=== PATIENT | female | born 1950 | race Caucasian/White ===

== ENCOUNTER 2016-09-18 14:59 | Emergency (ER) | payer MEDICARE, BC ==
[2016-09-18 15:09] VITALS: TEMP 98.3
[2016-09-18] MEDS ORDERED: SODIUM CHLORIDE 0.9% 1,000 ML IV STA (15:17)
--- NOTE | 2016-09-18 15:21 | ED ---
General Adult HPI - General Source: patient, EMS, RN notes reviewed Mode of arrival: EMS Limitations: no limitations <Kuldeep Galdamez - Last Filed: 09/18/16 15:18> <Yoshi Lobato - Last Filed: 09/18/16 17:43> - General Chief complaint: ENT Stated complaint: med reaction Time Seen by Provider: 09/18/16 15:05 - History of Present Illness Initial comments: Patient is a pleasant 66-year-old female presenting to the emergency Department with some blurred vision. Patient was shopping and developed some blurred vision. Patient states this has improved and now resolved. Patient has felt lightheaded following taking her medication for ringworm. Patient states she has been taking a pill and this has resolved for ringworm. Patient has had increased stress recently. Patient states it was warm out and she was wearing a fleece as well as a warm coat. Patient questions if she overheated herself. No chest pain. No confusion. No weakness. (Kuldeep Galdamez) - Related Data Home Medications Medication Instructions Recorded Confirmed Atenolol [Tenormin] 50 mg PO DAILY 09/18/16 09/18/16 Phenytoin Sodium Extended 100 mg PO TID 09/18/16 09/18/16 [Dilantin] Warfarin Sodium [Jantoven] 2.5 mg PO SUTUTHSA 09/18/16 09/18/16 Warfarin Sodium [Jantoven] 3.75 mg PO MOWEFR 09/18/16 09/18/16 aMILoride-HCTZ 5-50 mg [Moduretic 1 tab PO DAILY 09/18/16 09/18/16 5-50] Allergies Allergy/AdvReac Type Severity Reaction Status Date / Time dexamethasone [From Maxitrol] Allergy FACE Verified 09/18/16 15:46 SWELLING neomycin [From Maxitrol] Allergy FACE Verified 09/18/16 15:46 SWELLING polymyxin B [From Maxitrol] Allergy FACE Verified 09/18/16 15:46 SWELLING Review of Systems ROS Other: All systems not noted in ROS Statement are negative. Constitutional: Denies: fever Eyes: Denies: eye pain ENT: Denies: ear pain Respiratory: Denies: cough Cardiovascular: Denies: chest pain Endocrine: Denies: fatigue Gastrointestinal: Denies: abdominal pain Genitourinary: Denies: dysuria Skin: Denies: pruritus Neurological: Denies: headache, weakness, confusion, abnormal gait <Kuldeep Galdamez - Last Filed: 09/18/16 15:18> ROS Other: All systems not noted in ROS Statement are negative. <LobatoLuis MiguelYoshi - Last Filed: 09/18/16 17:43> ROS Statement: Those systems with pertinent positive or pertinent negative responses have been documented in the HPI. Past Medical History Past Medical History: Hypertension Additional Past Medical History / Comment(s): epilepsy History of Any Multi-Drug Resistant Organisms: None Reported Past Surgical History: No Surgical Hx Reported Past Psychological History: No Psychological Hx Reported Smoking Status: Former smoker Past Alcohol Use History: None Reported Past Drug Use History: None Reported <Kuldeep Galdamez - Last Filed: 09/18/16 15:18> General Exam Limitations: no limitations General appearance: alert, in no apparent distress Head exam: Present: atraumatic Eye exam: Present: normal appearance, PERRL, EOMI, other (Funduscopic exam within normal limits bilaterally). Absent: nystagmus ENT exam: Present: normal oropharynx Neck exam: Present: normal inspection Respiratory exam: Present: normal lung sounds bilaterally Cardiovascular Exam: Present: normal rhythm, bradycardia GI/Abdominal exam: Present: soft. Absent: tenderness Extremities exam: Present: normal inspection Neurological exam: Present: alert, oriented X3, CN II-XII intact. Absent: motor sensory deficit Expanded Speech: Present: fluid speech Cranial nerves: EOM's Intact: Normal Sensory exam: Upper Extremity Light Touch: Normal, Lower Extremity Light Touch: Normal Motor strength exam: RUE: 5, LUE: 5, RLE: 5, LLE: 5 Eye Response: (4) open spontaneously Motor Response: (6) obeys commands Verbal Response: (5) oriented Psychiatric exam: Present: normal affect, normal mood Skin exam: Present: normal color <Kuldeep Galdamez - Last Filed: 09/18/16 15:18> EKG Findings - EKG Comments: EKG Findings:: Sinus bradycardia 53. NC 136. QRS 80. QT 436. QTc 409. Normal axis. Normal QRS. Normal ST-T. <Kuldeep Galdamez - Last Filed: 09/18/16 15:18> Medical Decision Making <Kuldeep Galdamez - Last Filed: 09/18/16 15:18> - Lab Data Result diagrams: 09/18/16 16:44 09/18/16 16:44 <Yoshi Lobato - Last Filed: 09/18/16 17:43> - Medical Decision Making The patient was signed out to me by Dr. Galdamez I reinterviewed the patient she stated that she was very hot while shopping and someone lit up in [facility] and she started to feel little lightheaded and her vision became a little bit blurred it was short lived and it is resolved and then resolved ever since. Patient states she also took her ringworm medicine in the daytime when she normally takes at night. Patient states they ringworm medicine always makes her dizzy so she thinks that also contributed to her symptoms. I talked with the patient about being possibly admitted to be observed she wanted to go home. The CAT scan was negative slight discharge the patient home. (Yoshi Lobato) - Lab Data Lab Results 09/18/16 09/18/16 Range/Units 16:44 16:44 WBC 7.6 (3.8-10.6) k/uL RBC 4.56 (3.80-5.40) m/uL Hgb 15.0 (11.4-16.0) gm/dL Hct 44.6 (34.0-46.0) % MCV 97.7 (80.0-100.0) fL MCH 32.9 (25.0-35.0) pg MCHC 33.7 (31.0-37.0) g/dL RDW 12.9 (11.5-15.5) % Plt Count 212 (150-450) k/uL Neutrophils % 58 % Lymphocytes % 25 % Monocytes % 11 % Eosinophils % 3 % Basophils % 1 % Neutrophils # 4.4 (1.3-7.7) k/uL Lymphocytes # 1.9 (1.0-4.8) k/uL Monocytes # 0.8 (0-1.0) k/uL Eosinophils # 0.2 (0-0.7) k/uL Basophils # 0.0 (0-0.2) k/uL Sodium 141 (137-145) mmol/L Potassium 4.2 (3.5-5.1) mmol/L Chloride 102 (98-107) mmol/L Carbon Dioxide 27 (22-30) mmol/L Anion Gap 12 mmol/L BUN 21 H (7-17) mg/dL Creatinine 0.71 (0.52-1.04) mg/dL Est GFR (MDRD) Af Amer >60 (>60 ml/min/1.73 sqM) Est GFR (MDRD) Non-Af >60 (>60 ml/min/1.73 sqM) Glucose 91 (74-99) mg/dL Calcium 9.0 (8.4-10.2) mg/dL Total Bilirubin 0.5 (0.2-1.3) mg/dL AST 37 H (14-36) U/L ALT 30 (9-52) U/L Alkaline Phosphatase 114 (38-126) U/L Total Protein 7.4 (6.3-8.2) g/dL Albumin 3.8 (3.5-5.0) g/dL Disposition <Kuldeep Galdamez - Last Filed: 09/18/16 15:18> Time of Disposition: 17:43 <Yoshi Lobato - Last Filed: 09/18/16 17:43> Clinical Impression: Lightheaded Disposition: HOME SELF-CARE Instructions: Lightheadedness (ED)
--- NOTE | 2016-09-18 16:43 | CT ---
EXAMINATION TYPE: CT brain wo con DATE OF EXAM: 09/18/2016 4:07 PM COMPARISON: Prior CT brain 31 May 2016 HISTORY: Patient complains of dizziness, blurry vision, and history of epilepsy. CT DLP: 983.1 mGycm Automated exposure control for dose reduction was used. FINDINGS: There is no acute intracranial hemorrhage, mass effect, or midline shift identified. The ventricles and sulci are within normal limits in size. Low-attenuation in the left parietal lobe is stable. The globes are intact and the visualized sinuses are clear. IMPRESSION: No acute intracranial hemorrhage, mass effect, or midline shift is seen.
[2016-09-18 16:58] LABS: Basophils % (A) 1 %; CH 32.4; CHCM 33.3; Eosinophils # (A) 0.2 k/uL (0-0.7); Eosinophils % (A) 3 %; HCT 44.6 % (34.0-46.0); Luc # (Auto) 0.22; Luc % (Auto) 3; Lymphocytes # (A) 1.9 k/uL (1.0-4.8); Lymphocytes % (A) 25 %; MCH 32.9 pg (25.0-35.0); MCHC 33.7 g/dL (31.0-37.0); MCV 97.7 fL (80.0-100.0); Mean Platelet Volume 7.1; Monocytes # (A) 0.8 k/uL (0-1.0); Monocytes % (A) 11 %; Neutrophils # (A) 4.4 k/uL (1.3-7.7); Neutrophils % (A) 58 %; RBC 4.56 m/uL (3.80-5.40); RDW 12.9 % (11.5-15.5); WBC 7.6 k/uL (3.8-10.6); WBC (Perox) 7.83
[2016-09-18 17:15] LABS: ALT 30 U/L (9-52); AST 37 U/L (14-36); Alkaline Phosphatase 114 U/L (38-126); Anion Gap 12 mmol/L; Blood Urea Nitrogen 21 mg/dL (7-17); Carbon Dioxide 27 mmol/L (22-30); Chloride 102 mmol/L (98-107); Glucose 91 mg/dL (74-99); Non-African American GFR(MDRD) >60 (>60 ml/min/1.73 sqM); Potassium 4.2 mmol/L (3.5-5.1); Sodium 141 mmol/L (137-145); Total Bilirubin 0.5 mg/dL (0.2-1.3); Total Protein 7.4 g/dL (6.3-8.2)
[2016-09-18 17:56] VITALS: BP 115/58; PULSE 57; RESP 18
== END 2016-09-18 17:57 | disposition home or self-care (01) ==
LOC: EC 14:59
DX: R42 Dizziness and giddiness (principal); I10 Essential (primary) hypertension; G40.909 Epilepsy, unspecified, not intractable, without status epilepticus; Z87.891 Personal history of nicotine dependence; Z88.8 Allergy status to other drugs, medicaments and biological substances; Z79.01 Long term (current) use of anticoagulants; Z79.899 Other long term (current) drug therapy
CPT/HCPCS: 36415; 70450; 80053; 85025; 93005; 96360; 96361; 99285

== ENCOUNTER → 2016-12-29 | Outpatient (CLI) | payer MEDICARE, BC ==
--- NOTE | 2016-12-29 13:19 | US ---
EXAMINATION TYPE: US venous doppler duplex UE RT DATE OF EXAM: 12/29/2016 COMPARISON: NONE CLINICAL HISTORY: M79.609 R ARM PAIN. no prev dvt SIDE PERFORMED: right Grayscale, color doppler, spectral doppler imaging performed of the deep veins of the upper extremity . There is normal flow, compressability and vascular waveforms. Right Arm: neg for DVT IMPRESSION: No evidence for DVT right arm.
== END | disposition home or self-care (01) ==
LOC: RADUSWWP 12:39
PROVIDERS: ATTEND Family Medicine
DX: M79.601 Pain in right arm (principal)

== ENCOUNTER → 2017-02-15 | Outpatient (CLI) | payer MEDICARE, BC ==
--- NOTE | 2017-02-15 18:14 | XR ---
EXAMINATION TYPE: XR hand complete LT DATE OF EXAM: 02/15/2017 COMPARISON: NONE HISTORY: Pain TECHNIQUE: 3 views FINDINGS: There is narrowing and spurring at the first carpometacarpal joint. There is mild hyperexte nsion deformity at the first MP joint. There is some deformity of the base of the fourth and fifth metacarpals consistent with acute transve rse fractures. There is no dislocation. IMPRESSION: Osteoarthritis at the base of the thumb. Nondisplaced fractures of the proximal fourth an d fifth metacarpals.
== END | disposition home or self-care (01) ==
LOC: RADXRMAIN 16:58
PROVIDERS: ATTEND Family Medicine
DX: S62.345A Nondisplaced fracture of base of fourth metacarpal bone, left hand, initial encounter for closed fracture (principal); S62.347A Nondisplaced fracture of base of fifth metacarpal bone, left hand, initial encounter for closed fracture; M18.12 Unilateral primary osteoarthritis of first carpometacarpal joint, left hand

== ENCOUNTER 2017-12-04 17:39 | Emergency (ER) | payer MEDICARE, BC ==
[2017-12-04 18:32] LABS: Basophils # (A) 0.1 k/uL (0-0.2); Basophils % (A) 1 %; Eosinophils # (A) 0.4 k/uL (0-0.7); Eosinophils % (A) 5 %; HGB 14.7 gm/dL (11.4-16.0); Lymphocytes # (A) 2.6 k/uL (1.0-4.8); Lymphocytes % (A) 27 %; MCH 32.4 pg (25.0-35.0); MCHC 34.2 g/dL (31.0-37.0); MCV 94.7 fL (80.0-100.0); Mean Platelet Volume 6.9; Monocytes # (A) 0.9 k/uL (0-1.0); Monocytes % (A) 10 %; Neutrophils # (A) 5.3 k/uL (1.3-7.7); Neutrophils % (A) 55 %; Platelet Count 224 k/uL (150-450); RBC 4.54 m/uL (3.80-5.40); RDW 12.6 % (11.5-15.5); WBC 9.7 k/uL (3.8-10.6)
[2017-12-04 18:33] LABS: INR 3.3 (<1.2); Prothrombin Time 29.4 sec (9.0-12.0)
--- NOTE | 2017-12-04 18:46 | ED ---
General Adult HPI - General Chief complaint: Dizziness Stated complaint: Fall Source: patient Mode of arrival: wheelchair Limitations: no limitations - History of Present Illness Initial comments: HPI Macro Chief Complaint: 67-year-old female with past medical history of thoracic outlet syndrome on Coumadin, vertigo hypertension and epilepsy presents with dizziness and right knee pain. History of Present Illness: Patient is a 67 her old female past medical history of vertigo hypertension and thoracic outlet syndrome presents with right knee pain. Patient states that her symptoms began on the 16th of last month where she spritzer episode of dizziness where she fell. It's falling to her knees. Patient then had another episode approximately 1 week ago where she fell again. She has not been compliant with her Antivert medication. States an episode of dizziness causing her to fall at the grocery store. She states she landed on her right knee again. Patient noted ecchymoses to the right leg compared to the left. Patient states that she bruises easily. Past Medical History: Thoracic outlet syndrome, epilepsy, hypertension Past Surgical History:[reviewed, none to report] Social History: [denies alcohol, tobacco or illicit drug use] Family History: reviewed and noncontributory The ROS documented in this emergency department record has been reviewed and confirmed by me. Those systems with pertinent positive or negative responses have been documented in the HPI. All other systems are other negative and/or noncontributory. - Related Data Home Medications Medication Instructions Recorded Confirmed Atenolol [Tenormin] 50 mg PO DAILY 09/18/16 12/04/17 Phenytoin Sodium Extended 100 mg PO TID 09/18/16 12/04/17 [Dilantin] Warfarin Sodium [Jantoven] 2.5 mg PO HS 09/18/16 12/04/17 Warfarin Sodium [Jantoven] 5 mg PO MOWEFR 09/18/16 12/04/17 aMILoride-HCTZ 5-50 mg [Moduretic 1 tab PO DAILY 09/18/16 12/04/17 5-50] Aspirin EC [Ecotrin Low Dose] 81 mg PO DAILY 12/04/17 12/04/17 Betamethasone Dipropionate 1 applic TOPICAL DAILY PRN 12/04/17 12/04/17 [Diprolene AF 0.05% Cream] Clotrimazole Cream [Lotrimin Cream] 1 applic TOPICAL DAILY PRN 12/04/17 12/04/17 Meclizine [Antivert] 25 mg PO Q8H PRN 12/04/17 12/04/17 Allergies Allergy/AdvReac Type Severity Reaction Status Date / Time dexamethasone [From Maxitrol] Allergy FACE Verified 12/04/17 18:21 SWELLING neomycin [From Maxitrol] Allergy FACE Verified 12/04/17 18:21 SWELLING polymyxin B [From Maxitrol] Allergy FACE Verified 12/04/17 18:21 SWELLING Review of Systems ROS Statement: Those systems with pertinent positive or pertinent negative responses have been documented in the HPI. ROS Other: All systems not noted in ROS Statement are negative. Past Medical History Past Medical History: Hypertension Additional Past Medical History / Comment(s): epilepsy, thoracic outlet syndrome History of Any Multi-Drug Resistant Organisms: None Reported Past Surgical History: No Surgical Hx Reported Past Psychological History: No Psychological Hx Reported Smoking Status: Former smoker Past Alcohol Use History: None Reported Past Drug Use History: None Reported General Exam - General Exam Comments Initial Comments: Vitals: Vital signs upon arrival shows findings within acceptable limits PHYSICAL EXAM: General Impression: Alert and oriented x3, not in acute distress HEENT: Normocephalic atraumatic, extra-ocular movements intact, pupils equal and reactive to light bilaterally, mucous membranes moist. Cardiovascular: Heart regular rate and rhythm, S1&S2 audible, no murmurs, rubs or gallops Chest: Lungs clear to auscultation bilaterally, no rhonchi, no wheeze, no rales Abdomen: Bowel sounds present, abdomen soft, non-tender, non-distended, no organomegaly Musculoskeletal: Pulses present and equal in all extremities, right calf swelling compared to the left with diffuse ecchymoses to the entire right lower extremity. There is tenderness with palpation over the fibular head Motor: Power 5/5 bilaterally, no focal deficits noted Neurological: CN II-XII grossly intact, no focal motor or sensory deficits noted Skin: Intact with no visualized rashes Psych: Normal affect and mood Limitations: no limitations Course Vital Signs 12/04/17 12/04/17 12/04/17 17:49 18:56 19:05 Temperature 98.4 F 97.7 F Pulse Rate 59 L 58 L 57 L Respiratory 18 16 18 Rate Blood Pressure 158/74 169/85 121/83 O2 Sat by Pulse 93 L 95 95 Oximetry Medical Decision Making - Medical Decision Making ED course: 67-year-old female with past medical history of vertigo presents with right lower extremity pain. Patient had suffered multiple falls within the last month. She complains of medical injury according last week. This morning she came to the emergency department secondary to the reason of right lower extremity swelling. Physical examination shows diffuse ecchymoses to the right lower extremity extending from the right knee down to the right ankle. Compartments are soft. There is significant swelling to the right mid calf region.Laboratory evaluation obtained. CBC is unremarkable. Normal hemoglobin. INR is 3.3 slightly above therapeutic limit. Basic metabolic panel shows elevated bicarb of 31. This allows unremarkable. Urinalysis shows 30 cacciatore patient denies any urinary symptoms. Venous Doppler shows no acute processes. Chest x-ray shows no acute processes. Computed tomography scan of the head and C-spine shows no acute processes. CT lower lower extremity was ordered for possible hematoma formation in the right lower extremity. No hematoma noted furthermore there is no traumatic injuries. Patient to be discharged. She is told that her INR slightly above therapeutic limit. At this point there is no life-threatening bleeding issues at the moment. Patient given Antivert with improvement of her vertiginous symptoms. She is advised to follow-up with a primary care physician upon discharge. No clinical suspicion of vertebrobasilar insufficiency causing dizziness or other causes of central vertigo at this time. She is understandable and agreeable to this plan. She is advised to return to the emergency Department with any worsening symptoms. She is told to be more compliant with her Antivert medications per she states she does not need a refill for this medication she has them at home. EKG interpretation: Ventricular rate 54. Sinus bradycardia rhythm. IA interval 144, care surgeon 84, QTC 421 No IA prolongation, no QTC prolongation, no ST or T-wave changes noted. Overall, this EKG is unremarkable Final impression: 1. Right lower extremity ecchymoses, 2. Vertigo - Lab Data Result diagrams: 12/04/17 18:15 12/04/17 18:15 Lab Results 12/04/17 12/04/17 12/04/17 Range/Units 18:15 18:15 18:15 WBC 9.7 (3.8-10.6) k/uL RBC 4.54 (3.80-5.40) m/uL Hgb 14.7 (11.4-16.0) gm/dL Hct 43.0 (34.0-46.0) % MCV 94.7 (80.0-100.0) fL MCH 32.4 (25.0-35.0) pg MCHC 34.2 (31.0-37.0) g/dL RDW 12.6 (11.5-15.5) % Plt Count 224 (150-450) k/uL Neutrophils % 55 % Lymphocytes % 27 % Monocytes % 10 % Eosinophils % 5 % Basophils % 1 % Neutrophils # 5.3 (1.3-7.7) k/uL Lymphocytes # 2.6 (1.0-4.8) k/uL Monocytes # 0.9 (0-1.0) k/uL Eosinophils # 0.4 (0-0.7) k/uL Basophils # 0.1 (0-0.2) k/uL PT 29.4 H (9.0-12.0) sec INR 3.3 H (<1.2) Sodium 139 (137-145) mmol/L Potassium 4.1 (3.5-5.1) mmol/L Chloride 99 (98-107) mmol/L Carbon Dioxide 31 H (22-30) mmol/L Anion Gap 9 mmol/L BUN 22 H (7-17) mg/dL Creatinine 0.67 (0.52-1.04) mg/dL Est GFR (CKD-EPI)AfAm >90 (>60 ml/min/1.73 sqM) Est GFR (CKD-EPI)NonAf >90 (>60 ml/min/1.73 sqM) Glucose 93 (74-99) mg/dL Calcium 9.1 (8.4-10.2) mg/dL Magnesium 1.9 (1.6-2.3) mg/dL Urine Color Urine Appearance (Clear) Urine pH (5.0-8.0) Ur Specific Howard (1.001-1.035) Urine Protein (Negative) Urine Glucose (UA) (Negative) Urine Ketones (Negative) Urine Blood (Negative) Urine Nitrite (Negative) Urine Bilirubin (Negative) Urine Urobilinogen (<2.0) mg/dL Ur Leukocyte Esterase (Negative) Urine RBC (0-5) /hpf Urine WBC (0-5) /hpf Ur Squamous Epith Cells (0-4) /hpf Urine Bacteria (None) /hpf Hyaline Casts (0-2) /lpf Urine Mucus (None) /hpf 12/04/17 Range/Units 18:50 WBC (3.8-10.6) k/uL RBC (3.80-5.40) m/uL Hgb (11.4-16.0) gm/dL Hct (34.0-46.0) % MCV (80.0-100.0) fL MCH (25.0-35.0) pg MCHC (31.0-37.0) g/dL RDW (11.5-15.5) % Plt Count (150-450) k/uL Neutrophils % % Lymphocytes % % Monocytes % % Eosinophils % % Basophils % % Neutrophils # (1.3-7.7) k/uL Lymphocytes # (1.0-4.8) k/uL Monocytes # (0-1.0) k/uL Eosinophils # (0-0.7) k/uL Basophils # (0-0.2) k/uL PT (9.0-12.0) sec INR (<1.2) Sodium (137-145) mmol/L Potassium (3.5-5.1) mmol/L Chloride (98-107) mmol/L Carbon Dioxide (22-30) mmol/L Anion Gap mmol/L BUN (7-17) mg/dL Creatinine (0.52-1.04) mg/dL Est GFR (CKD-EPI)AfAm (>60 ml/min/1.73 sqM) Est GFR (CKD-EPI)NonAf (>60 ml/min/1.73 sqM) Glucose (74-99) mg/dL Calcium (8.4-10.2) mg/dL Magnesium (1.6-2.3) mg/dL Urine Color Yellow Urine Appearance Cloudy H (Clear) Urine pH 6.5 (5.0-8.0) Ur Specific Howard 1.019 (1.001-1.035) Urine Protein 1+ H (Negative) Urine Glucose (UA) Negative (Negative) Urine Ketones Negative (Negative) Urine Blood Negative (Negative) Urine Nitrite Negative (Negative) Urine Bilirubin Negative (Negative) Urine Urobilinogen <2.0 (<2.0) mg/dL Ur Leukocyte Esterase Moderate H (Negative) Urine RBC 1 (0-5) /hpf Urine WBC 4 (0-5) /hpf Ur Squamous Epith Cells 7 H (0-4) /hpf Urine Bacteria Many H (None) /hpf Hyaline Casts 20 H (0-2) /lpf Urine Mucus Occasional H (None) /hpf Disposition Clinical Impression: Ecchymosis, Vertigo Disposition: HOME SELF-CARE Condition: Stable Instructions: Dizziness (ED) Is patient prescribed a controlled substance at d/c from ED?: No Referrals: Isauro Nath DO [Primary Care Provider] - 1-2 days Time of Disposition: 21:18
[2017-12-04 19:06] VITALS: RESP 18
[2017-12-04 19:07] LABS: Appearance,Urine Cloudy (Clear); Bacteria,Urine Many /hpf; Bilirubin,Urine Negative (Negative); Blood,Urine Negative (Negative); Color,Urine Yellow; Glucose,Urine (UA) Negative (Negative); Hyaline Casts,Urine 20 /lpf (0-2); Ketones,Urine Negative (Negative); Leukocyte Esterase,Urine Moderate (Negative); Mucus,Urine Occasional /hpf; Nitrite,Urine Negative (Negative); PH, Urine 6.5 (5.0-8.0); Protein,Urine 1+ (Negative); RBC,Urine 1 /hpf (0-5); Specific Gravity,Urine 1.019 (1.001-1.035); Squamous Epithelial Cell,Urine 7 /hpf (0-4); Urobilinogen,Urine <2.0 mg/dL (<2.0); WBC,Urine 4 /hpf (0-5)
--- NOTE | 2017-12-04 19:10 | CT ---
EXAMINATION TYPE: CT brain cspine wo con DATE OF EXAM: 12/04/2017 COMPARISON: Prior CT study of the head dated 09/18/2016. HISTORY: Fall. CT DLP: 2114 mGycm Automated exposure control for dose reduction was used. TECHNIQUE: CT scan of the head and cervical spine are performed without contrast. FINDINGS: There is no acute intracranial hemorrhage, mass effect, or midline shift identified. The ventricles and sulci are symmetrical. The globes are intact and the visualized sinuses are clear. P rominent cortical sulci, basilar cisterns and sylvian fissures indicating atrophic changes. Chronic d iminished attenuation along the left frontoparietal hemisphere consistent with a prior cortical infar ct. No changes compared with the prior CT study. Cervical spine is visualized in its entirety from C1 through upper thoracic levels and demonstrates s atisfactory alignment without evidence of acute fracture or dislocation. Prevertebral soft tissue ap pears within normal limits. The C1-C2 articulation is unremarkable. Osteophytic spur formation are noted throughout the cervical spine with loss of height at the interve rtebral disc spaces of the C3-C4, C4-C5, C5-C6 and C6-C7 intervertebral disc spaces. No acute sekou jessica fracture or malalignment. No jumped facet. Visualized portion of the right lung apex are clear. IMPRESSION: 1. There is no acute fracture or dislocation evident in the cervical spine. 2. No acute intracranial hemorrhage, mass effect, or midline shift is seen. Atrophic changes are note d consistent with a patient age. 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
[2017-12-04] MEDS ORDERED: MECLIZINE 12.5 MG TAB PO STA (19:15)
--- NOTE | 2017-12-04 19:16 | CT ---
EXAMINATION TYPE: CT lower extremity RT wo con DATE OF EXAM: 12/04/2017 COMPARISON: NONE HISTORY: Right lower leg pain after fall. CT DLP: 779 mGycm Automated exposure control for dose reduction was used. Technique: Axial, sagittal and coronal images were acquired of the right knee and proximal tib-fib. FINDINGS: Generalized soft tissue swelling without acute fracture. Soft tissue swelling in both the medial and lateral aspect of the ankles. IMPRESSION: GENERALIZED SOFT TISSUE SWELLING WITHOUT ACUTE FRACTURE OR FOCAL BONY DESTRUCTION.
--- NOTE | 2017-12-04 19:18 | XR ---
EXAMINATION TYPE: XR chest 2V DATE OF EXAM: 12/04/2017 COMPARISON: NONE. No prior study available in the PACS system. HISTORY: Dizziness, post fall, right f oot swelling. TECHNIQUE: Frontal and lateral views of the chest are obtained. FINDINGS: There is no focal air space opacity, pleural effusion, or pneumothorax seen. The cardiac silhouette size is within normal limits. The osseous structures are intact. IMPRESSION: No acute cardiopulmonary process.
[2017-12-04 19:27] LABS: Anion Gap 9 mmol/L; Blood Urea Nitrogen 22 mg/dL (7-17); Calcium 9.1 mg/dL (8.4-10.2); Carbon Dioxide 31 mmol/L (22-30); Chloride 99 mmol/L (98-107); Glucose 93 mg/dL (74-99); Magnesium 1.9 mg/dL (1.6-2.3); Potassium 4.1 mmol/L (3.5-5.1); Sodium 139 mmol/L (137-145)
--- NOTE | 2017-12-04 21:06 | US ---
EXAMINATION TYPE: US venous doppler duplex LE RT DATE OF EXAM: 12/04/2017 8:43 PM COMPARISON: NONE CLINICAL HISTORY: Pain. SIDE PERFORMED: Right TECHNIQUE: The lower extremity deep venous system is examined utilizing real time linear array sonog steven with graded compression, doppler sonography and color-flow sonography. VESSELS IMAGED: External Iliac Vein (EIV) Common Femoral Vein Deep Femoral Vein Greater Saphenous Vein * Femoral Vein Popliteal Vein Small Saphenous Vein * Proximal Calf Veins (* superficial vessels) Right Leg: Negative for DVT IMPRESSION: Grayscale, color doppler, spectral doppler imaging performed of the deep veins of the lo wer extremities. There is normal flow, compressibility, vascular waveforms. No evidence of deep dominik ous thrombosis at or above the right knee.
[2017-12-04 21:37] VITALS: BP 145/86; PULSE 83; TEMP 97.8
== END 2017-12-04 21:37 | disposition home or self-care (01) ==
LOC: EC 17:39
DX: S80.01XA Contusion of right knee, initial encounter (principal); S80.11XA Contusion of right lower leg, initial encounter; S90.01XA Contusion of right ankle, initial encounter; R42 Dizziness and giddiness; G54.0 Brachial plexus disorders; I10 Essential (primary) hypertension; G40.909 Epilepsy, unspecified, not intractable, without status epilepticus; Z88.1 Allergy status to other antibiotic agents; Z88.8 Allergy status to other drugs, medicaments and biological substances; Z79.01 Long term (current) use of anticoagulants; Z79.82 Long term (current) use of aspirin; Z79.899 Other long term (current) drug therapy; Z87.891 Personal history of nicotine dependence; W19.XXXA Unspecified fall, initial encounter; Y92.512 Supermarket, store or market as the place of occurrence of the external cause
CPT/HCPCS: 36415; 70450; 71046; 72125; 80048; 81001; 83735; 85025; 85610; 93005; 99285

== ENCOUNTER 2018-08-10 13:56 | Emergency (ER) | payer MEDICARE, BC ==
--- NOTE | 2018-08-10 14:21 | ED ---
Lower Extremity Injury HPI - General Chief Complaint: Extremity Injury, Lower Stated Complaint: Possible blood clot Time Seen by Provider: 08/10/18 14:09 Source: patient, RN notes reviewed Mode of arrival: ambulatory Limitations: no limitations - History of Present Illness Initial Comments: 68-year-old female presents emergency Department with chief complaint of right leg redness. Patient states started overnight. Patient called PCP who is concerned about possible DVT. Patient does take Coumadin but has not had it checked recently. Patient denies any fever, chills, injury. Patient states is mildly discomfort. Patient had prior vein removal to her right leg secondary to thoracic outlet syndrome patient denies any paresthesias patient offers no other complaints. - Related Data Home Medications Medication Instructions Recorded Confirmed Atenolol [Tenormin] 50 mg PO DAILY 09/18/16 08/10/18 Phenytoin Sodium Extended 100 mg PO TID 09/18/16 08/10/18 [Dilantin] Warfarin Sodium [Jantoven] 2.5 mg PO SUMOWEFR 09/18/16 08/10/18 Warfarin Sodium [Jantoven] 5 mg PO TUTHSA 09/18/16 08/10/18 aMILoride-HCTZ 5-50 mg [Moduretic 1 tab PO DAILY 09/18/16 08/10/18 5-50] Aspirin EC [Ecotrin Low Dose] 81 mg PO DAILY 12/04/17 08/10/18 Meclizine [Antivert] 25 mg PO Q8H PRN 12/04/17 08/10/18 Cholecalciferol [Vitamin D3] 1,000 unit PO DAILY 08/10/18 08/10/18 Previous Rx's Medication Instructions Recorded Cephalexin [Keflex] 500 mg PO Q6HR #28 cap 08/10/18 Allergies Allergy/AdvReac Type Severity Reaction Status Date / Time dexamethasone [From Maxitrol] Allergy FACE Verified 08/10/18 15:25 SWELLING neomycin [From Maxitrol] Allergy FACE Verified 08/10/18 15:25 SWELLING polymyxin B [From Maxitrol] Allergy FACE Verified 08/10/18 15:25 SWELLING Review of Systems ROS Statement: Those systems with pertinent positive or pertinent negative responses have been documented in the HPI. ROS Other: All systems not noted in ROS Statement are negative. Past Medical History Past Medical History: Hypertension Additional Past Medical History / Comment(s): epilepsy, thoracic outlet syndrome History of Any Multi-Drug Resistant Organisms: None Reported Past Surgical History: No Surgical Hx Reported Past Psychological History: No Psychological Hx Reported Smoking Status: Former smoker Past Alcohol Use History: None Reported Past Drug Use History: None Reported General Exam Limitations: no limitations General appearance: alert, in no apparent distress Head exam: Present: atraumatic, normocephalic, normal inspection Respiratory exam: Present: normal lung sounds bilaterally. Absent: respiratory distress, wheezes, rales, rhonchi, stridor Cardiovascular Exam: Present: regular rate, normal rhythm, normal heart sounds. Absent: systolic murmur, diastolic murmur, rubs, gallop, clicks Extremities exam: Present: other (Railing mild erythema noted from the foot to the knee, is slightly petechial, no increase warmth pulses equal bilaterally old scarring noted, tenderness) Skin exam: Present: warm, dry, intact Course Vital Signs 08/10/18 14:06 Temperature 97.9 F Pulse Rate 59 L Respiratory 18 Rate Blood Pressure 131/75 O2 Sat by Pulse 95 Oximetry Medical Decision Making - Medical Decision Making 68-year-old female presented for right leg swelling or redness. I was obtained which negative for acute DVT, INR is therapeutic. Patient has mild leukocytosis which she did for cellulitis of the right leg with Keflex. Return parameters were discussed. - Lab Data Result diagrams: 08/10/18 14:53 08/10/18 14:53 Lab Results 08/10/18 08/10/18 08/10/18 Range/Units 14:53 14:53 14:53 WBC 14.4 H (3.8-10.6) k/uL RBC 5.12 (3.80-5.40) m/uL Hgb 16.2 H (11.4-16.0) gm/dL Hct 49.5 H (34.0-46.0) % MCV 96.8 (80.0-100.0) fL MCH 31.7 (25.0-35.0) pg MCHC 32.8 (31.0-37.0) g/dL RDW 12.3 (11.5-15.5) % Plt Count 195 (150-450) k/uL Neutrophils % 71 % Lymphocytes % 16 % Monocytes % 9 % Eosinophils % 1 % Basophils % 1 % Neutrophils # 10.2 H (1.3-7.7) k/uL Lymphocytes # 2.3 (1.0-4.8) k/uL Monocytes # 1.4 H (0-1.0) k/uL Eosinophils # 0.2 (0-0.7) k/uL Basophils # 0.1 (0-0.2) k/uL PT 27.9 H (9.0-12.0) sec INR 2.9 H (<1.2) APTT 39.1 H (22.0-30.0) sec Sodium 137 (137-145) mmol/L Potassium 4.3 (3.5-5.1) mmol/L Chloride 98 (98-107) mmol/L Carbon Dioxide 31 H (22-30) mmol/L Anion Gap 8 mmol/L BUN 23 H (7-17) mg/dL Creatinine 0.87 (0.52-1.04) mg/dL Est GFR (CKD-EPI)AfAm 80 (>60 ml/min/1.73 sqM) Est GFR (CKD-EPI)NonAf 69 (>60 ml/min/1.73 sqM) Glucose 102 H (74-99) mg/dL Calcium 9.2 (8.4-10.2) mg/dL Disposition Clinical Impression: Cellulitis of right leg Disposition: HOME SELF-CARE Condition: Stable Instructions (If sedation given, give patient instructions): Cellulitis (ED) Additional Instructions: Please return to the Emergency Department if symptoms worsen or any other concerns. Prescriptions: Cephalexin [Keflex] 500 mg PO Q6HR #28 cap Is patient prescribed a controlled substance at d/c from ED?: No Referrals: Isauro Nath DO [Primary Care Provider] - 1-2 days Time of Disposition: 15:50
--- NOTE | 2018-08-10 15:12 | US ---
EXAMINATION TYPE: US venous doppler duplex LE RT DATE OF EXAM: 08/10/2018 3:02 PM COMPARISON: NONE CLINICAL HISTORY: Pain. 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 SIDE PERFORMED: right TECHNIQUE: The lower extremity deep venous system is examined utilizing real time linear array sonog steven with graded compression, doppler sonography and color-flow sonography. VESSELS IMAGED: External Iliac Vein (EIV) Common Femoral Vein Deep Femoral Vein Greater Saphenous Vein * Femoral Vein Popliteal Vein Small Saphenous Vein * Proximal Calf Veins (* superficial vessels) Grayscale, color doppler, spectral doppler imaging performed of the deep veins of the right lower ext remity. There is normal flow, compressibility, vascular waveforms. Right Leg: Appears negative for DVT IMPRESSION: No sonographic evidence of deep venous thrombosis within the right lower extremity.
[2018-08-10 15:17] LABS: Basophils # (A) 0.1 k/uL (0-0.2); Basophils % (A) 1 %; Eosinophils # (A) 0.2 k/uL (0-0.7); Eosinophils % (A) 1 %; HCT 49.5 % (34.0-46.0); HGB 16.2 gm/dL (11.4-16.0); Lymphocytes # (A) 2.3 k/uL (1.0-4.8); Lymphocytes % (A) 16 %; MCH 31.7 pg (25.0-35.0); MCHC 32.8 g/dL (31.0-37.0); MCV 96.8 fL (80.0-100.0); Mean Platelet Volume 7.6; Monocytes # (A) 1.4 k/uL (0-1.0); Monocytes % (A) 9 %; Neutrophils # (A) 10.2 k/uL (1.3-7.7); Neutrophils % (A) 71 %; Platelet Count 195 k/uL (150-450); RBC 5.12 m/uL (3.80-5.40); RDW 12.3 % (11.5-15.5); WBC 14.4 k/uL (3.8-10.6)
[2018-08-10 15:22] LABS: Calcium 9.2 mg/dL (8.4-10.2); Potassium 4.3 mmol/L (3.5-5.1)
[2018-08-10 15:23] LABS: INR 2.9 (<1.2)
[2018-08-10 15:24] LABS: Partial Thromboplastin Time 39.1 sec (22.0-30.0); Prothrombin Time 27.9 sec (9.0-12.0)
[2018-08-10 16:14] VITALS: BP 127/80; PULSE 64; RESP 16; TEMP 97.6
== END 2018-08-10 16:13 | disposition home or self-care (01) ==
LOC: EC 13:56
DX: L03.115 Cellulitis of right lower limb (principal); D72.829 Elevated white blood cell count, unspecified; L90.5 Scar conditions and fibrosis of skin; I10 Essential (primary) hypertension; G54.0 Brachial plexus disorders; G40.909 Epilepsy, unspecified, not intractable, without status epilepticus; Z87.891 Personal history of nicotine dependence; Z79.01 Long term (current) use of anticoagulants; Z88.1 Allergy status to other antibiotic agents; Z88.8 Allergy status to other drugs, medicaments and biological substances; Z79.82 Long term (current) use of aspirin; Z79.899 Other long term (current) drug therapy; Z98.890 Other specified postprocedural states
CPT/HCPCS: 36415; 80048; 85025; 85610; 85730; 99284

== ENCOUNTER 2019-12-11 21:27 | Observation (INO) | payer MEDICARE, BC ==
[2019-12-11] MEDS ORDERED: ACETAMINOPHEN TAB 325 MG TAB PO STA (21:55)
[2019-12-11 22:09] LABS: Basophils # (A) 0.1 k/uL (0-0.2); Basophils % (A) 1 %; Eosinophils # (A) 0.4 k/uL (0-0.7); Eosinophils % (A) 4 %; HGB 14.6 gm/dL (11.4-16.0); Lymphocytes # (A) 2.1 k/uL (1.0-4.8); Lymphocytes % (A) 21 %; MCH 31.1 pg (25.0-35.0); MCHC 31.7 g/dL (31.0-37.0); MCV 98.1 fL (80.0-100.0); Mean Platelet Volume 7.4; Monocytes # (A) 1.1 k/uL (0-1.0); Monocytes % (A) 11 %; Neutrophils # (A) 5.9 k/uL (1.3-7.7); Neutrophils % (A) 59 %; Platelet Count 254 k/uL (150-450); RBC 4.69 m/uL (3.80-5.40); RDW 12.7 % (11.5-15.5)
[2019-12-11 22:18] LABS: INR 2.2 (<1.2); Prothrombin Time 21.3 sec (9.0-12.0)
[2019-12-11 22:39] LABS: ALT 20 U/L (4-34); AST 31 U/L (14-36); African American GFR (CKD) >90 (>60 ml/min/1.73 sqM); Albumin 4.1 g/dL (3.5-5.0); Alkaline Phosphatase 148 U/L (38-126); Anion Gap 8 mmol/L; Blood Urea Nitrogen 23 mg/dL (7-17); Carbon Dioxide 33 mmol/L (22-30); Chloride 95 mmol/L (98-107); Glucose 109 mg/dL (74-99); Non-African American GFR(CKD) >90 (>60 ml/min/1.73 sqM); Potassium 3.6 mmol/L (3.5-5.1); Sodium 136 mmol/L (137-145); Total Bilirubin 0.3 mg/dL (0.2-1.3); Total Protein 7.4 g/dL (6.3-8.2)
--- NOTE | 2019-12-11 22:57 | US ---
EXAMINATION TYPE: US venous doppler duplex LE RT DATE OF EXAM: 12/11/2019 10:40 PM COMPARISON: US 2019 CLINICAL HISTORY: leg pain. Pain right leg per order. Numbness right leg. Hx thoracic outlet syndrome . Patient takes coumadin. Hx vein surgery on right leg. SIDE PERFORMED: Right TECHNIQUE: The lower extremity deep venous system is examined utilizing real time linear array sonog steven with graded compression, doppler sonography and color-flow sonography. VESSELS IMAGED: External Iliac Vein (EIV) Common Femoral Vein Deep Femoral Vein Greater Saphenous Vein * Femoral Vein Popliteal Vein Small Saphenous Vein * Proximal Calf Veins (* superficial vessels) Right Leg: No evidence of DVT in veins imaged at this time from prox calf veins to EIV. IMPRESSION: No sign of right leg deep vein thrombosis.
[2019-12-11 23:00] LABS: Appearance,Urine Turbid (Clear); Bacteria,Urine Many /hpf; Bilirubin,Urine Negative (Negative); Blood,Urine Trace (Negative); Color,Urine Yellow; Glucose,Urine (UA) Negative (Negative); Ketones,Urine Negative (Negative); Leukocyte Esterase,Urine Large (Negative); Mucus,Urine Occasional /hpf; Nitrite,Urine Negative (Negative); PH, Urine 5.5 (5.0-8.0); Protein,Urine Trace (Negative); RBC,Urine 18 /hpf (0-5); Specific Gravity,Urine 1.022 (1.001-1.035); Squamous Epithelial Cell,Urine 48 /hpf (0-4); Urobilinogen,Urine <2.0 mg/dL (<2.0); WBC,Urine 113 /hpf (0-5)
--- NOTE | 2019-12-11 23:03 | CT ---
EXAMINATION TYPE: CT brain wo con DATE OF EXAM: 12/11/2019 COMPARISON: 12/04/2017 HISTORY: weakness. ams. CT DLP: 1129.9 mGycm Automated exposure control for dose reduction was used. Exam performed without contrast. There is mild cerebral cortical atrophy. There is 3 cm wedge-shaped area of hypodensity left posterio r temporal lobe consistent with old cortical infarct. There is no mass effect nor midline shift. Ther e is no sign of intracranial hemorrhage. Calvarium is intact. 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 Cerebral atrophy. No change compared to old exam. No acute intracranial abnormality.
--- NOTE | 2019-12-11 23:04 | XR ---
EXAMINATION TYPE: XR chest 2V DATE OF EXAM: 12/11/2019 COMPARISON: 12/04/2017 HISTORY: Dizziness TECHNIQUE: 2 views FINDINGS: Heart and mediastinum are normal. There is 1 cm nodular density that is dense in the latera l aspect of the left midlung. The other lung womack are clear. There is no pleural effusion. Bony tho rax is intact. IMPRESSION: There is nodular density in the left lung that is new compared to old exam and could be a calcified granuloma. Normal heart.
--- NOTE | 2019-12-11 23:10 | CT ---
EXAMINATION TYPE: CT angio head neck DATE OF EXAM: 12/11/2019 COMPARISON: None HISTORY: weakness. ams. CT DLP: 385.5 mGycm Automated exposure control for dose reduction was used. CONTRAST: Performed with IV Contrast, patient injected with 65cc mL of Isovue 370. Multiple axial sections were obtained from the aortic arch to the vertex of the brain with IV contras t and 3-D post processed images. There is normal branching pattern of the great vessels on the aortic arch. There is bilateral arteria l flow in the subclavian arteries. There is bilateral arterial flow in the common internal and multi punch operator al carotid arteries. There is bilateral arterial flow in the vertebral arteries. There is no evidence of carotid or vertebral artery aneurysm or dissection. There is mild plaque formation at the left ca rotid artery bifurcation and approximate 25% stenosis. Right carotid artery bifurcation appears widel y patent. There is normal appearance of the vertebrobasilar artery system. There is arterial flow in the anteri or middle and posterior cerebral arteries. I see no evidence of intracranial arterial stenosis. There is normal contrast opacification of the venous sinuses. There is no mass effect. There is no sign of aneurysm or neovascularity. Both anterior cerebral arteries appear to fill entirely from the left si de. IMPRESSION: Negative CT angiogram of the brain. 25% stenosis at the origin of the left internal carotid artery. Otherwise negative CT angiogram of th e neck.
--- NOTE | 2019-12-11 23:30 | ED ---
General Adult HPI - General Chief complaint: Neuro Symptoms/Deficit Stated complaint: Rt Leg Tingling Time Seen by Provider: 12/11/19 21:27 Source: patient, EMS Mode of arrival: EMS Limitations: no limitations - History of Present Illness Initial comments: Patient is a 69-year-old female with past history of thoracic outlet syndrome who presents emergency Department with reported paresthesias in her right lower extremity. States that she was sleeping when she had sudden onset of the symptoms and her daughter woke her from sleep. She attempted to ambulate however she felt as if "she didn't have any control of her lower extremity" patient denies any previous history of CVA. No speech difficulties. Denies any visual changes. Patient denies any numbness or tingling in her right upper extremity. Patient admits to previous vein harvest in that extremity do to thoracic outlet. Denies that she's had any symptoms or issues after the procedure. Does admit to some mild lower externally swelling. Upon arrival the patient reports that movement has improved however still has the subjective paresthesias. Denies a history of DVT or PE. No fevers or chills. No headaches there are no alleviating, precipitating or modifying factors - Related Data Home Medications Medication Instructions Recorded Confirmed Atenolol [Tenormin] 50 mg PO DAILY 09/18/16 12/12/19 Phenytoin Sodium Extended 100 mg PO TID 09/18/16 12/12/19 [Dilantin] Warfarin Sodium [Jantoven] 2.5 mg PO SUMOTUWEFRSA 09/18/16 12/12/19 Warfarin Sodium [Jantoven] 5 mg PO TH 09/18/16 12/12/19 Aspirin EC [Ecotrin Low Dose] 81 mg PO DAILY 12/04/17 12/12/19 Cholecalciferol [Vitamin D3 (25 1,000 unit PO DAILY 08/10/18 12/12/19 Mcg = 1000 Iu)] Hydrochlorothiazide 50 mg PO DAILY 12/12/19 12/12/19 aMILoride HCL 5 mg PO DAILY 12/12/19 12/12/19 Previous Rx's Medication Instructions Recorded Rosuvastatin Calcium [Crestor] 10 mg PO DAILY #30 tab 12/13/19 Allergies Allergy/AdvReac Type Severity Reaction Status Date / Time bacitracin Allergy Rash/Hives Verified 12/12/19 07:04 [From Neosporin ([id number])] dexamethasone [From Maxitrol] Allergy FACE Verified 12/12/19 07:04 SWELLING neomycin [From Maxitrol] Allergy FACE Verified 12/12/19 07:04 SWELLING polymyxin B [From Maxitrol] Allergy FACE Verified 12/12/19 07:04 SWELLING Review of Systems ROS Statement: Those systems with pertinent positive or pertinent negative responses have been documented in the HPI. ROS Other: All systems not noted in ROS Statement are negative. Past Medical History Past Medical History: Hypertension Additional Past Medical History / Comment(s): epilepsy, thoracic outlet syndrome, uterine CA History of Any Multi-Drug Resistant Organisms: None Reported Past Surgical History: Appendectomy Additional Past Surgical History / Comment(s): removed CA on skin L arm Past Psychological History: No Psychological Hx Reported Smoking Status: Former smoker Past Alcohol Use History: None Reported Past Drug Use History: None Reported General Exam Limitations: no limitations General appearance: alert, in no apparent distress Head exam: Present: atraumatic, normocephalic, normal inspection Eye exam: Present: normal appearance, PERRL, EOMI. Absent: scleral icterus, conjunctival injection, periorbital swelling ENT exam: Present: normal exam, mucous membranes moist Neck exam: Present: normal inspection. Absent: tenderness, meningismus, lymphadenopathy Respiratory exam: Present: normal lung sounds bilaterally. Absent: respiratory distress, wheezes, rales, rhonchi, stridor Cardiovascular Exam: Present: regular rate, normal rhythm, normal heart sounds. Absent: systolic murmur, diastolic murmur, rubs, gallop, clicks GI/Abdominal exam: Present: soft, normal bowel sounds. Absent: distended, tenderness, guarding, rebound, rigid Extremities exam: Present: normal inspection, full ROM, normal capillary refill, other (intact 2 point discrimination and soft touch in the bilateral lower extremities. 5/5 muscle strength bilateral lower extremities). Absent: tenderness, pedal edema, joint swelling, calf tenderness Back exam: Present: normal inspection Neurological exam: Present: alert, oriented X3, CN II-XII intact Psychiatric exam: Present: normal affect, normal mood Skin exam: Present: warm, dry, intact, normal color. Absent: rash Course Vital Signs 12/11/19 12/12/19 12/12/19 21:28 01:00 04:00 Temperature 100.3 F H 97.9 F Pulse Rate 52 L 69 Pulse Rate [ 64 Pulse Oximetery ] Respiratory 16 16 18 Rate Blood Pressure 136/87 139/89 Blood Pressure [Right Arm Sitting] Blood Pressure [Right Arm Standing] Blood Pressure [Right Arm Supine] O2 Sat by Pulse 94 L 95 92 L Oximetry 12/12/19 12/12/19 12/12/19 08:00 12:00 15:11 Temperature 98.4 F Pulse Rate Pulse Rate [ 58 L 57 L 58 L Pulse Oximetery ] Respiratory 18 18 18 Rate Blood Pressure Blood Pressure 158/83 [Right Arm Sitting] Blood Pressure 163/85 [Right Arm Standing] Blood Pressure 148/83 149/75 149/75 [Right Arm Supine] O2 Sat by Pulse 93 L 92 L 92 L Oximetry EKG Findings - EKG Comments: EKG Findings:: EKG demonstrates a sinus bradycardia with a ventricular rate of 52. NC interval 142. QRS 80. QTC of 438. No acute ST segment elevations or depressions concerning for ischemic changes Medical Decision Making - Medical Decision Making Upon arrival the patient's placed into room 4. A through history and physical exam was performed. NIH is 0-1 because of the patient's subjective paresthesias however 2 point discrimination and soft touch are intact when tested. She has no weakness in that extremity. Patient does have intact 2 point discrimination and soft touch however reports that it feels mildly different from the left. Peripheral IV was established. Vital signs were obtained and the patient does have a temperature 100.3. She is given Tylenol for his fever. Laboratory studies were conducted. Coumadin is therapeutic at 2.2. Urinalysis is not a clean catch. He she was given a dose of Rocephin for this abnormal UA until urine culture can be obtained. CT of the brain demonstrates an old left posterior temporal lobe infarct with cerebral atrophy. Chest x-ray demonstrates nodular density in the left lung new compared to old exam. CT angiography of the brain demonstrates 25% stenosis at the origin of the left internal carotid. I did do a venous Doppler of the patient's right lower extremity which demonstrates. I did reevaluate the patient and she continues to report subjective paresthesias. NIH continues to be 0-1. I did recommend hospital admission for neurology evaluation. Patient did agree to this. I discussed the case with Dr. Nath who agreed to admit the patient. She is awaiting a bed on the floor - Lab Data Result diagrams: 12/13/19 06:57 12/13/19 06:57 Lab Results 12/11/19 12/11/19 12/11/19 Range/Units 22:00 22:00 22:00 WBC 10.0 (3.8-10.6) k/uL RBC 4.69 (3.80-5.40) m/uL Hgb 14.6 (11.4-16.0) gm/dL Hct 46.0 (34.0-46.0) % MCV 98.1 (80.0-100.0) fL MCH 31.1 (25.0-35.0) pg MCHC 31.7 (31.0-37.0) g/dL RDW 12.7 (11.5-15.5) % Plt Count 254 (150-450) k/uL Neutrophils % 59 % Lymphocytes % 21 % Monocytes % 11 % Eosinophils % 4 % Basophils % 1 % Neutrophils # 5.9 (1.3-7.7) k/uL Lymphocytes # 2.1 (1.0-4.8) k/uL Monocytes # 1.1 H (0-1.0) k/uL Eosinophils # 0.4 (0-0.7) k/uL Basophils # 0.1 (0-0.2) k/uL PT 21.3 H (9.0-12.0) sec INR 2.2 H (<1.2) APTT 31.0 H (22.0-30.0) sec Sodium 136 L (137-145) mmol/L Potassium 3.6 (3.5-5.1) mmol/L Chloride 95 L (98-107) mmol/L Carbon Dioxide 33 H (22-30) mmol/L Anion Gap 8 mmol/L BUN 23 H (7-17) mg/dL Creatinine 0.56 (0.52-1.04) mg/dL Est GFR (CKD-EPI)AfAm >90 (>60 ml/min/1.73 sqM) Est GFR (CKD-EPI)NonAf >90 (>60 ml/min/1.73 sqM) Glucose 109 H (74-99) mg/dL Calcium 9.0 (8.4-10.2) mg/dL Total Bilirubin 0.3 (0.2-1.3) mg/dL AST 31 (14-36) U/L ALT 20 (4-34) U/L Alkaline Phosphatase 148 H (38-126) U/L Troponin I (0.000-0.034) ng/mL Total Protein 7.4 (6.3-8.2) g/dL Albumin 4.1 (3.5-5.0) g/dL Urine Color Urine Appearance (Clear) Urine pH (5.0-8.0) Ur Specific [place] (1.001-1.035) Urine Protein (Negative) Urine Glucose (UA) (Negative) Urine Ketones (Negative) Urine Blood (Negative) Urine Nitrite (Negative) Urine Bilirubin (Negative) Urine Urobilinogen (<2.0) mg/dL Ur Leukocyte Esterase (Negative) Urine RBC (0-5) /hpf Urine WBC (0-5) /hpf Ur Squamous Epith Cells (0-4) /hpf Urine Bacteria (None) /hpf Urine Mucus (None) /hpf 12/11/19 12/11/19 Range/Units 22:00 22:43 WBC (3.8-10.6) k/uL RBC (3.80-5.40) m/uL Hgb (11.4-16.0) gm/dL Hct (34.0-46.0) % MCV (80.0-100.0) fL MCH (25.0-35.0) pg MCHC (31.0-37.0) g/dL RDW (11.5-15.5) % Plt Count (150-450) k/uL Neutrophils % % Lymphocytes % % Monocytes % % Eosinophils % % Basophils % % Neutrophils # (1.3-7.7) k/uL Lymphocytes # (1.0-4.8) k/uL Monocytes # (0-1.0) k/uL Eosinophils # (0-0.7) k/uL Basophils # (0-0.2) k/uL PT (9.0-12.0) sec INR (<1.2) APTT (22.0-30.0) sec Sodium (137-145) mmol/L Potassium (3.5-5.1) mmol/L Chloride (98-107) mmol/L Carbon Dioxide (22-30) mmol/L Anion Gap mmol/L BUN (7-17) mg/dL Creatinine (0.52-1.04) mg/dL Est GFR (CKD-EPI)AfAm (>60 ml/min/1.73 sqM) Est GFR (CKD-EPI)NonAf (>60 ml/min/1.73 sqM) Glucose (74-99) mg/dL Calcium (8.4-10.2) mg/dL Total Bilirubin (0.2-1.3) mg/dL AST (14-36) U/L ALT (4-34) U/L Alkaline Phosphatase (38-126) U/L Troponin I <0.012 (0.000-0.034) ng/mL Total Protein (6.3-8.2) g/dL Albumin (3.5-5.0) g/dL Urine Color Yellow Urine Appearance Turbid H (Clear) Urine pH 5.5 (5.0-8.0) Ur Specific [place] 1.022 (1.001-1.035) Urine Protein Trace H (Negative) Urine Glucose (UA) Negative (Negative) Urine Ketones Negative (Negative) Urine Blood Trace H (Negative) Urine Nitrite Negative (Negative) Urine Bilirubin Negative (Negative) Urine Urobilinogen <2.0 (<2.0) mg/dL Ur Leukocyte Esterase Large H (Negative) Urine RBC 18 H (0-5) /hpf Urine WBC 113 H (0-5) /hpf Ur Squamous Epith Cells 48 H (0-4) /hpf Urine Bacteria Many H (None) /hpf Urine Mucus Occasional H (None) /hpf Disposition Clinical Impression: Right leg paresthesias, TIA (transient ischemic attack) Disposition: ADMITTED IP TO THIS [facility] Condition: Stable Is patient prescribed a controlled substance at d/c from ED?: No Decision to Admit Reason: Admit from EC Decision Date: 12/11/19 Decision Time: 23:37
[2019-12-11] MEDS ORDERED: NALOXONE 0.4 MG/ML 1 ML VIAL IV PRN (23:37)
[2019-12-11] MEDS ORDERED: cefTRIAXone IN SWFI 1,000 MG/10 ML SYRINGE IVP STA (23:40)
[2019-12-12 06:11] LABS: Basophils # (A) 0.1 k/uL (0-0.2); Basophils % (A) 1 %; Eosinophils # (A) 0.4 k/uL (0-0.7); Eosinophils % (A) 4 %; HCT 47.2 % (34.0-46.0); HGB 14.7 gm/dL (11.4-16.0); Lymphocytes # (A) 2.9 k/uL (1.0-4.8); Lymphocytes % (A) 28 %; MCH 30.8 pg (25.0-35.0); MCHC 31.3 g/dL (31.0-37.0); MCV 98.6 fL (80.0-100.0); Monocytes # (A) 1.3 k/uL (0-1.0); Monocytes % (A) 12 %; Neutrophils # (A) 5.5 k/uL (1.3-7.7); Neutrophils % (A) 52 %; Platelet Count 217 k/uL (150-450); RBC 4.79 m/uL (3.80-5.40); RDW 12.7 % (11.5-15.5); WBC 10.5 k/uL (3.8-10.6)
[2019-12-12 06:19] LABS: INR 2.3 (<1.2); Prothrombin Time 22.8 sec (9.0-12.0)
[2019-12-12 06:21] LABS: African American GFR (CKD) >90 (>60 ml/min/1.73 sqM); Anion Gap 8 mmol/L; Blood Urea Nitrogen 23 mg/dL (7-17); Calcium 8.9 mg/dL (8.4-10.2); Carbon Dioxide 34 mmol/L (22-30); Chloride 97 mmol/L (98-107); Glucose 97 mg/dL (74-99); Non-African American GFR(CKD) >90 (>60 ml/min/1.73 sqM); Potassium 3.3 mmol/L (3.5-5.1); Sodium 139 mmol/L (137-145)
[2019-12-12] MEDS ORDERED: Potassium Replacement Protocol 1 EACH MISC MISCELLANE PRN ×2 (08:59→19:11)
[2019-12-12] MEDS ORDERED: PANTOPRAZOLE 40 MG/10 ML VIAL IVP SCH (09:00)
[2019-12-12] MEDS ORDERED: Magnesium Replacement Protocol 1 EACH MISC MISCELLANE PRN ×2 (09:03→19:09)
[2019-12-12] MEDS ORDERED: NON FORMULARY DRUG (Aspirin Ec 81 MG) PO SCH (09:15)
[2019-12-12] MEDS ORDERED: ATENOLOL 50 MG TAB PO SCH (09:15)
[2019-12-12] MEDS ORDERED: CHOLECALCIFEROL 1,000 UNIT TAB PO SCH (09:15)
--- NOTE | 2019-12-12 13:28 | P.HPIM ---
History of Present Illness H&P Date: 12/12/19 Chief Complaint: Right leg numbness This 69-year-old female with history of COPD, hypertension, epilepsy, thoracic outlet syndrome, uterine CA, former nicotine dependence and multiple other medical issues, presented to the ER with complaints of right lower extremity numbness/paresthesia, new onset with mild edema. Denies lightheadedness, dizziness or focal deficits. Reported some vague dizziness upon returning back to chair. Before she was awakened from sleep by her daughter, attempted to get up but her right lower extremity was flaccid. Denied right arm weakness, n umbness or tingling, no speech difficulties, and no visual deficits. Denies chest pain, palpitations or shortness of breath. Denies fever or chills. NIH score on arrival 1 related to patient's subjective symptoms which have resolved. T-max 100.3, normal WBC, UA was not a clean catch/urine culture pending and Coumadin therapeutic at 2.3.EKG reporting sinus bradycardia, troponin normal. Venous Doppler of right lower extremity reported no evidence of DVT. 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 Chest x-ray reported nodular density in the left lung, new compared to a prior possible calcified granuloma. CT angiogram head and neck reported negative of the brain, 25% stenosis of the left internal carotid artery.VSS. Potassium this morning at 3.3. BUN 23, creatinine 0.57. Review of Systems ROS Statement: Those systems with pertinent positive or pertinent negative responses have been documented in the HPI. ROS Other: All systems not noted in ROS Statement are negative. Past Medical History Past Medical History: COPD, Hypertension Additional Past Medical History / Comment(s): epilepsy, thoracic outlet syndrome, uterine CA History of Any Multi-Drug Resistant Organisms: None Reported Past Surgical History: Appendectomy Additional Past Surgical History / Comment(s): removed CA on skin L arm Past Psychological History: No Psychological Hx Reported Smoking Status: Former smoker Past Alcohol Use History: None Reported Past Drug Use History: None Reported Medications and Allergies Home Medications Medication Instructions Recorded Confirmed Type Atenolol [Tenormin] 50 mg PO DAILY 09/18/16 12/12/19 History Phenytoin Sodium Extended 100 mg PO TID 09/18/16 12/12/19 History [Dilantin] Warfarin Sodium [Jantoven] 2.5 mg PO SUMOTUWEFRSA 09/18/16 12/12/19 History Warfarin Sodium [Jantoven] 5 mg PO TH 09/18/16 12/12/19 History Aspirin EC [Ecotrin Low Dose] 81 mg PO DAILY 12/04/17 12/12/19 History Cholecalciferol [Vitamin D3] 1,000 unit PO DAILY 08/10/18 12/12/19 History Hydrochlorothiazide 50 mg PO DAILY 12/12/19 12/12/19 History aMILoride HCL 5 mg PO DAILY 12/12/19 12/12/19 History Allergies Allergy/AdvReac Type Severity Reaction Status Date / Time bacitracin Allergy Rash/Hives Verified 12/12/19 07:04 [From Neosporin ([id number])] dexamethasone [From Maxitrol] Allergy FACE Verified 12/12/19 07:04 SWELLING neomycin [From Maxitrol] Allergy FACE Verified 12/12/19 07:04 SWELLING polymyxin B [From Maxitrol] Allergy FACE Verified 12/12/19 07:04 SWELLING Physical Exam Vitals: Vital Signs Temp Pulse Pulse Resp BP Pulse Ox 12/12/19 04:00 64 18 92 L 12/12/19 01:00 97.9 F 69 16 139/89 95 12/11/19 21:28 100.3 F H 52 L 16 136/87 94 L Intake and Output 12/11/19 12/12/19 12/12/19 22:59 06:59 14:59 Intake Total 200 Output Total 450 Balance -250 Intake: Oral 200 Output: Urine 450 Other: Voiding Method Toilet Weight 74.843 kg 74.843 kg PHYSICAL EXAM: VITAL SIGNS: As above GENERAL: Sitting up in bed, no acute distress HEENT: Conjunctivae normal. eyes normal. NECK: No JVD. No thyroid enlargement. No LNs CARDIOVASCULAR: S1, S2 regular.. No murmur RESPIRATION: Breath sounds diminished in the bases. No rhonchi or crackles. No bronchial breathing. ABDOMEN: Soft, nontender . No guarding. no masses palpable. No ascites, No hepatosplenomegaly.Bowel sounds heard. LEGS: No edema. no swelling PSYCHIATRY: Alert and oriented X3, mood and affect normal. NERVOUS SYSTEM: Cranial N 2-12 grossly normal. Moves all 4 limbs. No focal deficits. Strength and sensation grossly intact.. Skin: no rash, left arm sutures well approximated, from recent removal of skin cancer reported Joints: No active swelling. No inflammation. Lymphatic system. No LN neck axilla. Results CBC & Chem 7: 12/12/19 05:41 12/12/19 05:41 Labs: Abnormal Lab Results - Last 24 Hours (Table) 12/11/19 12/11/19 12/11/19 Range/Units 22:00 22:00 22:00 Hct (34.0-46.0) % Monocytes # 1.1 H (0-1.0) k/uL PT 21.3 H (9.0-12.0) sec INR 2.2 H (<1.2) APTT 31.0 H (22.0-30.0) sec Sodium 136 L (137-145) mmol/L Potassium (3.5-5.1) mmol/L Chloride 95 L (98-107) mmol/L Carbon Dioxide 33 H (22-30) mmol/L BUN 23 H (7-17) mg/dL Glucose 109 H (74-99) mg/dL Alkaline Phosphatase 148 H (38-126) U/L Urine Appearance (Clear) Urine Protein (Negative) Urine Blood (Negative) Ur Leukocyte Esterase (Negative) Urine RBC (0-5) /hpf Urine WBC (0-5) /hpf Ur Squamous Epith Cells (0-4) /hpf Urine Bacteria (None) /hpf Urine Mucus (None) /hpf 12/11/19 12/12/19 12/12/19 Range/Units 22:43 05:41 05:41 Hct 47.2 H (34.0-46.0) % Monocytes # 1.3 H (0-1.0) k/uL PT (9.0-12.0) sec INR (<1.2) APTT (22.0-30.0) sec Sodium (137-145) mmol/L Potassium 3.3 L (3.5-5.1) mmol/L Chloride 97 L (98-107) mmol/L Carbon Dioxide 34 H (22-30) mmol/L BUN 23 H (7-17) mg/dL Glucose (74-99) mg/dL Alkaline Phosphatase (38-126) U/L Urine Appearance Turbid H (Clear) Urine Protein Trace H (Negative) Urine Blood Trace H (Negative) Ur Leukocyte Esterase Large H (Negative) Urine RBC 18 H (0-5) /hpf Urine WBC 113 H (0-5) /hpf Ur Squamous Epith Cells 48 H (0-4) /hpf Urine Bacteria Many H (None) /hpf Urine Mucus Occasional H (None) /hpf 12/12/19 Range/Units 05:41 Hct (34.0-46.0) % Monocytes # (0-1.0) k/uL PT 22.8 H (9.0-12.0) sec INR 2.3 H (<1.2) APTT (22.0-30.0) sec Sodium (137-145) mmol/L Potassium (3.5-5.1) mmol/L Chloride (98-107) mmol/L Carbon Dioxide (22-30) mmol/L BUN (7-17) mg/dL Glucose (74-99) mg/dL Alkaline Phosphatase (38-126) U/L Urine Appearance (Clear) Urine Protein (Negative) Urine Blood (Negative) Ur Leukocyte Esterase (Negative) Urine RBC (0-5) /hpf Urine WBC (0-5) /hpf Ur Squamous Epith Cells (0-4) /hpf Urine Bacteria (None) /hpf Urine Mucus (None) /hpf Thrombosis Risk Factor Assmnt - Choose All That Apply Any of the Below Risk Factors Present?: Yes Each Factor Represents 1 point: Abnormal pulmonary function (COPD) Other Risk Factors: Yes Each Risk Factor Represents 2 Points: Age 61-74 years Thrombosis Risk Factor Assessment Total Risk Factor Score: 3 Thrombosis Risk Factor Assessment Level: Moderate Risk Assessment and Plan Assessment: Right lower extremity paresthesias-resolved, possible acute TIA 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 COPD, stable Hypertension Epilepsy Thoracic outlet syndrome Uterine CA Skin cancer left arm, recently removed, type unknown. Hypokalemia Plan: Continue on current medication regime ,monitoring and symptomatic treatment. Neurology consulted with further neuro workup/recommendations pending. Orthostatic vital signs every shift. Chest x-ray reporting a new left lung nodular density, pulmonary consulted. Home meds have been reviewed and resumed accordingly. Potassium replacement protocol ordered, magnesium level pending. Daily PT/INR. Discharge planning in progress for potentially later today or tomorrow pending neurology's recommendations and clearance. The impression and plan of care has been dictated as directed. : I performed a history and examination of this patient, discussed the same with the dictator. I agree with the dictator's note ,documented as a scribe. Any additional findings or plans will be noted.
[2019-12-12] MEDS ORDERED: WARFARIN 2.5 MG TAB PO SCH ×2 (15:30→19:15)
--- NOTE | 2019-12-12 15:55 | P.CNNES ---
History of Present Illness Consult date: 12/12/19 Requesting physician: Marianne Pike Reason for Consult: Acute right lower extremity paresthesias History of Present Illness: Patient is a 69-year-old female who was brought to the hospital yesterday at 9:30 PM because of transient episode of right leg weakness. Patient states that she woke up from a nap at around noon, and felt her right foot was numb. It then proceeded to involve the whole right leg. The right foot was "twisted and flaccid". There was no associated pain. Patient rested for some time, to see if it will resolve. As symptoms persisted, she decided to call the ambulance. Her vitals at the scene was blood pressure 154/79, pulse rate 53, respiration 18, saturation 93%. Temperature 98.9. Patient states her symptoms overall resolved completely in couple hours. Patient denies any associated slurred speech, facial droop, any symptoms in the upper extremities or problem with the vision. Patient states that when her right leg was weak yesterday, she was dragging her leg while using walker. Otherwise she does not use any device. Patient states that about 2 weeks ago she slipped and fell in the bathroom. Patient currently is on Coumadin because of her history of thoracic outlet synd armando. She also had blood clots. Patient denies missing doses of her Coumadin. Patient is also on aspirin [address] head showed old left posterior temporal lobe infarct. Cerebral atrophy. Chest x-ray showed nodular density in the left lung that is new compared to old exam and could be a calcified granuloma. CTA of the head was normal. CTA of the neck showed 25% stenosis at the origin of left ICA. Otherwise negative CT angiogram of the neck. EKG shows sinus bradycardia. Blood test shows normal CBC. Her PT is 21.3, INR 2.2 PTT 31.0. Sodium 136 potassium 3.6, BUN 23, creatinine 0.56, liver panel normal. UA showed large amount of leukocyte Estrace, 113 WBCs and many bacteria. Urine culture so far negative. EKG showed sinus bradycardia, nonspecific T-wave abnormality. Patient was not a candidate for TPA because of being on Coumadin. Her last hemoglobin A1c 5.1 on 12/22. Her last lipid panel showed cholesterol 176, LDL 9010.4, HDL 54 and triglycerides 213 on 12/22/2018. Patient denies diabetes. She has hypertension. No previous history of strokes or TIA. She denies any alcoholism at this time. She used to drink heavily in the past. Patient also has smoked 2-3 pack per day since age 19, quit at age 60. (Smoked for 40 years). Patient states she has history of epilepsy since age 19. She is on Dilantin 100 mg 3 times a day. Her last seizure was about 6-8 months ago. Patient states typically she can feel it coming on and she gets grand mal seizure. She had very occasional tongue bite with the seizure, but no urinary incontinence. Review of Systems As mentioned above in detail. All other review of systems unremarkable. Denies any neck pain, back pain. Denies any and all pain nausea vomiting diarrhea. Denies any chest pain. She does have COPD. She does have some wheezing. Denies any leg pain. Past Medical History Past Medical History: COPD, Hypertension Additional Past Medical History / Comment(s): epilepsy, thoracic outlet syndrome, uterine CA History of Any Multi-Drug Resistant Organisms: None Reported Past Surgical History: Appendectomy Additional Past Surgical History / Comment(s): removed CA on skin L arm Past Psychological History: No Psychological Hx Reported Smoking Status: Former smoker Past Alcohol Use History: None Reported Past Drug Use History: None Reported Medications and Allergies Home Medications Medication Instructions Recorded Confirmed Type Atenolol [Tenormin] 50 mg PO DAILY 09/18/16 12/12/19 History Phenytoin Sodium Extended 100 mg PO TID 09/18/16 12/12/19 History [Dilantin] Warfarin Sodium [Jantoven] 2.5 mg PO SUMOTUWEFRSA 09/18/16 12/12/19 History Warfarin Sodium [Jantoven] 5 mg PO TH 09/18/16 12/12/19 History Aspirin EC [Ecotrin Low Dose] 81 mg PO DAILY 12/04/17 12/12/19 History Cholecalciferol [Vitamin D3] 1,000 unit PO DAILY 08/10/18 12/12/19 History Hydrochlorothiazide 50 mg PO DAILY 12/12/19 12/12/19 History aMILoride HCL 5 mg PO DAILY 12/12/19 12/12/19 History Allergies Allergy/AdvReac Type Severity Reaction Status Date / Time bacitracin Allergy Rash/Hives Verified 12/12/19 07:04 [From Neosporin ([id number])] dexamethasone [From Maxitrol] Allergy FACE Verified 12/12/19 07:04 SWELLING neomycin [From Maxitrol] Allergy FACE Verified 12/12/19 07:04 SWELLING polymyxin B [From Maxitrol] Allergy FACE Verified 12/12/19 07:04 SWELLING Physical Examination - Vital Signs Vital Signs: Vital Signs Temp Pulse Pulse Resp BP BP BP 12/12/19 12:00 57 L 18 12/12/19 08:00 98.4 F 58 L 18 158/83 163/85 12/12/19 04:00 64 18 12/12/19 01:00 97.9 F 69 16 139/89 12/11/19 21:28 100.3 F H 52 L 16 136/87 BP Pulse Ox 12/12/19 12:00 149/75 92 L 12/12/19 08:00 148/83 93 L 12/12/19 04:00 92 L 12/12/19 01:00 95 12/11/19 21:28 94 L Intake and Output 12/12/19 12/12/19 12/12/19 06:59 14:59 22:59 Intake Total 200 Output Total 450 900 Balance -250 -900 Intake: Oral 200 Output: Urine 450 900 Other: Voiding Method Toilet Toilet Weight 74.843 kg On examination patient is an elderly female, in no acute distress. Patient is alert and awake oriented to time place and person. Speech and language functions are normal. Attention and concentration fund of knowledge is adequate. On cranial exam showed pupils are round and reactive to light, visual womack are full on confrontation. Extraocular muscles are intact with no nystagmus. Face is symmetric, tongue protrudes the midline. Palatal elevation and sensation normal. Hearing and shoulder shrug normal. On muscle strength testing there is no pronator drift and the strength is normal in arms and legs distally and proximally. Sensory touch is equal. No ataxia for [id number] testing. Tone and bulk of muscles normal. Gait deferred. There is no obvious bruit, S1 and S2 audible. Mild peripheral edema. Abdomen is soft nontender. Chest is clear. Results - Laboratory Findings CBC and BMP: 12/12/19 05:41 12/12/19 05:41 Abnormal Lab Findings: Abnormal Labs 12/11/19 12/11/19 12/11/19 22:00 22:00 22:00 Hct Monocytes # 1.1 H PT 21.3 H INR 2.2 H APTT 31.0 H Sodium 136 L Potassium Chloride 95 L Carbon Dioxide 33 H BUN 23 H Glucose 109 H Alkaline Phosphatase 148 H Urine Appearance Urine Protein Urine Blood Ur Leukocyte Esterase Urine RBC Urine WBC Ur Squamous Epith Cells Urine Bacteria Urine Mucus 12/11/19 12/12/19 12/12/19 22:43 05:41 05:41 Hct 47.2 H Monocytes # 1.3 H PT INR APTT Sodium Potassium 3.3 L Chloride 97 L Carbon Dioxide 34 H BUN 23 H Glucose Alkaline Phosphatase Urine Appearance Turbid H Urine Protein Trace H Urine Blood Trace H Ur Leukocyte Esterase Large H Urine RBC 18 H Urine WBC 113 H Ur Squamous Epith Cells 48 H Urine Bacteria Many H Urine Mucus Occasional H 12/12/19 05:41 Hct Monocytes # PT 22.8 H INR 2.3 H APTT Sodium Potassium Chloride Carbon Dioxide BUN Glucose Alkaline Phosphatase Urine Appearance Urine Protein Urine Blood Ur Leukocyte Esterase Urine RBC Urine WBC Ur Squamous Epith Cells Urine Bacteria Urine Mucus Assessment and Plan Assessment: * Probable TIA manifesting with transient right leg weakness. Her symptoms resolved in a couple hours. At present her symptoms have resolved and NIH stroke scale is 0. * Possible UTI. * Hypertension * History of seizure disorder * X tobacco use. Plan: * Continue Coumadin. Her most recent INR is therapeutic 2.3. * Continue aspirin 81 mg daily. * We will check 2-D echo to rule out embolic source. * Fasting a.m. lipid panel. * CTA of head and neck revealed only mild stenosis of the left ICA. * Patient currently on Rocephin for UTI.
[2019-12-12] MEDS ORDERED: SODIUM CHLORIDE 0.9% 1,000 ML BAG ONE (16:00)
[2019-12-12] MEDS: PHENYTOIN SODIUM EXTENDED 100 MG CAP PO SCH ×2 (21:01→21:19)
[2019-12-13] MEDS: CHOLECALCIFEROL 1,000 UNIT TAB PO SCH ×2 (05:46→09:31)
[2019-12-13] MEDS: ATENOLOL 50 MG TAB PO SCH ×2 (05:47→09:32)
[2019-12-13] MEDS: PANTOPRAZOLE 40 MG/10 ML VIAL IVP SCH ×2 (05:47→09:32)
[2019-12-13] MEDS: ASPIRIN 81 MG PO SCH ×2 (05:47→09:31)
[2019-12-13] MEDS: PHENYTOIN SODIUM EXTENDED 100 MG CAP PO SCH ×5 (05:49→17:07)
[2019-12-13 07:17] LABS: INR 1.8 (<1.2); Prothrombin Time 17.5 sec (9.0-12.0)
[2019-12-13 07:21] LABS: Basophils # (A) 0.1 k/uL (0-0.2); Basophils % (A) 1 %; Eosinophils # (A) 0.3 k/uL (0-0.7); Eosinophils % (A) 3 %; HCT 43.5 % (34.0-46.0); HGB 13.7 gm/dL (11.4-16.0); Lymphocytes # (A) 1.7 k/uL (1.0-4.8); Lymphocytes % (A) 21 %; MCH 30.9 pg (25.0-35.0); MCHC 31.5 g/dL (31.0-37.0); MCV 98.2 fL (80.0-100.0); Mean Platelet Volume 7.3; Monocytes # (A) 0.9 k/uL (0-1.0); Monocytes % (A) 12 %; Neutrophils # (A) 4.9 k/uL (1.3-7.7); Neutrophils % (A) 61 %; Platelet Count 186 k/uL (150-450); RBC 4.42 m/uL (3.80-5.40); RDW 12.6 % (11.5-15.5); WBC 8.1 k/uL (3.8-10.6)
[2019-12-13 07:50] LABS: African American GFR (CKD) >90 (>60 ml/min/1.73 sqM); Anion Gap 4 mmol/L; Blood Urea Nitrogen 13 mg/dL (7-17); Calcium 8.5 mg/dL (8.4-10.2); Carbon Dioxide 38 mmol/L (22-30); Chloride 97 mmol/L (98-107); Cholesterol 137 mg/dL (<200); Glucose 91 mg/dL (74-99); HDL Cholesterol 47 mg/dL (40-60); LDL Cholesterol,Calculated 80 mg/dL (0-99); Magnesium 1.7 mg/dL (1.6-2.3); Non-African American GFR(CKD) >90 (>60 ml/min/1.73 sqM); Potassium 3.7 mmol/L (3.5-5.1); Sodium 139 mmol/L (137-145); Triglycerides 50 mg/dL (<150)
--- NOTE | 2019-12-13 10:52 | ECHOF ---
Referral Reason:TIA MEASUREMENTS -------- HEIGHT: 157.5 cm WEIGHT: 73.9 kg BP: 158/58 RVIDd: 3.5 cm (< 3.3) IVSd: 1.1 cm (0.6 - 1.1) LVIDd: 5.1 cm (3.9 - 5.3) LVPWd: 1.0 cm (0.6 - 1.1) IVSs: 1.5 cm LVIDs: 3.3 cm LVPWs: 1.5 cm LA Diam: 3.7 cm (2.7 - 3.8) LAESV Index (A-L): 37.67 ml/m Ao Diam: 3.3 cm (2.0 - 3.7) AV Cusp: 1.7 cm (1.5 - 2.6) MV EXCURSION: 19.089 mm (> 18.000) MV EF SLOPE: 77 mm/s (70 - 150) EPSS: 0.2 cm MV E Mele: 0.99 m/s MV DecT: 335 ms MV A Mele: 0.57 m/s MV E/A Ratio: 1.73 RAP: 5.00 mmHg RVSP: 49.95 mmHg FINDINGS -------- Sinus rhythm. This was a technically adequate study. The left ventricular size is normal. There is borderline concentric left ventricular hypertrophy. Overall left ventricular systolic function is normal with, an EF between 55 - 60 %. The right ventricle is mildly enlarged. LA is moderately dilated 34-39 ml/m2 The right atrial size is normal. Interatrial and interventricular septum intact. The aortic valve is trileaflet, and appears structurally normal. No aortic stenosis or regurgitation. The mitral valve is normal. Mild mitral regurgitation is present. Mild tricuspid regurgitation present. There is mild to moderate pulmonary hypertension. The right ventricular systolic pressure, as measured by Doppler, is 49.95mmHg. The pulmonic valve was not well visualized. There is no pulmonic regurgitation present. The aortic root size is normal. IVC Not well visulized. Echo free space may represent effusion or a pericardial fat pad. CONCLUSIONS -------- 1. There is borderline concentric left ventricular hypertrophy. 2. Overall left ventricular systolic function is normal with, an EF between 55 - 60 %. 3. 4. The right ventricle is mildly enlarged. 5. LA is moderately dilated 34-39 ml/m2 6. The aortic valve is trileaflet, and appears structurally normal. No aortic stenosis or regurgitati on. 7. Mild mitral regurgitation is present. 8. Mild tricuspid regurgitation present. 9. There is mild to moderate pulmonary hypertension. 10. Echo free space may represent effusion or a pericardial fat pad. MACHINE REPAIRER: Catherine Ray RDCS
--- NOTE | 2019-12-13 12:31 | P.DS ---
Providers Date of admission: 12/11/19 23:39 Expected date of discharge: 12/13/19 Attending physician: Isauro Nath Consults: 12/11/19 23:38 Consult Physician Urgent Consulting Provider: Brissa Nino Consult Reason/Comments: acute right lower extremity paresthesias Do you want consulting provider notified?: Yes 12/12/19 13:12 Consult Physician Routine Consulting Provider: Attila Mcclendon Consult Reason/Comments: New left lung nodular density,history of nicotine abuse Do you want consulting provider notified?: Yes Primary care physician: Isauro Nath Hospital Course: Final Diagnoses: Right lower extremity paresthesias-resolved, possible acute TIA 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 Nath 25% stenosis left internal carotid artery per CT, further follow-up outpatient. COPD, stable Hypertension Epilepsy Thoracic outlet syndrome Uterine CA Skin cancer left arm, recently removed, type unknown. Hypokalemia Hospital course:This 69-year-old female with history of COPD, hypertension, epilepsy, thoracic outlet syndrome, uterine CA, former nicotine dependence and multiple other medical issues, presented to the ER with complaints of right lower extremity numbness/paresthesia, new onset with mild edema. Denies lightheadedness, dizziness or focal deficits. Reported some vague dizziness upon returning back to chair. Before she was awakened from sleep by her daughter, attempted to get up but her right lower extremity was flaccid. Denied right arm weakness, numbness or tingling, no speech difficulties, and no visual deficits. Denies chest pain, palpitations or shortness of breath. Denies fever or chills. NIH score on arrival 1 related to patient's subjective symptoms which have resolved. T-max 100.3, normal WBC, UA was not a clean catch/urine culture pending and Coumadin therapeutic at 2.3.EKG reporting sinus bradycardia, troponin normal. Venous Doppler of right lower extremity reported no evidence of DVT. 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 Chest x-ray reported nodular density in the left lung, new compared to a prior possible calcified granuloma. CT angiogram head and neck reported negative of the brain, 25% stenosis of the left internal carotid artery.VSS. Potassium this morning at 3.3. BUN 23, creatinine 0.57. Evaluated by neurology. Pulmonary evaluation pending. Patient will be discharged home today in a stable condition with guarded prognosis pending final DC recommendations and clearance from both consults. The impression and plan of care has been dictated as directed. : I performed a history and examination of this patient, discussed the same with the dictator. I agree with the dictator's note ,documented as a scribe. Any additional findings or plans will be noted. Patient Condition at Discharge: Stable Plan - Discharge Summary Discharge Rx Participant: No New Discharge Prescriptions: New Rosuvastatin Calcium [Crestor] 10 mg PO DAILY #30 tab Continue Warfarin Sodium [Jantoven] 5 mg PO TH Warfarin Sodium [Jantoven] 2.5 mg PO SUMOTUWEFRSA Atenolol [Tenormin] 50 mg PO DAILY Phenytoin Sodium Extended [Dilantin] 100 mg PO TID Aspirin EC [Ecotrin Low Dose] 81 mg PO DAILY Cholecalciferol [Vitamin D3 (25 Mcg = 1000 Iu)] 1,000 unit PO DAILY aMILoride HCL 5 mg PO DAILY Hydrochlorothiazide 50 mg PO DAILY Discharge Medication List Atenolol [Tenormin] 50 mg PO DAILY 09/18/16 [History] Phenytoin Sodium Extended [Dilantin] 100 mg PO TID 09/18/16 [History] Warfarin Sodium [Jantoven] 2.5 mg PO SUMOTUWEFRSA 09/18/16 [History] Warfarin Sodium [Jantoven] 5 mg PO TH 09/18/16 [History] Aspirin EC [Ecotrin Low Dose] 81 mg PO DAILY 12/04/17 [History] Cholecalciferol [Vitamin D3 (25 Mcg = 1000 Iu)] 1,000 unit PO DAILY 08/10/18 [History] Hydrochlorothiazide 50 mg PO DAILY 12/12/19 [History] aMILoride HCL 5 mg PO DAILY 12/12/19 [History] Rosuvastatin Calcium [Crestor] 10 mg PO DAILY #30 tab 12/13/19 [Rx] Follow up Appointment(s)/Referral(s): Isauro Nath DO [Primary Care Provider] - 1 Week Attila Mcclendon DO [Doctor of Osteopathic Medicine] - 2 Weeks Mlaik Ha DO [STAFF PHYSICIAN] - 2 Weeks Ambulatory/Diagnostic Orders: Prothrombin Time INR [LAB.AMB] Time Frame: 3 Days, Location: None Selected Activity/Diet/Wound Care/Special Instructions: Pending final DC recommendations, clearance from both neurology and pulmonary. Final urine culture results to Dr. Nath
--- NOTE | 2019-12-13 14:25 | P.PN ---
Subjective Progress Note Date: 12/13/19 Patient states her symptoms have mostly resolved. No new neurological symptoms. Denies headache. Telemetry monitoring showing sinus rhythm, sinus bradycardia in the 50s. Objective - Vital Signs Vital signs: Vital Signs Temp 99.1 F 12/13/19 08:20 Pulse 66 12/13/19 08:20 Resp 16 12/13/19 08:20 BP 128/80 12/13/19 08:20 Pulse Ox 92 L 12/13/19 08:20 Intake & Output 12/12/19 12/13/19 12/13/19 18:59 06:59 18:59 Intake Total 240 360 Output Total 900 200 Balance -660 -200 360 Weight 74.2 kg Intake: Oral 240 360 Output: Urine 900 200 Other: Voiding Method Toilet Toilet # Voids 2 1 - Exam Mental status, speech and language functions are normal. Cranial nerves normal. Muscle strength revealed mild weakness in the right hip flexion otherwise normal. Sensations equal. - Labs CBC & Chem 7: 12/13/19 06:57 12/13/19 06:57 Labs: Abnormal Lab Results - Last 24 Hours (Table) 12/13/19 12/13/19 Range/Units 06:57 06:57 PT 17.5 H (9.0-12.0) sec INR 1.8 H (<1.2) Chloride 97 L (98-107) mmol/L Carbon Dioxide 38 H (22-30) mmol/L Creatinine 0.44 L (0.52-1.04) mg/dL Microbiology - Last 24 Hours (Table) 12/11/19 22:48 Urine Culture - Final Urine,Voided Assessment and Plan Assessment: * Probable TIA manifesting with transient right leg weakness. Her symptoms resolved in a couple hours. At present her symptoms have resolved and NIH stroke scale is 0. * Possible UTI. * Hypertension * History of seizure disorder * X tobacco use. Plan: * Continue Coumadin. Her most recent INR is 1.8. Target INR 2.0-3.0. * Continue aspirin 81 mg daily. * 2-D echo revealed borderline concentric LVH. EF is 55-60%. Right ventricle is mildly enlarged. Left atrium is moderately dilated. Mild to moderate pulm onary hypertension. Echo free space may represent effusion or a pericardial fat pad. No obvious embolic source. * Fasting a.m. lipid panel showed cholesterol 137, LDL 80, HDL 47, triglycerides 50. We will add Lipitor 10 mg daily, to target LDL <70. * CTA of head and neck revealed only mild stenosis of the left ICA. * Patient currently on Rocephin for UTI. * Neurologically clear, if cleared from medical standpoint.
[2019-12-13] MEDS ORDERED: WARFARIN 2.5 MG TAB PO SCH (15:23)
--- NOTE | 2019-12-13 16:42 | CONS ---
CONSULTATION PULMONARY/CRITICAL CARE CONSULTATION: DATE OF SERVICE: 12/13/2019 REASON FOR CONSULTATION: Left lung nodule. This is a 69-year-old female who apparently presented to the emergency department on December 10 with complaints of right leg tingling. She is a 69-year-old female with a history of thoracic outlet syndrome who reported numbness and paresthesias in her right lower extremity. She apparently was sleeping when she had sudden onset of symptoms and her daughter woke her from sleep. She apparently attempted to walk at that time but did not feel like she had any control of her right lower extremity. She denies a prior history of CVA. There were no speech difficulties. There were no visual changes. There was no numbness or tingling in the right upper extremity or anything on the left side. I am consulted primarily because chest x-ray showed a 1 cm lesion in the left mid lung laterally. This will need followup because the patient has a history of at least 40 years of tobacco use at 2-3 packs a day. The fact that the lesion is more than 4 mm in size and her significant smoking history certainly puts her at higher risk for this being lung cancer. Apparently the x-ray was compared to one done in 2018, and the lesion was not there. HOME MEDICATIONS: Her home medications include atenolol, Dilantin, warfarin, Moduretic, aspirin Antivert and vitamin D3. ALLERGIES: HER ALLERGIES include BACITRACIN, DEXAMETHASONE, NEOMYCIN AND POLYMYXIN B. PAST MEDICAL HISTORY: Positive for hypertension, seizure disorder, thoracic outlet syndrome and uterine cancer. SURGICAL HISTORY: Surgical history includes surgery for thoracic outlet syndrome and appendectomy. She also apparently had a recent skin cancer removed from her left forearm. SOCIAL HISTORY: Positive for heavy tobacco use. She smoked 40 years, 2-3 packs a day. She quit back in 2008. She denies any alcohol use or illicit drug use. FAMILY HISTORY: Noncontributory. Apparently mother and father were healthy. REVIEW OF SYSTEMS: CONSTITUTIONAL: Negative. NEUROLOGIC: Right leg tingling. HEENT: Negative. CARDIOVASCULAR: Negative. PULMONARY: Negative. GI: Negative. : Negative. RHEUMATOLOGIC: Negative. IMMUNOLOGIC: Negative. ENDOCRINOLOGIC: Negative. PHYSICAL EXAMINATION: VITAL SIGNS: Current vital signs are reviewed. Temperature is 99.1, heart rate 66, respiratory rate 16, blood pressure 128/80, mean 96, room-air saturation between 92% and 96%. GENERAL APPEARANCE: She appears in no acute distress. HEENT: Examination is grossly unremarkable. Mucous membranes are moist. NECK: Supple. Full range of motion. No adenopathy. Neck veins are flat. CARDIOVASCULAR: Examination reveals regular rhythm and rate. Heart rate 66 beats per minute. S1, S2 normal. No S3, S4 or murmur. LUNGS: Lungs reveal clear breath sounds. No wheezes, rhonchi or crackles. Breath sounds equal bilaterally. ABDOMEN: Soft. Bowel sounds are heard. There are no masses or tenderness. EXTREMITIES: Intact. No cyanosis, clubbing or edema. SKIN: Without rash. NEUROLOGIC: Neurologic examination is brief but nonfocal. Chest x-ray shows a 1 cm lesion in the left lateral lung. It is in the mid lung area. LABS: Reviewed. White count 8.1. Hemoglobin, hematocrit and platelet count all normal. PT is 17.5, INR 1.8. Sodium and potassium normal. Chloride 97. CO2 is 38. BUN and creatinine were 13 and 0.44. Her urine is yellow and turbid. There is trace protein, trace blood, large leukocyte esterase positivity and 113 WBCs, many bacteria. Her nasopharyngeal swab for COVID-19 testing was negative. The rest of the x-rays were done for the neurologic symptoms. ASSESSMENT: 1. Left mid lung lesion, 1 cm in size, which apparently was not there in 2018, which could represent early lung cancer. 2. Previous history of heavy tobacco use at 40 years, 2-3 packs a day. The patient quit in 2008. 3. Rule out chronic obstructive pulmonary disease, although the patient seems to be devoid of any pulmonary symptoms. 4. Right leg numbness and paresthesias. Rule out stroke syndrome. 5. History of hypertension. 6. History of thoracic outlet syndrome, status post surgery. 7. History of seizure disorder. 8. History of uterine cancer. 9. History of skin cancer. 10.History of hypertension. PLAN: Currently the patient is stable. I do recommend a CT scan of the chest with contrast. This could be done while she is here in the hospital or after discharge. I do need to see the patient in the office. Will recommend some PFTs. Will also recommend probably after the CT scan is done a PET scan. Additional recommendations and suggestions are forthcoming. Depending on the CT scan and the appearance of the lesion on CT scan, observation, biopsy or excision might be warranted. Additional recommendations and suggestions are forthcoming. Prognosis is guarded. MMODL / IJN: [id number] /
[2019-12-13] MEDS ORDERED: WARFARIN 5 MG TAB PO SCH (18:00)
[2019-12-13] MEDS ORDERED: ATORVASTATIN 10 MG TAB PO SCH (21:00)
[2019-12-14] MEDS ORDERED: PANTOPRAZOLE 40 MG TABLET PO SCH (07:30)
[2019-12-14 09:05] VITALS: BP 155/74; PULSE 60; RESP 16; TEMP 98.4
== END 2019-12-13 17:52 | disposition home or self-care (01) ==
LOC: EC 21:27 → 3SCARD 23:39
PROVIDERS: ADMIT Family Medicine; ATTEND Family Medicine
DX: R20.2 Paresthesia of skin (principal); G54.0 Brachial plexus disorders; E87.6 Hypokalemia; R91.1 Solitary pulmonary nodule; I65.22 Occlusion and stenosis of left carotid artery; J44.9 Chronic obstructive pulmonary disease, unspecified; I10 Essential (primary) hypertension; R20.0 Anesthesia of skin; M79.89 Other specified soft tissue disorders; G40.409 Other generalized epilepsy and epileptic syndromes, not intractable, without status epilepticus; R00.1 Bradycardia, unspecified; I27.20 Pulmonary hypertension, unspecified; R50.9 Fever, unspecified; G31.9 Degenerative disease of nervous system, unspecified; Z20.828 Contact with and (suspected) exposure to other viral communicable diseases; Z79.82 Long term (current) use of aspirin; Z79.01 Long term (current) use of anticoagulants; Z79.899 Other long term (current) drug therapy; Z88.1 Allergy status to other antibiotic agents; Z88.8 Allergy status to other drugs, medicaments and biological substances; Z86.73 Personal history of transient ischemic attack (TIA), and cerebral infarction without residual deficits; Z87.891 Personal history of nicotine dependence; Z85.828 Personal history of other malignant neoplasm of skin; Z85.42 Personal history of malignant neoplasm of other parts of uterus; Z90.49 Acquired absence of other specified parts of digestive tract; Z91.81 History of falling; Z86.718 Personal history of other venous thrombosis and embolism
CPT/HCPCS: 96365; 96375; 96376; 99285; 36415; 93005; 93306; 97166; 80061; 80053; 80048 ×2; 83735 ×2; 84484; 85025 ×3; 85610 ×3; 85730; 81001; 87086; 71046; 93971; 70496; 70450; 70498; G0378 ×2; U0003; J0696; C9113; Q9967

== ENCOUNTER → 2020-01-18 | Outpatient (CLI) | payer MEDICARE, BC ==
[2020-01-18 14:18] LABS: African American GFR (CKD) >90 (>60 ml/min/1.73 sqM); Blood Urea Nitrogen 15 mg/dL (7-17); Non-African American GFR(CKD) >90 (>60 ml/min/1.73 sqM)
--- NOTE | 2020-01-20 17:13 | CT ---
"EXAMINATION TYPE: CT chest w con DATE OF EXAM: 01/18/2020 COMPARISON: Chest radiograph 12/11/2019 HISTORY: Pulmonary nodule. CT DLP: 473 mGycm Automated exposure control for dose reduction was used. CONTRAST: CT scan of the chest is performed with IV Contrast, patient injected with 100ml mL of Isovue 300. FINDINGS: LUNGS: Left upper lobe posterior 2.9 x 3.4 x 2.1 cm area of groundglass opacity with solid nodular co mponent (4:26, 7:92). No pleural effusion. No pneumothorax. The tracheobronchial tree is patent. MEDIASTINUM/SOFT TISSUES: No axillary, hilar, or mediastinal lymphadenopathy greater than 1 cm. Cardi ac size is normal. No pericardial effusion. No thoracic aortic aneurysm. UPPER ABDOMEN: There is thickening of the bilateral adrenal glands. Cholelithiasis. There is a large cystic lesion of the upper abdomen which is incompletely visualized measuring up to at least 19 x 14 cm. OSSEOUS: No aggressive osseous destructive lesions. Degenerative changes of the spine. IMPRESSION: 1. Left upper lobe 2.9 x 3.4 x 2.1 cm lesion of groundglass opacity with solid nodular component. Fin dings may represent infectious, inflammatory, or neoplastic etiology. Short-term follow-up to [facility] is recommended. 2. Large cystic lesion of the upper abdomen incompletely visualized measuring at least 19 x 14 cm. Re commend correlation with any available outside imaging, or follow-up CT abdomen pelvis with IV and or al contrast. 3. Cholelithiasis. A Yellow level critical message alert has been initiated for Attila Mcclendon DO via the [facility] 0 | Critical Results System on 01/20/2020 5:10 PM. This message alert has been sent to Attila Mcclendon DO via the preferences provided by the clinician for the receipt of Radiology Critical Findings. [facility] ID [id number]."
== END | disposition home or self-care (01) ==
LOC: RADCTMAIN 13:30
PROVIDERS: ATTEND Internal Medicine Critical Care Medicine
DX: R91.1 Solitary pulmonary nodule (principal); K80.20 Calculus of gallbladder without cholecystitis without obstruction; Z88.2 Allergy status to sulfonamides; Z88.1 Allergy status to other antibiotic agents
CPT/HCPCS: 82565; 84520; 71260; 36415; Q9967

== ENCOUNTER 2020-02-06 16:19 | Emergency (ER) | payer MEDICARE, BC ==
[2020-02-06 16:25] VITALS: BP 124/73; PULSE 58; RESP 16; TEMP 98
[2020-02-06] MEDS ORDERED: MOXIFLOXACIN HCL 0.5% DROPS 3 ML BTL BOTH EYES STA (16:41)
--- NOTE | 2020-02-06 16:42 | ED ---
Eye Problem HPI - General Chief complaint: Eye Problems Stated complaint: Eye drainage Time Seen by Provider: 02/06/20 16:28 Source: patient, RN notes reviewed, old records reviewed Mode of arrival: ambulatory Limitations: no limitations - History of Present Illness Initial comments: This is a 70-year-old female DF for evaluation. Patient comes in from left eye drainage. Patient does not work contacts no glasses. Patient states she was using some chemicals to clean patient got some in the eye sometime in the past week. Patient wakes up in the morning with her left eye crusted shut, mild blurry vision no pain MD chief complaint: eye pain, eye redness, vision change (Blurry vision) -: days(s) Onset Description: gradual Location: left eye Place: home If Injury: none Eye Symptoms: burning, redness Severity: moderate Severity scale (1-10): 3 If Pain, Quality: burning Consistency: constant Associated Symptoms: none Treatments Prior to Arrival: none - Related Data Home Medications Medication Instructions Recorded Confirmed Phenytoin Sodium Extended 100 mg PO TID 09/18/16 12/12/19 [Dilantin] Warfarin Sodium [Jantoven] 2.5 mg PO SUMOTUWEFRSA 09/18/16 12/12/19 Warfarin Sodium [Jantoven] 5 mg PO TH 09/18/16 12/12/19 atenoloL [Tenormin] 50 mg PO DAILY 09/18/16 12/12/19 Aspirin EC [Ecotrin Low Dose] 81 mg PO DAILY 12/04/17 12/12/19 Cholecalciferol [Vitamin D3 (25 1,000 unit PO DAILY 08/10/18 12/12/19 Mcg = 1000 Iu)] aMILoride HCL 5 mg PO DAILY 12/12/19 12/12/19 hydroCHLOROthiazide 50 mg PO DAILY 12/12/19 12/12/19 Previous Rx's Medication Instructions Recorded Rosuvastatin Calcium [Crestor] 10 mg PO DAILY #30 tab 12/13/19 Allergies Allergy/AdvReac Type Severity Reaction Status Date / Time bacitracin Allergy Rash/Hives Verified 12/12/19 07:04 [From Neosporin ([id number])] dexamethasone [From Maxitrol] Allergy FACE Verified 12/12/19 07:04 SWELLING neomycin [From Maxitrol] Allergy FACE Verified 07/08/20 07:04 SWELLING polymyxin B [From Maxitrol] Allergy FACE Verified 12/12/19 07:04 SWELLING Review of Systems ROS Statement: Those systems with pertinent positive or pertinent negative responses have been documented in the HPI. ROS Other: All systems not noted in ROS Statement are negative. Past Medical History Past Medical History: Hypertension Additional Past Medical History / Comment(s): epilepsy, thoracic outlet syndrome, uterine CA History of Any Multi-Drug Resistant Organisms: None Reported Past Surgical History: Appendectomy Additional Past Surgical History / Comment(s): removed CA on skin L arm Past Psychological History: No Psychological Hx Reported Past Alcohol Use History: None Reported Past Drug Use History: None Reported General Exam Limitations: no limitations General appearance: alert, in no apparent distress Head exam: Present: atraumatic, normocephalic, normal inspection Eye exam: Present: normal appearance, PERRL, EOMI, conjunctival injection, other (Left eye conjunctivitis). Absent: scleral icterus, periorbital swelling ENT exam: Present: normal exam, mucous membranes moist Neck exam: Present: normal inspection. Absent: tenderness, meningismus, lymphadenopathy Respiratory exam: Present: normal lung sounds bilaterally. Absent: respiratory distress, wheezes, rales, rhonchi, stridor Cardiovascular Exam: Present: regular rate, normal rhythm, normal heart sounds. Absent: systolic murmur, diastolic murmur, rubs, gallop, clicks GI/Abdominal exam: Present: soft, normal bowel sounds. Absent: distended, tenderness, guarding, rebound, rigid Extremities exam: Present: normal inspection, full ROM, normal capillary refill. Absent: tenderness, pedal edema, joint swelling, calf tenderness Back exam: Present: normal inspection Neurological exam: Present: alert, oriented X3, CN II-XII intact Psychiatric exam: Present: normal affect, normal mood Skin exam: Present: warm, dry, intact, normal color. Absent: rash Course Vital Signs 02/06/20 16:21 Temperature 98.0 F Pulse Rate 58 L Respiratory 16 Rate Blood Pressure 124/73 O2 Sat by Pulse 97 Oximetry - Reevaluation(s) Reevaluation #1: Medical records reviewed ALLERGY history is reviewed Medical Decision Making - Medical Decision Making 70 female patient informed of conjunctivitis placed on antibiotic eyedrops and can be discharged home Disposition Clinical Impression: Conjunctivitis, left eye Disposition: HOME SELF-CARE Condition: Good Instructions (If sedation given, give patient instructions): Conjunctivitis (ED) Is patient prescribed a controlled substance at d/c from ED?: No Referrals: Isauro Nath DO [Primary Care Provider] - 1-2 days
== END 2020-02-06 17:22 | disposition home or self-care (01) ==
LOC: EC 16:19
DX: H10.9 Unspecified conjunctivitis (principal); I10 Essential (primary) hypertension; G40.909 Epilepsy, unspecified, not intractable, without status epilepticus; Z79.01 Long term (current) use of anticoagulants; Z79.899 Other long term (current) drug therapy; Z79.82 Long term (current) use of aspirin; Z88.1 Allergy status to other antibiotic agents; Z88.8 Allergy status to other drugs, medicaments and biological substances; Z85.828 Personal history of other malignant neoplasm of skin; Z85.42 Personal history of malignant neoplasm of other parts of uterus
CPT/HCPCS: 99283

== ENCOUNTER → 2020-02-08 | Outpatient (CLI) | payer MEDICARE, BC ==
--- NOTE | 2020-02-14 09:27 | PE ---
EXAMINATION TYPE: PET CT fusion skull to thigh DATE OF EXAM: 02/08/2020 COMPARISON: CT chest 01/18/2020 Prior PET/CT: None HISTORY: Solitary pulmonary nodule. History of uterine cancer? TECHNIQUE: Following the intravenous administration of 10.53 mCi of F-18 FDG, whole body images are performed from the skull base to the midthigh. Images are reviewed on the computer in the coronal, a xial, and sagittal planes. Reconstructed rotating images are created on independent workstation and reviewed on the computer. A localization and attenuation correction CT is performed in conjunction with the PET scan. SCAN: Initial Scan Blood glucose: 97 mg/dL FINDINGS: NECK: There is symmetric activity of the tonsils and base of the tongue. No asymmetric focal hyperme tabolic activity. THORAX: Within the left upper lobe there is a redemonstrated subsolid groundglass lung nodule measuri ng up to 2.9 x 2.6 cm (3:90), with mild metabolic activity greater than blood pool and less than live r (max SUV 2.1). ABDOMEN/PELVIS: There is a large cystic mass occupying essentially the entire abdomen and pelvis anel uring up to 16.9 x 23.2 cm in AP and transverse, spanning from the level of the coccyx through the le maik of L1 craniocaudally. This mass demonstrates no metabolic activity. The uterus is surgically abse nt. Presence of ovaries are difficult to assess due to significant mass effect by the large cystic ma ss. OSSEOUS STRUCTURES: No hypermetabolic activity. No aggressive osseous destructive lesions. LOCALIZATION CT: Cholelithiasis. There is thickened appearance of the left adrenal gland with no meta bolic activity. No evidence of bowel obstruction. No evidence of hydronephrosis. Calcified atheroscle rotic disease. Degenerative changes of the spine. IMPRESSION: 1. Large cystic mass occupying essentially the entire abdomen and pelvis measuring 16.9 x 23.2 cm, sp anning from the level of the coccyx to the level of L1 craniocaudally. No associated hypermetabolic a ctivity. Differential includes metastatic disease related to possible history of uterine cancer, or o varian in etiology. Patient is status post hysterectomy. Difficult to assess presence of ovaries due to significant mass effect. Correlate with surgical history. 2. Left upper lobe 2.9 cm groundglass opacity with subsolid component, with metabolic activity less t pichardo liver. Findings may represent infectious, inflammatory, or neoplastic etiology. 3. No metastatic disease of the neck or osseous structures. 4. Cholelithiasis.
== END | disposition home or self-care (01) ==
LOC: RADPETMAIN 12:07
PROVIDERS: ATTEND Internal Medicine Critical Care Medicine
DX: R91.1 Solitary pulmonary nodule (principal); R91.8 Other nonspecific abnormal finding of lung field; R19.00 Intra-abdominal and pelvic swelling, mass and lump, unspecified site; K80.20 Calculus of gallbladder without cholecystitis without obstruction; Z90.710 Acquired absence of both cervix and uterus
CPT/HCPCS: 78815; A9552

== ENCOUNTER → 2020-02-12 | Outpatient (CLI) | payer MEDICARE, BC | END | disposition home or self-care (01) | LOC: CPPFTMAIN 11:34 | PROVIDERS: ATTEND Internal Medicine Critical Care Medicine | DX: J43.9 Emphysema, unspecified (principal) | CPT/HCPCS: 94060; 94726; 94729 ==

== ENCOUNTER → 2020-04-01 | Outpatient (CLI) | payer MEDICARE, BC ==
[2020-04-01 13:55] LABS: African American GFR (CKD) >90 (>60 ml/min/1.73 sqM); Blood Urea Nitrogen 17 mg/dL (7-17); Non-African American GFR(CKD) 89 (>60 ml/min/1.73 sqM)
--- NOTE | 2020-04-01 16:52 | CT ---
EXAMINATION TYPE: CT abdomen pelvis w con DATE OF EXAM: 04/01/2020 COMPARISON: PET/CT 02/08/2020 HISTORY: Abdominal mass CT DLP: 902.10 mGycm Automated exposure control for dose reduction was used. TECHNIQUE: Helical acquisition of images from the lung bases through the pelvis have been completed. CONTRAST: Performed with Oral Contrast and with IV Contrast, patient injected with 100 mL of Isovue 300. FINDINGS: There are low dense mass within the abdomen seen on previous exam is again noted and measur es approximately 24 x 15 x 29 cm in size and shows low density consistent with cyst. Mass effect is p resent on the surrounding bowel, pancreas LUNG BASES: No significant abnormality is appreciated. AORTA: No significant abnormality is appreciated. LIVER/GB: Probable gallstone noted incidentally, liver is stable. PANCREAS: No significant abnormality is seen. SPLEEN: No significant abnormality is seen. ADRENALS: No significant abnormality is seen. KIDNEYS: No significant abnormality is seen. REPRODUCTIVE ORGANS: Uterus and ovaries are not seen BOWEL: No significant abnormality is seen. FREE AIR: No Free Air visible. ASCITES: None visible. PELVIC ADENOPATHY: None visualized. RETROPERITONEAL ADENOPATHY: No Retroperitoneal Adenopathy visible. URINARY BLADDER: No significant abnormality is seen. OSSEOUS STRUCTURES: Facet arthropathy noted in the lower lumbar spine, there is degenerative disc ch mireya.. IMPRESSION: CYSTIC ABDOMINAL MASS AGAIN NOTED. CHOLELITHIASIS.
== END | disposition home or self-care (01) ==
LOC: RADCTMAIN 13:10
PROVIDERS: ATTEND Internal Medicine Hematology & Oncology
DX: R19.00 Intra-abdominal and pelvic swelling, mass and lump, unspecified site (principal); K80.20 Calculus of gallbladder without cholecystitis without obstruction; Z88.1 Allergy status to other antibiotic agents; Z88.8 Allergy status to other drugs, medicaments and biological substances
CPT/HCPCS: 82565; 84520; 74177; 36415; Q9967

== ENCOUNTER → 2020-04-10 | Outpatient (CLI) | payer MEDICARE, BC | END | disposition home or self-care (01) | LOC: LABWHC1 13:52 | PROVIDERS: ATTEND Family Medicine | DX: Z01.818 Encounter for other preprocedural examination (principal); Z20.828 Contact with and (suspected) exposure to other viral communicable diseases | CPT/HCPCS: U0003; C9803 ==

== ENCOUNTER 2020-04-14 09:30 | Day surgery (SDC) | payer MEDICARE, BC ==
[2020-04-14 09:50] VITALS: TEMP 98.3
[2020-04-14] MEDS ORDERED: ALPRAZolam 0.25 MG TAB PO STA (10:02)
[2020-04-14 10:20] LABS: Mean Platelet Volume 8.2; Platelet Count 228 k/uL (150-450)
[2020-04-14 10:28] LABS: INR 1.1 (<1.2); Prothrombin Time 11.2 sec (9.0-12.0)
[2020-04-14 11:26] VITALS: BP 114/74; PULSE 46; RESP 16
--- NOTE | 2020-04-14 12:31 | CT ---
EXAMINATION TYPE: CT discontinued procedure DATE OF EXAM: 04/14/2020 COMPARISON: Nuclear medicine PET/CT 02/08/2020 HISTORY: Lung mass CT DLP: 381 mGycm Automated exposure control for dose reduction was used. Helical imaging performed through the chest f or procedure planning purposes. FINDINGS: Following discussion of the risks and benefits the patient is selected to defer biopsy at this time. Suspect findings are related to some scarring, post inflammatory change in the left mid lung, follow- up at short interval can be performed to assess for stability or any interval change. IMPRESSION: PATIENT DEFERRED BIOPSY AT THIS TIME.
== END 2020-04-14 12:10 | disposition home or self-care (01) ==
LOC: RADPROMAIN 09:30
PROVIDERS: ATTEND Internal Medicine Hematology & Oncology
DX: R22.2 Localized swelling, mass and lump, trunk (principal)
CPT/HCPCS: 36415; 76380; 77012; 85049; 85610

== ENCOUNTER 2020-04-18 13:44 | Inpatient (IN) | payer MEDICARE, BC ==
[2020-04-18 13:59] LABS: Glucose,Whole Blood 86 mg/dL (75-99)
[2020-04-18] MEDS ORDERED: SODIUM CHLORIDE 0.9% 1,000 ML IV STA (14:01)
[2020-04-18] MEDS ORDERED: ONDANSETRON 4 MG/2 ML VIAL IVP STA (14:07)
--- NOTE | 2020-04-18 14:09 | ED ---
General Adult HPI - General Chief complaint: Neuro Symptoms/Deficit Stated complaint: slurred speech Time Seen by Provider: 04/18/20 13:47 Source: patient, RN notes reviewed Mode of arrival: EMS Limitations: no limitations - History of Present Illness Initial comments: patient is a pleasant 70-year-old female presenting to the emergency department with speech problems. Patient states symptoms have been waxing and waning since 11 AM. No history of similar symptoms previously. Patient states her words come out abnormal. Patient does not have any confusion. No extremity weakness or loss of sensation. No history of similar symptoms previously. Patient does admit that she was recently diagnosed with some sort of mass in her abdomen at [facility] in [place]. - Related Data Home Medications Medication Instructions Recorded Confirmed Phenytoin Sodium Extended 100 mg PO TID 09/18/16 04/18/20 [Dilantin] Warfarin Sodium [Jantoven] 2.5 mg PO DAILY 09/18/16 04/18/20 atenoloL [Tenormin] 50 mg PO DAILY 09/18/16 04/18/20 Aspirin EC [Ecotrin Low Dose] 81 mg PO DAILY 12/04/17 04/18/20 aMILoride HCL 5 mg PO DAILY 12/12/19 04/18/20 hydroCHLOROthiazide 50 mg PO DAILY 12/12/19 04/18/20 Acetaminophen [Tylenol] 650 mg PO Q4H PRN 04/07/20 04/18/20 Albuterol Inhaler [Ventolin Hfa 1 puff INHALATION RT-QID PRN 04/07/20 04/18/20 Inhaler] ALPRAZolam [Xanax] 0.25 mg PO Q8H PRN 04/18/20 04/18/20 Previous Rx's Medication Instructions Recorded Rosuvastatin Calcium [Crestor] 10 mg PO DAILY #30 tab 12/13/19 Allergies Allergy/AdvReac Type Severity Reaction Status Date / Time bacitracin Allergy Rash/Hives Verified 04/18/20 15:00 [From Neosporin ([id number])] dexamethasone [From Maxitrol] Allergy FACE Verified 04/18/20 15:00 SWELLING hydromorphone [From Dilaudid] Allergy makes head Verified 04/18/20 15:00 spin neomycin [From Maxitrol] Allergy FACE Verified 04/18/20 15:00 SWELLING polymyxin B [From Maxitrol] Allergy FACE Verified 04/18/20 15:00 SWELLING isopropyl alcohol AdvReac Nausea Verified 04/18/20 15:00 Review of Systems ROS Statement: Those systems with pertinent positive or pertinent negative responses have been documented in the HPI. ROS Other: All systems not noted in ROS Statement are negative. Constitutional: Denies: fever Eyes: Denies: eye pain ENT: Denies: ear pain Respiratory: Denies: cough Cardiovascular: Denies: chest pain Endocrine: Denies: fatigue Gastrointestinal: Denies: abdominal pain Genitourinary: Denies: dysuria Musculoskeletal: Denies: back pain Skin: Denies: rash Neurological: Reports: as per HPI. Denies: headache, weakness Past Medical History Past Medical History: Cancer, COPD, CVA/TIA, Hyperlipidemia, Hypertension, Seizure Disorder Additional Past Medical History / Comment(s): epilepsy, thoracic outlet sy ndrome, uterine CA possibly, pt unsure and skin cancer History of Any Multi-Drug Resistant Organisms: None Reported Past Surgical History: Appendectomy, Hysterectomy Additional Past Surgical History / Comment(s): removed CA on skin L arm Past Anesthesia/Blood Transfusion Reactions: No Reported Reaction Past Psychological History: Anxiety Smoking Status: Former smoker Past Alcohol Use History: None Reported Past Drug Use History: None Reported - Past Family History Mother History Unknown: Yes General Exam Limitations: no limitations General appearance: alert, in no apparent distress Head exam: Present: normocephalic Eye exam: Present: normal appearance, PERRL, EOMI. Absent: nystagmus ENT exam: Present: normal oropharynx Neck exam: Present: normal inspection Respiratory exam: Present: normal lung sounds bilaterally Cardiovascular Exam: Present: regular rate, normal rhythm GI/Abdominal exam: Present: soft. Absent: tenderness Extremities exam: Present: normal inspection Neurological exam: Present: alert, oriented X3, CN II-XII intact. Absent: motor sensory deficit Expanded Neurological exam: Present: other (Patient did have 2 very short episodes of expressive aphasia during evaluation.) Patient oriented to: Present: person, place, time Cranial nerves: EOM's Intact: Normal, Facial Sensation: Normal Sensory exam: Upper Extremity Light Touch: Normal, Lower Extremity Light Touch: Normal Motor strength exam: RUE: 5, LUE: 5, RLE: 5, LLE: 5 Eye Response: (4) open spontaneously Motor Response: (6) obeys commands Verbal Response: (5) oriented Psychiatric exam: Present: normal affect, normal mood Skin exam: Present: normal color Course Vital Signs 04/18/20 04/18/20 04/18/20 13:55 14:05 14:20 Temperature 97.9 F Pulse Rate 51 L 49 L 50 L Respiratory 18 48 H 18 Rate Blood Pressure 147/87 148/87 135/83 O2 Sat by Pulse 97 94 L 95 Oximetry 04/18/20 04/18/20 14:35 14:46 Temperature Pulse Rate 46 L 47 L Respiratory 18 18 Rate Blood Pressure 134/83 129/83 O2 Sat by Pulse 95 94 L Oximetry - Reevaluation(s) Reevaluation #1: 04/18/20 14:16 case was discussed with Nini gomez with Dr. Patel will notify him and they will call back. At this time patient is felt to be a poor candidate for TPA secondary to minimal symptoms, onset greater than 3 hours, and unknown oncologic history. EKG Findings - EKG Comments: EKG Findings:: sinus bradycardia 47. OR 132. QRS 82. QT 458. QTC 45. Normal axis. Normal QRS. Nonspecific T waves. Medical Decision Making - Medical Decision Making patient reevaluated and resting comfortably in bed, unchanged. Patient and family updated on results and plan. Case was discussed with Dr. mathis who will evaluate patient. Case also discussed with Dr. Nath, who will admit his patien t. He also requests consult with Dr. Lee and Dr. Salvador. - Lab Data Result diagrams: 04/18/20 14:03 04/18/20 14:03 Lab Results 04/18/20 04/18/20 04/18/20 Range/Units 13:58 14:03 14:03 WBC 9.7 (3.8-10.6) k/uL RBC 4.66 (3.80-5.40) m/uL Hgb 14.9 (11.4-16.0) gm/dL Hct 45.5 (34.0-46.0) % MCV 97.6 (80.0-100.0) fL MCH 32.0 (25.0-35.0) pg MCHC 32.7 (31.0-37.0) g/dL RDW 12.8 (11.5-15.5) % Plt Count 215 (150-450) k/uL MPV 7.9 Neutrophils % 61 % Lymphocytes % 23 % Monocytes % 9 % Eosinophils % 4 % Basophils % 1 % Neutrophils # 5.9 (1.3-7.7) k/uL Lymphocytes # 2.2 (1.0-4.8) k/uL Monocytes # 0.9 (0-1.0) k/uL Eosinophils # 0.3 (0-0.7) k/uL Basophils # 0.1 (0-0.2) k/uL PT 10.9 (9.0-12.0) sec INR 1.1 (<1.2) APTT 20.5 L (22.0-30.0) sec Sodium (137-145) mmol/L Potassium (3.5-5.1) mmol/L Chloride (98-107) mmol/L Carbon Dioxide (22-30) mmol/L Anion Gap mmol/L BUN (7-17) mg/dL Creatinine (0.52-1.04) mg/dL Est GFR (CKD-EPI)AfAm (>60 ml/min/1.73 sqM) Est GFR (CKD-EPI)NonAf (>60 ml/min/1.73 sqM) Glucose (74-99) mg/dL POC Glucose (mg/dL) 86 (75-99) mg/dL POC Glu Netez[employer] Developer ID Nancy Escalona Calcium (8.4-10.2) mg/dL Total Bilirubin (0.2-1.3) mg/dL AST (14-36) U/L ALT (4-34) U/L Alkaline Phosphatase (38-126) U/L Troponin I (0.000-0.034) ng/mL Total Protein (6.3-8.2) g/dL Albumin (3.5-5.0) g/dL 04/18/20 04/18/20 Range/Units 14:03 14:03 WBC (3.8-10.6) k/uL RBC (3.80-5.40) m/uL Hgb (11.4-16.0) gm/dL Hct (34.0-46.0) % MCV (80.0-100.0) fL MCH (25.0-35.0) pg MCHC (31.0-37.0) g/dL RDW (11.5-15.5) % Plt Count (150-450) k/uL MPV Neutrophils % % Lymphocytes % % Monocytes % % Eosinophils % % Basophils % % Neutrophils # (1.3-7.7) k/uL Lymphocytes # (1.0-4.8) k/uL Monocytes # (0-1.0) k/uL Eosinophils # (0-0.7) k/uL Basophils # (0-0.2) k/uL PT (9.0-12.0) sec INR (<1.2) APTT (22.0-30.0) sec Sodium 139 (137-145) mmol/L Potassium 3.8 (3.5-5.1) mmol/L Chloride 102 (98-107) mmol/L Carbon Dioxide 33 H (22-30) mmol/L Anion Gap 4 mmol/L BUN 13 (7-17) mg/dL Creatinine 0.64 (0.52-1.04) mg/dL Est GFR (CKD-EPI)AfAm >90 (>60 ml/min/1.73 sqM) Est GFR (CKD-EPI)NonAf >90 (>60 ml/min/1.73 sqM) Glucose 96 (74-99) mg/dL POC Glucose (mg/dL) (75-99) mg/dL POC Glu Netezza Developer ID Calcium 9.0 (8.4-10.2) mg/dL Total Bilirubin 0.5 (0.2-1.3) mg/dL AST 29 (14-36) U/L ALT 13 (4-34) U/L Alkaline Phosphatase 105 (38-126) U/L Troponin I <0.012 (0.000-0.034) ng/mL Total Protein 7.7 (6.3-8.2) g/dL Albumin 4.1 (3.5-5.0) g/dL - Radiology Data Radiology results: report reviewed (computed tomography scan of the brain shows stable encephalomalacia posterior left parietal likely prior vascular or traumatic insult. No acute abdomen Juan R. CT angiogram of the head and neck shows no significant abnormality.), image reviewed (chest x-ray: Unable to exc lude focal infiltrate peripheral left midlung.) Disposition Clinical Impression: Transient cerebral ischemia Disposition: ADMITTED IP TO THIS HOSP Is patient prescribed a controlled substance at d/c from ED?: No Referrals: Isauro Nath DO [Primary Care Provider] - 1-2 days Decision Time: 15:17
[2020-04-18 14:14] LABS: Basophils # (A) 0.1 k/uL (0-0.2); Basophils % (A) 1 %; Eosinophils # (A) 0.3 k/uL (0-0.7); Eosinophils % (A) 4 %; HCT 45.5 % (34.0-46.0); HGB 14.9 gm/dL (11.4-16.0); Lymphocytes # (A) 2.2 k/uL (1.0-4.8); Lymphocytes % (A) 23 %; MCHC 32.7 g/dL (31.0-37.0); MCV 97.6 fL (80.0-100.0); Mean Platelet Volume 7.9; Monocytes # (A) 0.9 k/uL (0-1.0); Monocytes % (A) 9 %; Neutrophils # (A) 5.9 k/uL (1.3-7.7); Neutrophils % (A) 61 %; Platelet Count 215 k/uL (150-450); RBC 4.66 m/uL (3.80-5.40); RDW 12.8 % (11.5-15.5); WBC 9.7 k/uL (3.8-10.6)
[2020-04-18 14:25] LABS: ALT 13 U/L (4-34); AST 29 U/L (14-36); African American GFR (CKD) >90 (>60 ml/min/1.73 sqM); Albumin 4.1 g/dL (3.5-5.0); Alkaline Phosphatase 105 U/L (38-126); Anion Gap 4 mmol/L; Blood Urea Nitrogen 13 mg/dL (7-17); Carbon Dioxide 33 mmol/L (22-30); Chloride 102 mmol/L (98-107); Glucose 96 mg/dL (74-99); Non-African American GFR(CKD) >90 (>60 ml/min/1.73 sqM); Potassium 3.8 mmol/L (3.5-5.1); Sodium 139 mmol/L (137-145); Total Bilirubin 0.5 mg/dL (0.2-1.3); Total Protein 7.7 g/dL (6.3-8.2)
[2020-04-18 14:34] LABS: INR 1.1 (<1.2); Prothrombin Time 10.9 sec (9.0-12.0)
[2020-04-18 14:36] LABS: Partial Thromboplastin Time 20.5 sec (22.0-30.0)
--- NOTE | 2020-04-18 14:41 | CT ---
EXAMINATION TYPE: CT brain wo con for TPA DATE OF EXAM: 04/18/2020 COMPARISON: 12/11/2019 HISTORY: 70-year-old female acute neurologic deficit, stroke suspected. Dysphasia TECHNIQUE: Examination was done in axial plane without intravenous contrast. Coronal and sagittal r econstructions performed. CT DLP: 1052 mGycm Automated exposure control for dose reduction was used. FINDINGS: There is no evidence of acute intracranial hemorrhage, acute ischemic changes, mass, mass-effect, or extra-axial fluid collection. There is no effacement of cerebral sulci or basal subarachnoid cister ns. There is no hydrocephalus. There is no midline shift. Power-white matter distinction is preserv ed. Paranasal sinuses and mastoid air cells are well pneumatized. Orbits and globes are intact. Mild gene ralized supratentorial volume loss redemonstrated. Stable encephalomalacia along the posterior left parietal lobe IMPRESSION: Stable encephalomalacia posterior left parietal lobe likely area of prior vascular or traumatic insul t. No acute intracranial abnormality seen.
--- NOTE | 2020-04-18 14:50 | XR ---
EXAMINATION TYPE: XR chest 2V DATE OF EXAM: 04/18/2020 COMPARISON: 12/11/2019 HISTORY: 70-year-old female confusion, altered mental status TECHNIQUE: AP and lateral views FINDINGS: Heart normal size. Mild elongation thoracic aorta. Subtle focal density periphery of the left mid kumar g. No other consolidation or pleural effusion. IMPRESSION: Unable to exclude a focal infiltrate/pneumonia at the periphery of the left midlung. Follow-up after treatment to ensure clearance. If the finding persists following treatment, CT can be performed.
--- NOTE | 2020-04-18 15:02 | CT ---
EXAMINATION TYPE: CT angio head neck DATE OF EXAM: 04/18/2020 HISTORY: dysphasia COMPARISON: CT DLP: 356.3 mGycm. Automated Exposure Control for Dose Reduction was Utilized. TECHNIQUE: CTA scan of the neck is performed with IV Contrast, patient injected with 65 mL of Isovue 370, axial images are obtained, coronal and sagittal reformatted images are reviewed. Three-D recons tructed images are created on an independent workstation and reviewed. FINDINGS: Carotid/Vascular Structures: Transverse aorta, super aortic branch vessels are patent. There is no ev ident stenosis by NASCET criteria Of the proximal internal carotid arteries. Vertebral arteries are codominant and patent. No evident d issection. Anterior posterior circulation within the brain are patent. There is no evident aneurysm, dissection, or embolus. A1 segment on the right is atrophic of the internal carotid artery Other: Upper lobes of the lungs show emphysematous change. There are degenerative disc changes presen t in the visualized spine. IMPRESSION: No significant abnormality is seen.
[2020-04-18] MEDS ORDERED: ASPIRIN 325 MG TAB PO STA (15:18)
[2020-04-18] MEDS ORDERED: PHENYTOIN SODIUM EXTENDED 100 MG CAP PO STA (15:40)
[2020-04-18] MEDS: SODIUM CHLORIDE 0.9% 1,000 ML IV SCH ×2 (15:40→23:56)
[2020-04-18] MEDS ORDERED: ALBUTEROL NEBULIZED 2.5 MG/3 ML INHALATION PRN (16:43)
[2020-04-18] MEDS ORDERED: ALPRAZolam 0.25 MG TAB PO PRN (16:43)
[2020-04-18] MEDS ORDERED: ACETAMINOPHEN TAB 325 MG TAB PO PRN (16:43)
[2020-04-18] MEDS ORDERED: PHENYTOIN SODIUM EXTENDED 100 MG CAP PO SCH ×2 (16:45→22:00)
--- NOTE | 2020-04-18 16:56 | P.CNNES ---
History of Present Illness Consult date: 04/18/20 Requesting physician: Kuldeep Galdamez Reason for Consult: TIA History of Present Illness: Patient is a 70-year-old female came to the hospital today at 1:44 PM with slurred speech, possible CVA. Patient states that she was at [facility] today to follow-up on her abdominal mass. At around 11 AM her friend noticed that she wa s not talking right. No history of similar symptoms in the past. No numbness or tingling or focal weakness. Patient came to the hospital at 1:44 PM. Vital signs on arrival blood pressure 147/87, pulse rate 51 temperature 97.9. EKG shows sinus bradycardia, nonspecific ST and T-wave abnormality. CT of the head showed stable encephalomalacia posterior left parietal lobe likely area of prior vascular or traumatic insults. No acute intracranial abnormality. Chest x-ray was unable to exclude a focal infiltrate/pneumonia at the periphery of the left mid lung. Follow-up after treatment to ensure clearance. CTA of head and neck showed no significant abnormality. No dissection. Patient's blood test shows normal CBC, PTT is 20.5, prothrombin time 10.9, INR 1.1. Sodium is 139 potassium 3.8 and normal renal functions. Troponin negative. Stroke code was activated. ED staff discuss with Dr. Terrazas, covering for Dr. Isaac, and it was felt patient was not a candidate for TPA secondary to minimal symptoms, onset greater than 3 hours, and unknown oncologic history. Patient currently on Coumadin, Dilantin 100 mg 3 times a day, aspirin 81 mg, Crestor 10 mg, atenolol 50 mg. Patient's Dilantin was discontinued about a week ago for some pelvic procedure. She resumed Coumadin yesterday. Patient states her symptoms have been persistent, not improving or getting worse. Review of Systems Patient denies any headache, denies any chest pain shortness of breath wheezing or cough. Patient has abdominal protrusion, no peripheral edema. Denies focal numbness tingling or weakness. No double vision. No loss of hearing. All other review of systems unremarkable. Past Medical History Past Medical History: Cancer, COPD, CVA/TIA, Hyperlipidemia, Hypertension, Seizure Disorder Additional Past Medical History / Comment(s): epilepsy, thoracic outlet syndrome, uterine CA possibly, pt unsure and skin cancer History of Any Multi-Drug Resistant Organisms: None Reported Past Surgical History: Appendectomy, Hysterectomy Additional Past Surgical History / Comment(s): removed CA on skin L arm Past Anesthesia/Blood Transfusion Reactions: No Reported Reaction Past Psychological History: Anxiety Smoking Status: Former smoker Past Alcohol Use History: None Reported Past Drug Use History: None Reported - Past Family History Mother History Unknown: Yes Medications and Allergies Home Medications Medication Instructions Recorded Confirmed Type Phenytoin Sodium Extended 100 mg PO TID 09/18/16 04/18/20 History [Dilantin] Warfarin Sodium [Jantoven] 2.5 mg PO DAILY 09/18/16 04/18/20 History atenoloL [Tenormin] 50 mg PO DAILY 09/18/16 04/18/20 History Aspirin EC [Ecotrin Low Dose] 81 mg PO DAILY 12/04/17 04/18/20 History aMILoride HCL 5 mg PO DAILY 12/12/19 04/18/20 History hydroCHLOROthiazide 50 mg PO DAILY 12/12/19 04/18/20 History Rosuvastatin Calcium [Crestor] 10 mg PO DAILY #30 tab 12/13/19 04/18/20 Rx Acetaminophen [Tylenol] 650 mg PO Q4H PRN 04/07/20 04/18/20 History Albuterol Inhaler [Ventolin Hfa 1 puff INHALATION RT-QID PRN 04/07/20 04/18/20 History Inhaler] ALPRAZolam [Xanax] 0.25 mg PO Q8H PRN 04/18/20 04/18/20 History Allergies Allergy/AdvReac Type Severity Reaction Status Date / Time bacitracin Allergy Rash/Hives Verified 04/18/20 15:00 [From Neosporin ([id number])] dexamethasone [From Maxitrol] Allergy FACE Verified 04/18/20 15:00 SWELLING hydromorphone [From Dilaudid] Allergy makes head Verified 04/18/20 15:00 spin neomycin [From Maxitrol] Allergy FACE Verified 04/18/20 15:00 SWELLING polymyxin B [From Maxitrol] Allergy FACE Verified 04/18/20 15:00 SWELLING isopropyl alcohol AdvReac Nausea Verified 04/18/20 15:00 Physical Examination - Vital Signs Vital Signs: Vital Signs Temp Pulse Resp BP Pulse Ox 04/18/20 14:46 47 L 18 129/83 94 L 04/18/20 14:35 46 L 18 134/83 95 04/18/20 14:20 50 L 18 135/83 95 04/18/20 14:05 49 L 48 H 148/87 94 L 04/18/20 13:55 97.9 F 51 L 18 147/87 97 Intake and Output 04/18/20 04/18/20 04/18/20 06:59 14:59 22:59 Other: Weight 67.132 kg On examination patient is an elderly female, in no acute distress. Patient is alert and awake. Patient is fully oriented, knows that it is April 2020 and that she is in [facility] in [place]. Patient has definite paraphasic errors noted. Patient says table instead of "thumb". She states "cattle" instead of knuckles. Patient can follow written commands well. Patient can read with some errors at times. On cranial exam showed pupils are round and reacting to light, visual womack are full on confrontation, extraocular muscles are intact with no nystagmus. Face is symmetric, tongue protrudes to the midline. Palatal elevation sensation normal hearing and shoulder shrug normal. On muscle strength testing there is no pronator drift and the strength is normal in arms and legs distally and proximally. Reflexes are 1+ and plantars are downgoing. Sensory to touch is equal. No ataxia for [id number] testing. Tone and bulk of muscles normal. Gait deferred. On general examination there is no obvious bruit, S1 and S2 audible. Abdomen is protuberant, but soft. Nontender. Chest is clear, peripheral pulses present. No peripheral edema. Results - Laboratory Findings CBC and BMP: 04/18/20 14:03 04/18/20 14:03 Abnormal Lab Findings: Abnormal Labs 04/18/20 04/18/20 14:03 14:03 APTT 20.5 L Carbon Dioxide 33 H Assessment and Plan Assessment: * Probable stroke manifesting with mild to moderate expressive aphasia. Likely embolic. * History of TIA with transient right leg weakness on 12/12/2019. * Hypertension * History of seizure disorder * Abdominal mass, unclear cause. * X tobacco use. Plan: * Resume Coumadin. Patient had history of multiple strokes or TIA. 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 All of these events appears embolic strokes. Although she does not have documented atrial fibrillation, but strokes appears embolic. Uncertain if patient has hypercoagulable state due to abdominal mass. Consider bridging with heparin until INR is therapeutic. Target INR 2.0-3.0. * 2-D echo from 12/13/2019 showed borderline concentric LVH, EF is 55-60%. Left atrium is moderately dilated. Mild MR. * Current CT angiogram of head and neck is negative with no stenosis. * Continue aspirin 325 mg daily. * Continue Dilantin 100 mg 3 times a day. * Patient's hemoglobin A1c 5.1 on 2019, lipid panel with cholesterol 137, LDL 80, HDL 47 and triglycerides 50. Continue Crestor. * Neurology coverage not available on the weekend. Please perfect serve if any concerns over the weekend.
[2020-04-18] MEDS: ATORVASTATIN 20 MG TAB PO SCH (17:48)
[2020-04-18] MEDS: atenoloL 50 MG TAB PO SCH (17:48)
[2020-04-18] MEDS: HEPARIN SOD,PORK IN 0.45% NACL 25,000 UNIT in 0.45% NACL 1 250ML.BAG IV SCH (17:48)
[2020-04-18] MEDS ORDERED: WARFARIN 5 MG TAB PO ONE (18:00)
[2020-04-18] MEDS: SPIRONOLACTONE 25 MG TAB PO SCH (19:44)
[2020-04-18] MEDS: ONDANSETRON 4 MG/2 ML VIAL IVP PRN (20:52)
[2020-04-19] MEDS: ASPIRIN 325 MG TAB PO SCH (08:26)
[2020-04-19] MEDS: SPIRONOLACTONE 25 MG TAB PO SCH ×2 (08:26→20:55)
[2020-04-19] MEDS: atenoloL 50 MG TAB PO SCH (08:26)
[2020-04-19] MEDS: ATORVASTATIN 20 MG TAB PO SCH (08:26)
[2020-04-19] MEDS ORDERED: ASPIRIN 81 MG PO SCH (09:00)
[2020-04-19 09:13] LABS: HCT 41.1 % (34.0-46.0); HGB 13.4 gm/dL (11.4-16.0); MCH 32.2 pg (25.0-35.0); MCHC 32.6 g/dL (31.0-37.0); Mean Platelet Volume 8.3; Platelet Count 169 k/uL (150-450); RBC 4.15 m/uL (3.80-5.40); RDW 13.1 % (11.5-15.5); WBC 8.5 k/uL (3.8-10.6)
[2020-04-19 09:26] LABS: INR 1.3 (<1.2)
[2020-04-19 09:33] LABS: Partial Thromboplastin Time 60.8 sec (22.0-30.0)
--- NOTE | 2020-04-19 09:48 | P.HPIM ---
History of Present Illness Patient is pleasant 70-year-old female came in with the complaint of slurred speech. Patient has history of atrial fibrillation on anti-correlation with the Coumadin this was held for a biopsy of abdominal mass. Shortly after the biopsy patient had a slurred speech found to have a stroke which is embolic. CT of the head showed stable encephalomalacia with posterior left parietal lobe previous stroke or traumatic insults. CT angios the head and neck did not show any significant abnormality INR is 1.1. Patient was started on IV heparin to bridge for Coumadin because of her stroke patient usually takes 2.5 mg of Coumadin d ysuria 5 mg of Coumadin last night. Patient will be a valid by speech therapy patient is not having aspiration but will need speech therapy physical therapy Patient evaluation use by herself. Review of Systems REVIEW OF SYSTEMS: CONSTITUTIONAL: No fever, no malaise, no fatigue. HEENT: No recent visual problems or hearing problems. Denied any sore throat. CARDIOVASCULAR: No chest pain, orthopnea, PND, no palpitations, no syncope. PULMONARY: No shortness of breath, no cough, no hemoptysis. GASTROINTESTINAL: No diarrhea, no nausea, no vomiting, no abdominal pain. NEUROLOGICAL: No headaches, no weakness, no numbness. HEMATOLOGICAL: Denies any bleeding or petechiae. GENITOURINARY: Denies any burning micturition, frequency, or urgency. MUSCULOSKELETAL/RHEUMATOLOGICAL: Denies any joint pain, swelling, or any muscle pain. ENDOCRINE: Denies any polyuria or polydipsia. The rest of the 14-point review of systems is negative. Past Medical History Past Medical History: Cancer, COPD, CVA/TIA, Hyperlipidemia, Hypertension, Seizure Disorder Additional Past Medical History / Comment(s): epilepsy, thoracic outlet syndrome, uterine CA possibly, pt unsure and skin cancer History of Any Multi-Drug Resistant Organisms: None Reported Past Surgical History: Appendectomy, Hysterectomy Additional Past Surgical History / Comment(s): removed CA on skin L arm Past Anesthesia/Blood Transfusion Reactions: No Reported Reaction Past Psychological History: Anxiety Smoking Status: Former smoker Past Alcohol Use History: None Reported Past Drug Use History: None Reported - Past Family History Mother History Unknown: Yes Medications and Allergies Home Medications Medication Instructions Recorded Confirmed Type Phenytoin Sodium Extended 100 mg PO TID 09/18/16 04/18/20 History [Dilantin] Warfarin Sodium [Jantoven] 2.5 mg PO DAILY 09/18/16 04/18/20 History atenoloL [Tenormin] 50 mg PO DAILY 09/18/16 04/18/20 History Aspirin EC [Ecotrin Low Dose] 81 mg PO DAILY 12/04/17 04/18/20 History aMILoride HCL 5 mg PO DAILY 12/12/19 04/18/20 History hydroCHLOROthiazide 50 mg PO DAILY 12/12/19 04/18/20 History Rosuvastatin Calcium [Crestor] 10 mg PO DAILY #30 tab 12/13/19 04/18/20 Rx Acetaminophen [Tylenol] 650 mg PO Q4H PRN 04/07/20 04/18/20 History Albuterol Inhaler [Ventolin Hfa 1 puff INHALATION RT-QID PRN 04/07/20 04/18/20 History Inhaler] ALPRAZolam [Xanax] 0.25 mg PO Q8H PRN 04/18/20 04/18/20 History Allergies Allergy/AdvReac Type Severity Reaction Status Date / Time bacitracin Allergy Rash/Hives Verified 04/18/20 15:00 [From Neosporin ([id number])] dexamethasone [From Maxitrol] Allergy FACE Verified 04/18/20 15:00 SWELLING hydromorphone [From Dilaudid] Allergy makes head Verified 04/18/20 15:00 spin neomycin [From Maxitrol] Allergy FACE Verified 04/18/20 15:00 SWELLING polymyxin B [From Maxitrol] Allergy FACE Verified 04/18/20 15:00 SWELLING isopropyl alcohol AdvReac Nausea Verified 04/18/20 15:00 Physical Exam Vitals: Vital Signs Temp Pulse Pulse Resp BP BP Pulse Ox 04/19/20 09:00 98.1 F 49 L 16 121/70 92 L 04/19/20 02:50 98 F 59 L 17 137/75 94 L 04/18/20 19:35 98.2 F 55 L 19 124/60 95 04/18/20 17:11 52 L 04/18/20 16:18 50 L 130/67 94 L 04/18/20 15:15 48 L 16 130/61 93 L 04/18/20 15:00 51 L 22 129/83 94 L 04/18/20 14:46 47 L 18 129/83 94 L 04/18/20 14:35 46 L 18 134/83 95 04/18/20 14:20 50 L 18 135/83 95 04/18/20 14:05 49 L 48 H 148/87 94 L 04/18/20 13:55 97.9 F 51 L 18 147/87 97 Intake and Output 04/18/20 04/19/20 04/19/20 22:59 06:59 14:59 Intake Total 54.915 Balance 54.915 Intake: Intake, IV Titration 54.915 Amount Heparin Sod,Pork in 0.45% 54.915 NaCl 25,000 unit In 0.45 % NaCl 1 250ml.bag @ 12 UNITS/KG/HR 8.056 mls/hr IV .Q24H [facility] Rx#: [id number] Other: Voiding Method Toilet Toilet Toilet # Voids 1 2 1 # Bowel Movements 1 Weight 67.132 kg PHYSICAL EXAMINATION: GENERAL: The patient is alert and oriented x3, not in any acute distress. Well developed, well nourished. HEENT: Pupils are round and equally reacting to light. EOMI. No scleral icterus. No conjunctival pallor. Normocephalic, atraumatic. No pharyngeal erythema. No t hyromegaly. CARDIOVASCULAR: S1 and S2 present. No murmurs, rubs, or gallops. PULMONARY: Chest is clear to auscultation, no wheezing or crackles. ABDOMEN: Soft, nontender, nondistended, normoactive bowel sounds. No palpable organomegaly. MUSCULOSKELETAL: No joint swelling or deformity. EXTREMITIES: No cyanosis, clubbing, or pedal edema. NEUROLOGICAL: Gross neurological examination did not reveal any focal deficits except for saphasia which appears to motor aphasia predominantly. His aphasia and significant event or even compared to today morning as per the nursing staff. Patient does have generalized weakness. SKIN: No rashes. Results CBC & Chem 7: 04/19/20 08:45 04/18/20 14:03 Labs: Abnormal Lab Results - Last 24 Hours (Table) 04/18/20 04/18/20 04/19/20 Range/Units 14:03 14:03 00:03 PT (9.0-12.0) sec INR (<1.2) APTT 20.5 L 69.2 H (22.0-30.0) sec Carbon Dioxide 33 H (22-30) mmol/L 11/14/20 Range/Units 08:45 PT 13.0 H (9.0-12.0) sec INR 1.3 H (<1.2) APTT 60.8 H (22.0-30.0) sec Carbon Dioxide (22-30) mmol/L Thrombosis Risk Factor Assmnt - Choose All That Apply Any of the Below Risk Factors Present?: No Other Risk Factors: Yes Each Risk Factor Represents 3 Points: Age 75 years or older Thrombosis Risk Factor Assessment Total Risk Factor Score: 3 Thrombosis Risk Factor Assessment Level: Moderate Risk Assessment and Plan Plan: -Possible embolic stroke. 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 -Atrial fibrillation: Presently rate controlled continue with anticoagulation patient is actually mildly bradycardic down the dose of beta timo -Hypertension -Seizure disorder -Abdominal mass for which patient is undergoing workup with a biopsy -CVA and TIA in the past -Hyperlipidemia -Hypertension
[2020-04-19 09:55] LABS: African American GFR (CKD) >90 (>60 ml/min/1.73 sqM); Anion Gap 3 mmol/L; Blood Urea Nitrogen 10 mg/dL (7-17); Calcium 8.2 mg/dL (8.4-10.2); Carbon Dioxide 30 mmol/L (22-30); Chloride 104 mmol/L (98-107); Glucose 91 mg/dL (74-99); Non-African American GFR(CKD) >90 (>60 ml/min/1.73 sqM); Potassium 4.1 mmol/L (3.5-5.1); Sodium 137 mmol/L (137-145)
--- NOTE | 2020-04-19 14:30 | P.CONS ---
History of Present Illness - Reason for Consult Consult date: 04/19/20 Oncologic care, abdominal mass Requesting physician: Isauro Nath - Chief Complaint Speech problems - History of Present Illness Ms. Oliva is a very pleasant 70 yo female who initially had a CT scan of chest to further evaluate a KACY lung nodule in 01/2020 which revealed large cystic mass in upper abdomen,in addition to 2.9 cm groundglass opacity in KACY of her lung then she had a PET scan on 02/08/2020 which revealed subsolid low SUV KACY mass,however,there was 16.9x23.2cm large cystic mass with no metabolic activities occupying the entire abdomen and plevis. There is no prior CT scan of abdomen to compare. She has a history of "uterine cancer" at age 19,treated with hysterectomy. She is a warfarin for RUE DVT years ago,felt to be secondary to thoracic outlet obstruction. She feels tired,has significant exertional dyspnea from her COPD,chronic arthritic pain,ambulates with a walker,no nausea/vomiting,no abdominal pain,normal bowel movement. She was seen by Dr. Lee on 03/11/20, who felt this was likely large benign tumor due to lack of activity on PET, however he obtained CT and referred her to Dr. Anderson, surgical oncologist, for further recommendations. She saw Dr. Anderson and states biopsy was taken, awaiting results. She is tearful about her condition. She is here now speech problems, felt to be due to possible TIA/CVA. Neurology on board. Review of Systems All systems: negative Constitutional: Reports as per HPI Past Medical History Past Medical History: Cancer, COPD, CVA/TIA, Hyperlipidemia, Hypertension, Seizure Disorder Additional Past Medical History / Comment(s): epilepsy, thoracic outlet syndrome, uterine CA possibly, pt unsure and skin cancer History of Any Multi-Drug Resistant Organisms: None Reported Past Surgical History: Appendectomy, Hysterectomy Additional Past Surgical History / Comment(s): removed CA on skin L arm Past Anesthesia/Blood Transfusion Reactions: No Reported Reaction Past Psychological History: Anxiety Smoking Status: Former smoker Past Alcohol Use History: None Reported Past Drug Use History: None Reported - Past Family History Mother History Unknown: Yes Medications and Allergies Home Medications Medication Instructions Recorded Confirmed Type Phenytoin Sodium Extended 100 mg PO TID 09/18/16 04/18/20 History [Dilantin] Warfarin Sodium [Jantoven] 2.5 mg PO DAILY 09/18/16 04/18/20 History atenoloL [Tenormin] 50 mg PO DAILY 09/18/16 04/18/20 History Aspirin EC [Ecotrin Low Dose] 81 mg PO DAILY 12/04/17 04/18/20 History aMILoride HCL 5 mg PO DAILY 12/12/19 04/18/20 History hydroCHLOROthiazide 50 mg PO DAILY 12/12/19 04/18/20 History Rosuvastatin Calcium [Crestor] 10 mg PO DAILY #30 tab 12/13/19 04/18/20 Rx Acetaminophen [Tylenol] 650 mg PO Q4H PRN 04/07/20 04/18/20 History Albuterol Inhaler [Ventolin Hfa 1 puff INHALATION RT-QID PRN 04/07/20 04/18/20 History Inhaler] ALPRAZolam [Xanax] 0.25 mg PO Q8H PRN 04/18/20 04/18/20 History Allergies Allergy/AdvReac Type Severity Reaction Status Date / Time bacitracin Allergy Rash/Hives Verified 04/18/20 15:00 [From Neosporin ([id number])] dexamethasone [From Maxitrol] Allergy FACE Verified 04/18/20 15:00 SWELLING hydromorphone [From Dilaudid] Allergy makes head Verified 04/18/20 15:00 spin neomycin [From Maxitrol] Allergy FACE Verified 04/18/20 15:00 SWELLING polymyxin B [From Maxitrol] Allergy FACE Verified 04/18/20 15:00 SWELLING isopropyl alcohol AdvReac Nausea Verified 04/18/20 15:00 Physical Exam Vitals: Vital Signs Temp Pulse Pulse Resp BP BP Pulse Ox 04/19/20 09:00 98.1 F 49 L 16 121/70 92 L 04/19/20 02:50 98 F 59 L 17 137/75 94 L 04/18/20 19:35 98.2 F 55 L 19 124/60 95 04/18/20 17:11 52 L 04/18/20 16:18 50 L 130/67 94 L 04/18/20 15:15 48 L 16 130/61 93 L 04/18/20 15:00 51 L 22 129/83 94 L 04/18/20 14:46 47 L 18 129/83 94 L 04/18/20 14:35 46 L 18 134/83 95 04/18/20 14:20 50 L 18 135/83 95 04/18/20 14:05 49 L 48 H 148/87 94 L 04/18/20 13:55 97.9 F 51 L 18 147/87 97 Intake and Output 04/18/20 04/19/20 04/19/20 22:59 06:59 14:59 Intake Total 54.915 Balance 54.915 Intake: Intake, IV Titration 54.915 Amount Heparin Sod,Pork in 0.45% 54.915 NaCl 25,000 unit In 0.45 % NaCl 1 250ml.bag @ 12 UNITS/KG/HR 8.056 mls/hr IV .Q24H [facility] Rx#: [id number] Other: Voiding Method Toilet Toilet Toilet # Voids 1 2 1 # Bowel Movements 1 Weight 67.132 kg Gen.: No acute distress. HEENT: No conjunctival pallor. Mucosa moist. Neck: Neck supple. Lungs: No respiratory distress. Heart: Regular rate. No lower extremity edema. Abdomen: Soft, firm. MSK: Appropriate strength in all 4 extremities. Neuro: Alert and oriented 3. Some speech and word finding difficulties. Skin: No jaundice. Psych: Appropriate affect. Tearful when discussing abdominal mass. Results CBC & Chem 7: 04/19/20 08:45 04/19/20 08:45 Labs: Abnormal Lab Results - Last 24 Hours (Table) 04/18/20 04/18/20 04/19/20 Range/Units 14:03 14:03 00:03 PT (9.0-12.0) sec INR (<1.2) APTT 20.5 L 69.2 H (22.0-30.0) sec Carbon Dioxide 33 H (22-30) mmol/L Calcium (8.4-10.2) mg/dL 04/19/20 04/19/20 Range/Units 08:45 08:45 PT 13.0 H (9.0-12.0) sec INR 1.3 H (<1.2) APTT 60.8 H (22.0-30.0) sec Carbon Dioxide (22-30) mmol/L Calcium 8.2 L (8.4-10.2) mg/dL Comments: PET reviewed. CT scan - abdomen: report reviewed CT Scan - head: report reviewed CT scan - pelvis: report reviewed Assessment and Plan Assessment: 1. Speech difficulty, possibly due to TIA 2. Large cystic abdominal mass Plan: Ms. Oliva is a very pleasant 70-year-old female with multiple comorbidities as listed above under past medical history including recently found 25 cm abdominal cystic mass without significant uptake on PET scan, who is here for possible TIA. She is being evaluated by neurology. For abdominal mass she was seen by Dr. Lee and referred to a surgical oncologist for possible resection. This could be a large benign tumor due to lack of uptake on PET scan. Biopsy obtained, awaiting results. Await pathology results. If benign, monitoring the growth of this would be a reasonable option. No further oncologic workup needed at this time. Patient should follow-up with Dr. Anderson as well as Dr. Lee after discharge for continued care of her abdominal mass.
--- NOTE | 2020-04-19 16:53 | CONS ---
CONSULTATION PULMONARY/CRITICAL CARE CONSULTATION: DATE OF SERVICE: April 19, 2020 HISTORY OF PRESENT ILLNESS: This is a 70-year-old female who presented to the emergency department with speech issues. She has been having issues for a number of hours prior to admission. The patient states that her words just do not seem to come out properly. She is having almost an expressive aphasia. Anyway, the patient was evaluated for possible TIA, stroke. I was asked to see the patient for possible abnormality on chest x-ray and CT scan. In fact, I saw the patient back in December. At that time, she had a left mid lung lesion that was 1 cm in size, not previously there in 2018. I thought it could represent a metastatic deposit and/or primary lung cancer. The patient does have a history of heavy tobacco use 40 years at 2-3 packs a day. The patient is still having a difficult time getting words out of her mouth. She seems quite confused and she is really not able to give much of a history. She was recently also found to have a mass in her abdomen. She apparently was going to have some sort of biopsy, but refused it. HOME MEDICATIONS: Reviewed and include: Dilantin, warfarin, atenolol, aspirin, Amiloride, hydrochlorothiazide, Tylenol, albuterol inhaler, and Xanax. She is also on Crestor. ALLERGIES: INCLUDE NEOSPORIN, MAXITROL, HYDROMORPHONE, NEOMYCIN, POLYMYXIN B AND ISOPROPYL ALCOHOL. MEDICAL HISTORY: Positive for COPD from previous tobacco use, CVA, hyperlipidemia, hypertension, seizure disorder, uterine cancer, thoracic outlet syndrome, and skin cancer. SURGICAL HISTORY: Includes appendectomy, hysterectomy, and surgery for thoracic outlet syndrome. She also has had skin cancer removed, that was from the left arm. SOCIAL HISTORY: Positive for previous heavy tobacco use. She smoked 40 years at 2-3 packs a day. She quit 2008. She denies any alcohol use or illicit drug use. FAMILY HISTORY: Noncontributory. Apparently did not know her father's history, but her mother was apparently healthy. REVIEW OF SYSTEMS: CONSTITUTIONAL negative. NEUROLOGIC: Expressive aphasia. HEENT negative. CARDIOVASCULAR negative. PULMONARY negative. GI negative. negative. RHEUMATOLOGIC negative. IMMUNOLOGIC negative. ENDOCRINOLOGIC negative. DERMATOLOGIC negative. PHYSICAL EXAMINATION: VITAL SIGNS: Current vital signs: Temperature is 98.1 heart rate 59, respiratory rate 16, blood pressure 121/70, mean 87. Room-air saturation 94%. GENERAL: Appears in no acute distress. HEENT: Examination is grossly unremarkable. NECK: Supple. Full range of motion. No adenopathy. Neck veins are flat. CARDIOVASCULAR: Examination reveals regular rhythm and rate. S1, S2 normal. No S3, S4, or murmur. LUNGS: Reveal clear breath sounds. No wheezes, rhonchi or crackles. ABDOMEN: Soft. Bowel sounds are heard. EXTREMITIES are intact. No cyanosis, clubbing, or edema. SKIN: Without rash. NEUROLOGIC: She has a difficult time getting words out. She moves all 4 extremities. LAB DATA: Reviewed. White count 8.5, hemoglobin 13.4, hematocrit 41.1, and platelet count 169,000. PT 13, INR 1.3, PTT 60.8. Sodium 137, potassium 4.1. Chloride 104. CO2 30, anion gap is 3. BUN and creatinine were 10 and 0.58. Microbiology is negative. The patient had a brain CT. That was showing stable encephalomalacia posterior left parietal lobe from previous vascular traumatic insult. No acute intracranial abnormality noted. Chest x-ray shows a lesion that was on prior x-rays and CAT scans in the left mid lung. It could be a metastatic deposit of primary lung cancer or an inflammatory process. Angiography CT reveal no significant abnormality. A chest CT done in January, showed a left upper lobe 2.9 x 3.4 x 2.1 lesion of ground- glass opacity with solid nodular component. Findings may represent infectious, inflammatory, or neoplastic etiology. There was a large cystic lesion in the upper abdomen. Also, there are gallstones. A PET scan was done on February 08, which showed a large cystic mass occupying essentially the entire abdomen and pelvis measuring 16.9 x 23.2 cm spanning from the level of the coccyx to the level of L1. There was no associated hypermetabolic activity. The left upper lobe 2.9 cm ground-glass opacity with sub solid component has metabolic activity less than liver. They were thinking that this lesion was more likely infectious or inflammatory rather than neoplastic. ASSESSMENT: 1. Left upper lobe lesion, measuring 2.9 x 3.4 x 2.1 cm in size, which may represent an inflammatory, infectious, or neoplastic process. 2. Previous history of heavy tobacco use for 40 years, at 2-3 packs a day, quit in 2008, rule out chronic obstructive pulmonary disease. 3. Expressive aphasia, rule out primary neurologic event. 4. Right leg numbness and paresthesias, rule out stroke syndrome. 5. History of essential hypertension. 6. Status post surgery for thoracic outlet syndrome. 7. History of seizure disorder. 8. Uterine cancer. 9. Skin cancer. 10.Hypertension. 11.Large abdominal mass, yet to be biopsied. PLAN: We will await biopsy of abdominal mass. Pulmonary status is currently stable. She does not appear to be having any respiratory issues at this time. The lesion in the left upper lobe is concerning. It could be a primary lung cancer and/or metastatic process. Alternatively, the lesion may in fact be an inflammatory infectious lesion. We will continue to follow. Prognosis is guarded. MMODL / IJN: [id number] / MTDD
[2020-04-19] MEDS: WARFARIN 3 MG TAB PO SCH (18:53)
[2020-04-19] MEDS: SODIUM CHLORIDE 0.9% 1,000 ML IV SCH ×2 (19:17→20:54)
[2020-04-19] MEDS: HEPARIN SOD,PORK IN 0.45% NACL 25,000 UNIT in 0.45% NACL 1 250ML.BAG IV SCH ×2 (19:21→23:49)
[2020-04-19] MEDS: PHENYTOIN SODIUM EXTENDED 100 MG CAP PO SCH (20:55)
[2020-04-20] MEDS: ONDANSETRON 4 MG/2 ML VIAL IVP PRN (04:09)
[2020-04-20 07:30] LABS: INR 1.5 (<1.2); Prothrombin Time 15.3 sec (9.0-12.0)
[2020-04-20] MEDS: PHENYTOIN SODIUM EXTENDED 100 MG CAP PO SCH ×3 (08:20→20:55)
[2020-04-20] MEDS: ASPIRIN 325 MG TAB PO SCH (08:20)
[2020-04-20] MEDS: SPIRONOLACTONE 25 MG TAB PO SCH ×2 (08:20→20:54)
[2020-04-20] MEDS: ATORVASTATIN 20 MG TAB PO SCH (08:20)
[2020-04-20] MEDS: atenoloL 25 MG TAB PO SCH (08:20)
--- NOTE | 2020-04-20 10:22 | P.PN ---
Subjective 70-year-old female came in with the complaint of slurred speech. Patient has history of atrial fibrillation on anti-correlation with the Coumadin this was held for a biopsy of abdominal mass. Shortly after the biopsy patient had a slurred speech found to have a stroke which is embolic. CT of the head showed stable encephalomalacia with posterior left parietal lobe previous stroke or traumatic insults. CT angios the head and neck did not show any significant abnormality INR is 1.1. Patient was started on IV heparin to bridge for Coumadin because of her stroke patient usually takes 2.5 mg of Coumadin dysuria 5 mg of Coumadin last night. Patient will be a valid by speech therapy patient is not having aspiration but will need speech therapy physical therapy Patient evaluation use by herself. 04/20/2020 INR is 1.5 today patient will be continued on 3 mg of Coumadin today to be done tomorrow. Patient is comparing of mild dizziness etiology of this dizziness is not clear. PT and OT and speech therapy will evaluate the patient patient speaks significantly improved patient is feeling much better patient speech is almost normal at this time. And possibility of discharge tomorrow on bridging Lovenox after evaluation by PTOT and speech therapy. Constitutional: Denied any fatigue denied any fever. Cardio vascular: denied any chest pain, palpitations Gastrointestinal denied any nausea vomiting Pulmonary: Denied any shortness of breath cough Neurologic denied any new focal deficits All inpatient medications were reviewed and appropriate changes in these medications as dictated in the interval history and assessment and plan. Objective - Vital Signs Vital signs: Vital Signs Temp 97.6 F 04/20/20 04:17 Pulse 55 L 04/20/20 04:17 Resp 19 04/20/20 04:17 BP 141/73 04/20/20 04:17 Pulse Ox 93 L 04/20/20 04:17 Intake & Output 04/19/20 04/20/20 04/20/20 18:59 06:59 18:59 Intake Total 155.742 57.284 Balance 155.742 57.284 Intake: Intake, IV Titration 155.742 57.284 Amount Heparin Sod,Pork in 0.45% 155.742 57.284 NaCl 25,000 unit In 0.45 % NaCl 1 250ml.bag @ 12 UNITS/KG/HR 8.056 mls/hr IV .Q24H [facility] Rx#: [id number] Other: Voiding Method Toilet Toilet # Voids 6 1 - Exam PHYSICAL EXAMINATION: GENERAL: The patient is alert and oriented x3, not in any acute distress. Well developed, well nourished. HEENT: Pupils are round and equally reacting to light. EOMI. No scleral icterus. No conjunctival pallor. Normocephalic, atraumatic. No pharyngeal erythema. No thyromegaly. CARDIOVASCULAR: S1 and S2 present. No murmurs, rubs, or gallops. PULMONARY: Chest is clear to auscultation, no wheezing or crackles. ABDOMEN: Soft, nontender, nondistended, normoactive bowel sounds. No palpable organomegaly. MUSCULOSKELETAL: No joint swelling or deformity. EXTREMITIES: No cyanosis, clubbing, or pedal edema. NEUROLOGICAL: Gross neurological examination did not reveal any focal deficits. SKIN: No rashes. - Labs CBC & Chem 7: 04/19/20 08:45 04/19/20 08:45 Labs: Abnormal Lab Results - Last 24 Hours (Table) 04/20/20 Range/Units 06:58 PT 15.3 H (9.0-12.0) sec INR 1.5 H (<1.2) APTT 80.0 H (22.0-30.0) sec Assessment and Plan Plan: -Possible embolic stroke. 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 -Atrial fibrillation: Presently rate controlled continue with anticoagulation patient is actually mildly bradycardic improved today. -Hypertension -Seizure disorder -Abdominal mass for which patient is undergoing workup with a biopsy, not taken the PET scan could be benign -CVA and TIA in the past -Hyperlipidemia -Hypertension
--- NOTE | 2020-04-20 16:13 | P.PN ---
Subjective Progress Note Date: 04/20/20 Principal diagnosis: TIA, dysphasia This is a very pleasant 70-year-old female patient who follows with Dr. Nath as her primary care provider. She has a history of anxiety, diabetes mellitus, seizure disorder, hyperlipidemia, hypertension, atrial fibrillation anticoagulated with warfarin. He also has a history of 40 years at 2-3 packs per day smoking history. She presented here to the emergency room on 04/18/2020 with having difficulty with her speech. More like expressive aphasia. She was being evaluated for possible TIA/CVA. Of note, the patient had recently been found to have an abdominal mass and a biopsy was scheduled for 04/14/2020. Her warfarin had been on hold for that procedure. She was also found to have a subtle focal density in the periphery of the left midlung and we are consulted for the same. She was seen and evaluated yesterday in consultation. She denies any shortness of breath cough or congestion. No hemoptysis. No significant weight loss. Today she is seen resting comfortably in bed. Her speech is clear compared to yesterday. She is alert and oriented. Maintaining O2 saturations in the 90s on room air. She's afebrile. Hemodynamically stable. Her warfarin has been resumed. Her current INR 1.5. Objective - Vital Signs Vital signs: Vital Signs Temp 97.9 F 04/20/20 14:41 Pulse 53 L 04/20/20 14:42 Resp 16 04/20/20 14:42 BP 119/66 04/20/20 14:41 Pulse Ox 94 L 04/20/20 14:41 Intake & Output 04/19/20 04/20/20 04/20/20 18:59 06:59 18:59 Intake Total 155.742 557.284 Balance 155.742 557.284 Intake: Intake, IV Titration 155.742 57.284 Amount Heparin Sod,Pork in 0.45% 155.742 57.284 NaCl 25,000 unit In 0.45 % NaCl 1 250ml.bag @ 12 UNITS/KG/HR 8.056 mls/hr IV .Q24H [facility] Rx#: [id number] Oral 500 Other: Voiding Method Toilet Toilet Toilet # Voids 6 1 2 - Exam GENERAL EXAM: Alert, active 70-year-old female patient, on room air, comfortable in no apparent distress. HEAD: Normocephalic. EYES: Normal reaction of pupils, equal size. NOSE: Clear with pink turbinates. THROAT: No erythema or exudates. NECK: No masses, no JVD. CHEST: No chest wall deformity. LUNGS: Equal air entry with no crackles, wheeze, rhonchi or dullness. CVS: S1 and S2 normal with no audible murmur, regular rhythm. ABDOMEN: No hepatosplenomegaly, normal bowel sounds, no guarding or rigidity. SPINE: No scoliosis or deformity SKIN: No rashes CENTRAL NERVOUS SYSTEM: No focal deficits, tone is normal in all 4 extremities. EXTREMITIES: There is no peripheral edema. No clubbing, no cyanosis. Peripheral pulses are intact. - Labs CBC & Chem 7: 04/19/20 08:45 04/19/20 08:45 Labs: Abnormal Lab Results - Last 24 Hours (Table) 04/20/20 04/20/20 Range/Units 06:58 14:42 PT 15.3 H (9.0-12.0) sec INR 1.5 H (<1.2) APTT 80.0 H 53.7 H (22.0-30.0) sec Assessment and Plan Assessment: 1 Left upper lobe lesion measuring 2.9 x 3.4 x 2.1 cm in size may reflect inflammatory, infectious versus neoplastic process 2 Previous history of chronic tobacco dependence of 40 years at 2-3 packs per day quit in 2008 suspect COPD 3 Expressive aphasia, suspect TIA 4 History of atrial fibrillation, anticoagulated with warfarin. Had recently been on hold due to planned biopsy for 04/14/2020 5 Large abdominal mass, patient had declined biopsy that was scheduled 04/14/2021 noted on PET scan 02/09/2020 6 History of seizure disorder 7 Hypertension 8 Right leg numbness and paresthesias, rule out stroke syndrome 9 History of uterine cancer 10 History of skin cancer Plan: The patient was seen and evaluated by Dr. Mcclendon The patient had previously declined biopsy of the abdomen Her warfarin has been resumed She could be worked up in the outpatient setting for suspected COPD To have further discussions with her PCP if she wants to proceed with any further investigations We will continue to follow I, the cosigning physician, performed a history & physical examination of the patient. Lungs sounds are clear. Maintaining good O2 saturations in the 90s on room air. I discussed the assessment and plan of care with my nurse practitioner, Debbi Otoole. I attest to the above note as dictated by her.
[2020-04-20] MEDS: WARFARIN 3 MG TAB PO SCH (17:13)
[2020-04-20] MEDS: SODIUM CHLORIDE 0.9% 1,000 ML IV SCH (22:14)
[2020-04-21 07:27] LABS: INR 1.9 (<1.2); Partial Thromboplastin Time 45.1 sec (22.0-30.0); Prothrombin Time 18.9 sec (9.0-12.0)
[2020-04-21] MEDS: ATORVASTATIN 20 MG TAB PO SCH (09:16)
[2020-04-21] MEDS: PHENYTOIN SODIUM EXTENDED 100 MG CAP PO SCH ×3 (09:16→22:23)
[2020-04-21] MEDS: ASPIRIN 325 MG TAB PO SCH (09:16)
[2020-04-21] MEDS: atenoloL 25 MG TAB PO SCH (09:16)
[2020-04-21] MEDS: SPIRONOLACTONE 25 MG TAB PO SCH ×2 (09:16→22:03)
--- NOTE | 2020-04-21 13:05 | P.PN ---
Subjective Progress Note Date: 04/21/20 Patient was seen for a follow-up. Patient states her speech has much improved. Denies any new focal symptoms. Her telemetry monitoring showing sinus rhythm with sinus bradycardia in the 40s. Patient believes her speech is about 85% back to normal. Still with some word finding issues. Objective - Vital Signs Vital signs: Vital Signs Temp 98.3 F 04/21/20 08:35 Pulse 61 04/21/20 08:35 Resp 16 04/21/20 09:00 BP 145/64 04/21/20 09:09 Pulse Ox 93 L 04/21/20 08:35 Intake & Output 04/20/20 04/21/20 04/21/20 18:59 06:59 18:59 Intake Total 857.284 300 Output Total 100 Balance 857.284 -100 300 Intake: IV 200 Heparin Sod,Pork in 0.45% 40 NaCl 25,000 unit In 0.45 % NaCl 1 250ml.bag @ 12 UNITS/KG/HR 8.056 mls/hr IV .Q24H [facility] Rx#: [id number] Sodium Chloride 0.9% 1, 160 000 ml @ 100 mls/hr IV . Q10H [facility] Rx#:[id number] Intake, IV Titration 57.284 Amount Heparin Sod,Pork in 0.45% 57.284 NaCl 25,000 unit In 0.45 % NaCl 1 250ml.bag @ 12 UNITS/KG/HR 8.056 mls/hr IV .Q24H [facility] Rx#: [id number] Oral 800 100 Output: Urine 100 Other: Voiding Method Toilet Toilet Toilet # Voids 5 1 1 # Bowel Movements 1 - Exam Patient is alert and awake in no distress. Speech is much more clear. Patient can name and repeat well. Some paraphasic errors noted but better. Pupils are round and reacting visual womack are full, extraocular muscles are intact, face is symmetric muscle strength is normal. No ataxia, sensations are equal with no neglect. Reflexes symmetric and plantars downgoing. - Labs CBC & Chem 7: 04/19/20 08:45 04/19/20 08:45 Labs: Abnormal Lab Results - Last 24 Hours (Table) 04/20/20 04/21/20 Range/Units 14:42 06:22 PT 18.9 H (9.0-12.0) sec INR 1.9 H (<1.2) APTT 53.7 H 45.1 H (22.0-30.0) sec Assessment and Plan Assessment: * Probable stroke manifesting with mild to moderate expressive aphasia. Likely embolic. Patient's aphasia much improved. * History of TIA with transient right leg weakness on 12/12/2019. * Hypertension * History of seizure disorder * Abdominal mass, unclear cause. * X tobacco use. Plan: * Continue Coumadin. INR is 1.9. Patient on heparin IV for bridging, and curre nt PTT is 45.1. Target INR 2.0-3.0. * 2-D echo from 12/13/2019 showed borderline concentric LVH, EF is 55-60%. Left atrium is moderately dilated. Mild MR. * Current CT angiogram of head and neck is negative with no stenosis. * Continue aspirin 325 mg daily. Once INR is therapeutic, may decrease aspirin to 81 mg. * Continue Dilantin 100 mg 3 times a day. * Patient's hemoglobin A1c 5.1 on 2019, lipid panel with cholesterol 137, LDL 80, HDL 47 and triglycerides 50. Continue Crestor. * If patient would need surgery for abdominal mass, would recommend switching to Lovenox, holding Lovenox on the day of surgery and then resuming Lovenox and then Coumadin when cleared, unless recommended differently by cardiology/IM. Avoid interruption of anticoagulation as much as possible.
--- NOTE | 2020-04-21 17:19 | P.PN ---
Subjective Progress Note Date: 04/21/20 I saw this patient in follow-up on 04/21/2020. The patient is able to sleep better compared to yesterday. She is undergoing a neuro evaluation. She did have some TIA/CVA. With secondary expressive aphasia. She has chronic history of smoking and there was an opacity in the left lung that seems to be more of a groundglass opacity throughout been a mass. The patient has a large mass in the abdomen for which a biopsy was done on 04/14/2020 and the results are still pending for now. The patient has no significant respiratory distress at this point in time. The patient was restarted on Coumadin at 3 mg to be given today and the patient is also on IV heparin. PT/INR is approaching therapeutic levels with an INR of 1.9 and a PTT being therapeutic at 45.1. No hemoptysis. No pleurisy. Objective - Vital Signs Vital signs: Vital Signs Temp 98.1 F 04/21/20 15:00 Pulse 55 L 04/21/20 15:00 Resp 16 04/21/20 15:00 BP 128/70 04/21/20 15:00 Pulse Ox 92 L 04/21/20 15:00 Intake & Output 04/20/20 04/21/20 04/21/20 18:59 06:59 18:59 Intake Total 857.284 300 Output Total 100 Balance 857.284 -100 300 Intake: IV 200 Heparin Sod,Pork in 0.45% 40 NaCl 25,000 unit In 0.45 % NaCl 1 250ml.bag @ 12 UNITS/KG/HR 8.056 mls/hr IV .Q24H [facility] Rx#: [id number] Sodium Chloride 0.9% 1, 160 000 ml @ 100 mls/hr IV . Q10H [facility] Rx#:[id number] Intake, IV Titration 57.284 Amount Heparin Sod,Pork in 0.45% 57.284 NaCl 25,000 unit In 0.45 % NaCl 1 250ml.bag @ 12 UNITS/KG/HR 8.056 mls/hr IV .Q24H [facility] Rx#: [id number] Oral 800 100 Output: Urine 100 Other: Voiding Method Toilet Toilet Toilet # Voids 5 1 1 # Bowel Movements 1 - Exam GENERAL EXAM: Alert, active 70-year-old female patient, on room air, comfortable in no apparent distress. HEAD: Normocephalic. EYES: Normal reaction of pupils, equal size. NOSE: Clear with pink turbinates. THROAT: No erythema or exudates. NECK: No masses, no JVD. CHEST: No chest wall deformity. LUNGS: Equal air entry with no crackles, wheeze, rhonchi or dullness. CVS: S1 and S2 normal with no audible murmur, regular rhythm. ABDOMEN: No hepatosplenomegaly, normal bowel sounds, no guarding or rigidity. SPINE: No scoliosis or deformity SKIN: No rashes CENTRAL NERVOUS SYSTEM: No focal deficits, tone is normal in all 4 extremities. EXTREMITIES: There is no peripheral edema. No clubbing, no cyanosis. Peripheral pulses are intact. - Labs CBC & Chem 7: 04/19/20 08:45 04/19/20 08:45 Labs: Abnormal Lab Results - Last 24 Hours (Table) 04/21/20 Range/Units 06:22 PT 18.9 H (9.0-12.0) sec INR 1.9 H (<1.2) APTT 45.1 H (22.0-30.0) sec Assessment and Plan Plan: 1 Left upper lobe lesion measuring 2.9 x 3.4 x 2.1 cm in size may reflect inflammatory, infectious rather than a neoplastic process, and I reviewed the CAT scan images and I think there is no need for immediate biopsy. Suggest completing the workup for the pelvic mass/abdominal mass. 2 Previous history of chronic tobacco dependence of 40 years at 2-3 packs per day quit in 2008 suspect COPD 3 Expressive aphasia, secondary to CVA/TIA, currently back on in the correlation IV heparin the patient is being treated also with warfarin regarding her history of atrial fibrillation. Patient's INR is 1.9. 4 History of atrial fibrillation, anticoagulated with warfarin. Had recently been on hold due to planned biopsy for 04/14/2020 5 Large abdominal mass, patient had declined biopsy that was scheduled 04/14/2021 noted on PET scan 02/09/2020 6 History of seizure disorder 7 Hypertension 8 Right leg numbness and paresthesias, rule out stroke syndrome 9 History of uterine cancer 10 History of skin cancer Plan No plans for biopsy of the lung Continue anticoagulation with warfarin Complete the [employer] workup and awaiting the results of the needle biopsy of the abdominal mass The patient's overall pulmonary status is stable. We'll sign off the case and we'll see the patient is sedated basis. Recommend outpatient follow-up on that pulmonary inflammatory infiltrate that was noted on the PET scan. Note that this is an area of 2.9 cm opacity and is not solid and his metabolic activity is quite low.
[2020-04-21] MEDS: WARFARIN 3 MG TAB PO SCH (18:07)
--- NOTE | 2020-04-21 23:27 | P.PN ---
Subjective Progress Note Date: 04/21/20 Patient pleasant 70-year-old white with acute CVA with expressive aphasia he is doing better today answering questions appropriately in no acute distress. Placed back on heparin in Coumadin. Her INR is 1.9 scheduled to get 3 mg of this evening. Denies any new complaints. Objective - Vital Signs Vital signs: Vital Signs Temp 98.1 F 04/21/20 15:00 Pulse 55 L 04/21/20 15:00 Resp 16 04/21/20 15:00 BP 128/70 04/21/20 15:00 Pulse Ox 92 L 04/21/20 15:00 Intake & Output 04/21/20 04/21/20 04/22/20 06:59 18:59 06:59 Intake Total 300 100 Output Total 100 Balance -100 300 100 Intake: IV 200 Heparin Sod,Pork in 0.45% 40 NaCl 25,000 unit In 0.45 % NaCl 1 250ml.bag @ 12 UNITS/KG/HR 8.056 mls/hr IV .Q24H [facility] Rx#: [id number] Sodium Chloride 0.9% 1, 160 000 ml @ 100 mls/hr IV . Q10H [facility] Rx#:[id number] Oral 100 100 Output: Urine 100 Other: Voiding Method Toilet Toilet # Voids 1 1 # Bowel Movements 1 - Exam GENERAL: The patient is alert and oriented x3, not in any acute distress. Well developed, well nourished. HEENT: Pupils are round and equally reacting to light. EOMI. No scleral icterus. No conjunctival pallor. Normocephalic, atraumatic. No pharyngeal erythema. No thyromegaly. CARDIOVASCULAR: S1 and S2 present. No murmurs, rubs, or gallops. PULMONARY: Chest is clear to auscultation, no wheezing or crackles. ABDOMEN: Soft, nontender, nondistended, normoactive bowel sounds. No palpable organomegaly. MUSCULOSKELETAL: No joint swelling or deformity. EXTREMITIES: No cyanosis, clubbing, or pedal edema. NEUROLOGICAL: Gross neurological examination did not reveal any focal deficits. SKIN: No rashes. - Labs CBC & Chem 7: 04/19/20 08:45 04/19/20 08:45 Labs: Abnormal Lab Results - Last 24 Hours (Table) 04/21/20 Range/Units 06:22 PT 18.9 H (9.0-12.0) sec INR 1.9 H (<1.2) APTT 45.1 H (22.0-30.0) sec Assessment and Plan (1) Acute CVA (cerebrovascular accident) Current Visit: Yes Status: Acute Code(s): I63.9 - CEREBRAL INFARCTION, UNSPECIFIED SNOMED Code(s): 958285257 (2) Abdominal mass Current Visit: Yes Status: Acute Code(s): R19.00 - INTRA-ABD AND PELVIC SWELLING, MASS AND LUMP, UNSP SITE SNOMED Code(s): 370475110 (3) Lung mass Current Visit: Yes Status: Acute Code(s): R91.8 - OTHER NONSPECIFIC ABNORMAL FINDING OF LUNG FIELD SNOMED Code(s): 697542858 (4) Transient cerebral ischemia Current Visit: Yes Status: Acute Code(s): G45.9 - TRANSIENT CEREBRAL ISCHEMIC ATTACK, UNSPECIFIED SNOMED Code(s): 560274930 (5) TIA (transient ischemic attack) Current Visit: No Status: Acute Code(s): G45.9 - TRANSIENT CEREBRAL ISCHEMIC ATTACK, UNSPECIFIED SNOMED Code(s): 496503906 Plan: We will continue patient on heparin until therapeutic on Coumadin. Patient will follow-up with Dr. Byrnes and Dr. Anderson regarding abdominal mass biopsy results pending. At discharge she'll remain on Coumadin in a baby aspirin will be added to her regimen. At this time pulmonary has not recommended any more intervention on lung findings. If she needs to go off Coumadin future it would be recommended patient a Lovenox bridge.
[2020-04-22] MEDS: HEPARIN SOD,PORK IN 0.45% NACL 25,000 UNIT in 0.45% NACL 1 250ML.BAG IV SCH (00:18)
[2020-04-22] MEDS: ASPIRIN 325 MG TAB PO SCH (08:39)
[2020-04-22] MEDS: atenoloL 25 MG TAB PO SCH (08:39)
[2020-04-22] MEDS: SPIRONOLACTONE 25 MG TAB PO SCH (08:39)
[2020-04-22] MEDS: ATORVASTATIN 20 MG TAB PO SCH (08:39)
[2020-04-22] MEDS: PHENYTOIN SODIUM EXTENDED 100 MG CAP PO SCH (08:39)
[2020-04-22 10:11] VITALS: RESP 16
[2020-04-22 10:51] LABS: INR 2.2 (<1.2); Prothrombin Time 21.7 sec (9.0-12.0)
--- NOTE | 2020-04-22 11:17 | P.PN ---
Subjective Progress Note Date: 04/22/20 Patient was seen for a follow-up. Patient states her speech has much improved, even better than yesterday, about 90-95% improved. Sometimes has some word finding issue. Denies any new focal symptoms. Objective - Vital Signs Vital signs: Vital Signs Temp 98.1 F 04/22/20 09:00 Pulse 58 L 04/22/20 09:00 Resp 16 04/22/20 09:00 BP 144/74 04/22/20 09:00 Pulse Ox 91 L 04/22/20 09:00 Intake & Output 04/21/20 04/22/20 04/22/20 18:59 06:59 18:59 Intake Total 300 292.716 Balance 300 292.716 Intake: IV 200 Heparin Sod,Pork in 0.45% 40 NaCl 25,000 unit In 0.45 % NaCl 1 250ml.bag @ 12 UNITS/KG/HR 8.056 mls/hr IV .Q24H [facility] Rx#: [id number] Sodium Chloride 0.9% 1, 160 000 ml @ 100 mls/hr IV . Q10H [facility] Rx#:[id number] Intake, IV Titration 192.716 Amount Heparin Sod,Pork in 0.45% 192.716 NaCl 25,000 unit In 0.45 % NaCl 1 250ml.bag @ 12 UNITS/KG/HR 8.056 mls/hr IV .Q24H [facility] Rx#: [id number] Oral 100 100 Other: Voiding Method Toilet Toilet Toilet # Voids 1 3 - Exam Patient is alert and awake in no distress. Speech is much more clear. Patient can name and repeat well. Hardly any paraphasic errors noted today. Pupils are round and reacting visual womack are full, extraocular muscles are intact, face is symmetric. Her muscle strength is normal. No ataxia, sensations are equal with no neglect. Reflexes symmetric and plantars downgoing. - Labs CBC & Chem 7: 04/19/20 08:45 04/19/20 08:45 Labs: Abnormal Lab Results - Last 24 Hours (Table) 04/21/20 04/22/20 Range/Units 22:16 09:51 PT 21.7 H (9.0-12.0) sec INR 2.2 H (<1.2) APTT 60.7 H (22.0-30.0) sec Assessment and Plan Assessment: * Probable stroke manifesting with mild to moderate expressive aphasia. Likely embolic. Patient's aphasia much improved. * History of TIA with transient right leg weakness on 12/12/2019. * Hypertension * History of seizure disorder * Abdominal mass, unclear cause. * X tobacco use. Plan: * Continue Coumadin. INR is 2.2. Target INR 2.0-3.0. May discontinue heparin, clear from neurology point. * 2-D echo from 12/13/2019 showed borderline concentric LVH, EF is 55-60%. Left atrium is moderately dilated. Mild MR. * Current CT angiogram of head and neck is negative with no stenosis. * Continue aspirin 81 mg. * Continue Dilantin 100 mg 3 times a day. * Patient's hemoglobin A1c 5.1 on 2019, lipid panel with cholesterol 137, LDL 80, HDL 47 and triglycerides 50. Continue Crestor. * If patient would need surgery for abdominal mass, would recommend switching to Lovenox, holding Lovenox on the day of surgery and then resuming Lovenox and then Coumadin when cleared, unless recommended differently by cardiology/IM. Avoid interruption of anticoagulation as much as possible. * Neurologically clear for discharge.
[2020-04-22 15:35] VITALS: BP 121/64; PULSE 55; TEMP 98
--- NOTE | 2020-04-22 16:04 | P.DS ---
Providers Date of admission: 04/21/20 11:41 Expected date of discharge: 04/22/20 Attending physician: Isauro Nath Consults: 04/18/20 15:18 Consult Physician Routine Consulting Provider: Attila Mcclendon Consult Reason/Comments: pulmonary care Do you want consulting provider notified?: Yes Consult Physician Urgent Consulting Provider: Brissa Nino Consult Reason/Comments: tia Do you want consulting provider notified?: Yes 04/18/20 15:19 Consult Physician Urgent Consulting Provider: Fredi Lee Consult Reason/Comments: Oncological care Do you want consulting provider notified?: Yes Primary care physician: Isauro Nath - Discharge Diagnosis(es) (1) Acute CVA (cerebrovascular accident) Patient pleasant 70-year-old white with acute CVA with expressive aphasia he is doing better today answering questions appropriately in no acute distress. Placed back on heparin in Coumadin. Her INR is 1.9 scheduled to get 3 mg of this evening. Denies any new complaints. Patient will follow-up with Dr. Lee and Dr. Anderson regarding abdominal mass biopsy results pending. At discharge she'll remain on Coumadin in a baby aspirin will be added to her regimen. At this time pulmonary has not recommended any more intervention on lung findings. If she needs to go off Coumadin future it would be recommended patient a Lovenox bridge. Current Visit: Yes Status: Acute (2) Abdominal mass Current Visit: Yes Status: Acute (3) Lung mass Current Visit: Yes Status: Acute (4) Transient cerebral ischemia Current Visit: Yes Status: Acute (5) TIA (transient ischemic attack) Current Visit: No Status: Acute Plan - Discharge Summary Discharge Rx Participant: Yes New Discharge Prescriptions: New Aspirin 325 mg PO DAILY tab Continue Warfarin Sodium [Jantoven] 2.5 mg PO DAILY atenoloL [Tenormin] 50 mg PO DAILY Phenytoin Sodium Extended [Dilantin] 100 mg PO TID aMILoride HCL 5 mg PO DAILY hydroCHLOROthiazide 50 mg PO DAILY Rosuvastatin Calcium [Crestor] 10 mg PO DAILY #30 tab Acetaminophen [Tylenol] 650 mg PO Q4H PRN PRN Reason: Pain Albuterol Inhaler [Ventolin Hfa Inhaler] 1 puff INHALATION RT-QID PRN PRN Reason: Shortness Of Breath Or Wheezing ALPRAZolam [Xanax] 0.25 mg PO Q8H PRN PRN Reason: Anxiety Discontinued Aspirin EC [Ecotrin Low Dose] 81 mg PO DAILY Discharge Medication List Phenytoin Sodium Extended [Dilantin] 100 mg PO TID 09/18/16 [History] Warfarin Sodium [Jantoven] 2.5 mg PO DAILY 09/18/16 [History] atenoloL [Tenormin] 50 mg PO DAILY 09/18/16 [History] aMILoride HCL 5 mg PO DAILY 12/12/19 [History] hydroCHLOROthiazide 50 mg PO DAILY 12/12/19 [History] Rosuvastatin Calcium [Crestor] 10 mg PO DAILY #30 tab 12/13/19 [Rx] Acetaminophen [Tylenol] 650 mg PO Q4H PRN 04/07/20 [History] Albuterol Inhaler [Ventolin Hfa Inhaler] 1 puff INHALATION RT-QID PRN 04/07/20 [History] ALPRAZolam [Xanax] 0.25 mg PO Q8H PRN 04/18/20 [History] Aspirin 325 mg PO DAILY tab 04/22/20 [Rx] Follow up Appointment(s)/Referral(s): Isauro Nath DO [Primary Care Provider] - 05/06/20 1:00 pm Jam Heck MD [STAFF PHYSICIAN] - 04/30/20 10:45 am Fredi Lee MD [STAFF PHYSICIAN] - 1 Week Discharge Disposition: TRANSFER TO SNF/ECF
== END 2020-04-22 18:01 | DRG 66 ==
LOC: EC 13:44 → 3NCARDOBS 15:40 → INTOOBSV 15:40 → 3NCARDOBS 15:43 → OBSVTOIN 04-21 11:41
PROVIDERS: ADMIT Family Medicine; ATTEND Family Medicine
DX: I63.40 Cerebral infarction due to embolism of unspecified cerebral artery (principal); G40.909 Epilepsy, unspecified, not intractable, without status epilepticus; G93.89 Other specified disorders of brain; R47.01 Aphasia; E11.9 Type 2 diabetes mellitus without complications; E78.5 Hyperlipidemia, unspecified; F41.9 Anxiety disorder, unspecified; I10 Essential (primary) hypertension; I48.91 Unspecified atrial fibrillation; J44.9 Chronic obstructive pulmonary disease, unspecified; Z85.42 Personal history of malignant neoplasm of other parts of uterus; Z85.828 Personal history of other malignant neoplasm of skin; Z86.718 Personal history of other venous thrombosis and embolism; Z86.73 Personal history of transient ischemic attack (TIA), and cerebral infarction without residual deficits; Z87.891 Personal history of nicotine dependence; Z90.710 Acquired absence of both cervix and uterus; Z79.01 Long term (current) use of anticoagulants; Z79.82 Long term (current) use of aspirin; Z79.899 Other long term (current) drug therapy; R91.8 Other nonspecific abnormal finding of lung field; R19.00 Intra-abdominal and pelvic swelling, mass and lump, unspecified site; Z20.828 Contact with and (suspected) exposure to other viral communicable diseases; Z90.49 Acquired absence of other specified parts of digestive tract; Z88.1 Allergy status to other antibiotic agents; Z88.5 Allergy status to narcotic agent; Z88.2 Allergy status to sulfonamides
CPT/HCPCS: 36415; 70450; 70496; 70498; 71046; 80048; 80053; 80164; 84484; 85025; 85027; 85610; 85730; 87635; 93005; 96361; 96374; 99285

== ENCOUNTER → 2020-07-15 | Outpatient (CLI) | payer MEDICARE, BC ==
[2020-07-15 12:42] LABS: African American GFR (CKD) >90 (>60 ml/min/1.73 sqM); Blood Urea Nitrogen 17 mg/dL (7-17); Non-African American GFR(CKD) >90 (>60 ml/min/1.73 sqM)
--- NOTE | 2020-07-15 15:19 | CT ---
EXAMINATION TYPE: CT ChestAbdPelvis w con DATE OF EXAM: 07/15/2020 COMPARISON: CT 04/01/2020 PET/CT 02/08/2020, CT chest 01/18/2020 HISTORY: pelvic mass, lung nodule CT DLP: 1157 mGycm Automated exposure control for dose reduction was used. CONTRAST: CT scan of the chest, abdomen and pelvis is performed with Oral Contrast and with IV Contrast, patien t injected with 100 mL of Isovue 300. FINDINGS: LUNGS: The lungs are stable, irregular soft tissue in the left upper lobe peripherally shows a simila r appearance, there is emphysematous change again seen. There is no pleural effusion or pneumothora x seen. The tracheobronchial tree is patent. MEDIASTINUM: There are no greater than 1 cm hilar or mediastinal lymph nodes. No pericardial effusi on is seen. AORTA: No significant abnormality is seen. OTHER: No additional significant abnormality is seen. LIVER/GB: No significant interval change is appreciated, suspect gallstones are present. PANCREAS: No significant abnormality is seen. SPLEEN: No significant abnormality is seen. ADRENALS: No significant interval change is seen. KIDNEYS: No significant abnormality is seen. REPRODUCTIVE ORGANS: Grossly enlarged cystic mass within the pelvis is again seen and shows a similar appearance. BOWEL: No significant abnormality is seen. FREE AIR: No Free Air visible. ASCITES: None seen. RETROPERITONEAL ADENOPATHY: No retroperitoneal adenopathy is seen. LYMPH NODES: No greater than 1 cm abdominal or pelvic lymph nodes are appreciated. URINARY BLADDER: Not well seen due to displacement. PELVIC ADENOPATHY: None visualized. OSSEOUS STRUCTURES: No significant abnormality is seen. IMPRESSION: No significant interval change, essentially stable exam
== END | disposition home or self-care (01) ==
LOC: RADCTMAIN 11:53
PROVIDERS: ATTEND Internal Medicine Hematology & Oncology
DX: R91.1 Solitary pulmonary nodule (principal); N94.89 Other specified conditions associated with female genital organs and menstrual cycle; Z88.1 Allergy status to other antibiotic agents; Z88.5 Allergy status to narcotic agent
CPT/HCPCS: 82565; 84520; 71260; 74177; 36415; Q9967 ×2

== ENCOUNTER → 2020-11-11 | Outpatient (CLI) | payer MEDICARE, BC ==
--- NOTE | 2020-11-11 18:25 | CT ---
EXAMINATION TYPE: CT ChestAbdPelvis w con DATE OF EXAM: 11/11/2020 COMPARISON: 07/15/2020, 02/08/2020 HISTORY: 70-year-old female R91.1 Lung nodule, N94.89 pelvic mass. Hx uterine/ovarian ca TECHNIQUE: Contiguous axial scanning of the chest, abdomen, and pelvis performed with IV Contrast, pa tient injected with 100 mL of Isovue 300. Delayed images through the kidneys were obtained. Coronal/s agittal reconstructions performed. CT DLP: 961.60 mGycm Automated exposure control for dose reduction was used. FINDINGS: CHEST: The heart is normal size with trace pericardial fluid. Aorta normal caliber with mild metastatic arch calcifications and bovine configuration to the aortic arch. No thoracic lymphadenopathy by CT size criteria. Moderate centrilobular emphysema. Focal airspace opacity in the lateral left midlung measures 2.6 x 2.2 cm versus 2.7 x 2.0 cm on 021. However, as compared to 02/08/2020 where the solid component measures 1.3 cm, the solid component currently measures up to 1.6 cm. No other consolidation or pleural effusion. ABDOMEN: Suspect a large 3.1 cm gallstone within a nondistended gallbladder. No focal liver lesion. Portal dominik ous system is patent. No biliary ductal dilatation. Mild diffuse thickening of the left adrenal gland without discrete nodularity is unchanged. Mild bilateral pelvicaliectasis unchanged from 07/15/2020 but new from 02/08/2020. Spleen and pancreas sh ow no gross adenopathy. No dilated small bowel, free fluid, or free air. No definite mesenteric or retroperitoneal lymphadeno amol. Moderate atherosclerotic calcifications abdominal aorta and common iliac arteries. Massive cystic lesion filling the abdomen and pelvis with extensive associated mass effect measures 3 0.3 cm craniocaudal by 24.5 cm wide by 16.6 cm AP. Comparison to 30.0 x 23.7 x 16.8 cm previously. Ov erall, not significantly changed. PELVIS: Bladder is collapsed. Multiple pelvic lymph nodes. Unable to clearly delineate the uterus or ovaries. Lower left inguinal lymph node slightly larger in the interval, currently borderline enlarged at 1.5 cm versus 1.1 cm, previously. Refer to axial image 117 BONES: Mild degenerative change in both hips. Facet arthropathy lower lumbar spine. Scattered mild degenerat kavitha disc disease. No osseous destructive process. Trace grade 1 anterolisthesis L4-L5. IMPRESSION: 1. REDEMONSTRATED MASSIVE CYSTIC LESION FILLING THE ABDOMEN AND PELVIS MEASURING UP TO 30.0 CM. 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 GIVEN THE DEG REE OF MASS EFFECT, CONSIDER SURGICAL EXCISION. OVERALL, NO SIGNIFICANT CHANGE IN SIZE. 2. FOCAL CONSOLIDATION LATERAL LEFT MIDLUNG RELATIVELY STABLE AT 2.6 CM. THERE MAY BE SOME INCREASING FULLNESS TO THE SOLID COMPONENT. GIVEN THE PERSISTENCE, LOW-GRADE ADENOCARCINOMA AND LYMPHOMA ARE DI FFERENTIAL CONSIDERATIONS. 3. SLIGHT INCREASE IN SIZE OF A LOWER LEFT INGUINAL LYMPH NODE, CURRENTLY BORDERLINE ENLARGED AT 1.5 CM (VERSUS 1.1 CM, PREVIOUSLY). REASSESS AT FOLLOW-UP. 4. COPD WITH MODERATE EMPHYSEMA AND A 3.1 CM GALLSTONE.
== END | disposition home or self-care (01) ==
LOC: RADCTMAIN 13:38
PROVIDERS: ATTEND Internal Medicine Hematology & Oncology
DX: J43.9 Emphysema, unspecified (principal); J98.4 Other disorders of lung; R19.09 Other intra-abdominal and pelvic swelling, mass and lump; K80.20 Calculus of gallbladder without cholecystitis without obstruction; R59.0 Localized enlarged lymph nodes
CPT/HCPCS: 82565; 84520; 71260; 74177; 36415; Q9967

== ENCOUNTER 2021-01-22 11:04 | Emergency (ER) | payer MEDICARE, BC ==
--- NOTE | 2021-01-22 12:10 | ED ---
General Adult HPI - General Chief complaint: Extremity Injury, Lower Stated complaint: leg swelling Time Seen by Provider: 01/22/21 11:22 Source: family, RN notes reviewed Mode of arrival: EMS Limitations: no limitations, physical limitation - History of Present Illness Initial comments: This a 71-year-old female presents emergency Department chief complaint of leg swelling. Patient states she had an injury while ago in which she had a large hematoma. She is getting better but states she now has left and right leg swelling. Patient states that she has no chest pain or shortness breath no abdominal complaints. Denies any history kidney disease no history of congestive heart failure. - Related Data Home Medications Medication Instructions Recorded Confirmed Phenytoin Sodium Extended 100 mg PO TID 09/18/16 01/22/21 [Dilantin] Warfarin Sodium [Jantoven] 2.5 mg PO MO 09/18/16 01/22/21 atenoloL [Tenormin] 50 mg PO DAILY 09/18/16 01/22/21 aMILoride HCL 5 mg PO DAILY 12/12/19 01/22/21 Albuterol Inhaler [Ventolin Hfa 1 puff INHALATION RT-QID PRN 04/07/20 01/22/21 Inhaler] Aspirin EC [Ecotrin Low Dose] 81 mg PO DAILY 01/22/21 01/22/21 Cholecalciferol [Vitamin D3 (25 50 mcg PO DAILY 01/22/21 01/22/21 Mcg = 1000 Iu)] Loratadine [Claritin] 10 mg PO DAILY 01/22/21 01/22/21 Warfarin Sodium [Jantoven] 3 mg PO SUTUWETHFRSA 01/22/21 01/22/21 Previous Rx's Medication Instructions Recorded Rosuvastatin Calcium [Crestor] 10 mg PO DAILY #30 tab 12/13/19 Furosemide [Lasix] 20 mg PO DAILY #3 tab 01/22/21 Allergies Allergy/AdvReac Type Severity Reaction Status Date / Time bacitracin Allergy Rash/Hives Verified 01/22/21 13:00 [From Neosporin ([id number])] dexamethasone [From Maxitrol] Allergy FACE Verified 01/22/21 13:00 SWELLING hydromorphone [From Dilaudid] Allergy makes head Verified 01/22/21 13:00 spin neomycin [From Maxitrol] Allergy FACE Verified 01/22/21 13:00 SWELLING polymyxin B [From Maxitrol] Allergy FACE Verified 01/22/21 13:00 SWELLING isopropyl alcohol AdvReac Nausea Verified 01/22/21 13:00 Review of Systems ROS Statement: Those systems with pertinent positive or pertinent negative responses have been documented in the HPI. ROS Other: All systems not noted in ROS Statement are negative. Past Medical History Past Medical History: Cancer, COPD, CVA/TIA, Hyperlipidemia, Hypertension, Seizure Disorder Additional Past Medical History / Comment(s): epilepsy, thoracic outlet syndrome, uterine CA possibly, pt unsure and skin cancer History of Any Multi-Drug Resistant Organisms: None Reported Past Surgical History: Appendectomy, Hysterectomy Additional Past Surgical History / Comment(s): removed CA on skin L arm Past Anesthesia/Blood Transfusion Reactions: No Reported Reaction Past Psychological History: Anxiety Smoking Status: Former smoker Past Alcohol Use History: None Reported Past Drug Use History: None Reported - Past Family History Mother History Unknown: Yes General Exam Limitations: no limitations, physical limitation General appearance: alert, in no apparent distress Head exam: Present: atraumatic, normocephalic, normal inspection Neck exam: Present: normal inspection. Absent: tenderness, meningismus, lymph adenopathy Respiratory exam: Present: normal lung sounds bilaterally. Absent: respiratory distress, wheezes, rales, rhonchi, stridor Cardiovascular Exam: Present: regular rate, normal rhythm, normal heart sounds. Absent: systolic murmur, diastolic murmur, rubs, gallop, clicks GI/Abdominal exam: Present: soft, normal bowel sounds. Absent: distended, tenderness, guarding, rebound, rigid Extremities exam: Present: pedal edema Back exam: Present: full ROM. Absent: tenderness, paraspinal tenderness, vertebral tenderness Neurological exam: Present: alert, oriented X3, CN II-XII intact, reflexes normal. Absent: motor sensory deficit Course Vital Signs 01/22/21 11:27 Temperature 97.8 F Pulse Rate 56 L Respiratory 20 Rate Blood Pressure 137/68 O2 Sat by Pulse 91 L Oximetry Medical Decision Making - Medical Decision Making 71-year-old female emergency department for leg swelling. Patient is no evidence DVT. There is no significant swelling no evidence of CHF. Patient was given 3 doses of Lasix of discharged stable condition with close follow-up. - Lab Data Result diagrams: 01/22/21 12:12 01/22/21 12:12 Lab Results 01/22/21 01/22/21 01/22/21 Range/Units 12:12 12:12 12:12 WBC 6.3 (3.8-10.6) k/uL RBC 4.35 (3.80-5.40) m/uL Hgb 14.5 (11.4-16.0) gm/dL Hct 45.1 (34.0-46.0) % MCV 103.8 H (80.0-100.0) fL MCH 33.4 (25.0-35.0) pg MCHC 32.1 (31.0-37.0) g/dL RDW 13.0 (11.5-15.5) % Plt Count 227 (150-450) k/uL MPV 7.7 Neutrophils % 59 % Lymphocytes % 23 % Monocytes % 9 % Eosinophils % 6 % Basophils % 1 % Neutrophils # 3.7 (1.3-7.7) k/uL Lymphocytes # 1.4 (1.0-4.8) k/uL Monocytes # 0.6 (0-1.0) k/uL Eosinophils # 0.4 (0-0.7) k/uL Basophils # 0.1 (0-0.2) k/uL Macrocytosis Slight Sodium 137 (137-145) mmol/L Potassium 4.8 (3.5-5.1) mmol/L Chloride 104 (98-107) mmol/L Carbon Dioxide 28 (22-30) mmol/L Anion Gap 5 mmol/L BUN 15 (7-17) mg/dL Creatinine 0.54 (0.52-1.04) mg/dL Est GFR (CKD-EPI)AfAm >90 (>60 ml/min/1.73 sqM) Est GFR (CKD-EPI)NonAf >90 (>60 ml/min/1.73 sqM) Glucose 95 (74-99) mg/dL Calcium 8.7 (8.4-10.2) mg/dL Total Bilirubin 0.4 (0.2-1.3) mg/dL AST 33 (14-36) U/L ALT 21 (4-34) U/L Alkaline Phosphatase 140 H (38-126) U/L NT-Pro-B Natriuret Pep 467 pg/mL Total Protein 7.4 (6.3-8.2) g/dL Albumin 3.9 (3.5-5.0) g/dL Disposition Clinical Impression: Leg swelling Disposition: HOME SELF-CARE Condition: Stable Instructions (If sedation given, give patient instructions): Leg Edema (ED) Additional Instructions: Please return to the Emergency Department if symptoms worsen or any other concerns. Prescriptions: Furosemide [Lasix] 20 mg PO DAILY #3 tab Is patient prescribed a controlled substance at d/c from ED?: No Referrals: Isauro Nath DO [Primary Care Provider] - 1-2 days Time of Disposition: 13:47
[2021-01-22 12:33] LABS: Basophils # (A) 0.1 k/uL (0-0.2); Basophils % (A) 1 %; Eosinophils # (A) 0.4 k/uL (0-0.7); Eosinophils % (A) 6 %; HCT 45.1 % (34.0-46.0); HGB 14.5 gm/dL (11.4-16.0); Lymphocytes # (A) 1.4 k/uL (1.0-4.8); Lymphocytes % (A) 23 %; MCH 33.4 pg (25.0-35.0); MCHC 32.1 g/dL (31.0-37.0); MCV 103.8 fL (80.0-100.0); Macrocytosis Slight; Mean Platelet Volume 7.7; Monocytes # (A) 0.6 k/uL (0-1.0); Monocytes % (A) 9 %; Neutrophils # (A) 3.7 k/uL (1.3-7.7); Neutrophils % (A) 59 %; Platelet Count 227 k/uL (150-450); RBC 4.35 m/uL (3.80-5.40); WBC 6.3 k/uL (3.8-10.6)
[2021-01-22 12:34] LABS: ALT 21 U/L (4-34); AST 33 U/L (14-36); African American GFR (CKD) >90 (>60 ml/min/1.73 sqM); Albumin 3.9 g/dL (3.5-5.0); Alkaline Phosphatase 140 U/L (38-126); Anion Gap 5 mmol/L; Blood Urea Nitrogen 15 mg/dL (7-17); Calcium 8.7 mg/dL (8.4-10.2); Carbon Dioxide 28 mmol/L (22-30); Chloride 104 mmol/L (98-107); Glucose 95 mg/dL (74-99); Non-African American GFR(CKD) >90 (>60 ml/min/1.73 sqM); Sodium 137 mmol/L (137-145); Total Bilirubin 0.4 mg/dL (0.2-1.3); Total Protein 7.4 g/dL (6.3-8.2)
[2021-01-22 12:38] LABS: Potassium 4.8 mmol/L (3.5-5.1)
--- NOTE | 2021-01-22 12:58 | XR ---
EXAMINATION TYPE: XR chest 2V DATE OF EXAM: 01/22/2021 COMPARISON: 04/18/2020, CT 11/11/2020 HISTORY: 71 year-old female shortness of breath and leg swelling TECHNIQUE: AP and lateral views FINDINGS: The cardiomediastinal silhouette, aorta, and pulmonary vasculature are within normal limits. Mild hyp erinflation. Redemonstrated focal opacity periphery of the left midlung. IMPRESSION: 1. Chronic focal airspace disease in the periphery of the left midlung. Low-grade adenocarcinoma or l ymphoma are not excluded. Refer to report from CT 11/11/2020 for further details. 2. COPD with mild emphysema. Otherwise, no acute process seen.
--- NOTE | 2021-01-22 13:32 | US ---
EXAMINATION TYPE: US venous doppler duplex LE LT DATE OF EXAM: 01/22/2021 1:18 PM COMPARISON: NONE CLINICAL HISTORY: 71-year-old female pain, swelling. Pain and edema left leg SIDE PERFORMED: left TECHNIQUE: The lower extremity deep venous system is examined utilizing real time linear array sonog steven with graded compression, doppler sonography and color-flow sonography. FINDINGS: VESSELS IMAGED: Common Femoral Vein Deep Femoral Vein Greater Saphenous Vein * Femoral Vein Popliteal Vein Small Saphenous Vein * Proximal Calf Veins (* superficial vessels) Left Leg: no evidence of DVT as visualized. Some subcutaneous edema noted at the level of the popliteal vein. IMPRESSION: No evidence for DVT within the left lower extremity imaged from the groin to the upper calf. Mild sub cutaneous edema noted at the level of the knee.
[2021-01-22 14:36] VITALS: BP 147/81; PULSE 61; RESP 18; TEMP 97.5
== END 2021-01-22 14:42 | disposition home or self-care (01) ==
LOC: EC 11:04
DX: M79.89 Other specified soft tissue disorders (principal); J44.9 Chronic obstructive pulmonary disease, unspecified; F41.9 Anxiety disorder, unspecified; Z79.51 Long term (current) use of inhaled steroids; Z79.01 Long term (current) use of anticoagulants; Z79.899 Other long term (current) drug therapy; Z87.891 Personal history of nicotine dependence
CPT/HCPCS: 36415; 71046; 80053; 83880; 85025; 99284

== ENCOUNTER → 2021-02-20 | Outpatient (CLI) | payer MEDICARE, BC ==
--- NOTE | 2021-02-23 08:52 | PE ---
EXAMINATION TYPE: PET CT fusion skull to thigh DATE OF EXAM: 02/20/2021 CLINICAL HISTORY: 71-year-old female R91.1, lung nodule, restaging. Personal history of uterine cance r. TECHNIQUE: Following the intravenous administration of 11.56 mCi of F-18 FDG, whole body images are performed from the skull base to the midthigh. Images are reviewed on the computer in the coronal, axial, and sagittal planes. Reconstructed rotating images are created on independent workstation and reviewed on the computer. A localization and attenuation correction CT is performed in conjunction with the PET scan. Glucose level: 82 mg/dL Injection site: Right hand COMPARISON: 11/11/2020 and 07/15/2020 FINDINGS: PET: Mild palatine tonsillar uptake likely physiologic. Otherwise, physiologic FDG uptake within the neck. There is a 2.3 x 1.3 cm lateral left midlung nodule within the lingula. This shows borderline moderat e hypermetabolism, max SUV 3.6, and has become gradually more solid and defined. Findings are highly suspicious. Previously having measured 2.0 x 1.0 cm. On 07/15/2020, the solid component measured 1.4 x 0.8 cm. The surrounding groundglass, nodular solid component was larger. Otherwise, physiologic FDG uptake within the chest. Average liver SUV 2.3. There is a massive cyst filling the pelvis and mid to lower abdomen reaching up to the inferior aspec t of the liver. This displaces bowel loops and even the right ureter. Focal intense uptake within the right upper pelvis appears to correspond to the course of the displaced right ureter. This cystic ma ss measures up to 24.9 cm wide and 17.4 cm AP (versus 24.5 x 16.9 cm on 11/11/2020 and 23.7 x 16.9 cm o n 07/15/2020, not significantly changed). No discrete FDG uptake is demonstrated within the mass. The bladder is flattened inferiorly and towards the right. Otherwise, physiologic FDG uptake within the abdomen and pelvis. ATTENUATION CORRECTION CT: Visualized orbits and globes, paranasal sinuses, and mastoid air cells appear clear. Mild palatine t onsillar hypertrophy shows mild increased uptake, likely physiologic. There is also some mild lingual tonsillar hypertrophy noted. Orotracheal columns clear. No cervical lymphadenopathy. Heart upper limits of normal in size without pericardial effusion. Circumflex and mild RCA coronary a rtery calcifications are present. Mild atherosclerotic arch calcifications with conventional arch ves sonya branching anatomy. Borderline caliber to the main right and the pulmonary arteries measuring up t o 2.5 cm each, may reflect underlying pulmonary arterial hypertension. No thoracic lymphadenopathy by CT size criteria. Advanced emphysematous change without consolidation or pleural effusion. Multiple gallstones are present measuring up to 2.6 cm. Scattered [id number] stool. No dilated small bowel, free fluid, or free air. Moderate prostatic calcifications infrarenal abdominal aorta an d iliac arteries. Massive cystic mass mentioned above. Mild pelvic floor relaxation. Multiple pelvic phleboliths. No ab normal fluid collection in the pelvis or evident pelvic lymphadenopathy. Bones: Mild to moderate degenerative change of the hips. Stable bone island posterior right acetabulu m and left pubic body. Hypertrophic facet arthropathy lower lumbar spine. IMPRESSION: 1. A 2.3 x 1.3 cm lateral left mid lung nodule shows borderline moderate hypermetabolism. The solid c omponent has progressively increased as compared to 1.4 x 0.8 cm on 07/15/2020. Findings highly suspici ous for a slowly enlarging focus of lung cancer. Background of COPD with advanced emphysema. 2. Massive cyst filling the pelvis and mid to lower abdomen measuring up to 24.9 cm is relatively sim ilar and shows no discrete hypermetabolism. Suspect ovarian origin, possible serous cyst adenoma. Rec ommend surgical evaluation. 3. Incidental: Cholelithiasis.
== END | disposition home or self-care (01) ==
LOC: RADPETMAIN 09:01
PROVIDERS: ATTEND Internal Medicine Hematology & Oncology
DX: R91.1 Solitary pulmonary nodule (principal); C53.9 Malignant neoplasm of cervix uteri, unspecified; J43.9 Emphysema, unspecified; K80.20 Calculus of gallbladder without cholecystitis without obstruction
CPT/HCPCS: 78815; A9552

== ENCOUNTER 2021-08-12 14:39 | Emergency (ER) | payer MEDICARE, BC ==
[2021-08-12 14:48] VITALS: RESP 18; TEMP 97.7
--- NOTE | 2021-08-12 15:51 | ED ---
Recheck HPI - General Chief Complaint: Recheck/Abnormal Lab/Rx Stated Complaint: Recheck/Lt Leg Swelling Time Seen by Provider: 08/12/21 15:15 Source: patient, RN notes reviewed Mode of arrival: ambulatory - History of Present Illness Initial Comments: 71-year-old female presents with complaints of a possible infection of her left lower extremity she states she fell about a month ago she is on Coumadin she has a bruise it is resolving but she was told that someone thought she might have an infection as her left leg look rather than usual. Someone also told her that felt warmer than usual she denies a fevers chills nausea vomiting sweats no pain no other complaints or modifying factors she does take Lasix she has of a history of COPD. Further information patient does complain some right ear discomfort going on for at least a day but no fevers chills sweats no sore th roat or other symptoms MD Complaint: wound re-check - Related Data Home Medications Medication Instructions Recorded Confirmed Phenytoin Sodium Extended 100 mg PO TID 09/18/16 01/22/21 [Dilantin] Warfarin Sodium [Jantoven] 2.5 mg PO MO 09/18/16 01/22/21 atenoloL [Tenormin] 50 mg PO DAILY 09/18/16 01/22/21 aMILoride HCL 5 mg PO DAILY 12/12/19 01/22/21 Albuterol Inhaler [Ventolin Hfa 1 puff INHALATION RT-QID PRN 04/07/20 01/22/21 Inhaler] Aspirin EC [Ecotrin Low Dose] 81 mg PO DAILY 01/22/21 01/22/21 Cholecalciferol [Vitamin D3 (25 50 mcg PO DAILY 01/22/21 01/22/21 Mcg = 1000 Iu)] Loratadine [Claritin] 10 mg PO DAILY 01/22/21 01/22/21 Warfarin Sodium [Jantoven] 3 mg PO SUTUWETHFRSA 01/22/21 01/22/21 Previous Rx's Medication Instructions Recorded Rosuvastatin Calcium [Crestor] 10 mg PO DAILY #30 tab 12/13/19 Furosemide [Lasix] 20 mg PO DAILY #3 tab 01/22/21 Azithromycin [Zithromax Z-pack (6 250 mg PO DIRECTED 5 Days #6 tab 08/12/21 tabs)] Allergies Allergy/AdvReac Type Severity Reaction Status Date / Time bacitracin Allergy Rash/Hives Verified 08/12/21 14:48 [From Neosporin ([id number])] dexamethasone [From Maxitrol] Allergy FACE Verified 08/12/21 14:48 SWELLING hydromorphone [From Dilaudid] Allergy makes head Verified 08/12/21 14:48 spin neomycin [From Maxitrol] Allergy FACE Verified 08/12/21 14:48 SWELLING polymyxin B [From Maxitrol] Allergy FACE Verified 08/12/21 14:48 SWELLING isopropyl alcohol AdvReac Nausea Verified 08/12/21 14:48 Review of Systems ROS Statement: Those systems with pertinent positive or pertinent negative responses have been documented in the HPI. ROS Other: All systems not noted in ROS Statement are negative. Past Medical History Past Medical History: Cancer, COPD, CVA/TIA, Hyperlipidemia, Hypertension, Seizure Disorder Additional Past Medical History / Comment(s): epilepsy, thoracic outlet syndrome, uterine CA possibly, pt unsure and skin cancer History of Any Multi-Drug Resistant Organisms: None Reported Past Surgical History: Appendectomy, Hysterectomy Additional Past Surgical History / Comment(s): removed CA on skin L arm Past Anesthesia/Blood Transfusion Reactions: No Reported Reaction Past Psychological History: Anxiety Smoking Status: Former smoker Past Alcohol Use History: None Reported Past Drug Use History: None Reported - Past Family History Mother History Unknown: Yes General Exam - General Exam Comments Initial Comments: This is a well-developed molars awake alert oriented 3 female General appearance: alert, in no apparent distress Head exam: Present: atraumatic, normocephalic, normal inspection Eye exam: Present: normal appearance, PERRL, EOMI. Absent: scleral icterus, conjunctival injection, periorbital swelling ENT exam: Present: mucous membranes moist, other (Left tympanic membrane appears be within normal. One however is erythematous dull and slightly retracted) Neck exam: Present: normal inspection. Absent: tenderness, meningismus, lymphadenopathy Respiratory exam: Present: normal lung sounds bilaterally. Absent: respiratory distress, wheezes, rales, rhonchi, stridor Cardiovascular Exam: Present: regular rate, normal rhythm, normal heart sounds. Absent: systolic murmur, diastolic murmur, rubs, gallop, clicks GI/Abdominal exam: Present: soft, normal bowel sounds. Absent: distended, tenderness, guarding, rebound, rigid Extremities exam: Present: full ROM, normal capillary refill, pedal edema (Trace edema seen to both extremities), other (Gemmation lower extremities demonstrate some evidence of stasis changes the healing bruise of the left proximal leg is the patient stated. And my exam no evidence of increased erythema no increased temperature no calf tenderness on palpation no sensory motor or vascular deficits). Absent: tenderness, joint swelling, calf tenderness Back exam: Present: normal inspection Neurological exam: Present: alert, oriented X3, CN II-XII intact Psychiatric exam: Present: normal affect, normal mood Skin exam: Present: warm, dry, intact, other (As noted above). Absent: rash Course Vital Signs 08/12/21 14:44 Temperature 97.7 F Pulse Rate 58 L Respiratory 18 Rate Blood Pressure 141/66 O2 Sat by Pulse 92 L Oximetry Medical Decision Making - Medical Decision Making The patient's lab work is within normal limits clinically at this time the patient does not demonstrate evidence of cellulitis of left lower extremity she does however definite evidence of otitis media. Patient will be placed on appropriate antibiotics. - Lab Data Result diagrams: 08/12/21 16:08 08/12/21 16:08 Lab Results 08/12/21 08/12/21 Range/Units 16:08 16:08 WBC 7.9 (3.8-10.6) k/uL RBC 4.76 (3.80-5.40) m/uL Hgb 15.5 (11.4-16.0) gm/dL Hct 47.6 H (34.0-46.0) % MCV 100.0 (80.0-100.0) fL MCH 32.5 (25.0-35.0) pg MCHC 32.5 (31.0-37.0) g/dL RDW 12.9 (11.5-15.5) % Plt Count 225 (150-450) k/uL MPV 8.3 Neutrophils % 57 % Lymphocytes % 26 % Monocytes % 8 % Eosinophils % 6 % Basophils % 1 % Neutrophils # 4.5 (1.3-7.7) k/uL Lymphocytes # 2.0 (1.0-4.8) k/uL Monocytes # 0.6 (0-1.0) k/uL Eosinophils # 0.4 (0-0.7) k/uL Basophils # 0.1 (0-0.2) k/uL Sodium 138 (137-145) mmol/L Potassium 4.5 (3.5-5.1) mmol/L Chloride 98 (98-107) mmol/L Carbon Dioxide 32 H (22-30) mmol/L Anion Gap 8 mmol/L BUN 22 H (7-17) mg/dL Creatinine 0.64 (0.52-1.04) mg/dL Est GFR (CKD-EPI)AfAm >90 (>60 ml/min/1.73 sqM) Est GFR (CKD-EPI)NonAf >90 (>60 ml/min/1.73 sqM) Glucose 85 (74-99) mg/dL Calcium 8.7 (8.4-10.2) mg/dL Total Bilirubin 0.6 (0.2-1.3) mg/dL AST 30 (14-36) U/L ALT 21 (4-34) U/L Alkaline Phosphatase 129 H (38-126) U/L Creatine Kinase 57 (30-135) U/L Total Protein 8.2 (6.3-8.2) g/dL Albumin 4.2 (3.5-5.0) g/dL Disposition Clinical Impression: Otitis media, Feared condition not demonstrated Disposition: HOME SELF-CARE Condition: Good Instructions (If sedation given, give patient instructions): Earache (ED) Prescriptions: Azithromycin [Zithromax Z-pack (6 tabs)] 250 mg PO DIRECTED 5 Days #6 tab Is patient prescribed a controlled substance at d/c from ED?: No Referrals: Isauro Nath DO [Primary Care Provider] - 1-2 days
[2021-08-12 16:29] LABS: ALT 21 U/L (4-34); AST 30 U/L (14-36); African American GFR (CKD) >90 (>60 ml/min/1.73 sqM); Albumin 4.2 g/dL (3.5-5.0); Alkaline Phosphatase 129 U/L (38-126); Anion Gap 8 mmol/L; Blood Urea Nitrogen 22 mg/dL (7-17); Calcium 8.7 mg/dL (8.4-10.2); Carbon Dioxide 32 mmol/L (22-30); Chloride 98 mmol/L (98-107); Creatine Kinase 57 U/L (30-135); Glucose 85 mg/dL (74-99); Non-African American GFR(CKD) >90 (>60 ml/min/1.73 sqM); Potassium 4.5 mmol/L (3.5-5.1); Sodium 138 mmol/L (137-145); Total Bilirubin 0.6 mg/dL (0.2-1.3); Total Protein 8.2 g/dL (6.3-8.2)
[2021-08-12 16:48] LABS: Basophils # (A) 0.1 k/uL (0-0.2); Basophils % (A) 1 %; Eosinophils # (A) 0.4 k/uL (0-0.7); Eosinophils % (A) 6 %; HCT 47.6 % (34.0-46.0); HGB 15.5 gm/dL (11.4-16.0); Lymphocytes % (A) 26 %; MCH 32.5 pg (25.0-35.0); MCHC 32.5 g/dL (31.0-37.0); Mean Platelet Volume 8.3; Monocytes # (A) 0.6 k/uL (0-1.0); Monocytes % (A) 8 %; Neutrophils # (A) 4.5 k/uL (1.3-7.7); Neutrophils % (A) 57 %; Platelet Count 225 k/uL (150-450); RBC 4.76 m/uL (3.80-5.40); RDW 12.9 % (11.5-15.5); WBC 7.9 k/uL (3.8-10.6)
[2021-08-12 17:39] VITALS: BP 148/68; PULSE 88
== END 2021-08-12 17:40 | disposition home or self-care (01) ==
LOC: EC 14:39
DX: H66.92 Otitis media, unspecified, left ear (principal); Z71.1 Person with feared health complaint in whom no diagnosis is made; J44.9 Chronic obstructive pulmonary disease, unspecified; E78.5 Hyperlipidemia, unspecified; I10 Essential (primary) hypertension; F41.9 Anxiety disorder, unspecified; Z79.01 Long term (current) use of anticoagulants; Z79.82 Long term (current) use of aspirin; Z88.1 Allergy status to other antibiotic agents; Z88.5 Allergy status to narcotic agent; Z86.73 Personal history of transient ischemic attack (TIA), and cerebral infarction without residual deficits; Z85.820 Personal history of malignant melanoma of skin; Z85.42 Personal history of malignant neoplasm of other parts of uterus; Z90.49 Acquired absence of other specified parts of digestive tract; Z90.710 Acquired absence of both cervix and uterus; Z87.891 Personal history of nicotine dependence
CPT/HCPCS: 36415; 80053; 82550; 85025; 87040; 99283

== ENCOUNTER → 2021-12-15 | Outpatient (CLI) | payer MEDICARE, BC ==
[2021-12-15 12:01] LABS: African American GFR (CKD) >90 (>60 ml/min/1.73 sqM); Blood Urea Nitrogen 21 mg/dL (7-17); Non-African American GFR(CKD) 89 (>60 ml/min/1.73 sqM)
--- NOTE | 2021-12-15 14:01 | CT ---
EXAMINATION TYPE: CT chest w con CT DLP: 332 mGycm, Automated exposure control for dose reduction was used. DATE OF EXAM: 12/15/2021 12:24 PM COMPARISON: CT chest 09/11/2021 PET scan 02/20/2021. CLINICAL INDICATION:Female, 71 years old with history of C34.12 Malignant neoplasm of upper lobe; nod ules, COPD TECHNIQUE: Multiple axial images were obtained through the chest following the administration of 100 cc of Isovue 300. FINDINGS: LUNGS/ PLEURA: There is mild to moderate centrilobular emphysema changes throughout the lungs. Redemo nstration of left upper lobe mass which appears slightly decreased in size compared to immediate prio r measuring 2.3 x 2.0, previously 3.1 x 2.5 cm. No new suspicious pulmonary nodules identified. AIRWAY: Patent and unremarkable.. HEART: The heart remains mildly enlarged for size with mild atherosclerosis. MEDIASTINUM: No gross evidence of adenopathy. VASCULATURE: No aortic aneurysm. Mild atherosclerosis of the arterial vasculature. MUSCULOSKELETAL: No acute osseous abnormalities SOFT TISSUES/LYMPH NODES: Unremarkable. LOWER NECK: No significant findings. UPPER ABDOMEN: Partially visualized large cystic structure seen within the upper abdomen as seen on p rior imaging measuring at least 26.0 cm in transverse dimension. Fundal adenomyomatosis suggested of the gallbladder. Multiple gallbladder stones are present. IMPRESSION: 1. Interval decrease in size of left upper lobe pulmonary nodule compared to immediate prior on 022. No new pulmonary nodules identified. 2. Mild to moderate COPD. 2. Persistent Massive cyst filling the pelvis and mid to lower abdomen measuring up to at least 26.0 cm. Persistent suspicion for ovarian origin, possible serous cyst adenoma. Recommend surgical evaluat ion. 3. Cholelithiasis with suspected fundal adenomyomatosis.
== END | disposition home or self-care (01) ==
LOC: RADCTMAIN 11:14
PROVIDERS: ATTEND Radiology Radiation Oncology
DX: C34.12 Malignant neoplasm of upper lobe, left bronchus or lung (principal); J44.9 Chronic obstructive pulmonary disease, unspecified; R19.09 Other intra-abdominal and pelvic swelling, mass and lump
CPT/HCPCS: 82565; 84520; 71260; 36415; Q9967

== ENCOUNTER → 2021-12-23 | Outpatient (CLI) | payer MEDICARE, BC ==
[2021-12-23 20:37] LABS: INR 1.64 (0.90-1.11); Prothrombin Time 18.1 sec (9.9-11.9)
== END | disposition home or self-care (01) ==
LOC: LABWHC1 14:23
PROVIDERS: ATTEND Family Medicine
DX: Z79.01 Long term (current) use of anticoagulants (principal)
CPT/HCPCS: 36415; 85610

== ENCOUNTER → 2022-06-15 | Outpatient (CLI) | payer MEDICARE, BC ==
[2022-06-15 12:19] LABS: African American GFR (CKD) >90 (>60 ml/min/1.73 sqM); Blood Urea Nitrogen 26 mg/dL (7-17); Non-African American GFR(CKD) 88 (>60 ml/min/1.73 sqM)
--- NOTE | 2022-06-15 13:04 | CT ---
EXAMINATION TYPE: CT chest w con DATE OF EXAM: 06/15/2022 COMPARISON: 12/15/2021 HISTORY: f/u lung mass CT DLP: 606 mGycm Automated exposure control for dose reduction was used. TECHNIQUE: CT scan of the chest is performed with IV Contrast, patient injected with 77cc mL of Isovue 300. MIP Images are created on CT scanner and reviewed. 3D reconstructed images are created on an independent workstation and reviewed. FINDINGS: LUNGS: There is mild to moderate centrilobular emphysema changes throughout the lungs. Redemonstratio n of left upper lobe mass which appears slightly decreased in size compared to immediate prior measur ing 2.2 x 0.8 cm previously 2.3 x 2 .0 cm. No new suspicious pulmonary nodules identified. MEDIASTINUM: There are no greater than 1 cm hilar or mediastinal lymph nodes. No pericardial effusi on is seen. OTHER: Left breast calcifications noted. Hypertrophic and degenerative changes of the spine. Large c ystic mass in the pelvis measuring greater than 30 cm again noted. Gross gallstones. IMPRESSION: 1. There is interval reduction in size of left upper lobe mass now measuring 2.2 x 0.8 cm and previou sly measuring 2.3 x 2 cm 2. There is a cystic mass involving the abdomen and pelvis measuring greater than 30 cm only partiall y included in [id number] but noted on prior CT scan 09/11/2021. 3. Cholelithiasis.
== END | disposition home or self-care (01) ==
LOC: RADCTMAIN 11:32
PROVIDERS: ATTEND Radiology Radiation Oncology
DX: C34.12 Malignant neoplasm of upper lobe, left bronchus or lung (principal); J44.9 Chronic obstructive pulmonary disease, unspecified; Z92.3 Personal history of irradiation; K80.20 Calculus of gallbladder without cholecystitis without obstruction; R19.09 Other intra-abdominal and pelvic swelling, mass and lump; Z90.710 Acquired absence of both cervix and uterus
CPT/HCPCS: 82565; 84520; 71260; 36415; Q9967

== ENCOUNTER 2022-12-17 16:13 | Inpatient (IN) | payer MEDICARE, BC ==
[2022-12-17] MEDS ORDERED: PANTOPRAZOLE 40 MG/10 ML VIAL IVP STA (16:56)
[2022-12-17] MEDS ORDERED: SODIUM CHLORIDE 0.9% 1,000 ML IV STA ×3 (16:56→19:22)
[2022-12-17] MEDS ORDERED: MORPHINE SULFATE 4 MG/ML SYRINGE IVP STA (16:59)
--- NOTE | 2022-12-17 17:03 | ED ---
General Adult HPI - General Chief complaint: Abdominal Pain Stated complaint: abd pain Time Seen by Provider: 12/17/22 16:15 Source: patient, RN notes reviewed Mode of arrival: EMS Limitations: no limitations - History of Present Illness Initial comments: Patient is a pleasant 72-year-old female presenting to the emergency department pelvic pain. Patient has chronic pelvic pain from pelvic mass. Patient did have debulking surgery done just a week ago. Patient states pain is not as bad as it was prior to that. Patient states she appeared like she was prior to that. Patient has had some increased discomfort over the past few days. A caal has had some decreased oral intake. - Related Data Home Medications Medication Instructions Recorded Confirmed aMILoride HCL 5 mg PO DAILY@0800 12/12/19 12/17/22 Cholecalciferol [Vitamin D3 (25 25 mcg PO DAILY@1200 01/22/21 12/17/22 Mcg = 1000 Iu)] Loratadine [Claritin] 10 mg PO DAILY PRN 01/22/21 12/17/22 Acetaminophen Tab [Tylenol] 650 mg PO Q4H PRN 12/17/22 12/17/22 Acetaminophen [Tylenol 8 Hour] 650 mg PO Q8H PRN 12/17/22 12/17/22 Albuterol Nebulized [Ventolin 2.5 mg INHALATION RT-Q4H 12/17/22 12/17/22 Nebulized] Budesonide/Formoterol Fumarate 2 puff INHALATION RT-BID@0800,2100 12/17/22 12/17/22 [Symbicort 160-4.5 Mcg Inhaler] Cyanocobalamin [Vitamin B-12] 500 mcg PO DAILY@1200 12/17/22 12/17/22 Ensure Enlive 237 ml PO TID@0800,1200,1700 12/17/22 12/17/22 Furosemide [Lasix] 20 mg PO DAILY@0800 12/17/22 12/17/22 Ibuprofen [Motrin] 600 mg PO QID PRN 12/17/22 12/17/22 Ipratropium Nebulized [Atrovent 0.5 mg INHALATION RT-Q4H 12/17/22 12/17/22 Nebulized 0.2 MG/ML] LORazepam [Ativan] 0.5 mg PO Q12H PRN 12/17/22 12/17/22 Magnesium Hydroxide [Milk of 7,200 mg PO Q2D PRN 12/17/22 12/17/22 Magnesia Concentrate] Na Phos,M-B/Na Phos,Di-Ba [Fleet 133 ml RECTAL DAILY PRN 12/17/22 12/17/22 Adult] Phenytoin Chew [Dilantin Chew] 50 mg PO TID@0800,1200,1700 12/17/22 12/17/22 Rosuvastatin Calcium [Crestor] 10 mg PO DAILY@17012/17/22 12/17/22 Senna 8.8mg/5ml Oral Syrup 15 ml PO HS PRN 12/17/22 12/17/22 Sennosides-Docusate Sodium 2 tab PO BID@0800,1700 12/17/22 12/17/22 [Senokot-S] Spironolactone [Aldactone] 12.5 mg PO DAILY@0800 12/17/22 12/17/22 Umeclidinium [place] [Incruse 1 puff INHALATION RT-DAILY@0812/17/22 12/17/22 Ellipta] Warfarin [Coumadin] 2.5 mg PO WEFR@0 12/17/22 12/17/22 Warfarin [Coumadin] 5 mg PO SUMOTUTHSA@169912/17/22 12/17/22 bisacodyL [Dulcolax] 10 mg RECTAL DAILY PRN 12/17/22 12/17/22 polyethylene glycoL 3350 [Miralax] 17 gm PO DAILY@0800 12/17/22 12/17/22 risperiDONE [RisperDAL] 1 mg PO HS 12/17/22 12/17/22 Allergies Allergy/AdvReac Type Severity Reaction Status Date / Time bacitracin Allergy Rash/Hives Verified 12/17/22 20:23 [From Neosporin ([id number])] dexamethasone [From Maxitrol] Allergy FACE Verified 12/17/22 20:23 SWELLING hydromorphone [From Dilaudid] Allergy makes head Verified 12/17/22 20:23 spin neomycin [From Maxitrol] Allergy FACE Verified 12/17/22 20:23 SWELLING polymyxin B [From Maxitrol] Allergy FACE Verified 12/17/22 20:23 SWELLING isopropyl alcohol AdvReac Nausea Verified 12/17/22 20:23 Review of Systems ROS Statement: Those systems with pertinent positive or pertinent negative responses have been documented in the HPI. ROS Other: All systems not noted in ROS Statement are negative. Constitutional: Denies: fever Eyes: Denies: eye pain ENT: Denies: ear pain Respiratory: Denies: dyspnea Cardiovascular: Denies: chest pain Endocrine: Denies: fatigue Gastrointestinal: Reports: as per HPI, abdominal pain Past Medical History Past Medical History: Cancer, COPD, CVA/TIA, Hyperlipidemia, Hypertension, Seizure Disorder Additional Past Medical History / Comment(s): epilepsy, thoracic outlet syndrome, uterine CA possibly, pt unsure and skin cancer History of Any Multi-Drug Resistant Organisms: None Reported Past Surgical History: Appendectomy, Hysterectomy Additional Past Surgical History / Comment(s): removed CA on skin L arm Past Anesthesia/Blood Transfusion Reactions: No Reported Reaction Past Psychological History: Anxiety Smoking Status: Former smoker Past Alcohol Use History: None Reported Past Drug Use History: None Reported - Past Family History Mother History Unknown: Yes General Exam Limitations: no limitations General appearance: alert, in no apparent distress Head exam: Present: normocephalic Eye exam: Present: normal appearance ENT exam: Present: mucous membranes dry Neck exam: Present: normal inspection Respiratory exam: Present: normal lung sounds bilaterally Cardiovascular Exam: Present: regular rate, normal rhythm GI/Abdominal exam: Present: soft, distended (Mild distention), tenderness (Mild to moderate tenderness lower abdomen, more so on the left side.), normal bowel sounds. Absent: guarding, rebound, pulsatile mass Extremities exam: Present: normal inspection Neurological exam: Present: alert Psychiatric exam: Present: normal affect, normal mood Skin exam: Present: other (Incision clean and dry and intact) Course Vital Signs 12/17/22 12/17/22 12/17/22 16:22 18:45 19:00 Temperature 98.5 F 102.2 F H Pulse Rate 88 149 H 138 H Respiratory 18 25 H 32 H Rate Blood Pressure 128/57 122/90 96/79 O2 Sat by Pulse 94 L 90 L 91 L Oximetry 12/17/22 12/17/22 20:00 20:54 Temperature 102.3 F H 101.4 F H Pulse Rate 130 H 124 H Respiratory 38 H 35 H Rate Blood Pressure 106/56 112/56 O2 Sat by Pulse 90 L 91 L Oximetry - Reevaluation(s) Reevaluation #1: 12/17/22 20:16 There is concern for sepsis diagnosed at 1999. Blood culture, lactic acid, IV fluid bolus and antibiotics have all been ordered. 12/17/22 20:27 Patient appears to be on Coumadin for history of clotting disorder. No further history regarding this can be obtained at this time EKG #200 Shelf so sinus tach with a rate of 125. IN 06/25/2016. QRS 88. QT 234. QTC 308. Normal axis. Normal QRS. No acute ST change. 12/17/22 20:51 Call back from [facility]. Case was discussed with Leonard as well as Dr. Chaves to [facility]. They state that transfer to [facility] is a different facility and recommend calling them directly. 12/17/22 21:04 Again trying to contact [facility] for potential transfer EKG Findings - EKG Results: EKG: interpreted by SHIRAZ (Neuro complex regular tachycardia with rate of 150), normal axis, normal QRS, normal ST/T Medical Decision Making - Medical Decision Making Was pt. sent in by a medical professional or institution (, PA, BLOOD BANK CREDIT CLERK, urgent care, hospital, or alf...) When possible be specific @ -Patient was sent from nursing facility Did you speak to anyone other than the patient for history (EMS, parent, family, police, friend...)? What history was obtained from this source @ - present and helps provide history including history of previous surgery at [facility] in [place] Did you review nursing and triage notes (agree or disagree)? Why? @ -I reviewed and agree with nursing and triage notes Were old charts reviewed (outside hosp., previous admission, EMS record, old EKG, old radiological studies, urgent care reports/EKG's, alf records)? Report findings @ -[facility] (chest pain, altered mental status, abdominal pain women, abdominal pain men, vaginal bleeding, weakness, fever, dyspnea, syncope, headache, dizziness, GI bleed, back pain, seizure, CVA, palpatations, mental health, musculoskeletal)? @ -Differential Abdominal Pain Women: Appendicitis, Cholecystitis, diverticulosis, ischemic bowel, pancreatitis, hepatitis, UTI, gastroenteritis, AAA, incarcerated hernia, bowel obstruction, constipation, inflammatory bowel, hepatitis, peptic ulcer disease, splenic infarction, perforated viscus, vulvitis, ovarian torsion, PID, kidney stone, placenta abruption, this is not meant to be an all-inclusive list EKG interpreted by me (3pts min.). @ -As above X-rays interpreted by me (1pt min.). @ -None done CT interpreted by me (1pt min.). @ -11 cm extensively lesion mid pelvis. Wall thickening distal sigmoid. U/S interpreted by me (1pt. min.). @ -None done What testing was considered but not performed or refused? (CT, X-rays, U/S, labs)? Why? @ -None What meds were considered but not given or refused? Why? @ -None Did you discuss the management of the patient with other professionals (professionals i.e. , PA, BLOOD BANK CREDIT CLERK, lab, RT, psych nurse, social research assistant, kiln remover, teacher, training and development officer, case manager specialist)? Give summary @ -Case was discussed with practitioner jacinda finnegan, who will admit covered Dr. Nath. We are also attempting to get in touch with the patient's surgeon Dr. Guadarrama at [facility] Was smoking cessation discussed for >3mins.? @ -No Was critical care preformed (if so, how long)? @ -33 minutes. Care time Were there social determinants of health that impacted care today? How? (Homelessness, low income, unemployed, alcoholism, drug addiction, transportation, low edu. Level, literacy, decrease access to med. care, longterm, rehab)? @ -No Was there de-escalation of care discussed even if they declined (Discuss DNR or withdrawal of care, Hospice)? DNR status @ -No What co-morbidities impacted this encounter? (DM, HTN, Smoking, COPD, CAD, Cancer, CVA, ARF, Chemo, Hep., AIDS, mental health diagnosis, sleep apnea, morbid obesity)? @ -None Was patient admitted / discharged? Hospital course, mention meds given and route, prescriptions, significant lab abnormalities, going to OR and other pertinent info. @ -Patient reevaluated. Patient and family updated. Patient does meet criteria for sepsis. Blood culture and fluids and lactic acid all ordered. IV antibiotics ordered. Patient will need hospital admission. Awaiting callback from patient's surgeon Undiagnosed new problem with uncertain prognosis? @ -No Drug Therapy requiring intensive monitoring for toxicity (Heparin, Nitro, Insulin, Cardizem)? @ -[No] Were any procedures done? @ -[No] Diagnosis/symptom? @ -Sepsis, postoperative abdominal infection Acute, or Chronic, or Acute on Chronic? @ -Acute, acute Uncomplicated (without systemic symptoms) or Complicated (systemic symptoms)? @ -[default] Side effects of treatment? @ -[No] Exacerbation, Progression, or Severe Exacerbation? @ -[No] Poses a threat to life or bodily function? How? (Chest pain, [place], [place], pneumonia, PE, COPD, DKA, ARF, appy, cholecystitis, CVA, Diverticulitis, Homicidal, Suicidal, threat to staff... and all critical care pts) @ -Sepsis and postoperative infection do poses a threat to life - Lab Data Result diagrams: 12/17/22 17:02 12/17/22 17:02 Lab Results 12/17/22 12/17/22 12/17/22 Range/Units 17:02 17:02 17:02 WBC 19.1 H (3.8-10.6) k/uL RBC 2.22 L (3.80-5.40) m/uL Hgb 7.1 L (11.4-16.0) gm/dL Hct 21.4 L (34.0-46.0) % MCV 96.5 (80.0-100.0) fL MCH 32.2 (25.0-35.0) pg MCHC 33.3 (31.0-37.0) g/dL RDW 14.7 (11.5-15.5) % Plt Count 367 (150-450) k/uL MPV 7.9 Neutrophils % 87 % Lymphocytes % 5 % Monocytes % 6 % Eosinophils % 0 % Basophils % 0 % Neutrophils # 16.7 H (1.3-7.7) k/uL Lymphocytes # 1.0 (1.0-4.8) k/uL Monocytes # 1.1 H (0-1.0) k/uL Eosinophils # 0.1 (0-0.7) k/uL Basophils # 0.0 (0-0.2) k/uL PT 29.3 H (9.0-12.0) sec INR 3.0 H (<1.2) APTT 39.7 H (22.0-30.0) sec Sodium 134 L (137-145) mmol/L Potassium 4.5 (3.5-5.1) mmol/L Chloride 96 L (98-107) mmol/L Carbon Dioxide 34 H (22-30) mmol/L Anion Gap 4 mmol/L BUN 9 (7-17) mg/dL Creatinine 0.44 L (0.52-1.04) mg/dL Est GFR (CKD-EPI)AfAm >90 (>60 ml/min/1.73 sqM) Est GFR (CKD-EPI)NonAf >90 (>60 ml/min/1.73 sqM) Glucose 156 H (74-99) mg/dL Plasma Lactic Acid Rui (0.7-2.0) mmol/L Calcium 7.6 L (8.4-10.2) mg/dL Total Bilirubin 0.5 (0.2-1.3) mg/dL AST 23 (14-36) U/L ALT 23 (4-34) U/L Alkaline Phosphatase 99 (38-126) U/L Total Protein 5.1 L (6.3-8.2) g/dL Albumin 2.5 L (3.5-5.0) g/dL Amylase 30 (30-110) U/L Lipase 14 L (23-300) U/L // Range/Units 20:30 WBC (3.8-10.6) k/uL RBC (3.80-5.40) m/uL Hgb (11.4-16.0) gm/dL Hct (34.0-46.0) % MCV (80.0-100.0) fL MCH (25.0-35.0) pg MCHC (31.0-37.0) g/dL RDW (11.5-15.5) % Plt Count (150-450) k/uL MPV Neutrophils % % Lymphocytes % % Monocytes % % Eosinophils % % Basophils % % Neutrophils # (1.3-7.7) k/uL Lymphocytes # (1.0-4.8) k/uL Monocytes # (0-1.0) k/uL Eosinophils # (0-0.7) k/uL Basophils # (0-0.2) k/uL PT (9.0-12.0) sec INR (<1.2) APTT (22.0-30.0) sec Sodium (137-145) mmol/L Potassium (3.5-5.1) mmol/L Chloride (98-107) mmol/L Carbon Dioxide (22-30) mmol/L Anion Gap mmol/L BUN (7-17) mg/dL Creatinine (0.52-1.04) mg/dL Est GFR (CKD-EPI)AfAm (>60 ml/min/1.73 sqM) Est GFR (CKD-EPI)NonAf (>60 ml/min/1.73 sqM) Glucose (74-99) mg/dL Plasma Lactic Acid Rui 0.9 (0.7-2.0) mmol/L Calcium (8.4-10.2) mg/dL Total Bilirubin (0.2-1.3) mg/dL AST (14-36) U/L ALT (4-34) U/L Alkaline Phosphatase (38-126) U/L Total Protein (6.3-8.2) g/dL Albumin (3.5-5.0) g/dL Amylase (30-110) U/L Lipase (23-300) U/L Critical Care Time Critical Care Time: Yes Total Critical Care Time: 33 Disposition Clinical Impression: Abdominal infection Disposition: ADMITTED IP TO THIS HOSP Is patient prescribed a controlled substance at d/c from ED?: No Referrals: Isauro Nath DO [Primary Care Provider] - 1-2 days Time of Disposition: 21:05
[2022-12-17 17:35] LABS: Basophils % (A) 0 %; Eosinophils # (A) 0.1 k/uL (0-0.7); Eosinophils % (A) 0 %; HCT 21.4 % (34.0-46.0); HGB 7.1 gm/dL (11.4-16.0); Lymphocytes % (A) 5 %; MCH 32.2 pg (25.0-35.0); MCHC 33.3 g/dL (31.0-37.0); MCV 96.5 fL (80.0-100.0); Mean Platelet Volume 7.9; Monocytes # (A) 1.1 k/uL (0-1.0); Monocytes % (A) 6 %; Neutrophils # (A) 16.7 k/uL (1.3-7.7); Neutrophils % (A) 87 %; Platelet Count 367 k/uL (150-450); RBC 2.22 m/uL (3.80-5.40); RDW 14.7 % (11.5-15.5); WBC 19.1 k/uL (3.8-10.6)
[2022-12-17 18:01] LABS: ALT 23 U/L (4-34); AST 23 U/L (14-36); African American GFR (CKD) >90 (>60 ml/min/1.73 sqM); Albumin 2.5 g/dL (3.5-5.0); Alkaline Phosphatase 99 U/L (38-126); Amylase 30 U/L (30-110); Anion Gap 4 mmol/L; Blood Urea Nitrogen 9 mg/dL (7-17); Calcium 7.6 mg/dL (8.4-10.2); Carbon Dioxide 34 mmol/L (22-30); Chloride 96 mmol/L (98-107); Glucose 156 mg/dL (74-99); Lipase 14 U/L (23-300); Non-African American GFR(CKD) >90 (>60 ml/min/1.73 sqM); Potassium 4.5 mmol/L (3.5-5.1); Sodium 134 mmol/L (137-145); Total Bilirubin 0.5 mg/dL (0.2-1.3); Total Protein 5.1 g/dL (6.3-8.2)
[2022-12-17 18:06] LABS: Partial Thromboplastin Time 39.7 sec (22.0-30.0); Prothrombin Time 29.3 sec (9.0-12.0)
[2022-12-17] MEDS ORDERED: ACETAMINOPHEN IV (For NPO) 1,000 MG in EMPTY BAG 1 BAG IVPB STA (18:39)
[2022-12-17] MEDS ORDERED: SODIUM CHLORIDE 0.9% 500 ML 500 ML IV STA (18:40)
--- NOTE | 2022-12-17 18:56 | CT ---
EXAMINATION TYPE: CT abdomen pelvis w con DATE OF EXAM: 12/17/2022 COMPARISON: 03/26/2023 HISTORY: 72-year-old female Abdominal pain. TECHNIQUE: Contiguous axial scanning of the abdomen and pelvis following administration of 100 ml Iso agata 300 IV contrast. Delayed images through the kidneys and coronal/sagittal reconstructions perform ed. CT DLP: 1504.5 mGycm Automated exposure control for dose reduction was used. FINDINGS: Heart normal size without pericardial effusion. There are trace right greater than left effusions wit h adjacent dependent atelectasis. There is prominent patient motion. This limits detailed assessment of the solid abdominal organs. No definite focal liver lesion. Portal venous system appears patent. There are a couple of gallstones measuring 2.5 and 1.5 cm. No obvious abnormal gallbladder distention . No biliary ductal dilatation. Similar thickening of the left adrenal gland. Right adrenal gland, spleen, and pancreas show no gross abnormality. Somewhat atrophic right kidney. Delayed excretion of contrast from the left kidney with a mild left-s ided hydronephrosis . No dilated small bowel or free air. However, there is new [id number] abdominal pelvic ascites. Generalized anasarca changes near. E xtensive presacral edema and soft tissue thickening is new. There is suggestion of distal sigmoid and rectal wall thickening, axial image 70. Extensive fat stranding in the lower abdomen and pelvis. Tamia pect interval laparotomy and resection of the large unilocular cyst but now replaced in the main pelv is and left adnexa with a mixed density complex cystic structure measuring up to 11.3 x 9.5 x 7.9 cm. There appeared to be high density fluid/fluid levels and focal vascularity to this area, coronal joselito ge 53 and axial image 62. Overall nonobstructive bowel mass pattern though this structure has considerable mass effect bowing t he distal sigmoid. Become dilated to 8.9 cm. Ascending colon dilated up to 7.3 cm with large stool Bladder is somewhat patulous and contains an air probably relating to recent instrumentation. Bones: Mild to moderate degenerative change throughout the visualized spine. IMPRESSION: 1. Interval laparotomy with resection of the large unilocular cyst which previously filled most of th e abdominal and pelvic cavity. 2. However, it is now replaced by a complex, mixed density lesion in the mid pelvis and left adnexa m easuring up to 11.3 cm. There is prominent focal vascularity here and high density layering material. Recommend further correlation as to time since surgery. Complex postoperative hematoma or residual/r ecurrent cystic mass with internal hemorrhage are some considerations. Correlate with hemoglobin/vanna tocrit levels. 3. The mass displaces and uniformly narrows the sigmoid colon. Dilated right side of the colon up to 8.9 cm favored to be secondary to an ileus as no discrete transition point is seen. 4. The complex pelvic lesion also has mass effect on to the distal left ureter causing mild left-side d obstructive uropathy. 5. Circumferential wall thickening and complex appearance to the distal sigmoid and rectum, for examp le, axial image 70. Unable to exclude a significant colitis here or even early intramural abscess. 6. New mild to moderate abdominal pelvic ascites. Generalized anasarca. Trace to small effusions. Ext ensive stranding and edema within the pelvis and moderate presacral soft tissue thickening/edema. Aga in, correlate as to time since surgery.
[2022-12-17] MEDS ORDERED: CEFEPIME 2 GM in SODIUM CHLORIDE 0.9% 100 ML IVPB STA (20:09)
[2022-12-17] MEDS: metroNIDAZOLE-NS PMX 500 MG in SALINE 1 100ML.BAG IVPB SCH (20:53)
[2022-12-17] MEDS ORDERED: CEFEPIME 2 GM in SODIUM CHLORIDE 0.9% 100 ML IVPB SCH (21:00)
[2022-12-17] MEDS ORDERED: NALOXONE 0.4 MG/ML 1 ML VIAL IV PRN (21:07)
[2022-12-17] MEDS ORDERED: ACETAMINOPHEN TAB 325 MG TAB PO PRN (21:07)
[2022-12-17] MEDS ORDERED: MORPHINE SULFATE 4 MG/ML SYRINGE IVP PRN (21:09)
[2022-12-17] MEDS: SODIUM CHLORIDE 0.9% 1,000 ML IV SCH (21:23)
[2022-12-17] MEDS ORDERED: IBUPROFEN IV 800 MG in SODIUM CHLORIDE 0.9% 250 ML IV SCH (22:15)
[2022-12-17 23:39] LABS: Basophils # (A) 0.1 k/uL (0-0.2); Basophils % (A) 0 %; Eosinophils # (A) 0.1 k/uL (0-0.7); Eosinophils % (A) 0 %; Hypochromasia Moderate; Lymphocytes # (A) 0.7 k/uL (1.0-4.8); Lymphocytes % (A) 3 %; MCH 32.3 pg (25.0-35.0); MCHC 32.1 g/dL (31.0-37.0); MCV 100.6 fL (80.0-100.0); Macrocytosis Slight; Mean Platelet Volume 8.7; Monocytes # (A) 0.9 k/uL (0-1.0); Monocytes % (A) 4 %; Neutrophils # (A) 22.1 k/uL (1.3-7.7); Neutrophils % (A) 92 %; Platelet Count 200 k/uL (150-450); RBC 1.76 m/uL (3.80-5.40)
[2022-12-18 00:01] LABS: HCT 17.7 % (34.0-46.0); HGB 5.7 gm/dL (11.4-16.0)
[2022-12-18] MEDS: metroNIDAZOLE-NS PMX 500 MG in SALINE 1 100ML.BAG IVPB SCH ×4 (02:26→17:56)
[2022-12-18] MEDS: SODIUM CHLORIDE 0.9% 1,000 ML IV SCH ×4 (04:05→23:59)
[2022-12-18 05:10] LABS: HCT 25.3 % (34.0-46.0); Hypochromasia Slight; MCH 30.5 pg (25.0-35.0); MCHC 31.9 g/dL (31.0-37.0); MCV 95.7 fL (80.0-100.0); Mean Platelet Volume 8.8; Platelet Count 200 k/uL (150-450); Poikilocytosis Slight; RBC 2.65 m/uL (3.80-5.40); RDW 15.8 % (11.5-15.5); WBC 47.5 k/uL (3.8-10.6)
[2022-12-18 05:33] LABS: HGB 8.1 gm/dL (11.4-16.0)
[2022-12-18] MEDS ORDERED: ACETAMINOPHEN TAB 325 MG TAB PO PRN (05:59)
[2022-12-18 06:34] LABS: Glucose,Whole Blood 123 mg/dL (70-110)
[2022-12-18] MEDS: NOREPINEPHRINE 4 MG in SODIUM CHLORIDE 0.9% 250 ML IV SCH ×2 (06:53→18:28)
[2022-12-18 07:59] LABS: Anisocytosis Slight; HCT 25.8 % (34.0-46.0); HGB 8.4 gm/dL (11.4-16.0); Hypochromasia Moderate; MCHC 32.7 g/dL (31.0-37.0); MCV 98.1 fL (80.0-100.0); Macrocytosis Slight; Mean Platelet Volume 8.6; Platelet Count 202 k/uL (150-450); Poikilocytosis Slight; RBC 2.63 m/uL (3.80-5.40); RDW 16.5 % (11.5-15.5); WBC 49.2 k/uL (3.8-10.6)
[2022-12-18] MEDS ORDERED: metroNIDAZOLE-NS PMX 500 MG in SALINE 1 100ML.BAG IVPB SCH (08:00)
[2022-12-18] MEDS ORDERED: CEFEPIME 2 GM in SODIUM CHLORIDE 0.9% 100 ML IVPB SCH ×2 (08:00→21:00)
[2022-12-18 08:04] LABS: INR 3.5 (<1.2); Prothrombin Time 34.4 sec (9.0-12.0)
[2022-12-18 08:18] LABS: ALT 31 U/L (4-34); African American GFR (CKD) 56 (>60 ml/min/1.73 sqM); Albumin 2.4 g/dL (3.5-5.0); Anion Gap 7 mmol/L; Blood Urea Nitrogen 14 mg/dL (7-17); Calcium 6.9 mg/dL (8.4-10.2); Carbon Dioxide 27 mmol/L (22-30); Chloride 103 mmol/L (98-107); Glucose 102 mg/dL (74-99); Non-African American GFR(CKD) 49 (>60 ml/min/1.73 sqM); Sodium 137 mmol/L (137-145); Total Bilirubin 2.4 mg/dL (0.2-1.3); Total Protein 5.2 g/dL (6.3-8.2)
[2022-12-18 08:24] LABS: AST 58 U/L (14-36); Alkaline Phosphatase 109 U/L (38-126)
[2022-12-18 08:48] LABS: Band Neutrophils % 8 %; Lymphocytes # (M) 3.44 k/uL (1.0-4.8); Neutrophils % (M) 73 %; Nucleated Red Blood Cells 0 /100 WBC (0-0); Total Cells Counted 100
[2022-12-18] MEDS: PANTOPRAZOLE 40 MG/10 ML VIAL IV SCH (08:53)
[2022-12-18] MEDS ORDERED: PHYTONADIONE 10 MG in SODIUM CHLORIDE 0.9% 50 ML IVPB STA (09:40)
--- NOTE | 2022-12-18 09:43 | P.CNPUL ---
History of Present Illness Consult date: 12/18/22 Chief complaint: Abdominal pain/distention History of present illness: This is a 72-year-old female patient who came into the emergency department with abdominal pain and distention. 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 The patient underwent a debulking surgery approximately a week ago at [facility] by Dr. Chaudhari and the procedure was uncomplicated the patient was discharged home. The patient's oncologic history is not clear to us. The patient has seen Dr. Lee in the past. The previous PET scan is available in our system on 02/20/2021 showed a pulmonary nodule measuring 2.3 cm in size that was progressively going and suspicious for lung cancer in addition to background emphysema. 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 A follow-up CAT scan of the chest that was done on 09/11/2021 showed a progression of the suspicious left upper lobe lesion in addition to mild interval enlargement of the cystic lesion in the pelvic area. A subsequent CAT scan of the chest that was done on 06/15/2022 showed interval reduction the left upper lobe mass measuring 2.2 cm in size and the cystic mass in the abdomen was measuring 30 cm.. At this point in time, the patient is septic post surgery. A CAT scan of the abdomen and the pelvis was done yesterday in the emergency department the patient was found to have a complex, mixed density lesion in the mid pelvis and left adnexa measuring up to 11 cm in size. There is prominent focal vascularity and high density layering material. Possibilities include abscess versus residual tumor/postop hematoma. The mass displaces and narrowed the sigmoid colon. There is also dilated the right side of the colon up to 8.9 cm in size which is thought to be obstruction versus ileus. The complex pelvic mass is also causing some mass effect on the left distal ureter with mild left-sided obstructive uropathy. There is also circumferential wall thickening and complex appearance to the distal sigmoid and rectal area and new mild to moderate abdominal pelvic ascites and generalized anasarca. Say small bilateral pleural effusions also seen. Obviously this changes occurred following her laparotomy and debulking surgery. The patient underwent resection of the large cystic pelvic mass. She is currently on a combination of IV cefepime and Flagyl. Her white cell count remains elevated at 49 with a hemoglobin of 8.4. The patient initially presented to us with a hemoglobin of 5.7 and she received a total of 2 units of packed RBC and hemoglobin improved and is currently up-to-date 0.4. She has history of DVT and she is on anticoagulation with warfarin and INR is at 3.4. He is at 40 with a creatinine of 1.1 consistent with an acute kidney injury 9 with a baseline creatinine is at 0.4. Sodium is at 137. LFTs are normal. Amylase and lipase are also normal. Lactic acid level is at 0.9. Overnight, the patient was kept in the emergency and she continued to have issues with hypotension. She was given a total of 3 L of saline and currently she is on normal saline at rate of 130 mL an hour and norepinephrine at 0.07 mcg/kg/m. The white cell count is elevated at 49.2. The chest x-ray has not been done. She is currently on oxygen at 6 L. Abdomen is still distended. Breathing is mildly labored. Urine output is in order of less than 10 mL. The plan is to transfer this patient to [facility] to be reevaluated by her surgical team. She is essentially poor historian and she is not aware of the de tails of the surgery and previous oncologic history. Review of Systems Constitutional: Reports fatigue, Reports fever, Reports weakness Eyes: denies as per HPI, denies blurred vision, denies bulging eye, denies decreased vision, denies diplopia, denies discharge, denies dry eye, denies irritation, denies itching, denies pain, denies photophobia, denies loss of peripheral vision, denies loss of vision, denies tunnel vision/blind spots Ears: deny: decreased hearing, ear discharge, earache, tinnitus Ears, nose, mouth and throat: Reports as per HPI Breasts: absent: as per HPI, change in shape, gynecomastia, masses, nipple discharge, pain, skin changes, swelling Cardiovascular: Reports as per HPI Respiratory: Reports as per HPI, Reports dyspnea Gastrointestinal: Reports abdominal pain, Reports loss of appetite Genitourinary: Reports as per HPI Menstruation: Reports as per HPI Musculoskeletal: Reports as per HPI Musculoskeletal: absent: ankle pain, ankle stiffness, ankle swelling Integumentary: Reports as per HPI Neurological: Reports as per HPI Psychiatric: Reports as per HPI Endocrine: Reports as per HPI Hematologic/Lymphatic: Reports as per HPI Allergic/Immunologic: Reports as per HPI Past Medical History Past Medical History: Cancer, COPD, CVA/TIA, Hyperlipidemia, Hypertension, Seizure Disorder Additional Past Medical History / Comment(s): epilepsy, thoracic outlet syndrome, History of Any Multi-Drug Resistant Organisms: None Reported Past Surgical History: Appendectomy, Hysterectomy Additional Past Surgical History / Comment(s): removed CA on skin L arm Past Anesthesia/Blood Transfusion Reactions: No Reported Reaction Past Psychological History: Anxiety Smoking Status: Former smoker Past Alcohol Use History: None Reported Past Drug Use History: None Reported - Past Family History Mother History Unknown: Yes Medications and Allergies Home Medications Medication Instructions Recorded Confirmed Type aMILoride HCL 5 mg PO DAILY@0800 12/12/19 12/17/22 History Cholecalciferol [Vitamin D3 (25 25 mcg PO DAILY@1200 01/22/21 12/17/22 History Mcg = 1000 Iu)] Loratadine [Claritin] 10 mg PO DAILY PRN 01/22/21 12/17/22 History Acetaminophen Tab [Tylenol] 650 mg PO Q4H PRN 12/17/22 12/17/22 History Acetaminophen [Tylenol 8 Hour] 650 mg PO Q8H PRN 12/17/22 12/17/22 History Albuterol Nebulized [Ventolin 2.5 mg INHALATION RT-Q4H 12/17/22 12/17/22 History Nebulized] Budesonide/Formoterol Fumarate 2 puff INHALATION RT-BID@0800,2100 12/17/22 12/17/22 History [Symbicort 160-4.5 Mcg Inhaler] Cyanocobalamin [Vitamin B-12] 500 mcg PO DAILY@1200 12/17/22 12/17/22 History Ensure Enlive 237 ml PO TID@0800,1200,1700 12/17/22 12/17/22 History Furosemide [Lasix] 20 mg PO DAILY@0800 12/17/22 12/17/22 History Ibuprofen [Motrin] 600 mg PO QID PRN 12/17/22 12/17/22 History Ipratropium Nebulized [Atrovent 0.5 mg INHALATION RT-Q4H 12/17/22 12/17/22 History Nebulized 0.2 MG/ML] LORazepam [Ativan] 0.5 mg PO Q12H PRN 12/17/22 12/17/22 History Magnesium Hydroxide [Milk of 7,200 mg PO Q2D PRN 12/17/22 12/17/22 History Magnesia Concentrate] Na Phos,M-B/Na Phos,Di-Ba [Fleet 133 ml RECTAL DAILY PRN 12/17/22 12/17/22 History Adult] Phenytoin Chew [Dilantin Chew] 50 mg PO TID@0800,1200,1700 12/17/22 12/17/22 History Rosuvastatin Calcium [Crestor] 10 mg PO DAILY@169912/17/22 12/17/22 History Senna 8.8mg/5ml Oral Syrup 15 ml PO HS PRN 12/17/22 12/17/22 History Sennosides-Docusate Sodium 2 tab PO BID@0800,1700 12/17/22 12/17/22 History [Senokot-S] Spironolactone [Aldactone] 12.5 mg PO DAILY@0812/17/22 12/17/22 History Umeclidinium [place] [Incruse 1 puff INHALATION RT-DAILY@0812/17/22 12/17/22 History Ellipta] Warfarin [Coumadin] 2.5 mg PO WEFR@169912/17/22 12/17/22 History Warfarin [Coumadin] 5 mg PO SUMOTUTHSA@169912/17/22 12/17/22 History bisacodyL [Dulcolax] 10 mg RECTAL DAILY PRN 12/17/22 12/17/22 History polyethylene glycoL 3350 [Miralax] 17 gm PO DAILY@0800 12/17/22 12/17/22 History risperiDONE [RisperDAL] 1 mg PO HS 12/17/22 12/17/22 History Allergies Allergy/AdvReac Type Severity Reaction Status Date / Time bacitracin Allergy Rash/Hives Verified 12/17/22 20:23 [From Neosporin ([id number])] dexamethasone [From Maxitrol] Allergy FACE Verified 12/17/22 20:23 SWELLING hydromorphone [From Dilaudid] Allergy makes head Verified 07/14/23 20:23 spin neomycin [From Maxitrol] Allergy FACE Verified 12/17/22 20:23 SWELLING polymyxin B [From Maxitrol] Allergy FACE Verified 12/17/22 20:23 SWELLING isopropyl alcohol AdvReac Nausea Verified 12/17/22 20:23 Physical Exam Vitals: Vital Signs Temp Pulse Resp BP Pulse Ox 12/18/22 09:15 99 21 102/63 97 12/18/22 09:05 95 12/18/22 09:00 101 H 18 96/49 97 12/18/22 08:45 101 H 17 91/40 99 12/18/22 08:30 95/56 12/18/22 08:15 101 H 18 88/46 97 12/18/22 08:00 98.8 F 100 21 96/57 92 L 12/18/22 07:45 101 H 26 H 82/48 96 12/18/22 07:30 101 H 18 83/45 95 12/18/22 07:15 95/56 12/18/22 07:00 99 23 95/56 96 12/18/22 06:45 98.6 F 100 26 H 85/43 95 12/18/22 05:15 103 H 21 84/55 91 L 12/18/22 05:00 104 H 25 H 90/59 94 L 12/18/22 04:45 105 H 27 H 80/54 92 L 12/18/22 04:30 106 H 32 H 80/54 92 L 12/18/22 04:15 106 H 20 80/54 91 L 12/18/22 04:00 105 H 18 82/53 90 L 12/18/22 03:45 105 H 17 82/53 89 L 12/18/22 03:33 105 H 20 82/53 91 L 12/18/22 03:30 105 H 21 82/53 89 L 12/18/22 03:15 105 H 19 82/53 90 L 12/18/22 03:00 106 H 16 84/51 93 L 12/18/22 02:45 108 H 20 86/58 92 L 12/18/22 02:30 106 H 19 88/61 92 L 12/18/22 02:15 109 H 16 81/57 93 L 12/18/22 02:00 105 H 20 84/53 94 L 12/18/22 01:53 84/53 12/18/22 01:45 102 H 21 74/55 12/18/22 01:39 98.5 F 105 H 24 74/55 94 L 12/18/22 01:30 98.5 F 105 H 28 H 75/46 94 L 12/18/22 01:15 108 H 19 79/56 93 L 12/18/22 01:14 98.5 F 110 H 23 79/56 93 L 12/18/22 01:07 98.4 F 111 H 22 74/49 92 L 12/18/22 01:00 112 H 18 78/47 91 L 12/18/22 00:47 98.4 F 111 H 26 H 70/54 92 L 12/18/22 00:45 112 H 38 H 73/49 92 L 12/18/22 00:35 98.3 F 113 H 26 H 73/49 93 L 12/18/22 00:30 114 H 34 H 72/54 92 L 12/18/22 00:22 116 H 21 72/54 92 L 12/18/22 00:00 117 H 27 H 76/48 92 L 12/17/22 23:47 99.1 F 120 H 30 H 76/48 91 L 12/17/22 23:30 122 H 30 H 77/49 92 L 07 23:00 124 H 29 H 69/51 89 L 07 22:30 130 H 35 H 103/53 89 L 07 22:00 101.6 F H 133 H 41 H 105/50 87 L 12/17/22 21:30 130 H 39 H 108/59 88 L 07 21:00 124 H 37 H 112/56 92 L 07 20:54 101.4 F H 124 H 35 H 112/56 91 L 12/17/22 20:30 124 H 38 H 106/56 93 L 071423 20:00 102.3 F H 130 H 41 H 110/61 7 L 0714 19:30 140 H 32 H 96/79 86 L 071423 19:00 146 H 45 H 122/90 88 L 0714/23 18:53 149 H 46 H 122/90 86 L 07/14/23 18:45 102.2 F H 149 H 25 H 122/90 90 L 07 16:22 98.5 F 88 18 128/57 94 L Intake and Output 12/17/22 12/18/22 12/18/22 22:59 06:59 14:59 Intake Total 584 10.888 Balance 584 10.888 Intake: Intake, IV Titration 10.8 Amount Norepinephrine 4 mg In 10.888 Sodium Chloride 0.9% 250 ml @ 0.03 MCG/KG/MIN 9. 073 mls/hr IV .Q24H [facility] Rx#:[id number] Blood Product 584 Rc As-1 Unit 310 [id number] Rc Pheresis 2 As3 Unit 274 [id number] Other: Weight 79.379 kg Gen. appearance the patient is calm and comfortable, not in acute distress and the patient is currently on 6 L O2 nasal cannula Head exam was generally normal. There was no scleral icterus or corneal arcus. Mucous membranes were moist. Neck was supple and without jugular venous distension, thyromegaly, or carotid bruits. Carotids were easily palpable bilaterally. There was no adenopathy. Lungs sounds are diminished bilaterally with few scattered wheeze. Cardiac exam revealed the PMI to be normally situated and sized. The rhythm was regular and no extrasystoles were noted during several minutes of auscultation. The first and second heart sounds were normal and physiologic splitting of the second heart sound was noted. There were no murmurs, rubs, clicks, or gallops. Abdomen is distended, surgical jameson are still in place. There is no active drainage. Mild direct tenderness. No rebound tenderness or guarding. Bowel sounds are absent. There may be some underlying ascites. Examination of the extremities revealed easily palpable radial, femoral and pedal pulses. There was no cyanosis, clubbing or edema. Examination of the skin revealed no evidence of significant rashes, suspicious appearing nevi or other concerning lesions. Neurologically, the patient is lethargic, poor historian, no focal neurological deficits that this point in time. Results - Laboratory Findings CBC and BMP: 12/18/22 07:50 12/18/22 07:50 PT/INR, D-dimer PT 34.4 sec (9.0-12.0) H 12/18/22 07:50 INR 3.5 (<1.2) H 12/18/22 07:50 Abnormal lab findings: Abnormal Labs 12/17/22 12/17/22 12/17/22 17:02 17:02 17:02 WBC 19.1 H RBC 2.22 L Hgb 7.1 L Hct 21.4 L MCV RDW Neutrophils # 16.7 H Neutrophils # (Manual) Lymphocytes # Monocytes # 1.1 H Monocytes # (Manual) PT 29.3 H INR 3.0 H APTT 39.7 H Sodium 134 L Chloride 96 L Carbon Dioxide 34 H Creatinine 0.44 L Glucose 156 H POC Glucose (mg/dL) Calcium 7.6 L Total Bilirubin AST Total Protein 5.1 L Albumin 2.5 L Lipase 14 L Crossmatch 12/17/22 12/17/22 12/18/22 23:25 23:25 04:45 WBC 24.0 H 47.5 H RBC 1.76 L 2.65 L Hgb 5.7 L* 8.1 L D Hct 17.7 L* 25.3 L MCV 100.6 H RDW 16.0 H 15.8 H Neutrophils # 22.1 H Neutrophils # (Manual) Lymphocytes # 0.7 L Monocytes # Monocytes # (Manual) PT INR APTT Sodium Chloride Carbon Dioxide Creatinine Glucose POC Glucose (mg/dL) Calcium Total Bilirubin AST Total Protein Albumin Lipase Crossmatch See Detail 12/18/22 12/18/22 12/18/22 06:32 07:50 07:50 WBC 49.2 H RBC 2.63 L Hgb 8.4 L Hct 25.8 L MCV RDW 16.5 H Neutrophils # Neutrophils # (Manual) 39.80 H Lymphocytes # Monocytes # Monocytes # (Manual) 5.90 H PT INR APTT Sodium Chloride Carbon Dioxide Creatinine 1.14 H Glucose 102 H POC Glucose (mg/dL) 123 H Calcium 6.9 L Total Bilirubin 2.4 H AST 58 H Total Protein 5.2 L Albumin 2.4 L Lipase Crossmatch 12/18/22 07:50 WBC RBC Hgb Hct MCV RDW Neutrophils # Neutrophils # (Manual) Lymphocytes # Monocytes # Monocytes # (Manual) PT 34.4 H INR 3.5 H APTT Sodium Chloride Carbon Dioxide Creatinine Glucose POC Glucose (mg/dL) Calcium Total Bilirubin AST Total Protein Albumin Lipase Crossmatch Assessment and Plan Plan: Acute abdominal distention/pain with signs of abdominal sepsis under investigation. The patient has undergone a debulking surgery for a large cystic abdominal mass that has been growing over the years. Postop, the patient developed a complex mixed density lesion in the mid pelvis and left adnexa measuring 11 cm in size. The mass is causing displacement and narrowing of the sigmoid colon and dilation of the right side of the colon up-to- 8 cm in size, favor ileus versus mass effect and bowel obstruction. Abdominal sepsis secondary to above. The patient has not responded to fluids and the patient is currently on IV pressors and antibiotics and accommodation of cefepime and Flagyl. Acute kidney injury and the patient is oliguric at this point. Could be related to sepsis. There is also signs of left ureteral obstructive uropathy. 2 the complex pelvic lesion History of pulmonary nodule likely an underlying lung mass Advanced COPD Acute hypoxic respiratory failure secondary to above the patient is currently on 6 L O2 nasal cannula Acute leukocytosis History of DVT and the patient is on warfarin with a supratherapeutic PT/INR at 3.5, no evidence of any external bleed. There may be some hematoma formation within the complex mass noted in the abdomen and this could be a postsurgical hematoma/abscess. Based on that, I would prefer to reverse her coagulopathy with vitamin K at this point in time. Acute anemia, could be related to intra-abdominal blood loss/hematoma formation the patient has been chest tube with a total of 2 units of packed RBCs History of seizure disorder History of thoracic outlet syndrome Hypertension History of skin cancer History of CVA Plan Continue IV fluids at the same weight for now Continue cefepime and Flagyl Give the patient 10 mg of vitamin K Reverse coagulopathy and monitor the CBC and the hemoglobin and INR Monitor urine output as the patient has a component of an acute kidney injury Perform a CT with the rectum and by mouth contrast per recommendations done by general surgery team and the [facility] Discussed the case with the surgical team at the [facility] and the patient is about to get transferred within the next 2 hours once beds are available either in, [facility] or [facility]. Time with Patient: Greater than 30
[2022-12-18] MEDS ORDERED: LORazepam 0.5 MG TAB PO PRN (11:38)
[2022-12-18] MEDS: IOPAMIDOL CONTRAST (ORAL USE) VIAL PO PRN ×2 (11:43→12:45)
[2022-12-18] MEDS: IPRATROPIUM 0.5 MG/2.5 ML NEBU INHALATION SCH ×4 (11:45→23:48)
--- NOTE | 2022-12-18 12:10 | XR ---
EXAMINATION TYPE: XR chest 1V portable DATE OF EXAM: 12/18/2022 12:01 PM COMPARISON: Chest radiographs from 08/11/2022. TECHNIQUE: XR chest 1V portable Frontal view of the chest. CLINICAL INDICATION:Female, 72 years old with history of chf; FINDINGS: Lungs/Pleura: There is no evidence of pleural effusion, focal consolidation, or pneumothorax. Pulmonary vascularity: Unremarkable. Heart/mediastinum: Cardiomediastinal silhouette is unremarkable. Musculoskeletal: No acute osseous pathology. IMPRESSION: 1. No evidence for congestive heart failure, No acute cardiopulmonary disease process. 2. COPD changes.
[2022-12-18] MEDS: ONDANSETRON 4 MG/2 ML VIAL IVP PRN (12:36)
--- NOTE | 2022-12-18 13:24 | HP ---
HISTORY AND PHYSICAL This is a combined history and physical and discharge summary. CHIEF COMPLAINT: Abdominal pain. HISTORY OF PRESENT ILLNESS: This is a 72-year-old woman, who recently had a debulking surgery a week ago in the [facility], presented with chronic pelvic pain and abdominal pain. A CT scan of the abdomen and pelvis done in the ER showed multiple abnormalities, complex mixed density in the pelvis was noted and because of concerns of complications and sepsis and other issues, we discussed the case with [facility] and the patient will be transferred to hospital once the bed is available. Currently, the patient is on broad spectrum IV antibiotics. I also recommend cultures and Infectious Disease evaluation. Dr. Heck is following the patient closely and monitored in ICU at this time. PAST MEDICAL HISTORY: Reviewed include COPD, hypertension, hyperlipidemia, seizure disorder. The rest of the history and rest of the chart is also reviewed. HOME MEDICATIONS: Reviewed include Risperdal. Dose and rest of medications reviewed. ALLERGIES: Bactrim. Rest of the allergies are reviewed. FAMILY HISTORY: No history of heart disease or strokes in the family. SOCIAL HISTORY: Previous history of smoking. REVIEW OF SYSTEMS: A 14-point review is negative except as mentioned earlier. PHYSICAL EXAMINATION: VITAL SIGNS: Pulse is 101, blood pressure ntd, respirations 18. HEENT: Conjunctivae normal. NECK: No JVD. CARDIOVASCULAR: S1, S2 muffled. RESPIRATIONS: Breath sounds diminished at the bases. No rhonchi. No crackles. ABDOMEN: Soft, distended. Mild diffuse tenderness. No guarding. No rebound. No mass palpable. LEGS: No edema. NERVOUS SYSTEM: No focal deficits. LABORATORY DATA: Labs are WBC ntd, hemoglobin 8.5. ASSESSMENT: 1. Abdominal pain with elevated WBC, possible postoperative sepsis. 2. Complex intraabdominal mass in the CAT scan. 3. History of recent debulking surgery for malignancy at the [facility]. 4. Acute kidney injury. 5. Chronic obstructive pulmonary disease. 6. Cerebrovascular accident, transient ischemic attack. 7. Hypertension. 8. Hyperlipidemia. 9. History of seizure disorder. 10.Multiple complex medical issues. RECOMMENDATIONS AND DISCUSSION: This is a 72-year-old woman, who presented with multiple complex medical issues, we will monitor the patient closely. Broad-spectrum IV antibiotics, cultures. Infectious Disease evaluation. We will follow closely with Pulmonary. Otherwise, I would recommend transfer to [facility] once the bed is available. See orders for further details. Prognosis guarded. MMODL / IJN: [id number] / MTDD
[2022-12-18] MEDS: PHENYTOIN 50 MG CHEWABLE PO SCH ×2 (13:53→17:56)
--- NOTE | 2022-12-18 14:01 | P.GSCN ---
History of Present Illness Consult date: 12/18/22 History of present illness: CHIEF COMPLAINT: Sepsis HISTORY OF PRESENT ILLNESS: The patient is a 72-year-old female with uterine cancer with recent major abdominal laparotomy with debulking at [facility] less than 2 weeks ago. Most history is obtained via her nurse as patient presented with weakness, anemia, and hypotensive. She was in the ER and transferred to the ICU for septic shock. WBC at presentation over 40,000. Infectious disease is consulted. Patient was about to be transferred back to [facility] when she became unstable for transfer. Initial CT scan was obtained demonstrating abdominal mass. General surgery is consulted regarding abdominal mass. PAST MEDICAL HISTORY: Please see list. PAST SURGICAL HISTORY: Please see list. MEDICATIONS: Please see list. ALLERGIES: Please see list. SOCIAL HISTORY: No illicit drug use FAMILY HISTORY: No reports of Crohn disease or ulcerative colitis. REVIEW OF ORGAN SYSTEMS: PHYSICAL EXAM: VITAL SIGNS: Stable GENERAL: Well-developed pleasant and in no acute distress. HEENT: No scleral icterus. Extraocular movements grossly intact. Moist buccal mucosa. NECK: Supple without lymphadenopathy. CHEST: Unlabored respirations. Equal bilateral excursions. CARDIOVASCULAR: Regular rate and rhythm. Distal 2+ pulses. ABDOMEN: Mildly distended. No peritonitis. MUSCULOSKELETAL: No clubbing, cyanosis, or edema. LABS: Reviewed STUDIES: Repeat CT abdomen and pelvis reviewed without fistula. Compression from pelvic mass noted against the sigmoid colon. No diffuse bowel leak or pneumoperi toneam. ASSESSMENT: 1. Abdominal mass 2. Septic shock 3. Uterine cancer PLAN: 1. 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 2. At the tome of assessment, she denies abdominal pain. No peritonitis at this time warranting emergent general surgery intervention. 3. May have ice chips and popsicles in the interim. Past Medical History Past Medical History: Cancer, COPD, CVA/TIA, Hyperlipidemia, Hypertension, Seizure Disorder Additional Past Medical History / Comment(s): epilepsy, thoracic outlet syndrome, History of Any Multi-Drug Resistant Organisms: None Reported Past Surgical History: Appendectomy, Hysterectomy Additional Past Surgical History / Comment(s): removed CA on skin L arm Past Anesthesia/Blood Transfusion Reactions: No Reported Reaction Past Psychological History: Anxiety Smoking Status: Former smoker Past Alcohol Use History: None Reported Past Drug Use History: None Reported - Past Family History Mother History Unknown: Yes Medications and Allergies Home Medications Medication Instructions Recorded Confirmed Type aMILoride HCL 5 mg PO DAILY@0800 12/12/19 12/17/22 History Cholecalciferol [Vitamin D3 (25 25 mcg PO DAILY@1200 01/22/21 12/17/22 History Mcg = 1000 Iu)] Loratadine [Claritin] 10 mg PO DAILY PRN 01/22/21 12/17/22 History Acetaminophen Tab [Tylenol] 650 mg PO Q4H PRN 12/17/22 12/17/22 History Acetaminophen [Tylenol 8 Hour] 650 mg PO Q8H PRN 12/17/22 12/17/22 History Albuterol Nebulized [Ventolin 2.5 mg INHALATION RT-Q4H 12/17/22 12/17/22 History Nebulized] Budesonide/Formoterol Fumarate 2 puff INHALATION RT-BID@0800,2100 12/17/22 12/17/22 History [Symbicort 160-4.5 Mcg Inhaler] Cyanocobalamin [Vitamin B-12] 500 mcg PO DAILY@1200 12/17/22 12/17/22 History Ensure Enlive 237 ml PO TID@0800,1200,1700 12/17/22 12/17/22 History Furosemide [Lasix] 20 mg PO DAILY@0800 12/17/22 12/17/22 History Ibuprofen [Motrin] 600 mg PO QID PRN 12/17/22 12/17/22 History Ipratropium Nebulized [Atrovent 0.5 mg INHALATION RT-Q4H 12/17/22 12/17/22 History Nebulized 0.2 MG/ML] LORazepam [Ativan] 0.5 mg PO Q12H PRN 12/17/22 12/17/22 History Magnesium Hydroxide [Milk of 7,200 mg PO Q2D PRN 12/17/22 12/17/22 History Magnesia Concentrate] Na Phos,M-B/Na Phos,Di-Ba [Fleet 133 ml RECTAL DAILY PRN 12/17/22 12/17/22 History Adult] Phenytoin Chew [Dilantin Chew] 50 mg PO TID@0800,1200,1700 12/17/22 12/17/22 History Rosuvastatin Calcium [Crestor] 10 mg PO DAILY@1700 12/17/22 12/17/22 History Senna 8.8mg/5ml Oral Syrup 15 ml PO HS PRN 12/17/22 12/17/22 History Sennosides-Docusate Sodium 2 tab PO BID@0800,1700 12/17/22 12/17/22 History [Senokot-S] Spironolactone [Aldactone] 12.5 mg PO DAILY@0800 12/17/22 12/17/22 History Umeclidinium [place] [Incruse 1 puff INHALATION RT-DAILY@0800 12/17/22 12/17/22 History Ellipta] Warfarin [Coumadin] 2.5 mg PO WEFR@0 12/17/22 12/17/22 History Warfarin [Coumadin] 5 mg PO SUMOTUTHSA@0 12/17/22 12/17/22 History bisacodyL [Dulcolax] 10 mg RECTAL DAILY PRN 12/17/22 12/17/22 History polyethylene glycoL 3350 [Miralax] 17 gm PO DAILY@0800 12/17/22 12/17/22 History risperiDONE [RisperDAL] 1 mg PO HS 12/17/22 12/17/22 History Allergies Allergy/AdvReac Type Severity Reaction Status Date / Time bacitracin Allergy Rash/Hives Verified 12/17/22 20:23 [From Neosporin ([id number])] dexamethasone [From Maxitrol] Allergy FACE Verified 12/17/22 20:23 SWELLING hydromorphone [From Dilaudid] Allergy makes head Verified 12/17/22 20:23 spin neomycin [From Maxitrol] Allergy FACE Verified 12/17/22 20:23 SWELLING polymyxin B [From Maxitrol] Allergy FACE Verified 12/17/22 20:23 SWELLING isopropyl alcohol AdvReac Nausea Verified 12/17/22 20:23 Surgical - Exam Vital Signs Temp Pulse Resp BP Pulse Ox 98.5 F 88 18 128/57 94 L 12/17/22 16:22 12/17/22 16:22 12/17/22 16:22 12/17/22 16:22 12/17/22 16:22 Results - Labs 12/18/22 07:50 12/18/22 07:50 Abnormal Lab Results - Last 24 Hours (Table) 12/17/22 12/17/22 12/17/22 Range/Units 17:02 17:02 17:02 WBC 19.1 H (3.8-10.6) k/uL RBC 2.22 L (3.80-5.40) m/uL Hgb 7.1 L (11.4-16.0) gm/dL Hct 21.4 L (34.0-46.0) % MCV (80.0-100.0) fL RDW (11.5-15.5) % Neutrophils # 16.7 H (1.3-7.7) k/uL Neutrophils # (Manual) (1.3-7.7) k/uL Lymphocytes # (1.0-4.8) k/uL Monocytes # 1.1 H (0-1.0) k/uL Monocytes # (Manual) (0-1.0) k/uL PT 29.3 H (9.0-12.0) sec INR 3.0 H (<1.2) APTT 39.7 H (22.0-30.0) sec Sodium 134 L (137-145) mmol/L Chloride 96 L (98-107) mmol/L Carbon Dioxide 34 H (22-30) mmol/L Creatinine 0.44 L (0.52-1.04) mg/dL Glucose 156 H (74-99) mg/dL POC Glucose (mg/dL) (70-110) mg/dL Calcium 7.6 L (8.4-10.2) mg/dL Total Bilirubin (0.2-1.3) mg/dL AST (14-36) U/L Total Protein 5.1 L (6.3-8.2) g/dL Albumin 2.5 L (3.5-5.0) g/dL Lipase 14 L (23-300) U/L Crossmatch 12/17/22 12/17/22 12/18/22 Range/Units 23:25 23:25 04:45 WBC 24.0 H 47.5 H (3.8-10.6) k/uL RBC 1.76 L 2.65 L (3.80-5.40) m/uL Hgb 5.7 L* 8.1 L D (11.4-16.0) gm/dL Hct 17.7 L* 25.3 L (34.0-46.0) % MCV 100.6 H (80.0-100.0) fL RDW 16.0 H 15.8 H (11.5-15.5) % Neutrophils # 22.1 H (1.3-7.7) k/uL Neutrophils # (Manual) (1.3-7.7) k/uL Lymphocytes # 0.7 L (1.0-4.8) k/uL Monocytes # (0-1.0) k/uL Monocytes # (Manual) (0-1.0) k/uL PT (9.0-12.0) sec INR (<1.2) APTT (22.0-30.0) sec Sodium (137-145) mmol/L Chloride (98-107) mmol/L Carbon Dioxide (22-30) mmol/L Creatinine (0.52-1.04) mg/dL Glucose (74-99) mg/dL POC Glucose (mg/dL) (70-110) mg/dL Calcium (8.4-10.2) mg/dL Total Bilirubin (0.2-1.3) mg/dL AST (14-36) U/L Total Protein (6.3-8.2) g/dL Albumin (3.5-5.0) g/dL Lipase (23-300) U/L Crossmatch See Detail 12/18/22 12/18/22 12/18/22 Range/Units 06:32 07:50 07:50 WBC 49.2 H (3.8-10.6) k/uL RBC 2.63 L (3.80-5.40) m/uL Hgb 8.4 L (11.4-16.0) gm/dL Hct 25.8 L (34.0-46.0) % MCV (80.0-100.0) fL RDW 16.5 H (11.5-15.5) % Neutrophils # (1.3-7.7) k/uL Neutrophils # (Manual) 39.80 H (1.3-7.7) k/uL Lymphocytes # (1.0-4.8) k/uL Monocytes # (0-1.0) k/uL Monocytes # (Manual) 5.90 H (0-1.0) k/uL PT (9.0-12.0) sec INR (<1.2) APTT (22.0-30.0) sec Sodium (137-145) mmol/L Chloride (98-107) mmol/L Carbon Dioxide (22-30) mmol/L Creatinine 1.14 H (0.52-1.04) mg/dL Glucose 102 H (74-99) mg/dL POC Glucose (mg/dL) 123 H (70-110) mg/dL Calcium 6.9 L (8.4-10.2) mg/dL Total Bilirubin 2.4 H (0.2-1.3) mg/dL AST 58 H (14-36) U/L Total Protein 5.2 L (6.3-8.2) g/dL Albumin 2.4 L (3.5-5.0) g/dL Lipase (23-300) U/L Crossmatch 12/18/22 Range/Units 07:50 WBC (3.8-10.6) k/uL RBC (3.80-5.40) m/uL Hgb (11.4-16.0) gm/dL Hct (34.0-46.0) % MCV (80.0-100.0) fL RDW (11.5-15.5) % Neutrophils # (1.3-7.7) k/uL Neutrophils # (Manual) (1.3-7.7) k/uL Lymphocytes # (1.0-4.8) k/uL Monocytes # (0-1.0) k/uL Monocytes # (Manual) (0-1.0) k/uL PT 34.4 H (9.0-12.0) sec INR 3.5 H (<1.2) APTT (22.0-30.0) sec Sodium (137-145) mmol/L Chloride (98-107) mmol/L Carbon Dioxide (22-30) mmol/L Creatinine (0.52-1.04) mg/dL Glucose (74-99) mg/dL POC Glucose (mg/dL) (70-110) mg/dL Calcium (8.4-10.2) mg/dL Total Bilirubin (0.2-1.3) mg/dL AST (14-36) U/L Total Protein (6.3-8.2) g/dL Albumin (3.5-5.0) g/dL Lipase (23-300) U/L Crossmatch Diabetes panel 12/17/22 12/18/22 Range/Units 17:02 07:50 Sodium 134 L 137 (137-145) mmol/L Potassium 4.5 5.0 (3.5-5.1) mmol/L Chloride 96 L 103 (98-107) mmol/L Carbon Dioxide 34 H 27 (22-30) mmol/L BUN 9 14 (7-17) mg/dL Creatinine 0.44 L 1.14 H (0.52-1.04) mg/dL Glucose 156 H 102 H (74-99) mg/dL Calcium 7.6 L 6.9 L (8.4-10.2) mg/dL AST 23 58 H (14-36) U/L ALT 23 31 (4-34) U/L Alkaline Phosphatase 99 109 (38-126) U/L Total Protein 5.1 L 5.2 L (6.3-8.2) g/dL Albumin 2.5 L 2.4 L (3.5-5.0) g/dL Calcium panel 12/17/22 12/18/22 Range/Units 17:02 07:50 Calcium 7.6 L 6.9 L (8.4-10.2) mg/dL Albumin 2.5 L 2.4 L (3.5-5.0) g/dL Pituitary panel 12/17/22 12/18/22 Range/Units 17:02 07:50 Sodium 134 L 137 (137-145) mmol/L Potassium 4.5 5.0 (3.5-5.1) mmol/L Chloride 96 L 103 (98-107) mmol/L Carbon Dioxide 34 H 27 (22-30) mmol/L BUN 9 14 (7-17) mg/dL Creatinine 0.44 L 1.14 H (0.52-1.04) mg/dL Glucose 156 H 102 H (74-99) mg/dL Calcium 7.6 L 6.9 L (8.4-10.2) mg/dL Adrenal panel 12/17/22 12/18/22 Range/Units 17:02 07:50 Sodium 134 L 137 (137-145) mmol/L Potassium 4.5 5.0 (3.5-5.1) mmol/L Chloride 96 L 103 (98-107) mmol/L Carbon Dioxide 34 H 27 (22-30) mmol/L BUN 9 14 (7-17) mg/dL Creatinine 0.44 L 1.14 H (0.52-1.04) mg/dL Glucose 156 H 102 H (74-99) mg/dL Calcium 7.6 L 6.9 L (8.4-10.2) mg/dL Total Bilirubin 0.5 2.4 H (0.2-1.3) mg/dL AST 23 58 H (14-36) U/L ALT 23 31 (4-34) U/L Alkaline Phosphatase 99 109 (38-126) U/L Total Protein 5.1 L 5.2 L (6.3-8.2) g/dL Albumin 2.5 L 2.4 L (3.5-5.0) g/dL
--- NOTE | 2022-12-18 14:56 | CT ---
EXAMINATION TYPE: CT abdomen pelvis wo con DATE OF EXAM: 12/18/2022 COMPARISON: 12/17/2022 HISTORY: 72-year-old female Abdominal pain. CT DLP: 828.8 mGycm. Automated exposure control for dose reduction was used. TECHNIQUE: Contiguous axial scanning of the abdomen and pelvis without IV contrast. Coronal and sagit earnestine reconstructions performed. Oral and rectal contrast were administered. FINDINGS: Heart normal size without pericardial effusion. LAD and circumflex coronary calcifications are presen t. Mild generalized anasarca change which is increasing. Increasing patchy dependent posterior opacities in the lower lungs. Trace effusions are present. Multiple gallstones measuring up to 3.5 cm. No abnormal gallbladder distention. There is some nodula rity in the fundus of the gallbladder measuring 2.5 x 1.6 cm typical of adenomyomatosis. Post laparotomy changes redemonstrated. Rectal contrast shows markedly redundant sigmoid colon. The d istal sigmoid colon. Narrowed and deviated from mass effect but remains patent. Renal persistent mild wall thickening mid to distal sigmoid and rectum. However, after rectal contrast administration, the re does not appear to be any intramural abscess present. Marked presacral soft tissue thickening with extensive edema and fat stranding throughout the pelvis is redemonstrated. There is ongoing mild abdominopelvic ascites. Possible focal hemorrhagic ascites/clot along the left lateral flank measuring 7.7 x 4.0 x 2.1 cm previously measured larger at 10.4 x 5.2 cm. Cecum distended up to 6.4 cm versus 8.9 cm, previously. Ascending colon extending up to 5.7 cm versus 7.2 cm previously. The left kidney is still excreting contrast and there is persistent mild left-sided hydronephrosis se condary to mass effect from partial obstruction of the distal left ureter from the large hemorrhagic appearing mass left adnexa measuring up to 11.0 x 8.8 cm, not significantly changed. Otherwise, the remainder of the exam is similar. IMPRESSION : 1. Current noncontrast exam suggests a large 11.0 cm hemorrhagic mass/hematoma in the left adnexa, r elatively stable in size. This continues to cause a moderate left-sided obstructive uropathy due to m ass effect onto the ureter. 2. Extensive soft tissue thickening and fat stranding throughout the pelvis and lower abdomen along with presacral thickening probably relates to the hemorrhagic changes. Recommend monitoring hemoglobi n levels. 3. Suspect focal hemorrhagic ascites along the left flank measuring up to 7.7 cm, slightly decreased from 10.4 cm, previously. However, the generalized anasarca changes have increased 4. Rectal contrast was administered. There is a markedly redundant sigmoid colon. The mid to distal sigmoid colon continues to be narrowed and deviated by mass effect from the hemorrhagic left adnexal mass. There remains some circumferential wall thickening of the distal sigmoid and rectum that could represent a nonspecific colitis. However, no intramural abscess is identified. Colonic distention is improving currently measuring up to 6.4 cm versus 8.9 cm, previously. 5. Some worsening in dependent atelectasis of the lung bases. Cholelithiasis.
--- NOTE | 2022-12-18 18:09 | P.CONS ---
History of Present Illness - Reason for Consult Consult date: 12/18/22 - History of Present Illness Patient is a 72-year-old female with a past medical history significant for hypertension hyperlipidemia seizure disorder COPD ovarian/uterine cancer in this patient who recently did have a debulking surgery approximately a week ago at [facility] by Dr. Chaudhari patient was subsequent disc harged home patient is presenting to [facility] on ER last evening for evaluation of pelvic pain pain started the day of presentation to the hospital has been mostly in the lower abdominal area to the left side describing it to be sharp almost and return when she present to the hospital did relieve with the pain medication without any radiation with this is a nausea but no vomiting and no diarrhea with the symptom the patient has been evaluated by the ER physician on arrival to the ER patient was initially afebrile subsequently she did spike a fever of 102.2 F patient was tachycardic mildly hypotensive requiring pressor support and admission to the ICU patient was mildly hypoxic and is currently on 6 L nasal cannula oxygen patient on presentation to the hospital did have a white count of 24,000 which is up to 49,000 this morning she was also noticed to be anemic with a hemoglobin of 5.7 patient did have a normal creatinine AST is mildly elevated patient did have a CT of abdominal pelvis which did shows a resection of the large unilocular cyst which previously failed most of the abdominal and pelvic cavity however there was a mixed density lesion in the mid pelvis and left adnexa concerning for possible hemorrhage versus infection this mass displaces and narrows the sigmoid colon circumferential wall thickening and complex appearance to the distal sigmoid and rectum patient was started on cefepime and Flagyl infectious disease was consulted for further management of antibiotic therapy Past Medical History Past Medical History: Cancer, COPD, CVA/TIA, Hyperlipidemia, Hypertension, Seizure Disorder Additional Past Medical History / Comment(s): epilepsy, thoracic outlet syndrome, History of Any Multi-Drug Resistant Organisms: None Reported Past Surgical History: Appendectomy, Hysterectomy Additional Past Surgical History / Comment(s): removed CA on skin L arm Past Anesthesia/Blood Transfusion Reactions: No Reported Reaction Past Psychological History: Anxiety Smoking Status: Former smoker Past Alcohol Use History: None Reported Past Drug Use History: None Reported - Past Family History Mother History Unknown: Yes Medications and Allergies Home Medications Medication Instructions Recorded Confirmed Type aMILoride HCL 5 mg PO DAILY@0800 12/12/19 12/17/22 History Cholecalciferol [Vitamin D3 (25 25 mcg PO DAILY@1200 01/22/21 12/17/22 History Mcg = 1000 Iu)] Loratadine [Claritin] 10 mg PO DAILY PRN 01/22/21 12/17/22 History Acetaminophen Tab [Tylenol] 650 mg PO Q4H PRN 12/17/22 12/17/22 History Acetaminophen [Tylenol 8 Hour] 650 mg PO Q8H PRN 12/17/22 12/17/22 History Albuterol Nebulized [Ventolin 2.5 mg INHALATION RT-Q4H 12/17/22 12/17/22 History Nebulized] Budesonide/Formoterol Fumarate 2 puff INHALATION RT-BID@0800,2100 12/17/22 12/17/22 History [Symbicort 160-4.5 Mcg Inhaler] Cyanocobalamin [Vitamin B-12] 500 mcg PO DAILY@1200 12/17/22 12/17/22 History Ensure Enlive 237 ml PO TID@0800,1200,1700 12/17/22 12/17/22 History Furosemide [Lasix] 20 mg PO DAILY@0800 12/17/22 12/17/22 History Ibuprofen [Motrin] 600 mg PO QID PRN 12/17/22 12/17/22 History Ipratropium Nebulized [Atrovent 0.5 mg INHALATION RT-Q4H 12/17/22 12/17/22 History Nebulized 0.2 MG/ML] LORazepam [Ativan] 0.5 mg PO Q12H PRN 12/17/22 12/17/22 History Magnesium Hydroxide [Milk of 7,200 mg PO Q2D PRN 12/17/22 12/17/22 History Magnesia Concentrate] Na Phos,M-B/Na Phos,Di-Ba [Fleet 133 ml RECTAL DAILY PRN 12/17/22 12/17/22 History Adult] Phenytoin Chew [Dilantin Chew] 50 mg PO TID@0800,1200,1700 12/17/22 12/17/22 History Rosuvastatin Calcium [Crestor] 10 mg PO DAILY@1700 12/17/22 12/17/22 History Senna 8.8mg/5ml Oral Syrup 15 ml PO HS PRN 12/17/22 12/17/22 History Sennosides-Docusate Sodium 2 tab PO BID@0800,1700 12/17/22 12/17/22 History [Senokot-S] Spironolactone [Aldactone] 12.5 mg PO DAILY@0800 12/17/22 12/17/22 History Umeclidinium Donahue [Incruse 1 puff INHALATION RT-DAILY@0800 12/17/22 12/17/22 History Ellipta] Warfarin [Coumadin] 2.5 mg PO WEFR@1700 12/17/22 12/17/22 History Warfarin [Coumadin] 5 mg PO SUMOTUTHSA@1700 12/17/22 12/17/22 History bisacodyL [Dulcolax] 10 mg RECTAL DAILY PRN 12/17/22 12/17/22 History polyethylene glycoL 3350 [Miralax] 17 gm PO DAILY@0800 12/17/22 12/17/22 History risperiDONE [RisperDAL] 1 mg PO HS 12/17/22 12/17/22 History Allergies Allergy/AdvReac Type Severity Reaction Status Date / Time bacitracin Allergy Rash/Hives Verified 12/17/22 20:23 [From Neosporin ([id number])] dexamethasone [From Maxitrol] Allergy FACE Verified 12/17/22 20:23 SWELLING hydromorphone [From Dilaudid] Allergy makes head Verified 12/17/22 20:23 spin neomycin [From Maxitrol] Allergy FACE Verified 12/17/22 20:23 SWELLING polymyxin B [From Maxitrol] Allergy FACE Verified 12/17/22 20:23 SWELLING isopropyl alcohol AdvReac Nausea Verified 12/17/22 20:23 Physical Exam Vitals: Vital Signs Temp Pulse Resp BP Pulse Ox 12/18/22 11:59 98 18 12/18/22 11:45 97 16 12/18/22 09:15 99 21 102/63 97 12/18/22 09:05 95 12/18/22 09:00 101 H 18 96/49 97 12/18/22 08:45 101 H 17 91/40 99 12/18/22 08:30 95/56 12/18/22 08:15 101 H 18 88/46 97 12/18/22 08:00 98.8 F 100 21 96/57 92 L 12/18/22 07:45 101 H 26 H 82/48 96 12/18/22 07:30 101 H 18 83/45 95 12/18/22 07:15 95/56 12/18/22 07:00 99 23 95/56 96 12/18/22 06:45 98.6 F 100 26 H 85/43 95 12/18/22 05:15 103 H 21 84/55 91 L 12/18/22 05:00 104 H 25 H 90/59 94 L 12/18/22 04:45 105 H 27 H 80/54 92 L 12/18/22 04:30 106 H 32 H 80/54 92 L 12/18/22 04:15 106 H 20 80/54 91 L 12/18/22 04:00 105 H 18 82/53 90 L 12/18/22 03:45 105 H 17 82/53 89 L 12/18/22 03:33 105 H 20 82/53 91 L 12/18/22 03:30 105 H 21 82/53 89 L 12/18/22 03:15 105 H 19 82/53 90 L 12/18/22 03:00 106 H 16 84/51 93 L 12/18/22 02:45 108 H 20 86/58 92 L 12/18/22 02:30 106 H 19 88/61 92 L 12/18/22 02:15 109 H 16 81/57 93 L 12/18/22 02:00 105 H 20 84/53 94 L 12/18/22 01:53 84/53 12/18/22 01:45 102 H 21 74/55 12/18/22 01:39 98.5 F 105 H 24 74/55 94 L 12/18/22 01:30 98.5 F 105 H 28 H 75/46 94 L 12/18/22 01:15 108 H 19 79/56 93 L 12/18/22 01:14 98.5 F 110 H 23 79/56 93 L 12/18/22 01:07 98.4 F 111 H 22 74/49 92 L 12/18/22 01:00 112 H 18 78/47 91 L 12/18/22 00:47 98.4 F 111 H 26 H 70/54 92 L 12/18/22 00:45 112 H 38 H 73/49 92 L 07/15/23 00:35 98.3 F 113 H 26 H 73/49 93 L 12/18/22 00:30 114 H 34 H 72/54 92 L 12/18/22 00:22 116 H 21 72/54 92 L 12/18/22 00:00 117 H 27 H 76/48 92 L 12/17/22 23:47 99.1 F 120 H 30 H 76/48 91 L 12/17/22 23:30 122 H 30 H 77/49 92 L 12/17/22 23:00 124 H 29 H 69/51 89 L 12/17/22 22:30 130 H 35 H 103/53 89 L 12/17/22 22:00 101.6 F H 133 H 41 H 105/50 87 L 12/17/22 21:30 130 H 39 H 108/59 88 L 12/17/22 21:00 124 H 37 H 112/56 92 L 12/17/22 20:54 101.4 F H 124 H 35 H 112/56 91 L 12/17/22 20:30 124 H 38 H 106/56 93 L 12/17/22 20:00 102.3 F H 130 H 41 H 110/61 7 L 12/17/22 19:30 140 H 32 H 96/79 86 L 12/17/22 19:00 146 H 45 H 122/90 88 L 12/17/22 18:53 149 H 46 H 122/90 86 L 12/17/22 18:45 102.2 F H 149 H 25 H 122/90 90 L 12/17/22 16:22 98.5 F 88 18 128/57 94 L Intake and Output 12/17/22 12/18/22 12/18/22 22:59 06:59 14:59 Intake Total 584 10.888 Balance 584 10.888 Intake: Intake, IV Titration 10.888 Amount Norepinephrine 4 mg In 10.888 Sodium Chloride 0.9% 250 ml @ 0.03 MCG/KG/MIN 9. 073 mls/hr IV .Q24H [facility] Rx#:[id number] Blood Product 584 As-1 Unit 310 [id number] Rc Pheresis 2 As3 Unit 274 [id number] Other: Weight 79.379 kg Results CBC & Chem 7: 12/18/22 07:50 12/18/22 07:50 Labs: Abnormal Lab Results - Last 24 Hours (Table) 12/17/22 12/17/22 12/17/22 Range/Units 17:02 17:02 17:02 WBC 19.1 H (3.8-10.6) k/uL RBC 2.22 L (3.80-5.40) m/uL Hgb 7.1 L (11.4-16.0) gm/dL Hct 21.4 L (34.0-46.0) % MCV (80.0-100.0) fL RDW (11.5-15.5) % Neutrophils # 16.7 H (1.3-7.7) k/uL Neutrophils # (Manual) (1.3-7.7) k/uL Lymphocytes # (1.0-4.8) k/uL Monocytes # 1.1 H (0-1.0) k/uL Monocytes # (Manual) (0-1.0) k/uL PT 29.3 H (9.0-12.0) sec INR 3.0 H (<1.2) APTT 39.7 H (22.0-30.0) sec Sodium 134 L (137-145) mmol/L Chloride 96 L (98-107) mmol/L Carbon Dioxide 34 H (22-30) mmol/L Creatinine 0.44 L (0.52-1.04) mg/dL Glucose 156 H (74-99) mg/dL POC Glucose (mg/dL) (70-110) mg/dL Calcium 7.6 L (8.4-10.2) mg/dL Total Bilirubin (0.2-1.3) mg/dL AST (14-36) U/L Total Protein 5.1 L (6.3-8.2) g/dL Albumin 2.5 L (3.5-5.0) g/dL Lipase 14 L (23-300) U/L Crossmatch 12/17/22 12/17/22 12/18/22 Range/Units 23:25 23:25 04:45 WBC 24.0 H 47.5 H (3.8-10.6) k/uL RBC 1.76 L 2.65 L (3.80-5.40) m/uL Hgb 5.7 L* 8.1 L D (11.4-16.0) gm/dL Hct 17.7 L* 25.3 L (34.0-46.0) % MCV 100.6 H (80.0-100.0) fL RDW 16.0 H 15.8 H (11.5-15.5) % Neutrophils # 22.1 H (1.3-7.7) k/uL Neutrophils # (Manual) (1.3-7.7) k/uL Lymphocytes # 0.7 L (1.0-4.8) k/uL Monocytes # (0-1.0) k/uL Monocytes # (Manual) (0-1.0) k/uL PT (9.0-12.0) sec INR (<1.2) APTT (22.0-30.0) sec Sodium (137-145) mmol/L Chloride (98-107) mmol/L Carbon Dioxide (22-30) mmol/L Creatinine (0.52-1.04) mg/dL Glucose (74-99) mg/dL POC Glucose (mg/dL) (70-110) mg/dL Calcium (8.4-10.2) mg/dL Total Bilirubin (0.2-1.3) mg/dL AST (14-36) U/L Total Protein (6.3-8.2) g/dL Albumin (3.5-5.0) g/dL Lipase (23-300) U/L Crossmatch See Detail 12/18/22 12/18/22 12/18/22 Range/Units 06:32 07:50 07:50 WBC 49.2 H (3.8-10.6) k/uL RBC 2.63 L (3.80-5.40) m/uL Hgb 8.4 L (11.4-16.0) gm/dL Hct 25.8 L (34.0-46.0) % MCV (80.0-100.0) fL RDW 16.5 H (11.5-15.5) % Neutrophils # (1.3-7.7) k/uL Neutrophils # (Manual) 39.80 H (1.3-7.7) k/uL Lymphocytes # (1.0-4.8) k/uL Monocytes # (0-1.0) k/uL Monocytes # (Manual) 5.90 H (0-1.0) k/uL PT (9.0-12.0) sec INR (<1.2) APTT (22.0-30.0) sec Sodium (137-145) mmol/L Chloride (98-107) mmol/L Carbon Dioxide (22-30) mmol/L Creatinine 1.14 H (0.52-1.04) mg/dL Glucose 102 H (74-99) mg/dL POC Glucose (mg/dL) 123 H (70-110) mg/dL Calcium 6.9 L (8.4-10.2) mg/dL Total Bilirubin 2.4 H (0.2-1.3) mg/dL AST 58 H (14-36) U/L Total Protein 5.2 L (6.3-8.2) g/dL Albumin 2.4 L (3.5-5.0) g/dL Lipase (23-300) U/L Crossmatch 12/18/22 Range/Units 07:50 WBC (3.8-10.6) k/uL RBC (3.80-5.40) m/uL Hgb (11.4-16.0) gm/dL Hct (34.0-46.0) % MCV (80.0-100.0) fL RDW (11.5-15.5) % Neutrophils # (1.3-7.7) k/uL Neutrophils # (Manual) (1.3-7.7) k/uL Lymphocytes # (1.0-4.8) k/uL Monocytes # (0-1.0) k/uL Monocytes # (Manual) (0-1.0) k/uL PT 34.4 H (9.0-12.0) sec INR 3.5 H (<1.2) APTT (22.0-30.0) sec Sodium (137-145) mmol/L Chloride (98-107) mmol/L Carbon Dioxide (22-30) mmol/L Creatinine (0.52-1.04) mg/dL Glucose (74-99) mg/dL POC Glucose (mg/dL) (70-110) mg/dL Calcium (8.4-10.2) mg/dL Total Bilirubin (0.2-1.3) mg/dL AST (14-36) U/L Total Protein (6.3-8.2) g/dL Albumin (3.5-5.0) g/dL Lipase (23-300) U/L Crossmatch Assessment and Plan Plan: Patient presented to hospital with sepsis in this patient who did have a fever tachycardia elevated white count in this patient with a recent extensive surgery with removal of the pelvic mass now with significant abnormality seen on the recent CT with concern for possible postop hemorrhage as the patient did have elevated INR on presentation to the hospital and some abnormal bruising was noticed as well underlying infected hematoma and abscess not entirely excluded and we will need to call for the enteric gram-negative both aerobes and anaerobes 2-discontinue cefepime and Flagyl 3-start the patient on Zosyn 3.375 g every 8 hours 4-await IR or surgical drainage of this fluid which should be sent for culture versus transfer to her surgeon at [facility] We will follow on clinical condition and cultures to further adjust medication if needed Thank you for this consultation we will follow the patient along with you Dictation was produced using [employer] dictation software. please excuse any grammatical, word or spelling errors. Time with Patient: Greater than 30
[2022-12-18 18:17] LABS: Glucose,Whole Blood 115 mg/dL (70-110)
[2022-12-18] MEDS: PIPERACILLIN-TAZOBACTAM 3.375 GM in SODIUM CHLORIDE 0.9% 100 ML IVPB SCH ×2 (19:14→23:58)
[2022-12-18] MEDS: SYMBICORT 160-4.5 MCG INHALER INHALATION SCH (20:01)
[2022-12-18] MEDS: risperiDONE 1 MG TAB PO SCH (20:29)
[2022-12-18 23:47] LABS: Glucose,Whole Blood 111 mg/dL (70-110)
[2022-12-19] MEDS: IPRATROPIUM 0.5 MG/2.5 ML NEBU INHALATION SCH ×5 (03:51→19:54)
[2022-12-19 06:03] LABS: Glucose,Whole Blood 110 mg/dL (70-110)
[2022-12-19 06:17] LABS: African American GFR (CKD) 71 (>60 ml/min/1.73 sqM); Anion Gap 6 mmol/L; Blood Urea Nitrogen 20 mg/dL (7-17); Carbon Dioxide 23 mmol/L (22-30); Chloride 107 mmol/L (98-107); Glucose 91 mg/dL (74-99); Non-African American GFR(CKD) 61 (>60 ml/min/1.73 sqM); Potassium 4.5 mmol/L (3.5-5.1); Sodium 136 mmol/L (137-145)
[2022-12-19 06:43] LABS: Anisocytosis Slight; Basophils # (A) 0.1 k/uL (0-0.2); Basophils % (A) 0 %; Eosinophils # (A) 0.2 k/uL (0-0.7); Eosinophils % (A) 1 %; HCT 22.3 % (34.0-46.0); Hypochromasia Moderate; Lymphocytes % (A) 3 %; MCH 30.5 pg (25.0-35.0); MCHC 30.9 g/dL (31.0-37.0); MCV 98.6 fL (80.0-100.0); Macrocytosis Slight; Mean Platelet Volume 8.3; Monocytes # (A) 1.8 k/uL (0-1.0); Monocytes % (A) 5 %; Neutrophils # (A) 32.9 k/uL (1.3-7.7); Neutrophils % (A) 90 %; Platelet Count 179 k/uL (150-450); Poikilocytosis Slight; RBC 2.26 m/uL (3.80-5.40); RDW 16.6 % (11.5-15.5); WBC 36.5 k/uL (3.8-10.6)
[2022-12-19 07:05] LABS: HGB 6.9 gm/dL (11.4-16.0)
[2022-12-19] MEDS: SODIUM CHLORIDE 0.9% 1,000 ML IV SCH (07:44)
[2022-12-19] MEDS: SYMBICORT 160-4.5 MCG INHALER INHALATION SCH ×2 (08:01→19:56)
--- NOTE | 2022-12-19 09:26 | P.PN ---
Subjective Progress Note Date: 12/19/22 This is a 72-year-old female patient who came into the emergency department with abdominal pain and distention. 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 The patient underwent a debulking surgery approximately a week ago at [facility] by Dr. Chaudhari and the procedure was uncomplicated the patient was discharged home. The patient's oncologic history is not clear to us. The patient has seen Dr. Lee in the past. The previous PET scan is available in our system on 02/20/2021 showed a pulmonary nodule measuring 2.3 cm in size that was progressively going and suspicious for lung cancer in addition to background emphysema. 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 A follow-up CAT scan of the chest that was done on 09/11/2021 showed a progression of the suspicious left upper lobe lesion in addition to mild interval enlargement of the cystic lesion in the pelvic area. A subsequent CAT scan of the chest that was done on 06/15/2022 showed interval reduction the left upper lobe mass measuring 2.2 cm in size and the cystic mass in the abdomen was measuring 30 cm.. At this point in time, the patient is septic post surgery. A CAT scan of the abdomen and the pelvis was done yesterday in the emergency department the patient was found to have a complex, mixed density lesion in the mid pelvis and left adnexa measuring up to 11 cm in size. There is prominent focal vascularity and high density layering material. Possibilities include abscess versus residual tumor/postop hematoma. The mass displaces and narrowed the sigmoid col on. There is also dilated the right side of the colon up to 8.9 cm in size which is thought to be obstruction versus ileus. The complex pelvic mass is also causing some mass effect on the left distal ureter with mild left-sided obstructive uropathy. There is also circumferential wall thickening and complex appearance to the distal sigmoid and rectal area and new mild to moderate abdominal pelvic ascites and generalized anasarca. Say small bilateral pleural effusions also seen. Obviously this changes occurred following her laparotomy and debulking surgery. The patient underwent resection of the large cystic pelvic mass. She is currently on a combination of IV cefepime and Flagyl. Her white cell count remains elevated at 49 with a hemoglobin of 8.4. The patient initially presented to us with a hemoglobin of 5.7 and she received a total of 2 units of packed RBC and hemoglobin improved and is currently up-to-date 0.4. She has history of DVT and she is on anticoagulation with warfarin and INR is at 3.4. He is at 40 with a creatinine of 1.1 consistent with an acute kidney injury 9 with a baseline creatinine is at 0.4. Sodium is at 137. LFTs are normal. Amylase and lipase are also normal. Lactic acid level is at 0.9. Overnight, the patient was kept in the emergency and she continued to have issues with hypotension. She was given a total of 3 L of saline and currently she is on normal saline at rate of 130 mL an hour and norepinephrine at 0.07 mcg/kg/m. The white cell count is elevated at 49.2. The chest x-ray has not been done. She is currently on oxygen at 6 L. Abdomen is still distended. Breathing is mildly labored. Urine output is in order of less than 10 mL. The plan is to transfer this patient to [facility] to be reevaluated by her surgical team. She is essentially poor historian and she is not aware of the details of the surgery and previous oncologic history. On today's evaluation of 12/19/2022, the patient is still awaiting her transf erred to [facility]. Note that she has been accepted. No beds are available. From our standpoint, the patient remains on broad-spectrum antibiotics which is on a combination of Zosyn and Flagyl. She is also on IV fluids with 0.9 130 mL an hour and she is also on norepinephrine at 0.02 mcg/kg/m. She has declined any further blood draws pH she has also declined blood pressure monitoring. A subsequent contrast enhanced CAT scan of the abdomen and pelvis was done and it showed an 11 cm hemorrhagic mass/hematoma in the left adnexa stable in size. There is also extensive soft tissue thickening and fat stranding along the pelvis and lower abdominal area and presacral thickening related to hemorrhagic changes. There is also suspected focal hemorrhagic ascites along the left flank measuring 7.7 cm in size. The sigmoid colon was redundant and there was narrowing of the mid and the distal sigmoid colon probably mass effect from the hemorrhagic mass/hematoma in her pelvis. Colonic distention is still present and is in the order of 8.9 cm. Surgical 1 site is dry clean and intact. There is no evidence of any bleeding. The patient was given a total of 10 mg of vitamin K yesterday. Repeat PT/INR was not done due to her noncooperative attitude. Hemoglobin is at 6.9. White cell count is up to 36. BUN is at 20 with a creatinine of 0.9 and his sodium level is at 136. Objective - Vital Signs Vital signs: Vital Signs Temp 98.2 F 12/19/22 04:00 Pulse 98 12/19/22 08:15 Resp 19 12/19/22 07:45 BP 97/59 12/19/22 07:45 Pulse Ox 95 12/19/22 08:02 FiO2 Intake & Output 12/18/22 12/19/22 12/19/22 18:59 06:59 18:59 Intake Total 2325.351 1581.619 390 Output Total 788 920 550 Balance 1537.351 661.619 -160 Weight 79.379 kg 82.9 kg Intake: IV 1580 650 390 Cefepime 2 gm In Sodium 100 Chloride 0.9% 100 ml @ 25 mls/hr IVPB Q12HR [facility] Rx #:[id number] Phytonadione 10 mg In 50 Sodium Chloride 0.9% 50 ml @ 100 mls/hr IVPB [facility] Rx#:[id number] Sodium Chloride 0.9% 1, 1430 650 390 000 ml @ 130 mls/hr IV . Q7H42M [facility] Rx#:[id number] Intake, IV Titration 205.351 931.619 Amount Norepinephrine 4 mg In 205.351 151.619 Sodium Chloride 0.9% 250 ml @ 0.03 MCG/KG/MIN 9. 073 mls/hr IV .Q24H [facility] Rx#:[id number] Piperacillin-Tazobactam 3 130 .375 gm In Sodium Chloride 0.9% 100 ml @ 25 mls/hr IVPB Q8HR [facility] Rx# :[id number] Sodium Chloride 0.9% 1, 650 000 ml @ 130 mls/hr IV . Q7H42M [facility] Rx#:[id number] Oral 540 Output: Urine 788 920 550 Other: Voiding Method Indwelling Catheter Indwelling Catheter # Voids 0 - Exam Gen. appearance the patient is calm and comfortable, not in acute distress and the patient is currently on 2 L O2 nasal cannula Head exam was generally normal. There was no scleral icterus or corneal arcus. Mucous membranes were moist. Neck was supple and without jugular venous distension, thyromegaly, or carotid bruits. Carotids were easily palpable bilaterally. There was no adenopathy. Lungs sounds are diminished bilaterally with few scattered wheeze. Cardiac exam revealed the PMI to be normally situated and sized. The rhythm was regular and no extrasystoles were noted during several minutes of auscultation. The first and second heart sounds were normal and physiologic splitting of the second heart sound was noted. There were no murmurs, rubs, clicks, or gallops. Abdomen is distended, surgical jameson are still in place. There is no active drainage. Mild direct tenderness. No rebound tenderness or guarding. Bowel sounds are absent. There may be some underlying ascites. Examination of the extremities revealed easily palpable radial, femoral and pedal pulses. There was no cyanosis, clubbing or edema. Examination of the skin revealed no evidence of significant rashes, suspicious appearing nevi or other concerning lesions. Neurologically, the patient is lethargic, poor historian, no focal neurological deficits that this point in time. - Labs CBC & Chem 7: 12/19/22 05:35 12/19/22 05:35 Labs: Abnormal Lab Results - Last 24 Hours (Table) 12/18/22 12/18/22 12/19/22 Range/Units 18:16 23:46 05:35 WBC 36.5 H (3.8-10.6) k/uL RBC 2.26 L (3.80-5.40) m/uL Hgb 6.9 L* D (11.4-16.0) gm/dL Hct 22.3 L (34.0-46.0) % MCHC 30.9 L (31.0-37.0) g/dL RDW 16.6 H (11.5-15.5) % Neutrophils # 32.9 H (1.3-7.7) k/uL Monocytes # 1.8 H (0-1.0) k/uL Sodium (137-145) mmol/L BUN (7-17) mg/dL POC Glucose (mg/dL) 115 H 111 H (70-110) mg/dL Calcium (8.4-10.2) mg/dL 12/19/22 Range/Units 05:35 WBC (3.8-10.6) k/uL RBC (3.80-5.40) m/uL Hgb (11.4-16.0) gm/dL Hct (34.0-46.0) % MCHC (31.0-37.0) g/dL RDW (11.5-15.5) % Neutrophils # (1.3-7.7) k/uL Monocytes # (0-1.0) k/uL Sodium 136 L (137-145) mmol/L BUN 20 H (7-17) mg/dL POC Glucose (mg/dL) (70-110) mg/dL Calcium 7.0 L (8.4-10.2) mg/dL Microbiology - Last 24 Hours (Table) 12/17/22 20:15 Blood Culture - Preliminary Blood 12/17/22 20:30 Blood Culture - Preliminary Blood Assessment and Plan Plan: Acute abdominal distention/pain with signs of abdominal sepsis under investigation. The patient has undergone a debulking surgery for a large cystic abdominal mass that has been growing over the years. Postop, the patient developed a complex mixed density lesion in the mid pelvis and left adnexa measuring 11 cm in size. The mass is causing displacement and narrowing of the sigmoid colon and dilation of the right side of the colon up-to- 8 cm in size, favor ileus versus mass effect and bowel obstruction. Subsequent CAT scan of the abdomen with by mouth and rectal contrast was more suggestive of a postoperative hematoma formation in the abdomen measuring up to 11 cm in size and the patient also had developed some mass effect on her mid/distal sigmoid colon and moderate degree of left-sided obstructive uropathy. At the same time, the patient dropped her hemoglobin down to 6.9. She was coagulopathic and her PT/INR was elevated and she was given vitamin K. Possibility of an infected hematoma cannot be completely excluded. The patient had significant leukocytosis and she was hypotensive and she remains on low-dose pressors and she remains on broad-spectrum antibiotics for now. Abdominal sepsis secondary to above. The patient has not responded to fluids and the patient is currently on IV pressors and antibiotics and accommodation of Zosyn and Flagyl. Acute kidney injury and the patient is oliguric at this point. Could be related to sepsis. There is also signs of left ureteral obstructive uropathy. History of pulmonary nodule likely an underlying lung mass Advanced COPD Acute hypoxic respiratory failure secondary to above the patient is currently on 2 L O2 nasal cannula Acute leukocytosis, improving History of DVT and the patient is on warfarin with a supratherapeutic PT/INR at 3.5, treated with vitamin K Acute anemia, could be related to intra-abdominal blood loss/hematoma formation the patient has been chest tube with a total of 2 units of packed RBCs History of seizure disorder History of thoracic outlet syndrome Hypertension History of skin cancer History of CVA Plan Continue IV fluids at 30 mL an hour Continue pressors Continue Zosyn and Flagyl Vitamin K was given and was going to recheck the PT/INR We'll give the patient another unit of packed RBC Creatinine is normalized Awaiting transfer to [facility] for postsurgical hematoma formation in her pelvis Discussed the case with the surgical team at the health system and the patient is about to get transferred within the next 2 hours once beds are available either in, [facility] or [facility]. The patient's condition is critical and the patient will be kept here in the ICU
[2022-12-19 09:58] LABS: INR 1.1 (<1.2); Prothrombin Time 11.5 sec (9.0-12.0)
[2022-12-19] MEDS: PIPERACILLIN-TAZOBACTAM 3.375 GM in SODIUM CHLORIDE 0.9% 100 ML IVPB SCH ×3 (10:01→23:47)
[2022-12-19] MEDS: PANTOPRAZOLE 40 MG/10 ML VIAL IV SCH (10:01)
[2022-12-19] MEDS: FUROSEMIDE 20 MG TAB PO SCH (10:02)
[2022-12-19] MEDS: PHENYTOIN 50 MG CHEWABLE PO SCH ×3 (10:02→18:07)
[2022-12-19] MEDS: ONDANSETRON 4 MG/2 ML VIAL IVP PRN (10:38)
[2022-12-19 11:48] LABS: Glucose,Whole Blood 102 mg/dL (70-110)
--- NOTE | 2022-12-19 14:15 | P.PN ---
Subjective Progress Note Date: 12/19/22 CHIEF COMPLAINT: Sepsis HISTORY OF PRESENT ILLNESS: The patient is a 72-year-old female with uterine can cer with recent major abdominal laparotomy and debulking at [facility] less than 2 weeks ago. She had a CT scan demonstrating intra-abdominal fluid collection likely hematoma from blood thinners. She denies any moderate abdominal pain. No bloody bowel movements or hematemesis. She is tolerating ice chips. She reports hunger to her nurse. She received 1 u pRBCs today. REVIEW OF ORGAN SYSTEMS: No chest pain, no fevers or chills. No diarrhea. PHYSICAL EXAM: VITAL SIGNS: Stable GENERAL: Well-developed pleasant and in no acute distress. HEENT: No scleral icterus. Extraocular movements grossly intact. Moist buccal mucosa. NECK: Supple without lymphadenopathy. CHEST: Unlabored respirations. Equal bilateral excursions. CARDIOVASCULAR: Regular rate and rhythm. Distal 2+ pulses. ABDOMEN: Mildly distended. No peritonitis. MUSCULOSKELETAL: No clubbing, cyanosis, or edema. LABS: Reviewed. Hgb 6.9 and received blood transfusion, post Hgb transfusion pending. ASSESSMENT: 1. Abdominal mass 2. Septic shock 3. Uterine cancer 4. Acute blood loss anemia PLAN: 1. May increase diet to clear liquids. 2. Monitor hemoglobin 3. Pending transfer to [facility] pending bed availability Objective - Vital Signs Vital signs: Vital Signs Temp 98.7 F 12/19/22 12:00 Pulse 84 12/19/22 13:45 Resp 5 L 12/19/22 13:45 BP 99/63 12/19/22 13:45 Pulse Ox 96 12/19/22 13:45 FiO2 Intake & Output 12/18/22 12/19/22 12/19/22 18:59 06:59 18:59 Intake Total 2325.351 1581.619 780.648 Output Total 834 259 1177 Balance 1537.351 661.619 -419.352 Weight 79.379 kg 82.9 kg Intake: IV 1580 650 750 Cefepime 2 gm In Sodium 100 Chloride 0.9% 100 ml @ 25 mls/hr IVPB Q12HR [facility] Rx #:[id number] Phytonadione 10 mg In 50 Sodium Chloride 0.9% 50 ml @ 100 mls/hr IVPB ONCE [facility] Rx#:[id number] Piperacillin-Tazobactam 3 100 .375 gm In Sodium Chloride 0.9% 100 ml @ 25 mls/hr IVPB Q8HR [facility] Rx# :[id number] Sodium Chloride 0.9% 1, 1430 650 650 000 ml @ 130 mls/hr IV . Q7H42M [facility] Rx#:[id number] Intake, IV Titration 205.351 931.619 30.648 Amount Norepinephrine 4 mg In 205.351 151.619 30.648 Sodium Chloride 0.9% 250 ml @ 0.03 MCG/KG/MIN 9. 073 mls/hr IV .Q24H [facility] Rx#:[id number] Piperacillin-Tazobactam 3 130 .375 gm In Sodium Chloride 0.9% 100 ml @ 25 mls/hr IVPB Q8HR [facility] Rx# :[id number] Sodium Chloride 0.9% 1, 650 000 ml @ 130 mls/hr IV . Q7H42M [facility] Rx#:[id number] Oral 540 Blood Product 0 Unit 0 Output: Urine 818 048 3530 Other: Voiding Method Indwelling Catheter Indwelling Catheter Indwelling Catheter # Voids 0 - Labs CBC & Chem 7: 12/19/22 05:35 12/19/22 05:35 Labs: Abnormal Lab Results - Last 24 Hours (Table) 12/17/22 12/18/22 12/18/22 Range/Units 23:25 18:16 23:46 WBC (3.8-10.6) k/uL RBC (3.80-5.40) m/uL Hgb (11.4-16.0) gm/dL Hct (34.0-46.0) % MCHC (31.0-37.0) g/dL RDW (11.5-15.5) % Neutrophils # (1.3-7.7) k/uL Monocytes # (0-1.0) k/uL Sodium (137-145) mmol/L BUN (7-17) mg/dL POC Glucose (mg/dL) 115 H 111 H (70-110) mg/dL Calcium (8.4-10.2) mg/dL Crossmatch See Detail 12/19/22 12/19/22 Range/Units 05:35 05:35 WBC 36.5 H (3.8-10.6) k/uL RBC 2.26 L (3.80-5.40) m/uL Hgb 6.9 L* D (11.4-16.0) gm/dL Hct 22.3 L (34.0-46.0) % MCHC 30.9 L (31.0-37.0) g/dL RDW 16.6 H (11.5-15.5) % Neutrophils # 32.9 H (1.3-7.7) k/uL Monocytes # 1.8 H (0-1.0) k/uL Sodium 136 L (137-145) mmol/L BUN 20 H (7-17) mg/dL POC Glucose (mg/dL) (70-110) mg/dL Calcium 7.0 L (8.4-10.2) mg/dL Crossmatch Microbiology - Last 24 Hours (Table) 12/17/22 20:15 Blood Culture - Preliminary Blood 12/17/22 20:30 Blood Culture - Preliminary Blood
[2022-12-19 16:29] LABS: Basophils % (A) 0 %; Eosinophils # (A) 0.3 k/uL (0-0.7); Eosinophils % (A) 1 %; HCT 24.6 % (34.0-46.0); HGB 8.1 gm/dL (11.4-16.0); Hypochromasia Slight; Lymphocytes # (A) 0.9 k/uL (1.0-4.8); Lymphocytes % (A) 3 %; MCH 32.1 pg (25.0-35.0); MCHC 33.1 g/dL (31.0-37.0); MCV 96.8 fL (80.0-100.0); Macrocytosis Slight; Mean Platelet Volume 8.6; Monocytes # (A) 1.6 k/uL (0-1.0); Monocytes % (A) 5 %; Neutrophils # (A) 29.5 k/uL (1.3-7.7); Neutrophils % (A) 90 %; Platelet Count 177 k/uL (150-450); Poikilocytosis Slight; RBC 2.54 m/uL (3.80-5.40); RDW 15.9 % (11.5-15.5); WBC 32.7 k/uL (3.8-10.6)
[2022-12-19 18:01] LABS: Glucose,Whole Blood 111 mg/dL (70-110)
[2022-12-19] MEDS: risperiDONE 1 MG TAB PO SCH (20:04)
--- NOTE | 2022-12-19 20:39 | P.PN ---
Subjective Progress Note Date: 12/19/22 Principal diagnosis: Intra abdominal abscess vs hematoma Patient is a 72-year-old female with a past medical history significant for hypertension hyperlipidemia seizure disorder COPD ovarian/uterine cancer in this patient who recently did have a debulking surgery approximately a week ago at [facility] by Dr. Chaudhari, patient presented to hospital with abdominal pain with abnormal CT concerning for possible hematoma versus abscess. On today's evaluation that is 12/19/2022 patient denies having any fever or any chills has been complaining of abdominal pain some controlled with the pain medication patient is hemodynamically stable off pressor support no nausea vomiting or diarrhea Objective - Vital Signs Vital signs: Vital Signs Temp 98.2 F 12/19/22 04:00 Pulse 98 12/19/22 08:15 Resp 19 12/19/22 07:45 BP 106/62 12/19/22 10:51 Pulse Ox 95 12/19/22 08:02 FiO2 Intake & Output 12/18/22 12/19/22 12/19/22 18:59 06:59 18:59 Intake Total 2325.351 1581.619 779.136 Output Total 788 920 700 Balance 1537.351 661.619 79.136 Weight 79.379 kg 82.9 kg Intake: IV 1580 650 750 Cefepime 2 gm In Sodium 100 Chloride 0.9% 100 ml @ 25 mls/hr IVPB Q12HR [facility] Rx #:[id number] Phytonadione 10 mg In 50 Sodium Chloride 0.9% 50 ml @ 100 mls/hr IVPB ONCE [facility] Rx#:[id number] Piperacillin-Tazobactam 3 100 .375 gm In Sodium Chloride 0.9% 100 ml @ 25 mls/hr IVPB Q8HR [facility] Rx# :[id number] Sodium Chloride 0.9% 1, 1430 650 650 000 ml @ 130 mls/hr IV . Q7H42M [facility] Rx#:[id number] Intake, IV Titration 205.351 931.619 29.136 Amount Norepinephrine 4 mg In 205.351 151.619 29.136 Sodium Chloride 0.9% 250 ml @ 0.03 MCG/KG/MIN 9. 073 mls/hr IV .Q24H [facility] Rx#:[id number] Piperacillin-Tazobactam 3 130 .375 gm In Sodium Chloride 0.9% 100 ml @ 25 mls/hr IVPB Q8HR [facility] Rx# :[id number] Sodium Chloride 0.9% 1, 650 000 ml @ 130 mls/hr IV . Q7H42M [facility] Rx#:[id number] Oral 540 Output: Urine 788 920 700 Other: Voiding Method Indwelling Catheter Indwelling Catheter # Voids 0 - Exam GENERAL DESCRIPTION: Elderly female lying in bed in no distress RESPIRATORY SYSTEM: Unlabored breathing , decreased breath sounds at bases HEART: S1 S2 regular rate and rhythm ,no loud murmurs ABDOMEN: Soft , lower abdominal tenderness EXTREMITIES: No edema feet - Labs CBC & Chem 7: 12/19/22 16:02 12/19/22 05:35 Labs: Abnormal Lab Results - Last 24 Hours (Table) 12/17/22 12/18/22 12/18/22 Range/Units 23:25 18:16 23:46 WBC (3.8-10.6) k/uL RBC (3.80-5.40) m/uL Hgb (11.4-16.0) gm/dL Hct (34.0-46.0) % MCHC (31.0-37.0) g/dL RDW (11.5-15.5) % Neutrophils # (1.3-7.7) k/uL Monocytes # (0-1.0) k/uL Sodium (137-145) mmol/L BUN (7-17) mg/dL POC Glucose (mg/dL) 115 H 111 H (70-110) mg/dL Calcium (8.4-10.2) mg/dL Crossmatch See Detail 12/19/22 12/19/22 Range/Units 05:35 05:35 WBC 36.5 H (3.8-10.6) k/uL RBC 2.26 L (3.80-5.40) m/uL Hgb 6.9 L* D (11.4-16.0) gm/dL Hct 22.3 L (34.0-46.0) % MCHC 30.9 L (31.0-37.0) g/dL RDW 16.6 H (11.5-15.5) % Neutrophils # 32.9 H (1.3-7.7) k/uL Monocytes # 1.8 H (0-1.0) k/uL Sodium 136 L (137-145) mmol/L BUN 20 H (7-17) mg/dL POC Glucose (mg/dL) (70-110) mg/dL Calcium 7.0 L (8.4-10.2) mg/dL Crossmatch Microbiology - Last 24 Hours (Table) 12/17/22 20:15 Blood Culture - Preliminary Blood 12/17/22 20:30 Blood Culture - Preliminary Blood Assessment and Plan (1) Sepsis Current Visit: Yes Status: Acute Code(s): A41.9 - SEPSIS, UNSPECIFIED ORGANISM SNOMED Code(s): 40590059 (2) Leukocytosis Current Visit: Yes Status: Acute Code(s): D72.829 - ELEVATED WHITE BLOOD CELL COUNT, UNSPECIFIED SNOMED Code(s): 996656124 (3) Abdominal infection Current Visit: Yes Status: Acute Code(s): K65.9 - PERITONITIS, UNSPECIFIED SNOMED Code(s): 844521017 Plan: Patient presented to hospital with sepsis in this patient who did have a fever tachycardia elevated white count in this patient with a recent extensive surgery with removal of the pelvic mass now with significant abnormality seen on the recent CT with concern for possible postop hemorrhage as the patient did have elevated INR on presentation to the hospital and some abnormal bruising was noticed as well underlying infected hematoma and abscess not entirely excluded and we will need to call for the enteric gram-negative both aerobes and anaerobes 2-Patient has shown some clinical improvement as patient is off the pressors but white count is trending down we will continue the patient on Zosyn while waiting for transfer to [facility] Dictation was produced using [employer] dictation software. please excuse any grammatical, word or spelling errors. Time with Patient: Less than 30
--- NOTE | 2022-12-20 00:18 | PN ---
PROGRESS NOTE DATE OF SERVICE: 12/19/2022 SUBJECTIVE: This 72-year-old woman who was admitted with abdominal pain and possible abdominal sepsis is being closely monitored in ICU. [facility] has accepted the transfer, but there is no bed yet. The patient is on broad spectrum IV antibiotics. Multiple consultants are following the patient closely. Repeat CAT scan noted shows the hemorrhagic mass, hematoma on the left adnexa area. The patient has received 1 unit transfusion today. PAST MEDICAL HISTORY: Reviewed. REVIEW OF SYSTEMS: 14-point review is negative except as mentioned earlier. CURRENT MEDICATIONS: Reviewed and include Zosyn. PHYSICAL EXAMINATION: VITAL SIGNS: Pulse is 96, blood pressure 102/65, respirations 16. HEENT: Conjunctivae normal. NECK: No JVD. CARDIOVASCULAR: S1, S2. RESPIRATIONS: Breath sounds diminished at the bases. ABDOMEN: Soft. Status post surgery. LEGS: No edema. NERVOUS SYSTEM: Nonfocal. LABORATORY DATA: WBC hemoglobin 6.9. ASSESSMENT: 1. Abdominal pain with elevated WBC, possibly postoperative sepsis and intraabdominal source. 2. Possible adnexal postoperative mass versus hematoma. 3. Complex intraabdominal mass in the CAT scan. 4. History of recent debulking surgery for malignancy at the [facility]. 5. Acute kidney injury. 6. Chronic obstructive pulmonary disease. 7. Cerebrovascular accident, transient ischemic attack. 8. Hypertension. 9. Hyperlipidemia. 10.Multiple medical problems. RECOMMENDATIONS: Recommend to continue current management, continue symptomatic treatment. Continue with Zosyn, IV antibiotics. Monitor oxygenation closely. DVT prophylaxis. Closely follow with multiple consultants and once the bed is available, transfer to [facility]. Prognosis extremely guarded. Further recommendations will follow. MMODL / IJN: [id number] /
[2022-12-20] MEDS: IPRATROPIUM 0.5 MG/2.5 ML NEBU INHALATION SCH ×5 (00:21→15:10)
[2022-12-20] MEDS: SODIUM CHLORIDE 0.9% 1,000 ML IV SCH ×2 (03:46→07:47)
[2022-12-20 04:44] LABS: Anisocytosis Slight; Basophils % (A) 0 %; Eosinophils # (A) 0.3 k/uL (0-0.7); Eosinophils % (A) 1 %; HCT 27.5 % (34.0-46.0); HGB 8.9 gm/dL (11.4-16.0); Hypochromasia Slight; Lymphocytes # (A) 0.8 k/uL (1.0-4.8); Lymphocytes % (A) 3 %; MCH 30.8 pg (25.0-35.0); MCHC 32.4 g/dL (31.0-37.0); MCV 95.2 fL (80.0-100.0); Mean Platelet Volume 8.9; Monocytes # (A) 1.4 k/uL (0-1.0); Monocytes % (A) 5 %; Neutrophils % (A) 89 %; Platelet Count 194 k/uL (150-450); Poikilocytosis Slight; RBC 2.89 m/uL (3.80-5.40); RDW 16.3 % (11.5-15.5)
[2022-12-20 05:04] LABS: African American GFR (CKD) 88 (>60 ml/min/1.73 sqM); Anion Gap 6 mmol/L; Blood Urea Nitrogen 17 mg/dL (7-17); Calcium 7.3 mg/dL (8.4-10.2); Carbon Dioxide 26 mmol/L (22-30); Chloride 106 mmol/L (98-107); Glucose 87 mg/dL (74-99); Non-African American GFR(CKD) 76 (>60 ml/min/1.73 sqM); Potassium 3.9 mmol/L (3.5-5.1); Sodium 138 mmol/L (137-145)
[2022-12-20] MEDS ORDERED: Potassium Replacement Protocol 1 EACH MISC MISCELLANE PRN (06:10)
[2022-12-20] MEDS ORDERED: POTASSIUM CHLORIDE ER 20 MEQ TAB.ER PO SCH (07:00)
[2022-12-20 07:01] VITALS: BP 118/70
[2022-12-20] MEDS: NOREPINEPHRINE 4 MG in SODIUM CHLORIDE 0.9% 250 ML IV SCH (07:42)
[2022-12-20] MEDS: PIPERACILLIN-TAZOBACTAM 3.375 GM in SODIUM CHLORIDE 0.9% 100 ML IVPB SCH (07:43)
[2022-12-20] MEDS: PHENYTOIN 50 MG CHEWABLE PO SCH ×2 (07:44→11:43)
[2022-12-20] MEDS: FUROSEMIDE 20 MG TAB PO SCH (07:44)
[2022-12-20] MEDS: PANTOPRAZOLE 40 MG/10 ML VIAL IV SCH (07:44)
[2022-12-20] MEDS: IPRATROPIUM-ALBUTEROL 3 ML NEB INHALATION PRN ×2 (08:46→11:52)
[2022-12-20] MEDS: SYMBICORT 160-4.5 MCG INHALER INHALATION SCH (08:47)
--- NOTE | 2022-12-20 11:36 | P.PN ---
Subjective Progress Note Date: 12/20/22 CHIEF COMPLAINT: Sepsis HISTORY OF PRESENT ILLNESS: The patient is a 72-year-old female with uterine cancer with recent major abdominal laparotomy and debulking at [facility] less than 2 weeks ago. She had a CT scan demonstrating intra-abdominal fluid collection likely hematoma from blood thinners. Patient currently in the ICU. She does report some mid abdominal pain. Denies any nausea vomiting. She is awaiting transfer to [facility]. WBCs 28 hemoglobin stable at 8.9 and platelets 194 sodium 1:30 potassium 3.9 creatinine 0.79. Patient has required 3 units of blood during this admission PHYSICAL EXAM: VITAL SIGNS: Reviewed GENERAL: Well-developed in no acute distress. HEENT: No sclera icterus. Extraocular movements grossly intact. Moist buccal mucosa. Head is atraumatic, normocephalic. Hears conversational speech. No nasal drainage. NECK: Supple without lymphadenopathy. CHEST: Non-labored respirations and equal bilateral excursions. CARDIOVASCULAR: Palpable 2+ radial pulses. ABDOMEN: Soft. Nondistended. Mild tenderness to palpation mid abdomen MUSCULOSKELETAL: No clubbing or cyanosis. NEUROLOGIC: No focal or lateralizing signs. Cranial nerves II through XII gr ossly intact. PSYCH: Appropriate affect. Alert and oriented to person, place and time. SKIN: Well perfused. Good skin turgor. ASSESSMENT: 1. Intra-abdominal fluid collection likely hematoma 2. Abdominal pain 3. Septic shock 4. Uterine cancer 5. Acute blood loss anemia PLAN: -Pending transfer to [facility] when bed is available -Continue to monitor hemoglobin -Continue clear liquid diet Physician Supervisor Pre [employer] note has been reviewed by physician. Signing provider agrees with the documented findings, assessment, and plan of care. Objective - Vital Signs Vital signs: Vital Signs Temp 98.6 F 12/20/22 04:00 Pulse 88 12/20/22 08:58 Resp 18 12/20/22 08:58 BP 118/70 12/20/22 07:00 Pulse Ox 94 L 12/20/22 08:47 FiO2 Intake & Output 12/19/22 12/20/22 12/20/22 18:59 06:59 18:59 Intake Total 2649.648 1715 250 Output Total 1778 1425 175 Balance 871.648 290 75 Weight 82.1 kg Intake: IV 1500 430 175 Piperacillin-Tazobactam 3 200 300 100 .375 gm In Sodium Chloride 0.9% 100 ml @ 25 mls/hr IVPB Q8HR [facility] Rx# :[id number] Sodium Chloride 0.9% 1, 1300 130 000 ml @ 130 mls/hr IV . Q7H42M [facility] Rx#:[id number] Sodium Chloride 0.9% 1, 75 000 ml @ 75 mls/hr IV . [id number] [facility] Rx#:[id number] Intake, IV Titration 30.648 1045 75 Amount Norepinephrine 4 mg In 30.648 Sodium Chloride 0.9% 250 ml @ 0.03 MCG/KG/MIN 9. 073 mls/hr IV .Q24H [facility] Rx#:[id number] Sodium Chloride 0.9% 1, 1045 75 000 ml @ 75 mls/hr IV . [id number] [facility] Rx#:[id number] Oral 837 240 Blood Product 282 Rc Pheresis 2 As3 Unit 282 [id number] Output: Urine 1778 1425 175 Other: Voiding Method Indwelling Catheter Indwelling Catheter Indwelling Catheter - Labs CBC & Chem 7: 12/20/22 03:32 12/20/22 03:32 Labs: Abnormal Lab Results - Last 24 Hours (Table) 12/17/22 12/19/22 12/19/22 Range/Units 23:25 16:02 18:00 WBC 32.7 H (3.8-10.6) k/uL RBC 2.54 L (3.80-5.40) m/uL Hgb 8.1 L (11.4-16.0) gm/dL Hct 24.6 L (34.0-46.0) % RDW 15.9 H (11.5-15.5) % Neutrophils # 29.5 H (1.3-7.7) k/uL Lymphocytes # 0.9 L (1.0-4.8) k/uL Monocytes # 1.6 H (0-1.0) k/uL POC Glucose (mg/dL) 111 H (70-110) mg/dL Calcium (8.4-10.2) mg/dL Crossmatch See Detail 12/20/22 12/20/22 Range/Units 03:32 03:32 WBC 28.0 H (3.8-10.6) k/uL RBC 2.89 L (3.80-5.40) m/uL Hgb 8.9 L (11.4-16.0) gm/dL Hct 27.5 L (34.0-46.0) % RDW 16.3 H (11.5-15.5) % Neutrophils # 25.0 H (1.3-7.7) k/uL Lymphocytes # 0.8 L (1.0-4.8) k/uL Monocytes # 1.4 H (0-1.0) k/uL POC Glucose (mg/dL) (70-110) mg/dL Calcium 7.3 L (8.4-10.2) mg/dL Crossmatch Microbiology - Last 24 Hours (Table) 12/17/22 20:15 Blood Culture - Preliminary Blood 12/17/22 20:30 Blood Culture - Preliminary Blood
[2022-12-20 11:37] LABS: Glucose,Whole Blood 131 mg/dL (70-110)
[2022-12-20 12:02] VITALS: RESP 18
--- NOTE | 2022-12-20 13:26 | P.PN ---
Subjective Progress Note Date: 12/20/22 Principal diagnosis: Abdominal sepsis, and acute kidney injury This is a 72-year-old female patient who came into the emergency department with abdominal pain and distention. 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 The patient underwent a debulking surgery approximately a week ago at [facility] by Dr. Chaudhari and the p rocedure was uncomplicated the patient was discharged home. The patient's oncologic history is not clear to us. The patient has seen Dr. Lee in the past. The previous PET scan is available in our system on 02/20/2021 showed a pulmonary nodule measuring 2.3 cm in size that was progressively going and suspicious for lung cancer in addition to background emphysema. 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 A follow-up CAT scan of the chest that was done on 09/11/2021 showed a progression of the suspicious left upper lobe lesion in addition to mild interval enlargement of the cystic lesion in the pelvic area. A subsequent CAT scan of the chest that was done on 06/15/2022 showed interval reduction the left upper lobe mass measuring 2.2 cm in size and the cystic mass in the abdomen was measuring 30 cm.. At this point in time, the patient is septic post surgery. A CAT scan of the abdomen and the pelvis was done yesterday in the emergency department the patient was found to have a complex, mixed density lesion in the mid pelvis and left adnexa measuring up to 11 cm in size. There is prominent focal vascularity and high density layering material. Possibilities include abscess versus residual tumor/postop hematoma. The mass displaces and narrowed the sigmoid colon. There is also dilated the right side of the colon up to 8.9 cm in size which is thought to be obstruction versus ileus. The complex pelvic mass is also causing some mass effect on the left distal ureter with mild left-sided obstructive uropathy. There is also circumferential wall thickening and complex appearance to the distal sigmoid and rectal area and new mild to moderate abdominal pelvic ascites and generalized anasarca. Say small bilateral pleural effusions also seen. Obviously this changes occurred following her laparotomy and debulking surgery. The patient underwent resection of the large cystic pelvic mass. She is currently on a combination of IV cefepime and Flagyl. Her white cell count remains elevated at 49 with a hemoglobin of 8.4. The patient initially presented to us with a hemoglobin of 5.7 and she received a total of 2 units of packed RBC and hemoglobin improved and is currently up-to-date 0.4. She has history of DVT and she is on anticoagulation with warfarin and INR is at 3.4. He is at 40 with a creatinine of 1.1 consistent with an acute kidney injury 9 with a baseline creatinine is at 0.4. Sodium is at 137. LFTs are normal. Amylase and lipase are also normal. Lactic acid level is at 0.9. Overnight, the patient was kept in the emergency and she continued to have issues with hypotension. She was given a total of 3 L of saline and currently she is on normal saline at rate of 130 mL an hour and norepinephrine at 0.07 mcg/kg/m. The white cell count is elevated at 49.2. The chest x-ray has not been done. She is currently on oxygen at 6 L. Abdomen is still distended. Breathing is mildly labored. Urine output is in order of less than 10 mL. The plan is to transfer this patient to [facility] to be reevaluated by her surgical team. She is essentially poor historian and she is not aware of the details of the surgery and previous oncologic history. On today's evaluation of 12/19/2022, the patient is still awaiting her transferred to [place]. Note that she has been accepted. No beds are available. From our standpoint, the patient remains on broad-spectrum antibiotics which is on a combination of Zosyn and Flagyl. She is also on IV fluids with 0.9 130 mL an hour and she is also on norepinephrine at 0.02 mcg/kg/m. She has declined any further blood draws pH she has also declined blood pressure monitoring. A subsequent contrast enhanced CAT scan of the abdomen and pelvis was done and it showed an 11 cm hemorrhagic mass/hematoma in the left adnexa stable in size. There is also extensive soft tissue thickening and fat stranding along the pelvis and lower abdominal area and presacral thickening related to hemorrhagic changes. There is also suspected focal hemorrhagic ascites along the left flank measuring 7.7 cm in size. The sigmoid colon was redundant and there was narrowing of the mid and the distal sigmoid colon probably mass effect from the hemorrhagic mass/hematoma in her pelvis. Colonic distention is still present and is in the order of 8.9 cm. Surgical 1 site is dry clean and intact. There is no evidence of any bleeding. The patient was given a total of 10 mg of vitamin K yesterday. Repeat PT/INR was not done due to her noncooperative attitude. Hemoglobin is at 6.9. White cell count is up to 36. BUN is at 20 with a creatinine of 0.9 and his sodium level is at 136. Patient was reevaluated today on 12/20/2022, remains in the ICU, doing quite well, hemodynamically stable, not in any distress, hence I'm recommending transferring the patient to a stepdown medical bed or possibly a medical [facility] bed without telemetry. Still awaiting for availability of a bed at [facility] since the patient had recent debulking surgery approximately about 10 days ago at [facility] by Dr. Chaudhari and the procedure was uncomplicated nonetheless the patient is suspected to have focal hemorrhagic ascites along the flank region measuring 7.7 cm in size. Continues to have leukocytosis but improving WBC count is 28.0 hemoglobin is 8.9 in her lites are normal renal profile is normal. CT of the chest report was noted, colonic distention is improving patient does have some atelectasis at the bases of her lungs Objective - Vital Signs Vital signs: Vital Signs Temp 98.6 F 12/20/22 04:00 Pulse 92 12/20/22 12:01 Resp 18 12/20/22 12:01 BP 118/70 12/20/22 07:00 Pulse Ox 94 L 12/20/22 08:47 FiO2 Intake & Output 12/19/22 12/20/22 12/20/22 18:59 06:59 18:59 Intake Total 2649.648 1715 250 Output Total 1778 1425 175 Balance 871.648 290 75 Weight 82.1 kg Intake: IV 1500 430 175 Piperacillin-Tazobactam 3 200 300 100 .375 gm In Sodium Chloride 0.9% 100 ml @ 25 mls/hr IVPB Q8HR [facility] Rx# :[id number] Sodium Chloride 0.9% 1, 1300 130 000 ml @ 130 mls/hr IV . [id number] [facility] Rx#:[id number] Sodium Chloride 0.9% 1, 75 000 ml @ 75 mls/hr IV . [id number] [facility] Rx#:[id number] Intake, IV Titration 30.648 1045 75 Amount Norepinephrine 4 mg In 30.648 Sodium Chloride 0.9% 250 ml @ 0.03 MCG/KG/MIN 9. 073 mls/hr IV .Q24H [facility] Rx#:[id number] Sodium Chloride 0.9% 1, 1045 75 000 ml @ 75 mls/hr IV . [id number] [facility] Rx#:[id number] Oral 837 240 Blood Product 282 Rc Pheresis 2 As3 Unit 282 [id number] Output: Urine 1778 1425 175 Other: Voiding Method Indwelling Catheter Indwelling Catheter Indwelling Catheter - Exam Physical Exam: Revealed a 71 male on 2 L nasal cannula, in no distress Head: Atraumatic, normocephalic. HEENT:[Neck is supple.] [No neck masses.] [No thyromegaly.] [No JVD.] Chest: [Clear throughout, no crackles, no rhonchi, no wheezes.] Cardiac Exam: [Normal S1 and S2, no S3 gallop, no murmur.] Abdomen: Slightly distended, surgical jameson noted in place, no active drainage, mild direct tenderness is noted, and suspect underlying ascites. Extremities: [No clubbing, no edema, no cyanosis.] Neurological Exam: [No focal neurologic deficit.] Alert oriented 3 Psychiatric: Normal mood affect and normal mental status examination. Skin: No rashes - Labs CBC & Chem 7: 12/20/22 03:32 12/20/22 03:32 Labs: Abnormal Lab Results - Last 24 Hours (Table) 12/17/22 12/19/22 12/19/22 Range/Units 23:25 16:02 18:00 WBC 32.7 H (3.8-10.6) k/uL RBC 2.54 L (3.80-5.40) m/uL Hgb 8.1 L (11.4-16.0) gm/dL Hct 24.6 L (34.0-46.0) % RDW 15.9 H (11.5-15.5) % Neutrophils # 29.5 H (1.3-7.7) k/uL Lymphocytes # 0.9 L (1.0-4.8) k/uL Monocytes # 1.6 H (0-1.0) k/uL POC Glucose (mg/dL) 111 H (70-110) mg/dL Calcium (8.4-10.2) mg/dL Crossmatch See Detail 12/20/22 12/20/22 12/20/22 Range/Units 03:32 03:32 11:35 WBC 28.0 H (3.8-10.6) k/uL RBC 2.89 L (3.80-5.40) m/uL Hgb 8.9 L (11.4-16.0) gm/dL Hct 27.5 L (34.0-46.0) % RDW 16.3 H (11.5-15.5) % Neutrophils # 25.0 H (1.3-7.7) k/uL Lymphocytes # 0.8 L (1.0-4.8) k/uL Monocytes # 1.4 H (0-1.0) k/uL POC Glucose (mg/dL) 131 H (70-110) mg/dL Calcium 7.3 L (8.4-10.2) mg/dL Crossmatch Microbiology - Last 24 Hours (Table) 12/17/22 20:15 Blood Culture - Preliminary Blood 12/17/22 20:30 Blood Culture - Preliminary Blood Assessment and Plan Assessment: Impression: Acute abdominal sepsis, patient had recent debulking surgery of a large cystic abdominal mass which has been present for many years. Abdominal hematoma is strongly suspected/postoperative hematoma with some mass e ffect on her mid/distal sigmoid colon and left-sided obstructive uropathy noted Acute kidney injury secondary to sepsis History of pulmonary nodule needs to have outpatient follow-up Advanced COPD Acute hypoxic respiratory failure secondary to above on 2 L nasal cannula History of DVT History of seizure disorder History of thoracic outlet syndrome Benign essential hypertension History of CVA Recommendation: Continue present supportive care measures Patient is now off pressors Continue Zosyn and Flagyl empirically for abdominal sepsis Transfer patient out of the ICU to medical surgical floor Arrange for transfer to [facility] once a bed is available. We will continue to follow while in ICU Time with Patient: Less than 30
--- NOTE | 2022-12-20 14:00 | P.DS ---
Providers Date of admission: 12/18/22 05:59 Expected date of discharge: 12/20/22 Attending physician: Wai Montaño Consults: 12/17/22 21:07 Consult Physician Urgent Consulting Provider: Rain Espinoza Consult Reason/Comments: Abdominal infection Do you want consulting provider notified?: Yes 12/18/22 05:59 Consult Physician Stat Consulting Provider: Jam Heck Consult Reason/Comments: pelvic abscess, septic shock Do you want consulting provider notified?: Already Contacted 12/18/22 07:50 Consult Physician Urgent Consulting Provider: Shaheen Xie Consult Reason/Comments: septic shock, abdominal infection, recent debulking at [facility] Do you want consulting provider notified?: Yes Primary care physician: Isauro Nath Hospital Course: Final diagnosis Abdominal pain with elevated white count, possibly postoperative sepsis and intra-abdominal source Recent debulking surgery for malignancy at [facility] one week ago possible adnexal postoperative mass versus hematoma Complex intra-abdominal mass on the CAT scan Acute kidney injury Chronic obstructive pulmonary disease, not in exacerbation CVA/TIA history Hypertension Hyperlipidemia Obesity with a BMI 32.1 GI prophylaxis DVT prophylaxis No code Discharge disposition Patient is being transferred in a stable condition with guarded prognosis to [facility] in [place] for further evaluation. Patient has been accepted by Dr. Chambers and Dr. Chaudhari of [facility]. Patient will follow-up with Dr. Nath in the outpatient setting upon discharge. Total time taken is greater than 35 minutes. Hospital course This is a 72-year-old female who was recently admitted with abdominal pain and distention status post recent debulking at [facility]. Patient was stable and ER physicians discuss further with transfer team about transferring to [facility] for continuity of care and continued care at [facility] and agreeable although patient became hypotensive requiring pressor support and ICU management and [facility] had no ICU bed at the time. Patient was accepted with no bed available awaiting a bed. Discussed with nursing staff and reported there is a bed in the ICU at [facility] available for her today and will be transferred there. Patient was continued on antibiotics with multiple medical consultations including infectious disease pulmonary installment account checker and surgery following as there was a noted hemorrhagic mass or hematoma of the left adnexal area with some anemia requiring transfusions. The patient is currently stable in the ICU awake, alert and oriented 3 with family at bedside. Patient is scheduled for transfer to [facility] today. Guarded prognosis. Currently no reports of chest pain, shortness of breath, or palpitations. Patient is afebrile. No reports of nausea or vomiting and patient is tolerating diet. Patient will be going to [facility] in [place] via EMS. Guarded prognosis Physical exam: Gen: This is a 72-year-old female is awake, alert and oriented 3, well- developed, well-nourished, obese HEENT: Head is atraumatic, normocephalic. Pupils equal, round. Sclerae is anicteric. NECK: Supple. No JVD. No lymphadenopathy. No thyromegaly. LUNGS: Diminished breath sounds bilaterally with no wheezes or rhonchi. No intercostal retractions. HEART: S1, S2 are muffled ABDOMEN: Soft. Bowel sounds are present. No masses. tenderness noted on palpation. EXTREMITIES: No pedal edema. No calf tenderness. NEUROLOGICAL: Patient is awake, alert and oriented x3. Cranial nerves 2 through 12 are grossly intact. Please refer to medication reconciliation sheet for a list of medications. The impression and plan of care has been dictated by Xiao Crump, Nurse Practitioner as directed. Dr. Stefanie MD I have performed a history and examination and MDM of this patient, discussed the same with the dictator, and agree with the dictator's assessment and plan as written ,documented as a scribe. Based on total visit time, I have performed more than 50% of the visit. Patient Condition at Discharge: Fair Plan - Discharge Summary Discharge Rx Participant: Yes New Discharge Prescriptions: No Action aMILoride HCL 5 mg PO DAILY@0800 Loratadine [Claritin] 10 mg PO DAILY PRN PRN Reason: Allergy Symptoms Magnesium Hydroxide [Milk of Magnesia Concentrate] 7,200 mg PO Q2D PRN PRN Reason: Constipation Ibuprofen [Motrin] 600 mg PO QID PRN PRN Reason: Pain LORazepam [Ativan] 0.5 mg PO Q12H PRN PRN Reason: Anxiety Ipratropium Nebulized [Atrovent Nebulized 0.2 MG/ML] 0.5 mg INHALATION RT-Q4H Acetaminophen Tab [Tylenol] 650 mg PO Q4H PRN PRN Reason: Fever And/ Or Pain Albuterol Nebulized [Ventolin Nebulized] 2.5 mg INHALATION RT-Q4H Budesonide/Formoterol Fumarate [Symbicort 160-4.5 Mcg Inhaler] 2 puff INHALATION RT-BID@0800,2100 risperiDONE [RisperDAL] 1 mg PO HS Rosuvastatin Calcium [Crestor] 10 mg PO DAILY@1700 Umeclidinium [place] [Incruse Ellipta] 1 puff INHALATION RT-DAILY@0800 Spironolactone [Aldactone] 12.5 mg PO DAILY@0800 Senna 8.8mg/5ml Oral Syrup 15 ml PO HS PRN PRN Reason: Constipation Cholecalciferol [Vitamin D3 (25 Mcg = 1000 Iu)] 25 mcg PO DAILY@1200 Na Phos,M-B/Na Phos,Di-Ba [Fleet Adult] 133 ml RECTAL DAILY PRN PRN Reason: Constipation bisacodyL [Dulcolax] 10 mg RECTAL DAILY PRN PRN Reason: Constipation Acetaminophen [Tylenol 8 Hour] 650 mg PO Q8H PRN PRN Reason: general discomfort Phenytoin Chew [Dilantin Chew] 50 mg PO TID@0800,1200,1700 Ensure Enlive 237 ml PO TID@0800,1200,1700 Sennosides-Docusate Sodium [Senokot-S] 2 tab PO BID@0800,1700 polyethylene glycoL 3350 [Miralax] 17 gm PO DAILY@0800 Furosemide [Lasix] 20 mg PO DAILY@0800 Cyanocobalamin [Vitamin B-12] 500 mcg PO DAILY@1200 Warfarin [Coumadin] 5 mg PO SUMOTUTHSA@1700 Warfarin [Coumadin] 2.5 mg PO WEFR@1700 Discharge Medication List aMILoride HCL 5 mg PO DAILY@0800 12/12/19 [History] Cholecalciferol [Vitamin D3 (25 Mcg = 1000 Iu)] 25 mcg PO DAILY@1200 01/22/21 [History] Loratadine [Claritin] 10 mg PO DAILY PRN 01/22/21 [History] Acetaminophen Tab [Tylenol] 650 mg PO Q4H PRN 12/17/22 [History] Acetaminophen [Tylenol 8 Hour] 650 mg PO Q8H PRN 12/17/22 [History] Albuterol Nebulized [Ventolin Nebulized] 2.5 mg INHALATION RT-Q4H 12/17/22 [History] Budesonide/Formoterol Fumarate [Symbicort 160-4.5 Mcg Inhaler] 2 puff INHALATION RT-BID@0800,2100 12/17/22 [History] Cyanocobalamin [Vitamin B-12] 500 mcg PO DAILY@1200 12/17/22 [History] Ensure Enlive 237 ml PO TID@0800,1200,169912/17/22 [History] Furosemide [Lasix] 20 mg PO DAILY@79912/17/22 [History] Ibuprofen [Motrin] 600 mg PO QID PRN 12/17/22 [History] Ipratropium Nebulized [Atrovent Nebulized 0.2 MG/ML] 0.5 mg INHALATION RT-Q4H 12/17/22 [History] LORazepam [Ativan] 0.5 mg PO Q12H PRN 12/17/22 [History] Magnesium Hydroxide [Milk of Magnesia Concentrate] 7,200 mg PO Q2D PRN 12/17/22 [History] Na Phos,M-B/Na Phos,Di-Ba [Fleet Adult] 133 ml RECTAL DAILY PRN 12/17/22 [History] Phenytoin Chew [Dilantin Chew] 50 mg PO TID@0800,1200,169912/17/22 [History] Rosuvastatin Calcium [Crestor] 10 mg PO DAILY@169912/17/22 [History] Senna 8.8mg/5ml Oral Syrup 15 ml PO HS PRN 12/17/22 [History] Sennosides-Docusate Sodium [Senokot-S] 2 tab PO BID@0800,169912/17/22 [History] Spironolactone [Aldactone] 12.5 mg PO DAILY@79912/17/22 [History] Umeclidinium [place] [Incruse Ellipta] 1 puff INHALATION RT-DAILY@79912/17/22 [History] Warfarin [Coumadin] 2.5 mg PO WEFR@169912/17/22 [History] Warfarin [Coumadin] 5 mg PO SUMOTUTHSA@169912/17/22 [History] bisacodyL [Dulcolax] 10 mg RECTAL DAILY PRN 12/17/22 [History] polyethylene glycoL 3350 [Miralax] 17 gm PO DAILY@0800 12/17/22 [History] risperiDONE [RisperDAL] 1 mg PO HS 12/17/22 [History] Follow up Appointment(s)/Referral(s): Isauro Nath DO [Primary Care Provider] - 1-2 days
[2022-12-20 15:08] VITALS: PULSE 60; TEMP 98
== END 2022-12-20 16:17 | disposition short-term general hospital (02) | DRG 862 ==
LOC: EC 16:13 → 2SICU 12-18 05:59
PROVIDERS: ADMIT Hospitalist; ATTEND Hospitalist
PROC: 30233N1 Transfusion of Nonautologous Red Blood Cells into Peripheral Vein, Percutaneous Approach (ICD-10-PCS; principal; 2022-12-18)
DX: T81.40XA Infection following a procedure, unspecified, initial encounter (principal); J96.01 Acute respiratory failure with hypoxia; L76.32 Postprocedural hematoma of skin and subcutaneous tissue following other procedure; N17.9 Acute kidney failure, unspecified; D62 Acute posthemorrhagic anemia; J98.11 Atelectasis; R18.8 Other ascites; J90 Pleural effusion, not elsewhere classified; K91.89 Other postprocedural complications and disorders of digestive system; K56.7 Ileus, unspecified; T81.44XA Sepsis following a procedure, initial encounter; J44.9 Chronic obstructive pulmonary disease, unspecified; Z86.718 Personal history of other venous thrombosis and embolism; Z79.01 Long term (current) use of anticoagulants; G40.909 Epilepsy, unspecified, not intractable, without status epilepticus; I10 Essential (primary) hypertension; Z86.73 Personal history of transient ischemic attack (TIA), and cerebral infarction without residual deficits; C55 Malignant neoplasm of uterus, part unspecified; E66.9 Obesity, unspecified; E78.5 Hyperlipidemia, unspecified; G89.29 Other chronic pain; Z68.32 Body mass index [BMI] 32.0-32.9, adult; Z88.5 Allergy status to narcotic agent; Z88.8 Allergy status to other drugs, medicaments and biological substances; Y84.8 Other medical procedures as the cause of abnormal reaction of the patient, or of later complication, without mention of misadventure at the time of the procedure
CPT/HCPCS: 36415; 71045; 74176; 74177; 80048; 80053; 82150; 83605; 83690; 85025; 85027; 85610; 85730; 86850; 86900; 86901; 86920; 87040; 87635; 93005; 94640; 94760; 96361; 96365; 96366; 96367; 96375; 99291

== ENCOUNTER 2024-06-23 11:50 | Inpatient (IN) | payer MEDICARE, BC, OTHER ==
--- NOTE | 2024-06-23 12:18 | ED ---
General Adult HPI - General Chief complaint: Psychiatric Symptoms Stated complaint: Petition Time Seen by Provider: 06/23/24 11:58 Source: patient, police Mode of arrival: ambulatory Limitations: no limitations - History of Present Illness Initial comments: Patient is a 74-year-old female past medical history ofPrior CVA, COPD, hyperlipidemia, hypertension, seizure disorder presenting today for suicidal thoughts. History provided by patient and police. Police brought patient in today because she was at a local [employer] where she was attempting to steal a pack of tweezers so that she would go to half-way. When police arrived on scene patient was requesting to take the place's gun and shoot herself. Patient states that she wants to leave her life and wants to end it all. Additionally patient states that she fell 2 days ago after slipping on ice and hit the back of her head on the cement. She denies loss of consciousness or neck pain. She does have a hematoma to the posterior occiput and had a bruise to the distal lateral aspect of the left lower extremity. Otherwise she denies changes in vision, focal numbness, weakness, difficulty ambulating. She states she does have a remote history of mental health issues but does not elaborate on this further. Currently takes Eliquis due to prior history of CVA. - Related Data Home Medications Medication Instructions Recorded Confirmed Albuterol Sulfate [Albuterol 2 puff PO RT-QID PRN 06/23/24 06/23/24 Sulfate Hfa] Apixaban [Eliquis] 5 mg PO BID 06/23/24 06/23/24 Fluticasone/Vilanterol [Breo 1 puff INHALATION RT-DAILY 06/23/24 06/23/24 Ellipta 200-25 Mcg Inhaler] Furosemide [Lasix] 20 mg PO DAILY 06/23/24 06/23/24 Ipratropium Nebulized [Atrovent 0.5 mg INHALATION RT-QID PRN 06/23/24 06/23/24 Nebulized 0.2 MG/ML] Phenytoin Sodium Extended 100 mg PO TID 06/23/24 06/23/24 [Dilantin] Rosuvastatin [Crestor] 10 mg PO HS 06/23/24 06/23/24 Spironolactone [Aldactone] 12.5 mg PO DAILY 06/23/24 06/23/24 aMILoride HCL 5 mg PO DAILY 06/23/24 06/23/24 risperiDONE [RisperDAL] 1 mg PO DAILY 06/23/24 06/23/24 Allergies Allergy/AdvReac Type Severity Reaction Status Date / Time bacitracin Allergy Rash/Hives Verified 06/23/24 15:39 [From Neosporin ([id number])] dexamethasone [From Maxitrol] Allergy FACE Verified 06/23/24 15:39 SWELLING hydromorphone [From Dilaudid] Allergy makes head Verified 06/23/24 15:39 spin neomycin [From Maxitrol] Allergy FACE Verified 06/23/24 15:39 SWELLING polymyxin B [From Maxitrol] Allergy FACE Verified 06/23/24 15:39 SWELLING isopropyl alcohol AdvReac Nausea Verified 06/23/24 15:39 Review of Systems ROS Statement: Those systems with pertinent positive or pertinent negative responses have been documented in the HPI. ROS Other: All systems not noted in ROS Statement are negative. Past Medical History Past Medical History: Cancer, COPD, CVA/TIA, Hyperlipidemia, Hypertension, Seizure Disorder Additional Past Medical History / Comment(s): epilepsy, thoracic outlet syndrome, History of Any Multi-Drug Resistant Organisms: None Reported Past Surgical History: Appendectomy, Hysterectomy Additional Past Surgical History / Comment(s): removed CA on skin L arm Past Anesthesia/Blood Transfusion Reactions: No Reported Reaction Past Psychological History: Anxiety Smoking Status: Former smoker Past Alcohol Use History: None Reported Past Drug Use History: None Reported - Past Family History Mother History Unknown: Yes General Exam - General Exam Comments Initial Comments: PE: CONSTITUTIONAL: [no apparent distress, well appearing] SKIN: [warm, dry, no jaundice, hives or petechiae, large hematoma to left LE as noted below] EYES:[ pupils are equally round, extraocular movements intact without nystagmus, clear conjunctiva, non-icteric sclera] HENT: [normocephalic,, hematoma to the left posterior occiput, moist mucus membranes, oropharynx clear without exudates, no hemotympanum] NECK: , [Full range of motion, normal appearance, no midline spinal/palpation, patient is able to range her neck through full range of motion without midline s iesha tenderness or radiculopathy] PULMONARY: [clear to auscultation without wheezes, rhonchi, or rales, normal excursion, no accessory muscle use and no stridor] CARDIOVASCULAR:[ regular rate, rhythm, normal S1 and S2. No appreciated murmurs, rubs or gallops. Strong radial pulses with intact distal perfusion. No lower extremity edema] GASTROINTESTINAL: [soft, active bowel sounds throughout, non-tender, non- distended, no palpable masses, no rebound or guarding. No hepatosplenomegaly] GENITOURINARY: MUSCULOSKELETAL: [Extremities have no gross deformity, large hematoma to left lateral distasl LE, pt able to range LLE, knee, ankle and foot through full ROM without pain or difficulty, extremity is neurovascularly intact] NEUROLOGIC: [_a/o x 3, GCS 15, normal mentation and speech. Moves all e xtremities x 4 without motor or sensory deficit] PSYCHIATRIC:[ _Withdrawn and flat mood and affect, patient is hyperfocused on thoughts of wanting to , she is calm and cooperative at this time] Limitations: no limitations Course Vital Signs 06/23/24 06/23/24 06/23/24 11:52 12:43 14:45 Temperature 98.4 F 97.9 F Pulse Rate 117 H 105 H 83 Respiratory 20 18 18 Rate Blood Pressure 159/85 134/66 124/85 O2 Sat by Pulse 92 L 93 L 93 L Oximetry 06/23/24 06/23/24 16:44 17:45 Temperature Pulse Rate 85 85 Respiratory 18 18 Rate Blood Pressure 135/77 135/77 O2 Sat by Pulse 92 L 93 L Oximetry Medical Decision Making - Medical Decision Making Was pt. sent in by a medical professional or institution (RATNA Sheets, AGRICULTURE TECHNICIAN, urgent care, hospital, or group home...) When possible be specific @ -No Did you speak to anyone other than the patient for history (EMS, parent, family, police, friend...)? What history was obtained from this source I spoke with police, at bedside who brought the patient to the hospital after she was found trying to steal towards her [employer] and wanting to go to half-way s because she did not want to be alive anymore Did you review nursing and triage notes (agree or disagree)? Why? @ -I reviewed nursing and triage notes Were old charts reviewed (outside hosp., previous admission, EMS record, old EKG, old radiological studies, urgent care reports/EKG's, group home records)? Report findings @ -Medical records reviewed on review of medical records, I do not see documented history of mental health diagnoses Differential Diagnosis (chest pain, altered mental status, abdominal pain women, abdominal pain men, vaginal bleeding, weakness, fever, dyspnea, syncope, headache, dizziness, GI bleed, back pain, seizure, CVA, palpatations, mental health, musculoskeletal)? MDM differential Mental Health Depression, anxiety, bipolar, psychosis, schizophrenia, borderline personality, situational depression, adjustment disorder, behavioral disorder, brain tumor, malingering, substance abuse, encephalopathy, medication reaction, dementia, hypothyroidism, degenerative neurologic disorder, lupus.... This is not meant to be all-inclusive listG interpreted by me (3pts min.). X-rays interpreted by me (1pt min.). @ no evdience of fracture or malalignment on XR tib/fib CT interpreted by me (1pt min.). @Reviewed CT brain, CT C-spine, and review of CT brain I see no evidence of hemorrhage or mass effect, on CT C-spine I see no evidence of fracture or malalignment however a large left lung mass is partially visualized U/S interpreted by me (1pt. min.). @ -None done What testing was considered but not performed or refused? (CT, X-rays, U/S, labs)? Why? @ -None What meds were considered but not given or refused? Why? @ -None Did you discuss the management of the patient with other professionals (bibiana bernal i.e. , PA, AGRICULTURE TECHNICIAN, lab, RT, psych nurse, web content & social media manager, diesel motor mechanic, teacher, chief investment officer, leather case finisher)? Give summary @ -No Was smoking cessation discussed for >3mins.? @ -No Was critical care preformed (if so, how long)? @ -No Were there social determinants of health that impacted care today? How? (Homelessness, low income, unemployed, alcoholism, drug addiction, transportation, low edu. Level, literacy, decrease access to med. care, half-way, rehab)? @ -No Was there de-escalation of care discussed even if they declined (Discuss DNR or withdrawal of care, Hospice)? @ -No What co-morbidities impacted this encounter? (DM, HTN, Smoking, COPD, CAD, Cancer, CVA, ARF, Chemo, Hep., AIDS, mental health diagnosis, sleep apnea, morbid obesity)? @COPD Was patient admitted / discharged? Hospital course, mention meds given and route, prescriptions, significant lab abnormalities, going to OR and other pertinent info. @Admission-patient is a 74-year-old female, prior medical history CVA on Eliquis presenting today in the company of police after being found at a local [employer], attempting to steal licorice so that she could be taken to half-way because she does not want to live anymore and is suicidal. Of note patient also had disclosed to PD that she fell 2 days ago and hit the back of her head. Small hematoma to the posterior occiput on my assessment. Patient is suicidal, AO x 4, is calm and cooperative and agreeable with labs and imaging for medical clearance. Additionally of note patient's pulse ox 93% patient mildly tachycardic on arrival. Her lungs are clear to auscultation bilaterally and she is in no acute distress. With history of COPD 93% SpO2 is within acceptable limits, I suspect tachycardia secondary to anxiety of having ashwin brought into the hospital however basic labs will be obtained to assess for other abnormality such as anemia, MARIA DE JSEUS, electrolyte abnormality, etc. CT brain and C-spine ordered due to patient's recent fall and age. Basic labs to assess for metabolic etiology of depression and new onset suicidal thoughts. Additionally hematoma to the left lateral distal lower extremity noted, No gross deformity. XR ordered of affected extremity. CT brain, C-spine negative for acute process though did note a large mass in the upper portion of the left lung concerning for neoplasm. CT chest was recommended as well as further workup for malignancy. Patient will be admitted to medicine for further workup of suspected lung cancer, psychiatry consult will be placed. I updated patient to findings including concern for cancerous mass on CT scan and plan for CT chest to further evaluate. Patient is understanding of this and agreeable with admission. However due to patient's suicidal thoughts and severe statements, I did fill out a clinical certification which was placed in her chart. Case was discussed with Dr. Zavaleta who kind accepted patient for admission Undiagnosed new problem with uncertain prognosis? Yes, lung mass, uncertan etiology, potentially cancerous Drug Therapy requiring intensive monitoring for toxicity (Heparin, Nitro, In sulin, Cardizem)? @ -No Were any procedures done? @ -No Diagnosis/symptom? @Suicidal ideation, lung mass, fall Acute, or Chronic, or Acute on Chronic? @ acute Uncomplicated (without systemic symptoms) or Complicated (systemic symptoms)? complicated Side effects of treatment? @ -No Exacerbation, Progression, or Severe Exacerbation? @ -No Poses a threat to life or bodily function? How? (Chest pain, USA, NC, pneumonia, PE, COPD, DKA, ARF, appy, cholecystitis, CVA, Diverticulitis, Homicidal, Suicida l, threat to staff... and all critical care pts) @ Yes, if pt left untreated could potentially have successful suicide attempt leading to - Lab Data Result diagrams: 06/23/24 12:21 06/23/24 12:21 Lab Results 06/23/24 06/23/24 06/23/24 Range/Units 12:21 12:21 12:21 WBC 17.7 H (3.8-10.6) k/uL RBC 4.85 (3.80-5.40) m/uL Hgb 15.2 (11.4-16.0) gm/dL Hct 45.6 (34.0-46.0) % MCV 93.9 (80.0-100.0) fL MCH 31.2 (25.0-35.0) pg MCHC 33.2 (31.0-37.0) g/dL RDW 12.3 (11.5-15.5) % Plt Count 295 (150-450) k/uL MPV 7.6 Neutrophils % 84 % Lymphocytes % 6 % Monocytes % 8 % Eosinophils % 1 % Basophils % 0 % Neutrophils # 14.8 H (1.3-7.7) k/uL Lymphocytes # 1.1 (1.0-4.8) k/uL Monocytes # 1.4 H (0-1.0) k/uL Eosinophils # 0.1 (0-0.7) k/uL Basophils # 0.1 (0-0.2) k/uL Sodium 136 L (137-145) mmol/L Potassium 4.0 (3.5-5.1) mmol/L Chloride 100 (98-107) mmol/L Carbon Dioxide 27 (22-30) mmol/L Anion Gap 9 mmol/L BUN 19 H (7-17) mg/dL Creatinine 0.64 (0.52-1.04) mg/dL Est GFR (CKD-EPI)AfAm >90 (>60 ml/min/1.73 sqM) Est GFR (CKD-EPI)NonAf 89 (>60 ml/min/1.73 sqM) Glucose 264 H (74-99) mg/dL Calcium 9.1 (8.4-10.2) mg/dL Total Bilirubin 0.5 (0.2-1.3) mg/dL AST 23 (14-36) U/L ALT 27 (4-34) U/L Alkaline Phosphatase 184 H (38-126) U/L Total Protein 7.7 (6.3-8.2) g/dL Albumin 3.5 (3.5-5.0) g/dL TSH 1.190 (0.465-4.680) mIU/L Salicylates <1.0 mg/dL Acetaminophen <10.0 ug/mL Serum Alcohol <10 mg/dL Influenza Type A (PCR) Not Detected (Not Detectd) Influenza Type B (PCR) Not Detected (Not Detectd) RSV (PCR) Not Detected (Not Detectd) SARS-CoV-2 (PCR) Not Detected (Not Detectd) Disposition Clinical Impression: Suicidal ideation, Lung mass Disposition: ADMITTED IP TO THIS HOSP Condition: Stable
[2024-06-23] MEDS: ACETAMINOPHEN TAB 500 MG TAB PO STA (12:24)
[2024-06-23 12:48] LABS: Basophils # (A) 0.1 k/uL (0-0.2); Basophils % (A) 0 %; Eosinophils # (A) 0.1 k/uL (0-0.7); Eosinophils % (A) 1 %; HCT 45.6 % (34.0-46.0); HGB 15.2 gm/dL (11.4-16.0); Lymphocytes # (A) 1.1 k/uL (1.0-4.8); Lymphocytes % (A) 6 %; MCH 31.2 pg (25.0-35.0); MCHC 33.2 g/dL (31.0-37.0); MCV 93.9 fL (80.0-100.0); Mean Platelet Volume 7.6; Monocytes # (A) 1.4 k/uL (0-1.0); Monocytes % (A) 8 %; Neutrophils # (A) 14.8 k/uL (1.3-7.7); Neutrophils % (A) 84 %; Platelet Count 295 k/uL (150-450); RBC 4.85 m/uL (3.80-5.40); RDW 12.3 % (11.5-15.5); WBC 17.7 k/uL (3.8-10.6)
[2024-06-23 13:03] LABS: ALT 27 U/L (4-34); AST 23 U/L (14-36); Acetaminophen <10.0 ug/mL; African American GFR (CKD) >90 (>60 ml/min/1.73 sqM); Albumin 3.5 g/dL (3.5-5.0); Alcohol <10 mg/dL; Alkaline Phosphatase 184 U/L (38-126); Anion Gap 9 mmol/L; Blood Urea Nitrogen 19 mg/dL (7-17); Calcium 9.1 mg/dL (8.4-10.2); Carbon Dioxide 27 mmol/L (22-30); Chloride 100 mmol/L (98-107); Glucose 264 mg/dL (74-99); Non-African American GFR(CKD) 89 (>60 ml/min/1.73 sqM); Salicylate <1.0 mg/dL; Sodium 136 mmol/L (137-145); Total Bilirubin 0.5 mg/dL (0.2-1.3); Total Protein 7.7 g/dL (6.3-8.2)
[2024-06-23 13:26] LABS: Influenza A Not Detected (Not Detectd); Influenza B Not Detected (Not Detectd); RSV Not Detected (Not Detectd)
--- NOTE | 2024-06-23 13:26 | XR ---
EXAMINATION TYPE: XR tibia fibula LT DATE OF EXAM: 06/23/2024 1:19 PM COMPARISON: None CLINICAL INDICATION: Female, 74 years old with history of fall hematoma to distal lat lt LE; PHH, shade n TECHNIQUE: XR tibia fibula LT; examined in AP and lateral projections. FINDINGS: Soft tissue edema over the anterior leg no evidence for osseous erosion or subcutaneous gas . Atherosclerosis of the arterial vasculature. No evidence of any acute osseous pathology, joint disl ocation, or soft tissue swelling is noted. IMPRESSION: No evidence of acute fracture. Soft tissue edema anterior leg no evidence for osseous erosion saphenous gas. [facility], , 06/23/2024 1:24 PM
--- NOTE | 2024-06-23 13:43 | CT ---
EXAMINATION TYPE: CT brain cspine wo con DATE OF EXAM: 06/23/2024 1:23 PM COMPARISON: None. CLINICAL INDICATION: Female, 74 years old with history of Trauma; Pt fall, pain TECHNIQUE: Brain: Multiple axial CT images of the brain were obtained without IV contrast. Cspine: Axial CT images from the skull base to the inferior aspect of T2 we obtained without intraven ous contrast. Coronal and sagittal reformatted images were also reviewed. CT DLP: 1410.8 mGycm, Automated exposure control for dose reduction was used. FINDINGS: Brain: Extra-axial spaces: No abnormal extra-axial fluid collections. Ventricular system: Within normal limits Cerebral parenchyma: Remote injury to the left parietal region. No acute intraparenchymal hemorrhage or mass effect. The morrell-white junction is well differentiated. Cerebellum: Unremarkable. Mass effect: No evidence of midline shift. Intracranial vasculature: Atherosclerotic calcifications of the intracranial vessels. Soft tissues: Normal. Calvarium/osseous structures: No depressed skull fracture. Paranasal sinuses and mastoid air cells: Clear. Visualized orbits: Orbital contents are intact. Cervical spine: Fracture: None. Osseous structures: Multilevel degenerative disc disease changes with endplate spurring and disc oste ophyte complex's. Vertebral alignment: Within normal limits. Spinal canal/Neural Foramina: No evidence of significant spinal canal narrowing. No evidence for sign ificant neural foraminal stenosis. Neck soft tissues: Prevertebral soft tissues are within normal limits. Other: The airway is patent. Atherosclerosis of the carotid bifurcations. Mild emphysema changes. Lef t upper lung masslike consolidation measuring at least 60 x 54 mm and especially in the [id number] .. IMPRESSION: 1. Left upper lung masslike consolidation concerning for malignancy until proven otherwise. Oncologi c workup recommended. No lymphadenopathy or findings to suggest metastatic disease at this time. Ulti mately pet/CT recommended. 2. No acute intracranial process. 3. Remote injury left parietal region. 4. No evidence of cervical spine fracture. 5. Moderate multilevel degenerative disc disease. [facility], , 06/23/2024 1:41 PM
--- NOTE | 2024-06-23 15:37 | CT ---
EXAMINATION TYPE: CT chest wo con DATE OF EXAM: 06/23/2024 3:22 PM COMPARISON: 06/23/2024 CLINICAL INDICATION: Female, 74 years old with history of left lung mass noted on CT; PHH, Left lung mass noted on CT x 1 year TECHNIQUE: Multiple axial images were obtained through the chest. Sagittal and coronal reformats were created for review. MIP was performed on a separate workstation. Contrast used: mL of (None if empty) Oral contrast used: (None if empty) CT DLP: 228.2 mGycm, Automated exposure control for dose reduction was used. FINDINGS: LUNGS/ PLEURA: Left midlung masses seen on prior CT measuring 75 x 60 mm. Acetabulum emphysema change s seen throughout the lungs. No evidence for pneumothorax pleural effusion or airspace consolidation. AIRWAY: Patent and unremarkable. HEART: Size within normal limits.Atherosclerosis of the arterial vasculature. MEDIASTINUM: No gross evidence of adenopathy. VASCULATURE: Atherosclerotic calcifications are present throughout the aorta and its branches. MUSCULOSKELETAL: No acute osseous abnormalities SOFT TISSUES/LYMPH NODES: Unremarkable. LOWER NECK: No significant findings. UPPER ABDOMEN: Large gallstones present. Gallbladder lumen. Left adrenal 2 mm nodule which is indeter minate in the setting of mass found on CT chest. IMPRESSION: 1. Left midlung mass measuring up to 75 mm concerning for malignancy. PET/CT recommended . No eviden ce for lymphadenopathy. 2. Left adrenal indeterminate nodule in the setting of a mass. 3. Mild emphysema changes. 4. Cholelithiasis. [facility], , 06/23/2024 3:34 PM
[2024-06-23] MEDS ORDERED: IPRATROPIUM 0.5 MG/2.5 ML NEBU INHALATION PRN (16:00)
[2024-06-23] MEDS ORDERED: CALCIUM CARBONATE 500 MG CHEWABLE PO PRN (16:36)
[2024-06-23] MEDS ORDERED: NALOXONE 0.4 MG/ML 1 ML VIAL IV PRN (16:36)
[2024-06-23] MEDS ORDERED: MAG HYDROX/AL HYDROX/SIMETH 30 ML CUP PO PRN (16:36)
[2024-06-23] MEDS: PHENYTOIN SODIUM EXTENDED 100 MG CAP PO SCH (16:48)
--- NOTE | 2024-06-23 17:31 | P.CN ---
Psychiatric Consult - . Consult date: 06/23/24 Consult:: 06/23/24 17:26 I went and saw the patient in her room and she was very cooperative and responsive. She does look somewhat depressed and says that she is staying in apartment all by herself getting around with a walker she's able to take care of herself but feels terribly lonely her family doesn't come around. She says take all her that she is doing great so why should they come around. She says that life is not worth living if you just sit there doing absolutely nothing in your apartment. But that if she could get into a place that there were other people and she could talk with them and they helped her with some basic things like cooking and cleaning and she could do puzzles and share she would be wonderful and would be happy. She says you can't give me antidepressants because I'm ALLERGIC to all of them and they make my seizures worse. She says she doesn't eat as well as she used to she doesn't sleep as well as she used to but she feels her concentration is fine. Objective response times are reasonable she had a good sense of humor was pleasant cooperative no signs of psychosis she was reasonably well oriented she knew that she was in [facility] that it was Tuesday that this was 2025 that the president was Golden. She couldn't subtract 7 from 93 and spell world backward when asked what was the same between cats and snakes she said that both eat minus and when asked to abstract the proverb aggressive screen and outside of the fence she said he careful it might not be all that great. She denies any voices any paranoid thinking and did not evidence any. Assessment I do believe she has some low-grade depression I think it is more an adjustment disorder rather than a physiologic disorder and I think if she could be helped to find a place to stay where the people around she would be fine. F rom a medication angle it probably would be helpful to get her on a low-dose of mirtazapine but right now she doesn't want to take any because she is sure it would make her seizures worse and I do think that adjustment of her social stresses would probably resolve the issue. On the question of whether she is a danger to self or not is not because of depression physiologic or psychosis is because she does not want to go back to a lonely situation where there are no people in her life.
[2024-06-23] MEDS: ALBUTEROL NEBULIZED 2.5 MG/3 ML INHALATION PRN (19:46)
[2024-06-23] MEDS: ATORVASTATIN 20 MG TAB PO SCH (21:50)
[2024-06-23] MEDS: APIXABAN 5 MG TAB PO SCH (21:50)
[2024-06-23] MEDS: ALPRAZolam 0.25 MG TAB PO PRN (21:50)
[2024-06-24 01:34] LABS: Phencyclidine Screen,Urine Not Detected (NotDetected); Urn Cannabinoid Scrn Not Detected (NotDetected)
[2024-06-24 01:35] LABS: Amphetamine Screen,Urine Not Detected (NotDetected); Barbiturate Screen,Urine Detected (NotDetected); Benzodiazepines Screen,Urine Detected (NotDetected); Cocaine Screen,Urine Not Detected (NotDetected); Methadone Screen, Urine Not Detected (NotDetected); Opiate Screen,Urine Not Detected (NotDetected); Oxycodone Screen, Urine Not Detected (NotDetected); Tricyclic Antidepressant,Urine Not Detected (NotDetected)
[2024-06-24 01:56] LABS: Appearance,Urine Cloudy (Clear); Bacteria,Urine Many /hpf; Bilirubin,Urine Negative (Negative); Blood,Urine Negative (Negative); Color,Urine Yellow; Glucose,Urine (UA) Negative (Negative); Ketones,Urine Negative (Negative); Leukocyte Esterase,Urine Small (Negative); Mucus,Urine Many /hpf; Nitrite,Urine Negative (Negative); PH, Urine 5.5 (5.0-8.0); Protein,Urine 1+ (Negative); Specific Gravity,Urine 1.026 (1.001-1.035); Squamous Epithelial Cell,Urine 4 /hpf (0-4); Urobilinogen,Urine <2.0 mg/dL (<2.0); WBC,Urine 14 /hpf (0-5)
[2024-06-24] MEDS: SPIRONOLACTONE 25 MG TAB PO SCH (07:54)
[2024-06-24] MEDS: FUROSEMIDE 20 MG TAB PO SCH (07:54)
[2024-06-24] MEDS: risperiDONE 1 MG TAB PO SCH (08:34)
[2024-06-24] MEDS: SYMBICORT 160-4.5 MCG INHALER INHALATION SCH (08:43)
[2024-06-24] MEDS ORDERED: SPIRONOLACTONE 25 MG TAB PO SCH (09:00)
--- NOTE | 2024-06-24 13:26 | P.HPIM ---
History of Present Illness This is a pleasant 74 years old female who presents to emergency room because she fell 3 days ago. She has multiple medical problems as below. However on admission she was to transfer from life and financial issue so she expressed her depressive symptoms and wishing to end life. Therefore she was admitted with suicidal ideation and sitter at bedside. Patient also complaining from left leg swollen tender after she fell 3 days ago She denies chest pain or dyspnea. No specific GI/ symptom. No headache dizziness weakness or numbness She was taking Eliquis at home She denies smoking alcohol or illicit drugs. She is hemodynamically stable, afebrile Labs showing leukocytosis at 17.7. Rest of labs including CBC, BMP and LFT were unremarkable Urine analysis looks compensated sample Salicylate, acetaminophen and urine drug screens were negative except for barbiturates and benzodiazepine Influenza and COVID were negative CT of the head and neck were unremarkable for acute process Tibia and fibula x-ray is negative for acute process but showing soft tissue swelling Also CT of the chest showing left midlung mass 75 mm suspicious for malignancy and left adrenal nodule associated with gallstones and emphysema Review of Systems Review of systems CONSTITUTIONAL: No fever, no malaise, no fatigue. HEENT: No recent visual problems or hearing problems. Denied any sore throat. CARDIOVASCULAR: No orthopnea, PND, no palpitations, no syncope. PULMONARY: No shortness of breath, no cough, no hemoptysis. GASTROINTESTINAL: No diarrhea, no nausea, no vomiting, no abdominal pain. Normoa ctive bowel sounds. NEUROLOGICAL: No headaches, no weakness, no numbness. HEMATOLOGICAL: Denies any bleeding or petechiae. GENITOURINARY: Denies any burning micturition, frequency, or urgency. MUSCULOSKELETAL/RHEUMATOLOGICAL: Denies any joint pain, swelling, or any muscle pain. ENDOCRINE: Denies any polyuria or polydipsia. Past Medical History Past Medical History: Cancer, COPD, CVA/TIA, Hyperlipidemia, Hypertension, Seizure Disorder Additional Past Medical History / Comment(s): epilepsy, thoracic outlet syndrome, History of Any Multi-Drug Resistant Organisms: None Reported Past Surgical History: Appendectomy, Hysterectomy Additional Past Surgical History / Comment(s): removed CA on skin L arm Past Anesthesia/Blood Transfusion Reactions: No Reported Reaction Past Psychological History: Anxiety Additional Psychological History / Comment(s): due to current medical situation Smoking Status: Former smoker Past Alcohol Use History: None Reported Additional Past Alcohol Use History / Comment(s): quit about 12 years ago Past Drug Use History: None Reported - Past Family History Mother History Unknown: Yes Medications and Allergies Home Medications Medication Instructions Recorded Confirmed Type Albuterol Sulfate [Albuterol 2 puff PO RT-QID PRN 06/23/24 06/23/24 History Sulfate Hfa] Apixaban [Eliquis] 5 mg PO BID 06/23/24 06/23/24 History Fluticasone/Vilanterol [Breo 1 puff INHALATION RT-DAILY 06/23/24 06/23/24 History Ellipta 200-25 Mcg Inhaler] Furosemide [Lasix] 20 mg PO DAILY 06/23/24 06/23/24 History Ipratropium Nebulized [Atrovent 0.5 mg INHALATION RT-QID PRN 06/23/24 06/23/24 History Nebulized 0.2 MG/ML] Phenytoin Sodium Extended 100 mg PO TID 06/23/24 06/23/24 History [Dilantin] Rosuvastatin [Crestor] 10 mg PO HS 06/23/24 06/23/24 History Spironolactone [Aldactone] 12.5 mg PO DAILY 06/23/24 06/23/24 History aMILoride HCL 5 mg PO DAILY 06/23/24 06/23/24 History risperiDONE [RisperDAL] 1 mg PO DAILY 06/23/24 06/23/24 History Allergies Allergy/AdvReac Type Severity Reaction Status Date / Time bacitracin Allergy Rash/Hives Verified 06/23/24 15:39 [From Neosporin ([id number])] dexamethasone [From Maxitrol] Allergy FACE Verified 06/23/24 15:39 SWELLING hydromorphone [From Dilaudid] Allergy makes head Verified 06/23/24 15:39 spin neomycin [From Maxitrol] Allergy FACE Verified 06/23/24 15:39 SWELLING polymyxin B [From Maxitrol] Allergy FACE Verified 06/23/24 15:39 SWELLING isopropyl alcohol AdvReac Nausea Verified 06/23/24 15:39 Physical Exam Vitals: Vital Signs Temp Pulse Resp BP Pulse Ox 06/23/24 17:45 85 18 135/77 93 L 06/23/24 16:44 85 18 135/77 92 L 06/23/24 14:45 83 18 124/85 93 L 06/23/24 12:43 97.9 F 105 H 18 134/66 93 L 06/23/24 11:52 98.4 F 117 H 20 159/85 92 L Intake and Output 06/23/24 06/23/24 06/23/24 06:59 14:59 22:59 Other: Weight 63.503 kg 63.503 kg GENERAL: The patient is alert and oriented x3, not in any acute distress. Well developed, well nourished. HEENT: Pupils are round and equally reacting to light. EOMI. No scleral icterus. No conjunctival pallor. Normocephalic, atraumatic. No pharyngeal erythema. No thyromegaly. CARDIOVASCULAR: S1 and S2 present. No murmurs, rubs, or gallops. PULMONARY: Chest is clear to auscultation, no wheezing , no crackles. ABDOMEN: Soft, nontender, nondistended, normoactive bowel sounds. No palpable organomegaly. MUSCULOSKELETAL: No joint swelling or deformity. -EXTREMITIES: No cyanosis, clubbing, or pedal edema. Left leg swollen, tender and warm and red NEUROLOGICAL: Gross neurological examination did not reveal any focal deficits. SKIN: No rashes. no petechiae. Results CBC & Chem 7: 06/23/24 12:21 06/23/24 12:21 Labs: Abnormal Lab Results - Last 24 Hours (Table) 06/23/24 06/23/24 Range/Units 12:21 12:21 WBC 17.7 H (3.8-10.6) k/uL Neutrophils # 14.8 H (1.3-7.7) k/uL Monocytes # 1.4 H (0-1.0) k/uL Sodium 136 L (137-145) mmol/L BUN 19 H (7-17) mg/dL Glucose 264 H (74-99) mg/dL Alkaline Phosphatase 184 H (38-126) U/L Thrombosis Risk Factor Assmnt - Choose All That Apply Any of the Below Risk Factors Present?: Yes Each Risk Factor Represents 2 Points: Age 61-74 years Thrombosis Risk Factor Assessment Total Risk Factor Score: 2 Thrombosis Risk Factor Assessment Level: Low Risk Assessment and Plan Assessment: Acute left leg cellulitis Left lung mass with left adrenal nodule, rule out malignancy Depression and suicidal ideation Hyperlipidemia Hypertension Seizure disorder History of CVA/TIA Plan: Start cefazolin and consult infectious disease team Patient will need to be evaluated by pulmonary team Patient already evaluated by psychiatry seen with suicidal precaution and sitter at bedside Petition and CERT are signed and placed in the chart Labs and medication were reviewed.. Continue same treatment. Continue with symptomatic treatment. Resume home medication. Monitor labs and vitals. DVT and GI prophylaxis. Further recommendations as per clinical course of the patient DVT prophylaxis: Subc Eliquis GI Prophylaxis: Pepcid PT/OT: Pending Prognosis is guarded
[2024-06-24] MEDS ORDERED: FAMOTIDINE 20 MG/2 ML VIAL IV SCH (21:00)
[2024-06-24] MEDS: FAMOTIDINE 20 MG TAB PO SCH (21:22)
--- NOTE | 2024-06-25 03:40 | P.CNPUL ---
History of Present Illness Consult date: 06/25/24 Requesting physician: Thiago E Sheet Reason for consult: lung mass Chief complaint: Suicidal ideation History of present illness: Patient is a 74-year-old female with past medical history significant for abdominal mass, hypertension, DVT, CVA/TIA, former heavy tobacco use, COPD, and left lung nodule. Her primary care provider is Dr. Isauro Nath. Pulmonary consulted for a left lung mass. Note that back in February, she did have a PET scan showing a 2.3 x 1.3 cm lateral left midlung nodule with an SUV 3.6. Findings were highly suspicious for slowly enlarging focus of lung cancer. She also had a massive cyst filling the pelvis and mid to lower abdomen measuring up to 24.9 cm without hypermetabolic uptake. Eventually, underwent debulking surgery at outside facility. Patient denies any outpatient follow-up in regards to her left lung nodule. Unclear if she is established with an oncologist. Patient actually admitted back on 06/23/2024 for suicidal ideation. Apparently, was attempting to steal some tweezers. When police arrived, she expressed ideas of shooting herself. Brought in by police. Patient is currently being evaluated on the general medical floor. She is currently resting comfortably in bed, on room air. There is a safety lamp keeper at bedside. She is a questionable historian, and is unfamiliar with much of her past medical history. Denies pulmonary complaints. Denies shortness of breath, sputum production, chest pain, hemoptysis. Occasional nonproductive cough reported. admits to recent unintentional weight loss. She has history of heavy tobacco use, smoking 2 packs/day for approximately [address] done without contrast showing an enlarging left midlung mass measuring up to 7.5 cm concerning for malignancy. No obvious lymphadenopathy on nonenhanced CT. Left adrenal indeterminate nodule in the setting of a mass. Patient states that she is unsure if she would want to undergo biopsy. States she is unsure how she would pay for any procedures or treatment. Not currently voicing any suicidal thoughts. She is concerned about her financial state. Patient also reports a left leg injury. She reportedly had a fall at [employer] earlier in the week when trying to get into her brother's truck. She developed left leg bruising, she does take Eliquis on an outpatient basis. Denies any head trauma or losing consciousness. Current vitals: Temperature 98.8 F, heart rate 77 bpm, blood pressure 120/58 mmHg, nontachypneic, SpO2 93% on room air. Review of Systems Constitutional: Reports fatigue, Reports weakness, Reports weight loss, Denies chills, Denies fever, Denies poor appetite, Denies weight gain Ears, nose, mouth and throat: Denies headache, Denies nasal congestion, Denies nasal discharge, Denies neck lump, Denies post-nasal drip, Denies sinus pressure, Denies sore throat, Denies voice changes Cardiovascular: Denies chest pain, Denies dyspnea on exertion, Denies leg edema, Denies orthopnea, Denies palpitations, Denies paroxysmal nocturnal dyspnea, Denies syncope Respiratory: Reports as per HPI Gastrointestinal: Denies abdominal pain, Denies change in bowel habits, Denies c onstipation, Denies diarrhea, Denies loss of appetite, Denies nausea, Denies vomiting Genitourinary: Denies dysuria Musculoskeletal: Denies limitation of motion Integumentary: Reports color changes, Reports unusual bruising Neurological: Denies seizures, Denies syncope Psychiatric: Reports depression, Reports suicidal ideation, Denies anxiety Hematologic/Lymphatic: Denies lymphadenopathy Past Medical History Past Medical History: Cancer, COPD, CVA/TIA, Hyperlipidemia, Hypertension, Seizure Disorder Additional Past Medical History / Comment(s): epilepsy, thoracic outlet syndrome, History of Any Multi-Drug Resistant Organisms: None Reported Past Surgical History: Appendectomy, Hysterectomy Additional Past Surgical History / Comment(s): removed CA on skin L arm Past Anesthesia/Blood Transfusion Reactions: No Reported Reaction Past Psychological History: Anxiety Smoking Status: Former smoker Past Alcohol Use History: None Reported Past Drug Use History: None Reported - Past Family History Mother History Unknown: Yes Medications and Allergies Home Medications Medication Instructions Recorded Confirmed Type Albuterol Sulfate [Albuterol 2 puff PO RT-QID PRN 06/23/24 06/23/24 History Sulfate Hfa] Apixaban [Eliquis] 5 mg PO BID 06/23/24 06/23/24 History Fluticasone/Vilanterol [Breo 1 puff INHALATION RT-DAILY 06/23/24 06/23/24 History Ellipta 200-25 Mcg Inhaler] Furosemide [Lasix] 20 mg PO DAILY 06/23/24 06/23/24 History Ipratropium Nebulized [Atrovent 0.5 mg INHALATION RT-QID PRN 06/23/24 06/23/24 History Nebulized 0.2 MG/ML] Phenytoin Sodium Extended 100 mg PO TID 06/23/24 06/23/24 History [Dilantin] Rosuvastatin [Crestor] 10 mg PO HS 06/23/24 06/23/24 History Spironolactone [Aldactone] 12.5 mg PO DAILY 06/23/24 06/23/24 History aMILoride HCL 5 mg PO DAILY 06/23/24 06/23/24 History risperiDONE [RisperDAL] 1 mg PO DAILY 06/23/24 06/23/24 History Allergies Allergy/AdvReac Type Severity Reaction Status Date / Time bacitracin Allergy Rash/Hives Verified 06/23/24 15:39 [From Neosporin ([id number])] dexamethasone [From Maxitrol] Allergy FACE Verified 06/23/24 15:39 SWELLING hydromorphone [From Dilaudid] Allergy makes head Verified 06/23/24 15:39 spin neomycin [From Maxitrol] Allergy FACE Verified 06/23/24 15:39 SWELLING polymyxin B [From Maxitrol] Allergy FACE Verified 06/23/24 15:39 SWELLING isopropyl alcohol AdvReac Nausea Verified 06/23/24 15:39 Physical Exam Vitals: Vital Signs Temp Pulse Pulse Resp BP Pulse Ox 06/24/24 19:46 77 06/24/24 19:39 72 06/24/24 19:04 98.6 F 72 17 119/67 94 L 06/24/24 16:01 72 06/24/24 15:49 72 06/24/24 13:47 98.1 F 71 18 105/65 90 L 06/24/24 12:14 68 06/24/24 12:03 68 06/24/24 08:56 72 06/24/24 08:43 68 06/24/24 06:51 98.4 F 69 17 115/66 92 L Intake and Output 06/24/24 06/24/24 06/25/24 14:59 22:59 06:59 Intake Total 390 Balance 390 Intake: Intake, IV Titration 50 Amount ceFAZolin 2 gm In Sodium 50 Chloride 0.9% 50 ml @ 100 mls/hr IVPB Q[facility]H [facility] Rx# :[id number] Oral 340 Other: # Voids 2 GENERAL EXAM: Alert, 74-year-old white female, frail in appearance, comfortable in no apparent distress. HEAD: Normocephalic and atraumatic EYES: Normal reaction of pupils, equal size. NOSE: Clear with pink turbinates. THROAT: No erythema or exudates. NECK: No masses, no JVD. CHEST: No chest wall deformity. LUNGS: Equal air entry with no crackles, wheeze, rhonchi or dullness. On room air. No conversational dyspnea or accessory muscle use.. CVS: S1 and S2 normal with no audible murmur, regular rhythm. No extra heart sounds ABDOMEN: No hepatosplenomegaly, active bowel sounds, no guarding or rigidity. SPINE: No scoliosis or deformity SKIN: Left anterior caal bruising, erythema, warm and tender, outlined CENTRAL NERVOUS SYSTEM: No focal deficits, tone is normal in all 4 extremities. EXTREMITIES: There is no peripheral edema, clubbing, or cyanosis. Peripheral pulses are intact. Results - Laboratory Findings CBC and BMP: 06/23/24 12:21 06/23/24 12:21 Abnormal lab findings: Abnormal Labs 06/23/24 06/23/24 06/24/24 12:21 12:21 00:54 WBC 17.7 H Neutrophils # 14.8 H Monocytes # 1.4 H Sodium 136 L BUN 19 H Glucose 264 H Alkaline Phosphatase 184 H Urine Appearance Cloudy H Urine Protein 1+ H Ur Leukocyte Esterase Small H Urine WBC 14 H Urine WBC Clumps Rare H Urine Bacteria Many H Urine Mucus Many H Ur Barbiturates Screen Detected H U Benzodiazepines Scrn Detected H - Diagnostic Findings CT scan - chest: image reviewed Assessment and Plan Assessment: Enlarging left lung mass, measuring up to 7.5 cm, concerning for possible malignancy. No obvious lymphadenopathy on nonenhanced CT of the chest. Left adrenal indeterminate nodule in the setting of a mass. History of heavy former tobacco use, greater than 30 pack-years Chronic obstructive pulmonary disease, inactive and stable Possible left leg cellulitis Acute leukocytosis Hypertension History of DVT, anticoagulated Eliquis on outpatient basis History of CVA/TIA History of seizure disorder Major depression and suicidal ideation Plan: Patient's medications, labs, chest CT reviewed Findings concerning for enlarging left midlung mass, measuring up to 7.5 cm, concerning for possible malignancy. CT findings were discussed with the patient. Case will be discussed with Dr. Mcclendon, patient would likely be candidate for bronchoscopy with transbronchial biopsies. If biopsy is planned, Eliquis would need to be held Patient is currently on suicide precautions and is petitioned Sitter is at the bedside We will continue to follow, additional recommendations to follow I have personally seen and examined the patient, performed the documentation and the assessment and plan as written. Number of minutes spent on the visit:20 This dictation was produced using [employer] dictation software please excuse grammatical errors Time with Patient: Greater than 30
--- NOTE | 2024-06-25 07:53 | P.CONS ---
History of Present Illness - Reason for Consult Consult date: 06/24/24 Left leg cellulitis Requesting physician: Thiago E Sheet - Chief Complaint Fall left leg pain and swelling x 2 days - History of Present Illness Patient is a 74-year-old female with a past medical history significant for hypertension hyperlipidemia seizure disorder CVA TIA COPD presenting to the hospital for evaluation of suicidal thoughts, patient also have a fall 2 days after slipping on the ice hit the back of the head with a cement denies any loss of conscious has developed pain progress to the left lower extremity has been complaining of pain and swelling to the left leg more of a dull aching mild to moderate intensity without radiation with associated swelling and some redness no open wound or any drainage on presentation to the hospital patient was afebrile and no fever have bradycardia subsequently patient was not tachycardic hypotensive or hypoxic did have a white count of 17.7 creatinine 0.64 urine has been mildly positive urine drug screen was positive for barbiturates and benzo influenza RSV COVID testing was negative patient did have a x-ray of the tibia-fibula that was negative for any fracture with soft tissue edema anterior leg and no evidence of bony abnormality or gas had cervical spine CT left upper lung masslike consolidation concerning for malignancy no acute territorial process report injury left parietal region patient also have a CT of the chest left midlung mass no evidence of lymphadenopathy mild emphysematous changes cholelithiasis patient was started on cefazolin infectious he was consulted for management of the left lower extremity cellulitis Review of Systems Positive point and negatives has been mentioned in the HPI, complete review of systems was performed and all other systems are negative Past Medical History Past Medical History: Cancer, COPD, CVA/TIA, Hyperlipidemia, Hypertension, Seizure Disorder Additional Past Medical History / Comment(s): epilepsy, thoracic outlet syndrome, History of Any Multi-Drug Resistant Organisms: None Reported Past Surgical History: Appendectomy, Hysterectomy Additional Past Surgical History / Comment(s): removed CA on skin L arm Past Anesthesia/Blood Transfusion Reactions: No Reported Reaction Past Psychological History: Anxiety Additional Psychological History / Comment(s): due to current medical situation Smoking Status: Former smoker Past Alcohol Use History: None Reported Additional Past Alcohol Use History / Comment(s): quit about 12 years ago Past Drug Use History: None Reported - Past Family History Mother History Unknown: Yes Medications and Allergies Home Medications Medication Instructions Recorded Confirmed Type Albuterol Sulfate [Albuterol 2 puff PO RT-QID PRN 06/23/24 06/23/24 History Sulfate Hfa] Apixaban [Eliquis] 5 mg PO BID 06/23/24 06/23/24 History Fluticasone/Vilanterol [Breo 1 puff INHALATION RT-DAILY 06/23/24 06/23/24 History Ellipta 200-25 Mcg Inhaler] Furosemide [Lasix] 20 mg PO DAILY 06/23/24 06/23/24 History Ipratropium Nebulized [Atrovent 0.5 mg INHALATION RT-QID PRN 06/23/24 06/23/24 History Nebulized 0.2 MG/ML] Phenytoin Sodium Extended 100 mg PO TID 06/23/24 06/23/24 History [Dilantin] Rosuvastatin [Crestor] 10 mg PO HS 06/23/24 06/23/24 History Spironolactone [Aldactone] 12.5 mg PO DAILY 06/23/24 06/23/24 History aMILoride HCL 5 mg PO DAILY 06/23/24 06/23/24 History risperiDONE [RisperDAL] 1 mg PO DAILY 06/23/24 06/23/24 History Allergies Allergy/AdvReac Type Severity Reaction Status Date / Time bacitracin Allergy Rash/Hives Verified 06/23/24 15:39 [From Neosporin ([id number])] dexamethasone [From Maxitrol] Allergy FACE Verified 06/23/24 15:39 SWELLING hydromorphone [From Dilaudid] Allergy makes head Verified 06/23/24 15:39 spin neomycin [From Maxitrol] Allergy FACE Verified 06/23/24 15:39 SWELLING polymyxin B [From Maxitrol] Allergy FACE Verified 06/23/24 15:39 SWELLING isopropyl alcohol AdvReac Nausea Verified 06/23/24 15:39 Physical Exam Vitals: Vital Signs Temp Pulse Pulse Resp BP BP Pulse Ox 06/24/24 12:14 68 06/24/24 12:03 68 06/24/24 08:56 72 06/24/24 08:43 68 06/24/24 06:51 98.4 F 69 17 115/66 92 L 06/24/24 00:00 98.9 F 71 16 125/68 93 L 06/23/24 19:55 88 06/23/24 19:48 85 06/23/24 18:38 98.4 F 72 18 130/78 94 L 06/23/24 17:45 85 18 135/77 93 L 06/23/24 16:44 85 18 135/77 92 L 06/23/24 14:45 83 18 124/85 93 L Intake and Output 06/23/24 06/24/24 06/24/24 22:59 06:59 14:59 Intake Total 150 340 Balance 150 340 Intake: Oral 150 340 Other: # Voids 1 3 2 Weight 63.503 kg 47.5 kg GENERAL DESCRIPTION: Elderly female lying in bed, no distress. No tachypnea or accessory muscle of respiration use. HEENT: Shows Pallor , no scleral icterus. Oral mucous membrane is dry. No p haryngeal erythema or thrush NECK: Trachea central, no thyromegaly. LUNGS: Unlabored breathing. Clear to auscultation anteriorly. No wheeze or crackle. HEART: S1, S2, regular rate and rhythm. No loud murmur ABDOMEN: Soft, no tenderness , guarding or rigidity, no organomegaly EXTREMITIES: Left lower extremity with significant swelling bruising mild redness and warm to touch SKIN: No rash, no masses palpable. NEUROLOGICAL: The patient is awake, alert, oriented x3, mood and affect normal. Results CBC & Chem 7: 06/23/24 12:21 06/23/24 12:21 Labs: Abnormal Lab Results - Last 24 Hours (Table) 06/24/24 Range/Units 00:54 Urine Appearance Cloudy H (Clear) Urine Protein 1+ H (Negative) Ur Leukocyte Esterase Small H (Negative) Urine WBC 14 H (0-5) /hpf Urine WBC Clumps Rare H (None) /hpf Urine Bacteria Many H (None) /hpf Urine Mucus Many H (None) /hpf Ur Barbiturates Screen Detected H (NotDetected) U Benzodiazepines Scrn Detected H (NotDetected) Assessment and Plan (1) Left leg cellulitis Current Visit: Yes Status: Acute Code(s): L03.116 - CELLULITIS OF LEFT LOWER LIMB SNOMED Code(s): 71754224971912058 (2) Leukocytosis Current Visit: No Status: Acute Code(s): D72.829 - ELEVATED WHITE BLOOD CELL COUNT, UNSPECIFIED SNOMED Code(s): 150141716 Plan: 1patient presented to hospital with suicidal ideation this patient who recently did have a fall and developed significant bruising to the left lower extremity and a complaint of cellulitis x-rays were negative for any fracture. 2 Nursing staff has been advised to [place] the area of the redness. 3cefazolin 2 g every 8 hours should provide adequate antibiotic coverage. We will follow on clinical condition and cultures to further adjust medication if needed Thank you for this consultation we will follow the patient along with you Dictation was produced using [employer] dictation software. please excuse any grammatical, word or spelling errors.
[2024-06-25 08:59] LABS: HGB 13.5 g/dL (12.0-15.0); MCH 30.5 pg (27.0-32.0); MCHC 32.1 g/dL (32.0-37.0); MCV 94.8 FL (80.0-97.0); NRBC Per 100 WBC 0 X 10*3/uL (0.00-0.01); Platelet Count 273 X 10*3/uL (140-440); RBC 4.43 X 10*6/uL (4.10-5.20); RDW 12.8 % (11.5-14.5); WBC 12.72 X 10*3/uL (4.50-10.00)
[2024-06-25 09:39] LABS: Blood Urea Nitrogen 9.3 mg/dL (9.0-27.0); Calcium 8.6 mg/dL (8.7-10.3); Carbon Dioxide 29.2 mmol/L (21.6-31.8); Chloride 100 mmol/L (96-109); Glucose 132 mg/dL (70-110); Potassium 4.3 mmol/L (3.5-5.5); Sodium 140 mmol/L (135-145)
[2024-06-25 10:29] LABS: Basophils # (A) 0.06 X 10*3/uL (0.00-0.10); Basophils % (A) 0.5 %; Eosinophils # (A) 0.37 X 10*3/uL (0.04-0.35); Eosinophils % (A) 2.9 %; Lymphocytes # (A) 1.35 X 10*3/uL (0.90-5.00); Lymphocytes % (A) 10.6 %; Monocytes # (A) 1.63 X 10*3/uL (0.20-1.00); Monocytes % (A) 12.8 %; Neutrophils # (A) 9.23 X 10*3/uL (1.80-7.70); Neutrophils % (A) 72.6 %
[2024-06-25 12:05] LABS: Glucose,Whole Blood 116 mg/dL (70-110)
--- NOTE | 2024-06-25 12:08 | P.PN ---
Subjective Progress Note Date: 06/25/24 Principal diagnosis: Reason for follow-up is left lower extremity cellulitis and leukocytosis Patient is a 74-year-old female with a past medical history significant for hypertension hyperlipidemia seizure disorder CVA TIA COPD presenting to the hospital for evaluation of suicidal thoughts also have a recent fall with bruise and cellulitis of the left lower extremity prompted this consultation On today's evaluation that is 06/25/2023, patient has been afebrile, patient is breathing comfortably and is currently on room air, patient denies having any significant cough no chest pain, patient denies nausea vomiting or diarrhea and no abdominal pain patient mention pain to the left leg has decreased in intensity. Patient white count is down to 12.72, creatinine 0.6 Objective - Vital Signs Vital signs: Vital Signs Temp 98.7 F 06/25/24 06:51 Pulse 84 06/25/24 08:03 Resp 17 06/25/24 06:51 BP 133/59 06/25/24 06:51 Pulse Ox 92 L 06/25/24 06:51 FiO2 Intake & Output 06/24/24 06/25/24 06/25/24 18:59 06:59 18:59 Intake Total 390 Balance 390 Weight 55.9 kg Intake: Intake, IV Titration 50 Amount ceFAZolin 2 gm In Sodium 50 Chloride 0.9% 50 ml @ 100 mls/hr IVPB Q12H [facility] Rx# :[id number] Oral 340 Other: # Voids 2 2 - Exam GENERAL DESCRIPTION: An elderly female lying in bed in no distress RESPIRATORY SYSTEM: Unlabored breathing , decreased breath sounds at bases HEART: S1 S2 regular rate and rhythm , ABDOMEN: Soft , no tenderness EXTREMITIES: Left leg swelling and redness has decreased - Labs CBC & Chem 7: 06/25/24 04:08 06/25/24 04:08 Labs: Abnormal Lab Results - Last 24 Hours (Table) 06/25/24 06/25/24 06/25/24 Range/Units 04:08 04:08 12:00 WBC 12.72 H (4.50-10.00) X 10*3/uL Immature Gran # 0.08 H (0.00-0.04) X 10*3/uL Neutrophils # 9.23 H (1.80-7.70) X 10*3/uL Monocytes # 1.63 H (0.20-1.00) X 10*3/uL Eosinophils # 0.37 H (0.04-0.35) X 10*3/uL Glucose 132 H (70-110) mg/dL POC Glucose (mg/dL) 116 H (70-110) mg/dL Calcium 8.6 L (8.7-10.3) mg/dL Assessment and Plan (1) Left leg cellulitis Current Visit: Yes Status: Acute Code(s): L03.116 - CELLULITIS OF LEFT LOWER LIMB SNOMED Code(s): 80531868804815833 (2) Leukocytosis Current Visit: No Status: Acute Code(s): D72.829 - ELEVATED WHITE BLOOD CELL COUNT, UNSPECIFIED SNOMED Code(s): 328497586 Plan: 1patient presented to hospital with suicidal ideation this patient who recently did have a fall and developed significant bruising to the left lower extremity and a complaint of cellulitis x-rays were negative for any fracture. 2patient with leukocytosis related to the left lower extremity cellulitis which is trending down 3patient left leg redness slightly decreased, currently treated cefazolin 2 g every 8 hours and monitor clinical course closely Dictation was produced using [employer] dictation software. please excuse any grammatical, word or spelling errors. Time with Patient: Less than 30
[2024-06-25] MEDS: ACETAMINOPHEN TAB 325 MG TAB PO PRN (13:06)
--- NOTE | 2024-06-25 13:29 | P.PN ---
Subjective Progress Note Date: 06/25/24 This is a patient admitted with enlarging left lung mass, concerning for possible malignancy, dementia, depression and multiple other medical issues. Pulmonary recommending further outpatient workup including diagnostic bronchoscopy with biopsies. Continues on suicide precautions with sitter at bedside. Evaluated by psychiatry, with recommendations noted. Denies chest pain, palpitations or shortness of breath. Maintaining O2 sats in the low 90s on room air. Afebrile, WBC 12.72. Hemoglobin 13.5, platelets 273, chemistry panel unremarkable. Objective - Vital Signs Vital signs: Vital Signs Temp 98.7 F 06/25/24 06:51 Pulse 84 06/25/24 08:03 Resp 17 06/25/24 06:51 BP 133/59 06/25/24 06:51 Pulse Ox 92 L 06/25/24 06:51 FiO2 Intake & Output 06/24/24 06/25/24 06/25/24 18:59 06:59 18:59 Intake Total 390 Balance 390 Weight 55.9 kg Intake: Intake, IV Titration 50 Amount ceFAZolin 2 gm In Sodium 50 Chloride 0.9% 50 ml @ 100 mls/hr IVPB Q12H [facility] Rx# :[id number] Oral 340 Other: # Voids 2 2 - Exam GENERAL:alert and oriented x3, no acute distress. HEENT: Normocephalic, atraumatic ,pupils are round and equally reacting to light. EOMI. No scleral icterus. No conjunctival pallor. CARDIOVASCULAR: S1 and S2 present. No murmurs, rubs, or gallops. PULMONARY: Unlabored, equal air entry ,CTA, no wheezing , no crackles. ABDOMEN: Soft, nontender, nondistended, normoactive bowel sounds. No palpable organomegaly. -EXTREMITIES: No cyanosis, clubbing, or pedal edema. Left Lower anterior extremity with hematoma/cellulitis, outlined- improving. NEUROLOGICAL: Gross neurological examination did not reveal any focal deficits. SKIN: No rashes. Warm and dry. - Labs CBC & Chem 7: 06/25/24 04:08 06/25/24 04:08 Labs: Abnormal Lab Results - Last 24 Hours (Table) 06/25/24 06/25/24 06/25/24 Range/Units 04:08 04:08 12:00 WBC 12.72 H (4.50-10.00) X 10*3/uL Immature Gran # 0.08 H (0.00-0.04) X 10*3/uL Neutrophils # 9.23 H (1.80-7.70) X 10*3/uL Monocytes # 1.63 H (0.20-1.00) X 10*3/uL Eosinophils # 0.37 H (0.04-0.35) X 10*3/uL Glucose 132 H (70-110) mg/dL POC Glucose (mg/dL) 116 H (70-110) mg/dL Calcium 8.6 L (8.7-10.3) mg/dL Assessment and Plan Assessment: Acute left leg cellulitis, hematoma secondary to fall, improving Left progressive lung mass with left adrenal nodule, suspicious for malignancy, possibly bronchogenic carcinoma as per pulmonary, further workup outpatient Depression and suicidal ideation Hyperlipidemia Hypertension Seizure disorder History of CVA/TIA Heavy former nicotine dependence, greater than 30 pack years Plan: Continue on current medication regimen ,monitoring and symptomatic treatment. PT/OT evaluation pending. case management assisting with discharge planning. Suicide precautions maintained. Psychiatry following. The impression and plan of care has been dictated as directed. : I performed a history and examination of this patient, discussed the same with the dictator. I agree with the dictator's note ,documented as a scribe. Any additional findings or plans will be noted.
[2024-06-25 16:40] LABS: Glucose,Whole Blood 95 mg/dL (70-110)
[2024-06-25 17:53] VITALS: BMI 22.5
--- NOTE | 2024-06-26 14:28 | P.DS ---
Providers Date of admission: 06/23/24 16:36 Expected date of discharge: 06/26/24 Attending physician: Isauro Nath Consults: 06/23/24 16:36 Consult Physician Routine Consulting Provider: Psychiatry - [facility] Psychiatry Consult Reason/Comments: Suicidal thoughts Do you want consulting provider notified?: Already Contacted 06/24/24 13:21 Consult Physician Routine Consulting Provider: Cara Marx Consult Reason/Comments: left lung mass Do you want consulting provider notified?: Yes Consult Physician Routine Consulting Provider: Shaheen Xie Consult Reason/Comments: leg cellulitis Do you want consulting provider notified?: Yes Primary care physician: Isauro Nath [facility] Course: Final Diagnoses: Acute left leg cellulitis, hematoma secondary to fall, improving Left progressive lung mass with left adrenal nodule, suspicious for malignancy, possibly bronchogenic carcinoma as per pulmonary, further workup outpatient Depression and suicidal ideation Hyperlipidemia Hypertension Seizure disorder History of CVA/TIA Heavy former nicotine dependence, greater than 30 pack years Hospital course:This is a patient admitted with enlarging left lung mass, concerning for possible malignancy, dementia, depression and multiple other medical issues. Pulmonary recommending further outpatient workup including diagnostic bronchoscopy with biopsies. Continues on suicide precautions with sitter at bedside. Evaluated by psychiatry, with recommendations noted. Denies chest pain, palpitations or shortness of breath. Maintaining O2 sats in the low 90s on room air. Afebrile, WBC 12.72. Hemoglobin 13.5, platelets 273, chemistry panel unremarkable. Evaluated by PT recommending home at discharge .case management reporting patient will be accepted/enrolled into the [facility] on 07/07/24. Significant clinical improvement. Cleared by infectious disease for DC. Pulmonary recommending further outpatient workup. patient will be discharged home today in a stable condition with guarded prognosis pending DC of suicide precautions/health safety manager, final DC recommendations/clearance as per psychiatry. The impression and plan of care has been dictated as directed. : I performed a history and examination of this patient, discussed the same with the dictator. I agree with the dictator's note ,documented as a scribe. Any additional findings or plans will be noted. Patient Condition at Discharge: Stable Plan - Discharge Summary Discharge Rx Participant: Yes New Discharge Prescriptions: New Cephalexin [Keflex] 500 mg PO Q8HR #30 cap Continue Ipratropium Nebulized [Atrovent Nebulized 0.2 MG/ML] 0.5 mg INHALATION RT-QID PRN PRN Reason: Shortness Of Breath Fluticasone/Vilanterol [Breo Ellipta 200-25 Mcg Inhaler] 1 puff INHALATION RT-DAILY Phenytoin Sodium Extended [Dilantin] 100 mg PO TID Albuterol Sulfate [Albuterol Sulfate Hfa] 2 puff PO RT-QID PRN PRN Reason: Shortness Of Breath Apixaban [Eliquis] 5 mg PO BID aMILoride HCL 5 mg PO DAILY Rosuvastatin [Crestor] 10 mg PO HS Furosemide [Lasix] 20 mg PO DAILY risperiDONE [RisperDAL] 1 mg PO DAILY Discontinued Spironolactone [Aldactone] 12.5 mg PO DAILY Discharge Medication List Albuterol Sulfate [Albuterol Sulfate Hfa] 2 puff PO RT-QID PRN 06/23/24 [History] Apixaban [Eliquis] 5 mg PO BID 06/23/24 [History] Fluticasone/Vilanterol [Breo Ellipta 200-25 Mcg Inhaler] 1 puff INHALATION RT- DAILY 06/23/24 [History] Furosemide [Lasix] 20 mg PO DAILY 06/23/24 [History] Ipratropium Nebulized [Atrovent Nebulized 0.2 MG/ML] 0.5 mg INHALATION RT-QID PRN 06/23/24 [History] Phenytoin Sodium Extended [Dilantin] 100 mg PO TID 06/23/24 [History] Rosuvastatin [Crestor] 10 mg PO HS 06/23/24 [History] aMILoride HCL 5 mg PO DAILY 06/23/24 [History] risperiDONE [RisperDAL] 1 mg PO DAILY 06/23/24 [History] Cephalexin [Keflex] 500 mg PO Q8HR #30 cap 06/26/24 [Rx] Follow up Appointment(s)/Referral(s): Isauro Nath DO [Primary Care Provider] - 3 Days Jam Heck MD [STAFF PHYSICIAN] - 1 Week
--- NOTE | 2024-06-26 15:27 | P.PN ---
Subjective Progress Note Date: 06/26/24 Principal diagnosis: Reason for follow-up is left lower extremity cellulitis and leukocytosis Patient is a 74-year-old female with a past medical history significant for hypertension hyperlipidemia seizure disorder CVA TIA COPD presenting to the hospital for evaluation of suicidal thoughts also have a recent fall with bruise and cellulitis of the left lower extremity prompted this consultation On today's evaluation that is 06/26/2024, Patient is afebrile this morning patient denies having any chest pain shortness of breath or cough, the patient is currently on room air, patient denies any abdominal pain no diarrhea no nausea no vomiting pain to the left lower extremity has decreased in intensity. No new lab has been obtained today Objective - Vital Signs Vital signs: Vital Signs Temp 98.9 F 06/26/24 07:47 Pulse 65 06/26/24 08:50 Resp 16 06/26/24 08:50 BP 137/72 06/26/24 07:47 Pulse Ox 93 L 06/26/24 07:47 FiO2 Intake & Output 06/25/24 06/26/24 06/26/24 18:59 06:59 18:59 Weight 55.9 kg 57 kg Other: # Voids 3 2 # Bowel Movements 0 - Exam GENERAL DESCRIPTION: An elderly female lying in bed in no distress RESPIRATORY SYSTEM: Unlabored breathing , decreased breath sounds at bases HEART: S1 S2 regular rate and rhythm , ABDOMEN: Soft , no tenderness EXTREMITIES: Left leg swelling and redness has decreased - Labs CBC & Chem 7: 06/25/24 04:08 06/25/24 04:08 Assessment and Plan (1) Left leg cellulitis Current Visit: Yes Status: Acute Code(s): L03.116 - CELLULITIS OF LEFT LOWER LIMB SNOMED Code(s): 27084630628334957 (2) Leukocytosis Current Visit: No Status: Acute Code(s): D72.829 - ELEVATED WHITE BLOOD CELL COUNT, UNSPECIFIED SNOMED Code(s): 620441936 Plan: 1patient presented to hospital with suicidal ideation this patient who recently did have a fall and developed significant bruising to the left lower extremity and a complaint of cellulitis x-rays were negative for any fracture. 2patient with leukocytosis related to the left lower extremity cellulitis which is trending down 3patient left leg redness has decreased intensity to continue cefazolin 2 g every 8 hours and finishing therapy with oral Keflex Dictation was produced using [employer] dictation software. please excuse any grammatical, word or spelling errors.
--- NOTE | 2024-06-26 15:40 | P.PN ---
Subjective Progress Note Date: 06/26/24 Patient is a 74-year-old female with past medical history significant for abdominal mass, hypertension, DVT, CVA/TIA, former heavy tobacco use, COPD, and left lung nodule. Her primary care provider is Dr. Isauro Nath. Pulmonary consulted for a left lung mass. Note that back in February, she did have a PET scan showing a 2.3 x 1.3 cm lateral left midlung nodule with an SUV 3.6. Findings were highly suspicious for slowly enlarging focus of lung cancer. She also had a massive cyst filling the pelvis and mid to lower abdomen measuring up to 24.9 cm without hypermetabolic uptake. Eventually, underwent debulking surgery at outside facility. Patient denies any outpatient follow-up in regards to her left lung nodule. Unclear if she is established with an oncologist. Patient actually admitted back on 06/23/2024 for suicidal ideation. Apparently, was attempting to steal some tweezers. When police arrived, she expressed ideas of shooting herself. Brought in by police. Patient is currently being evaluated on the general medical floor. She is currently resting comfortably in bed, on room air. There is a director employee safety and health at bedside. She is a questionable historian, and is unfamiliar with much of her past medical history. Denies pulmonary complaints. Denies shortness of breath, sputum production, chest pain, hemoptysis. Occasional nonproductive cough reported. admits to recent un intentional weight loss. She has history of heavy tobacco use, smoking 2 packs/day for approximately [address] done without contrast showing an enlarging left midlung mass measuring up to 7.5 cm concerning for malignancy. No obvious lymphadenopathy on nonenhanced CT. Left adrenal indeterminate nodule in the setting of a mass. Patient states that she is unsure if she would want to undergo biopsy. States she is unsure how she would pay for any procedures or treatment. Not currently voicing any suicidal thoughts. She is concerned about her financial state. Patient also reports a left leg injury. She reportedly had a fall at [email or web address] earlier in the week when trying to get into her brother's truck. She developed left leg bruising, she does take Eliquis on an outpatient basis. Denies any head trauma or losing consciousness. Current vitals: Temperature 98.8 F, heart rate 77 bpm, blood pressure 120/58 mmHg, nontachypneic, SpO2 93% on room air. The patient is seen today June 26, 2024 in follow-up on the regular medical floor. She is currently sitting up in bed. Awake and alert in no acute distress. Denies any worsening shortness of breath, cough or congestion. She is maintaining good O2 saturations in the 90s on room air. She does have episodes of confusion. A director employee safety and health is at the bedside. She is continued on albuterol, Symbicort. Remains on IV diuretics. Remains on antibiotics in the form of cefazolin. Anticoagulated with Eliquis. Objective - Vital Signs Vital signs: Vital Signs Temp 98.2 F 06/26/24 12:49 Pulse 90 06/26/24 12:49 Resp 20 06/26/24 12:49 BP 160/81 06/26/24 12:49 Pulse Ox 94 L 06/26/24 12:49 FiO2 Intake & Output 06/25/24 06/26/24 06/26/24 18:59 06:59 18:59 Weight 55.9 kg 57 kg Other: # Voids 3 2 # Bowel Movements 0 - Exam GENERAL EXAM: Alert, 74-year-old female, frail in appearance, on room air, up walking with assistance, in no apparent distress. HEAD: Normocephalic and atraumatic EYES: Normal reaction of pupils, equal size. NOSE: Clear with pink turbinates. THROAT: No erythema or exudates. NECK: No masses, no JVD. CHEST: No chest wall deformity. LUNGS: Equal air entry with no crackles, wheeze, rhonchi or dullness. CVS: S1 and S2 normal with no audible murmur, regular rhythm. No extra heart sounds ABDOMEN: No hepatosplenomegaly, active bowel sounds, no guarding or rigidity. SPINE: No scoliosis or deformity SKIN: Left anterior caal bruising, erythema, warm and tender, outlined CENTRAL NERVOUS SYSTEM: No focal deficits, tone is normal in all 4 extremities. EXTREMITIES: There is no peripheral edema, clubbing, or cyanosis. Peripheral pulses are intact. - Labs CBC & Chem 7: 06/25/24 04:08 06/25/24 04:08 Assessment and Plan Assessment: Major depression and suicidal ideation. Seen and evaluated by psychiatry Enlarging left lung mass, measuring up to 7.5 cm, concerning for possible malignancy. No obvious lymphadenopathy on nonenhanced CT of the chest. Left adrenal indeterminate nodule in the setting of a mass History of heavy former tobacco use, greater than 30 pack-years Chronic obstructive pulmonary disease, inactive and stable Possible left leg cellulitis Acute leukocytosis Hypertension History of DVT, anticoagulated Eliquis on outpatient basis History of CVA/TIA History of seizure disorder Plan: The patient was seen and evaluated Medications reviewed Currently stable and on room air Up ambulating with assistance bindery helper at the bedside Discharge planning in place I have personally seen and examined the patient, performed the documentation and the assessment and plan as written. Number of minutes spent on the visit: 10. Dictation was produced using [employer] dictation software. Please excuse any grammatical, word or spelling errors.
--- NOTE | 2024-06-27 12:00 | P.PN ---
Progress Note - Text Progress Note Date: 06/27/24 Interval History: Patient was seen today for psychiatric follow-up as requested by primary care team. Patient has been petitioned by police, to certificates were done by ER doctor and also medicine doctor. Patient has been receiving treatment on the medical floors, she is currently on a one-to-one sitter. Nurse denies any issues with patient at this time other than she is requesting to be discharged today, not reporting any suicidal thoughts to her or no behavioral problems. Patient was seen laying in the bed agreeable to speak to keno writer/runner. She was fairly focused on discharge back home. Claims that she needs to get back home so she does not lose her Social Security benefits and also need to pay her rent. She did appear to be fared fairly future oriented about the things that she needs to accomplish, also spoke about regretting telling police that she wanted to harm herself. She is denying any significant depression at this time denying any anxiety. Claims that she just has stressors related mainly to finances and that she needed to pay a "$1000 energy bill". She was alert and oriented x 3 today, attempting to cooperate with most questions, following commands. Claims that she is sleeping fairly, appetite is improving. At this time patient denies any suicidal or homical ideations, intent or plan. Patient denies any auditory, visual hallucinations and denies any paranoia or delusions. Patient denies any side effects from the medications and has been compliant with meds. Warehouse Unloader attempted to speak with patient about getting started on an antidepressant medication however patient claims that she is a "severe epileptic" and states that she was on a antidepressant in the past and she had a negative reaction to it and claims that she would rather follow-up outpatient with a mental health provider to discuss this further and not start anything at this time. She c laims that she does have a friend that can come and check on her, she is future oriented denied any access to guns or weapons at this time. Mental Status Exam: General Appearance: Patient appears to be have short hair, uses a walker, stated age is alert, directable, and attempts to be cooperative. Behavior: Patient is calmly seated without any agitated behavior. Attempts to cooperate Speech: Patient's speech is fluent and nonpressured. Mood/Affect: Mood is improving mildly, no significant depression, affect is congruent and constricted. Suicidality/Homicidality: Patient denies having any suicidal or homicidal ideation intent or plan. Perceptions: Patient denies any visual hallucinations and denies any auditory hallucinations Though content/process: There is no evidence of any delusional thought content and thought process is linear and goal-directed. Focused on discharge Memory and concentration: AOX3, grossly intact for the purposes of this session Judgment and insight: Improving mildly Assessment Adjustment disorder with mixed depression and emotional disturbance Plan: -At this time patient DOES NOT meet criteria for inpatient psychiatric admission. -Delirium precautions recommended with patient including - avoiding use of narcotics and SYSTEM[employer]CH[employer]IC sedatives, limit anticholinergic medications when possible, frequent re-orientation, minimize use of restraints, open window shades during the day and close them at night -Would recommend the following medication changes/additions: Warehouse Unloader attempted to speak with patient about getting started on a low-dose of an antidepressant medication however patient adamantly refused at this time due to a negative previous reaction from 1 in the past. She did claim that she would be willing to speak with an outpatient provider about this after discharge. -Can discontinue 1:1 sitter at this time as patient is not currently an imminent threat to themselves -hot blast worker/CM to provide patient with outpatient mental health/psychiatry resources for appropriate follow up upon discharge -Communicated plan to patient's nurse -completed a negative certificate and placed in patients chart -Psychiatry will sign off at this time -Please contact with any questions.
--- NOTE | 2024-06-27 12:06 | P.PN ---
Subjective Progress Note Date: 06/27/24 Principal diagnosis: Reason for follow-up is left lower extremity cellulitis and leukocytosis Patient is a 74-year-old female with a past medical history significant for hypertension hyperlipidemia seizure disorder CVA TIA COPD presenting to the hospital for evaluation of suicidal thoughts also have a recent fall with bruise and cellulitis of the left lower extremity prompted this consultation On today's evaluation that is 06/27/2024,the patient denies any fever or any chills, patient is breathing comfortably on room air, the patient denies chest pain shortness of breath and no significant cough, patient denies abdominal pain, no nausea vomiting or diarrhea. Pain to the left leg has decreased in intensity. No new lab has been repeated today Objective - Vital Signs Vital signs: Vital Signs Temp 98.9 F 06/27/24 07:02 Pulse 88 06/27/24 08:35 Resp 16 06/27/24 08:35 BP 136/72 06/27/24 07:02 Pulse Ox 91 L 06/27/24 07:02 FiO2 Intake & Output 06/26/24 06/27/24 06/27/24 18:59 06:59 18:59 Intake Total 530 480 Balance 530 480 Weight 51 kg Intake: Intake, IV Titration 50 Amount ceFAZolin 2 gm In Sodium 50 Chloride 0.9% 50 ml @ 100 mls/hr IVPB Q8H [facility] Rx#: [id number] Oral 480 480 Other: Voiding Method Toilet Toilet # Voids 3 1 # Bowel Movements 1 - Exam GENERAL DESCRIPTION: An elderly female lying in bed in no distress RESPIRATORY SYSTEM: Unlabored breathing , decreased breath sounds at bases HEART: S1 S2 regular rate and rhythm , ABDOMEN: Soft , no tenderness EXTREMITIES: Left leg swelling and redness has decreased - Labs CBC & Chem 7: 06/25/24 04:08 06/25/24 04:08 Assessment and Plan (1) Left leg cellulitis Current Visit: Yes Status: Acute Code(s): L03.116 - CELLULITIS OF LEFT LOWER LIMB SNOMED Code(s): 79631016457576201 (2) Leukocytosis Current Visit: No Status: Acute Code(s): D72.829 - ELEVATED WHITE BLOOD CELL COUNT, UNSPECIFIED SNOMED Code(s): 532474153 Plan: 1patient presented to hospital with suicidal ideation this patient who recently did have a fall and developed significant bruising to the left lower extremity and a complaint of cellulitis x-rays were negative for any fracture. 2patient with leukocytosis related to the left lower extremity cellulitis which is trending down 3patient left leg redness has decreased intensity to continue cefazolin 2 g every 8 hours while inpatient however patient will be able to finish therapy with oral Keflex for about 7 days Dictation was produced using [employer] dictation software. please excuse any grammatical, word or spelling errors. Time with Patient: Less than 30
[2024-06-27 13:16] VITALS: BP 149/86; PULSE 86; RESP 14; TEMP 98.3
--- NOTE | 2024-06-27 14:32 | P.PN ---
Subjective Progress Note Date: 06/27/24 Patient is a 74-year-old female with past medical history significant for abdominal mass, hypertension, DVT, CVA/TIA, former heavy tobacco use, COPD, and left lung nodule. Her primary care provider is Dr. Isauro Nath. Pulmonary consulted for a left lung mass. Note that back in February, she did have a PET scan showing a 2.3 x 1.3 cm lateral left midlung nodule with an SUV 3.6. Findings were highly suspicious for slowly enlarging focus of lung cancer. She also had a massive cyst filling the pelvis and mid to lower abdomen measuring up to 24.9 cm without hypermetabolic uptake. Eventually, underwent debulking surgery at outside facility. Patient denies any outpatient follow-up in regards to her left lung nodule. Unclear if she is established with an oncologist. Patient actually admitted back on 06/23/2024 for suicidal ideation. Apparently, was attempting to steal some tweezers. When police arrived, she expressed ideas of shooting herself. Brought in by police. Patient is currently being evaluated on the general medical floor. She is currently resting comfortably in bed, on room air. There is a health safety instructor at bedside. She is a questionable historian, and is unfamiliar with much of her past medical history. Denies pulmonary complaints. Denies shortness of breath, sputum production, chest pain, hemoptysis. Occasional nonproductive cough reported. admits to recent un intentional weight loss. She has history of heavy tobacco use, smoking 2 packs/day for approximately [address] done without contrast showing an enlarging left midlung mass measuring up to 7.5 cm concerning for malignancy. No obvious lymphadenopathy on nonenhanced CT. Left adrenal indeterminate nodule in the setting of a mass. Patient states that she is unsure if she would want to undergo biopsy. States she is unsure how she would pay for any procedures or treatment. Not currently voicing any suicidal thoughts. She is concerned about her financial state. Patient also reports a left leg injury. She reportedly had a fall at [employer] earlier in the week when trying to get into her brother's truck. She developed left leg bruising, she does take Eliquis on an outpatient basis. Denies any head trauma or losing consciousness. Current vitals: Temperature 98.8 F, heart rate 77 bpm, blood pressure 120/58 mmHg, nontachypneic, SpO2 93% on room air. The patient is seen today June 26, 2024 in follow-up on the regular medical floor. She is currently sitting up in bed. Awake and alert in no acute distress. Denies any worsening shortness of breath, cough or congestion. She is maintaining good O2 saturations in the 90s on room air. She does have episodes of confusion. A health safety instructor is at the bedside. She is continued on albuterol, Symbicort. Remains on IV diuretics. Remains on antibiotics in the form of cefazolin. Anticoagulated with Eliquis. The patient is seen today June 27, 2024 in follow-up on the regular medical floor. She is awake and alert in no acute distress. Maintaining good O2 saturations in the 90s on room air. No IV fluids. She has been up ambulating with a walker. No new labs today. She denies any worsening shortness of breat h, cough or congestion. She is afebrile. Hemodynamically stable. She remains on Symbicort, albuterol. Anticoagulated with Eliquis. Objective - Vital Signs Vital signs: Vital Signs Temp 98.3 F 06/27/24 12:14 Pulse 86 06/27/24 12:14 Resp 14 06/27/24 12:17 BP 149/86 06/27/24 12:14 Pulse Ox 93 L 06/27/24 12:14 FiO2 Intake & Output 06/26/24 06/27/24 06/27/24 18:59 06:59 18:59 Intake Total 530 480 Balance 530 480 Weight 51 kg Intake: Intake, IV Titration 50 Amount ceFAZolin 2 gm In Sodium 50 Chloride 0.9% 50 ml @ 100 mls/hr IVPB Q8H [facility] Rx#: [id number] Oral 480 480 Other: Voiding Method Toilet Toilet # Voids 3 1 3 # Bowel Movements 1 - Exam GENERAL EXAM: Alert, 74-year-old female, frail in appearance, on room air, in no apparent distress. HEAD: Normocephalic and atraumatic EYES: Normal reaction of pupils, equal size. NOSE: Clear with pink turbinates. THROAT: No erythema or exudates. NECK: No masses, no JVD. CHEST: No chest wall deformity. LUNGS: Equal air entry with no crackles, wheeze, rhonchi or dullness. CVS: S1 and S2 normal with no audible murmur, regular rhythm. No extra heart sounds ABDOMEN: No hepatosplenomegaly, active bowel sounds, no guarding or rigidity. SPINE: No scoliosis or deformity SKIN: Left anterior caal bruising, erythema, warm and tender, outlined CENTRAL NERVOUS SYSTEM: No focal deficits, tone is normal in all 4 extremities. EXTREMITIES: There is no peripheral edema, clubbing, or cyanosis. Peripheral pulses are intact. - Labs CBC & Chem 7: 06/25/24 04:08 06/25/24 04:08 Assessment and Plan Assessment: Major depression and suicidal ideation. Seen and evaluated by psychiatry Enlarging left lung mass, measuring up to 7.5 cm, concerning for possible malignancy. No obvious lymphadenopathy on nonenhanced CT of the chest. Left adrenal indeterminate nodule in the setting of a mass History of heavy former tobacco use, greater than 30 pack-years Chronic obstructive pulmonary disease, inactive and stable Possible left leg cellulitis Acute leukocytosis Hypertension History of DVT, anticoagulated Eliquis on outpatient basis History of CVA/TIA History of seizure disorder Plan: The patient was seen and evaluated Medications reviewed Currently stable and on room air Discharge planning in place I have personally seen and examined the patient, performed the documentation and the assessment and plan as written. Number of minutes spent on the visit: 10. Dictation was produced using [employer] dictation software. Please excuse any g rammatical, word or spelling errors.
== END 2024-06-27 12:45 | disposition home or self-care (01) | DRG 603 ==
LOC: EC 11:50 → 3SCARD 16:36 → 4SSUR 16:57
PROVIDERS: ADMIT Family Medicine; ATTEND Family Medicine
DX: L03.116 Cellulitis of left lower limb (principal); C34.92 Malignant neoplasm of unspecified part of left bronchus or lung; E27.8 Other specified disorders of adrenal gland; F03.94 Unspecified dementia, unspecified severity, with anxiety; I10 Essential (primary) hypertension; G40.909 Epilepsy, unspecified, not intractable, without status epilepticus; F32.9 Major depressive disorder, single episode, unspecified; J43.9 Emphysema, unspecified; R45.851 Suicidal ideations; F03.93 Unspecified dementia, unspecified severity, with mood disturbance; K80.20 Calculus of gallbladder without cholecystitis without obstruction; E78.5 Hyperlipidemia, unspecified; W00.9XXA Unspecified fall due to ice and snow, initial encounter; S00.03XA Contusion of scalp, initial encounter; F43.23 Adjustment disorder with mixed anxiety and depressed mood; F17.210 Nicotine dependence, cigarettes, uncomplicated; S80.12XA Contusion of left lower leg, initial encounter; Y92.511 Restaurant or cafe as the place of occurrence of the external cause; Z79.01 Long term (current) use of anticoagulants; Z86.73 Personal history of transient ischemic attack (TIA), and cerebral infarction without residual deficits; Z88.8 Allergy status to other drugs, medicaments and biological substances; Z88.5 Allergy status to narcotic agent; Z88.1 Allergy status to other antibiotic agents; Z79.51 Long term (current) use of inhaled steroids; Z79.899 Other long term (current) drug therapy; Z86.718 Personal history of other venous thrombosis and embolism; Z59.86 Financial insecurity
CPT/HCPCS: 36415; 70450; 71250; 72125; 80048; 80053; 80143; 80179; 80306; 80320; 81001; 82075; 84443; 85025; 87636; 94640; 99285